=== PATIENT | male | born 1970 | race American Indian/Alaskan Native ===

== ENCOUNTER 2016-06-20 19:12 | Emergency (ER) | payer SELFPAY ==
[2016-06-20] MEDS ORDERED: CATAPRES ONE (19:29)
[2016-06-20] MEDS ORDERED: CATAPRES PO ONE (19:37)
[2016-06-20 20:20] LABS: Basophils % (Auto) 1.3 % (0.0-1.8); Hematocrit 42.1 % (35.5-45.6); Hemoglobin 13.5 gm/dl (11.8-15.2); Mean Corpuscular HGB Conc 32 % (32-34); Mean Corpuscular Hemoglobin 29 pg (28-32); Mean Corpuscular Volume 89 fl (84-94); Platelet Count 281 K/mm3 (140-440); Red Blood Count 4.72 M/mm3 (3.65-5.03); Red Cell Distribution Width 13.2 % (13.2-15.2); White Blood Count 9.4 K/mm3 (4.5-11.0)
[2016-06-20 20:38] LABS: Anion Gap 16 mmol/L; Blood Urea Nitrogen 13 mg/dL (9-20); Calcium 8.5 mg/dL (8.4-10.2); Carbon Dioxide 25 mmol/L (22-30); Chloride 98.7 mmol/L (98-107); Glucose 92 mg/dL (75-100); Sodium 136 mmol/L (137-145)
--- NOTE | 2016-06-20 22:38 | Emergency Department Report ---
HPI - General Chief Complaint: Dyspnea/Respdistress Time Seen by Provider: 06/20/16 22:07 - [facility] HPI: Room 10 The patient is a 45-year-old male presenting with a chief complaint of chest pain. The patient states that 10 days he's had intermittent substernal chest pain that comes on with exertion. The patient admits to shortness of breath, nausea/vomiting and diaphoresis associated with this chest pain. Patient states she has had a slight cough is occasionally productive of yellow sputum. Patient denies any history of fever. Patient states he's never had a stress test or cardiac catheterization. The patient states she has been off his blood pressure medication for quite some time. Patient states he does not remember the name of the medication he was taking but the small pills too strong. Patient was asked if his is taking clonidine and he states he cannot remember Location: Chest Duration: 10 days Quality: Pain Severity: 09/02 Modifying factors: Exertion causes pain Context: [see above] Mode of transportation: Unknown ED Past Medical Hx - Past Medical History Previous Medical History?: Yes Hx Hypertension: Yes - Surgical History Past Surgical History?: No - Family History Family history: no significant - Social History Smoking Status: Former Smoker (none 6 years) Substance Use Type: Alcohol (occasional) - Medications Home Medications: Home Medications Medication Instructions Recorded Confirmed Last Taken Type HYDROcodone/APAP 5-325 [[place] 1 each PO Q6HR PRN #20 tablet 01/20/13 Unknown Rx 5/325 mg] cloNIDine [Catapres] 0.1 mg PO BID #90 tablet 05/22/15 Unknown Rx ED Review of Systems ROS: Stated complaint: GENNY Other details as noted in HPI Comment: All other systems reviewed and negative Constitutional: diaphoresis. denies: fever Eyes: denies: eye pain, eye discharge, vision change ENT: denies: ear pain, throat pain Respiratory: shortness of breath Cardiovascular: chest pain Endocrine: no symptoms reported Gastrointestinal: nausea, vomiting Genitourinary: denies: urgency, dysuria Skin: denies: rash, lesions Neurological: denies: headache, weakness, paresthesias Psychiatric: denies: anxiety, depression Hematological/Lymphatic: denies: easy bleeding, easy bruising Physical Exam - Physical Exam Vital Signs: Vital Signs 06/20/16 06/20/16 19:20 20:00 Temperature 98.1 F Pulse Rate 103 H 103 H Respiratory 20 Rate Blood Pressure 197/147 Blood Pressure 196/147 [Right] O2 Sat by Pulse 99 Oximetry Physical Exam: GENERAL: The patient is well-developed well-nourished male sitting in room not appearing to be in acute distress. [] HEENT: Normocephalic. Atraumatic. Extraocular motions are intact. Patient has moist mucous membranes. NECK: Supple. No meningitic signs are noted. There is no adenopathy noted. CHEST/LUNGS: Clear to auscultation. There is no respiratory distress noted. HEART/CARDIOVASCULAR: Regular. There is no tachycardia. There is no gallop rub or murmur. ABDOMEN: Abdomen is soft, nontender. Patient has normal bowel sounds. There is no abdominal distention. SKIN: There is no rash. There is no edema. There is no diaphoresis. NEURO: The patient is awake, alert, and oriented. The patient is cooperative. The patient has normal speech MUSCULOSKELETAL: There is no evidence of acute injury. ED Course Vital Signs 06/20/16 06/20/16 19:20 20:00 Temperature 98.1 F Pulse Rate 103 H 103 H Respiratory 20 Rate Blood Pressure 197/147 Blood Pressure 196/147 [Right] O2 Sat by Pulse 99 Oximetry ED Medical Decision Making - Lab Data Result diagrams: 06/20/16 20:02 06/20/16 20:02 Laboratory Tests 06/20/16 06/20/16 20:02 20:02 WBC 9.4 RBC 4.72 Hgb 13.5 Hct 42.1 MCV 89 MCH 29 MCHC 32 RDW 13.2 Plt Count 281 Lymph % (Auto) 29.7 [place] % (Auto) 5.1 Eos % (Auto) 3.0 Baso % (Auto) 1.3 Lymph # 2.8 [place] # 0.5 Eos # 0.3 Baso # 0.1 Seg Neutrophils % 60.9 Seg Neutrophils # 5.8 Sodium 136 L Potassium 4.0 Chloride 98.7 Carbon Dioxide 25 Anion Gap 16 BUN 13 Creatinine 1.3 Estimated GFR > 60 BUN/Creatinine Ratio 10.00 Glucose 92 Calcium 8.5 Troponin T 0.015 - EKG Data -: EKG Interpreted by Wi EKG shows normal: sinus rhythm Rate: normal - EKG Data When compared to previous EKG there are: no significant change Interpretation: unchanged when compared t (01/20/2013), nonspecific ST-T wave stacy - Radiology Data Radiology results: image reviewed (chest x-ray) interpreted by me: Chest x-ray-no focal infiltrates, no pneumothorax. Mild vascular congestion. cardiomegaly - Differential Diagnosis ACS, pneumonia, GERD, pericarditis, hypertensive Critical care attestation.: If time is entered above; I have spent that time in minutes in the direct care of this critically ill patient, excluding procedure time. ED Disposition Clinical Impression: Chest pain, Uncontrolled hypertension Disposition: LEFT AGAINST MEDICAL ADVICE Is pt being admited?: No Does the pt Need Aspirin: Yes Condition: Undetermined Instructions: Chest Pain (ED), Hypertension (ED) Referrals: PRIMARY CARE, [Primary Care Provider] - 3-5 Days Forms: AMA Form Time of Disposition: 23:14 (patient leaving AMA)
[2016-06-20] MEDS ORDERED: ASPIRIN ONE (23:05)
[2016-06-20] MEDS ORDERED: ASPIRIN PO ONE (23:15)
[2016-06-20 23:43] VITALS: BP 162/103
--- NOTE | 2016-06-21 10:17 | XRay Report ---
ROUTINE CHEST, TWO VIEWS: HISTORY: Shortness of breath. The trachea, heart, mediastinal contour, lung montano and bony thorax are unremarkable. IMPRESSION: Unremarkable chest x-ray.
== END 2016-06-20 23:41 | disposition left against medical advice (07) ==
LOC: ED 19:12
DX: R07.2 Precordial pain (principal); I10 Essential (primary) hypertension; Z87.891 Personal history of nicotine dependence
CPT/HCPCS: 36415; 71020; 80048; 84484; 85025; 93005; 93010; 99284

== ENCOUNTER 2017-04-10 15:38 | Inpatient (IN) | payer OTHER ==
[2017-04-10 16:10] LABS: Basophils % (Auto) 1.2 % (0.0-1.8); Eosinophils % (Auto) 3.3 % (0.0-4.3); Hematocrit 36.9 % (35.5-45.6); Hemoglobin 12.2 gm/dl (11.8-15.2); Mean Corpuscular HGB Conc 33 % (32-34); Mean Corpuscular Hemoglobin 30 pg (28-32); Mean Corpuscular Volume 90 fl (84-94); Platelet Count 183 K/mm3 (140-440); Red Cell Distribution Width 13.5 % (13.2-15.2); White Blood Count 8.8 K/mm3 (4.5-11.0)
[2017-04-10 16:29] LABS: Anion Gap 18 mmol/L; BUN/Creatinine Ratio 11; Blood Urea Nitrogen 14 mg/dL (9-20); Calcium 8.5 mg/dL (8.4-10.2); Carbon Dioxide 25 mmol/L (22-30); Chloride 102.2 mmol/L (98-107); Glucose 141 mg/dL (75-100); Potassium 4.3 mmol/L (3.6-5.0); Sodium 141 mmol/L (137-145)
[2017-04-10 16:45] LABS: Cholesterol 149 mg/dL (50-199); HDL Cholesterol 21 mg/dL (40-59); LDL Cholesterol,Direct 74 mg/dL (50-130); Triglycerides 270 mg/dL (2-149)
--- NOTE | 2017-04-10 17:55 | XRay Report ---
FINAL REPORT PROCEDURE: Chest. TECHNIQUE: Frontal and lateral views. HISTORY: Chest pain. COMPARISON: No prior studies are available for comparison. FINDINGS: The heart size is enlarged. There is mild tortuosity of the thoracic aorta. The lungs are clear and well expanded. There are no pleural effusions. The soft tissues and regional skeleton are unremarkable. IMPRESSION: Cardiomegaly.
--- NOTE | 2017-04-10 18:38 | Emergency Department Report ---
ED Chest Pain HPI - General Chief Complaint: Chest Pain Stated Complaint: DIFFICULTY BREATHING Time Seen by Provider: 04/10/17 18:35 Source: patient Mode of arrival: Ambulatory Limitations: No Limitations - History of Present Illness Initial Comments: Patient with history of hypertension and has been having chest pain off and on all week states is tight across his chest he is here with persistent chest pain denied tobacco MD Complaint: chest pain -: days(s) Onset: during rest, during exertion Pain Location: substernal Pain Radiation: none Severity: moderate Quality: tightness, aching Improves With: nitroglycerin Worsens With: other (patient not sure) - Related Data Previous Rx's Medication Instructions Recorded Last Taken Type HYDROcodone/APAP 5-325 [[place] 1 each PO Q6HR PRN #20 tablet 01/20/13 Unknown Rx 5/325 mg] cloNIDine [Catapres] 0.1 mg PO BID #90 tablet 05/22/15 Unknown Rx amLODIPine [Norvasc] 5 mg PO DAILY #90 tab 06/20/16 Unknown Rx Allergies Allergy/AdvReac Type Severity Reaction Status Date / Time No Known Allergies Allergy Verified 04/10/17 15:41 Heart Score - HEART Score History: Moderately suspicious EKG: Non-specific Age: 45-65 Risk factors: 1-2 risk factors Troponin: 1-3x normal limit HEART Score: 5 ED Review of Systems ROS: Stated complaint: DIFFICULTY BREATHING Other details as noted in HPI Comment: All other systems reviewed and negative Constitutional: denies: diaphoresis, fever, malaise, weakness Respiratory: shortness of breath. denies: wheezing Cardiovascular: as per HPI, chest pain. denies: syncope Gastrointestinal: denies: abdominal pain, vomiting, diarrhea Neurological: denies: numbness, paresthesias, vertigo ED Past Medical Hx - Past Medical History Hx Hypertension: Yes Hx Asthma: Yes - Social History Smoking Status: Never Smoker Substance Use Type: None - Medications Home Medications: Home Medications Medication Instructions Recorded Confirmed Last Taken Type HYDROcodone/APAP 5-325 [[place] 1 each PO Q6HR PRN #20 tablet 01/20/13 Unknown Rx 5/325 mg] cloNIDine [Catapres] 0.1 mg PO BID #90 tablet 05/22/15 Unknown Rx amLODIPine [Norvasc] 5 mg PO DAILY #90 tab 06/20/16 Unknown Rx ED Physical Exam - General Limitations: No Limitations General appearance: alert, in no apparent distress - Eye Eye exam: Present: normal appearance, PERRL, EOMI - Neck Neck exam: Present: normal inspection. Absent: meningismus - Respiratory Respiratory exam: Present: rhonchi. Absent: respiratory distress, stridor - Cardiovascular Cardiovascular Exam: Present: regular rate, normal rhythm, normal heart sounds - GI/Abdominal GI/Abdominal exam: Present: soft. Absent: distended, tenderness, guarding, rebound, pulsatile mass - Extremities Exam Extremities exam: Absent: joint swelling, calf tenderness - Back Exam Back exam: Present: normal inspection - Neurological Exam Neurological exam: Present: alert, altered, oriented X3, CN II-XII intact. Absent: motor sensory deficit - Psychiatric Psychiatric exam: Present: normal affect ED Course Vital Signs 04/10/17 04/10/17 04/10/17 15:41 18:31 18:45 Temperature 97.5 F L Pulse Rate 107 H 99 H Respiratory 18 19 Rate Blood Pressure 185/121 180/112 O2 Sat by Pulse 98 98 99 Oximetry 04/10/17 04/10/17 04/10/17 18:58 19:01 19:05 Temperature Pulse Rate 99 H 100 H 98 H Respiratory 25 H Rate Blood Pressure 180/112 180/112 184/112 O2 Sat by Pulse 97 Oximetry 04/10/17 04/10/17 19:10 19:15 Temperature Pulse Rate 99 H 101 H Respiratory 20 Rate Blood Pressure 174/112 174/112 O2 Sat by Pulse 99 Oximetry - Reevaluation(s) Reevaluation #1: 04/10/17 19:50 pt pain free, given nitroglycerin, repeat blood pressure is improving, he was also given an aspirin he was also given some morphine and Zofran and a glycerin paste he is awaiting further evaluation by Dr. Leon ED Medical Decision Making - Lab Data Result diagrams: 04/10/17 15:56 04/10/17 15:56 - EKG Data -: EKG Interpreted by Pa EKG shows normal: sinus rhythm - EKG Data Interpretation: nonspecific ST-T wave stacy, LVH (EKG [address] change normal sinus rhythm rate of 99), other - Radiology Data Radiology results: report reviewed - Medical Decision Making Case discussed with Dr. Taco LEON for evaluation and admission for further evaluation of chest pain patient is chest pain-free at this time. He will need admission for further evaluation of ACS given the elevated troponin. Critical care attestation.: If time is entered above; I have spent that time in minutes in the direct care of this critically ill patient, excluding procedure time. ED Disposition Clinical Impression: Chest pain Disposition: OP ADMIT IP TO THIS HOSP Is pt being admited?: Yes Condition: Stable Instructions: Chest Pain (ED) Referrals: PRIMARY CARE, [Primary Care Provider] - 3-5 Days Time of Disposition: 19:53
[2017-04-10] MEDS ORDERED: ASPIRIN PO ONE (18:39)
[2017-04-10] MEDS: NITROSTAT SL PRN ×3 (18:58→19:10)
[2017-04-10] MEDS ORDERED: MORPHINE IV ONE (19:33)
[2017-04-10] MEDS ORDERED: ZOFRAN IV ONE (19:33)
[2017-04-10] MEDS ORDERED: NITRO-BID 2% TP ONE (19:40)
--- NOTE | 2017-04-10 20:18 | History and Physical Report ---
History of Present Illness Date of examination: 04/10/17 Date of admission: 04/10/17 Chief complaint: Cc L chest pain 1 week History of present illness: [place] [place] [employer]: 46 y/o Male comes in for L sided Chest pain since one week.Intermittent in nature.Dull in character.Non radiating.No palpitations or diaphoresis. No SOB.No syncope.No dizziness. No recent travel No exacerbating or relieving factors - Past Medical History Hx Hypertension: Yes Hx Asthma: Yes - Social History Smoking Status: Never Smoker Substance Use Type: None - Medications Home Medications: Home Medications Medication Instructions Recorded Confirmed Last Taken Type HYDROcodone/APAP 5-325 [[place] 1 each PO Q6HR PRN #20 tablet 01/20/13 Unknown Rx 5/325 mg] cloNIDine [Catapres] 0.1 mg PO BID #90 tablet 05/22/15 Unknown Rx amLODIPine [Norvasc] 5 mg PO DAILY #90 tab 06/20/16 Unknown Rx Review of Systems ROS: Stated complaint: DIFFICULTY BREATHING Other details as noted in HPI Comment: All other systems reviewed and negative Constitutional: denies: diaphoresis, fever, malaise, weakness Respiratory: shortness of breath. denies: wheezing Cardiovascular: as per HPI, chest pain. denies: syncope Gastrointestinal: denies: abdominal pain, vomiting, diarrhea Neurological: denies: numbness, paresthesias, vertigo Medications and Allergies Allergies Allergy/AdvReac Type Severity Reaction Status Date / Time No Known Allergies Allergy Verified 04/10/17 15:41 Home Medications Medication Instructions Recorded Confirmed Last Taken Type HYDROcodone/APAP 5-325 [[place] 1 each PO Q6HR PRN #20 tablet 01/20/13 Unknown Rx 5/325 mg] cloNIDine [Catapres] 0.1 mg PO BID #90 tablet 05/22/15 Unknown Rx amLODIPine [Norvasc] 5 mg PO DAILY #90 tab 06/20/16 Unknown Rx Active Meds: Active Medications Nitroglycerin (Nitrostat) 0.4 mg SL .Q5MIN PRN PRN Reason: Chest Pain Last Admin: 04/10/17 19:10 Dose: 0.4 mg Review of Systems All systems: negative Exam - Constitutional Vitals: Temp Pulse Resp BP Pulse Ox 97.5 F L 101 H 20 174/112 99 04/10/17 15:41 04/10/17 19:15 12/16/17 19:15 04/10/17 19:15 04/10/17 19:15 General appearance: Present: no acute distress, well-nourished - EENT Eyes: Present: PERRL ENT: hearing intact, clear oral mucosa - Neck Neck: Present: supple, normal ROM - Respiratory Respiratory effort: normal Respiratory: bilateral: CTA - Cardiovascular Heart Sounds: Present: S1 & S2. Absent: rub, click - Extremities Extremities: pulses symmetrical, No edema Peripheral Pulses: within normal limits - Abdominal General gastrointestinal: Present: soft, non-tender, non-distended, normal bowel sounds Male genitourinary: Present: normal - Integumentary Integumentary: Present: clear, warm, dry - Musculoskeletal Musculoskeletal: gait normal, strength equal bilaterally - Psychiatric Psychiatric: appropriate mood/affect, intact judgment & insight - Neurologic Neurologic: CNII-XII intact, moves all extremities Results - Labs CBC & Chem 7: 04/10/17 15:56 04/10/17 15:56 Labs: Laboratory Last Values WBC 8.8 K/mm3 (4.5-11.0) 04/10/17 15:56 RBC 4.10 M/mm3 (3.65-5.03) 04/10/17 15:56 Hgb 12.2 gm/dl (11.8-15.2) 04/10/17 15:56 Hct 36.9 % (35.5-45.6) 04/10/17 15:56 MCV 90 fl (84-94) 04/10/17 15:56 MCH 30 pg (28-32) 04/10/17 15:56 MCHC 33 % (32-34) 04/10/17 15:56 RDW 13.5 % (13.2-15.2) 04/10/17 15:56 Plt Count 183 K/mm3 (140-440) 04/10/17 15:56 Lymph % (Auto) 15.9 % (13.4-35.0) 04/10/17 15:56 [place] % (Auto) 6.8 % (0.0-7.3) 04/10/17 15:56 Eos % (Auto) 3.3 % (0.0-4.3) 04/10/17 15:56 Baso % (Auto) 1.2 % (0.0-1.8) 04/10/17 15:56 Lymph # 1.4 K/mm3 (1.2-5.4) 04/10/17 15:56 [place] # 0.6 K/mm3 (0.0-0.8) 04/10/17 15:56 Eos # 0.3 K/mm3 (0.0-0.4) 04/10/17 15:56 Baso # 0.1 K/mm3 (0.0-0.1) 04/10/17 15:56 Seg Neutrophils % 72.8 % (40.0-70.0) H 04/10/17 15:56 Seg Neutrophils # 6.4 K/mm3 (1.8-7.7) 04/10/17 15:56 Sodium 141 mmol/L (137-145) 04/10/17 15:56 Potassium 4.3 mmol/L (3.6-5.0) 04/10/17 15:56 Chloride 102.2 mmol/L (98-107) 04/10/17 15:56 Carbon Dioxide 25 mmol/L (22-30) 04/10/17 15:56 Anion Gap 18 mmol/L 04/10/17 15:56 BUN 14 mg/dL (9-20) 04/10/17 15:56 Creatinine 1.3 mg/dL (0.8-1.5) 04/10/17 15:56 Estimated GFR > 60 ml/min 04/10/17 15:56 BUN/Creatinine Ratio 11 % 04/10/17 15:56 Glucose 141 mg/dL (75-100) H 04/10/17 15:56 Calcium 8.5 mg/dL (8.4-10.2) 04/10/17 15:56 Troponin T 0.027 ng/mL (0.00-0.029) 04/10/17 18:58 NT-Pro-B Natriuret Pep 3055 pg/mL (0-450) H 04/10/17 15:56 Triglycerides 270 mg/dL (2-149) H 04/10/17 15:56 Cholesterol 149 mg/dL (50-199) 04/10/17 15:56 LDL Cholesterol Direct 74 mg/dL (50-130) 04/10/17 15:56 HDL Cholesterol 21 mg/dL (40-59) L 04/10/17 15:56 Cholesterol/HDL Ratio 7.09 % 04/10/17 15:56 Short CBC 04/10/17 Range/Units 15:56 WBC 8.8 (4.5-11.0) K/mm3 Hgb 12.2 (11.8-15.2) gm/dl Hct 36.9 (35.5-45.6) % Plt Count 183 (140-440) K/mm3 BMP 04/10/17 15:56 Sodium 141 Potassium 4.3 Chloride 102.2 Carbon Dioxide 25 BUN 14 Creatinine 1.3 Glucose 141 H Calcium 8.5 Cardiac Enzymes 04/10/17 04/10/17 04/10/17 Range/Units 15:56 18:58 21:08 Total Creatine Kinase 658 H (55-170) units/L CK-MB (CK-2) 7.3 H (0.0-4.0) ng/mL Troponin T 0.032 H 0.027 0.024 (0.00-0.029) ng/mL 04/11/17 Range/Units 05:03 Total Creatine Kinase 542 H (55-170) units/L CK-MB (CK-2) 6.0 H (0.0-4.0) ng/mL Troponin T 0.039 H D (0.00-0.029) ng/mL - Imaging and Cardiology EKG: report reviewed (NSR) Assessment and Plan Advance Directives: Yes (FC) VTE prophylaxis?: Chemical Plan of care discussed with patient/family: Yes - Patient Problems (1) Chest pain Current Visit: Yes Status: Acute Qualifiers: Chest pain type: unspecified Qualified Code(s): R07.9 - Chest pain, unspecified Plan to address problem: Chest pain w/u (2) Hypertension Current Visit: No Status: Chronic Qualifiers: Hypertension type: essential hypertension Qualified Code(s): I10 - Essential (primary) hypertension Plan to address problem: Cont clonidine (3) GERD (gastroesophageal reflux disease) Current Visit: Yes Status: Chronic Qualifiers: Esophagitis presence: with esophagitis Qualified Code(s): K21.0 - Gastro- esophageal reflux disease with esophagitis Plan to address problem: Initiated on Protonix (4) DVT prophylaxis Current Visit: Yes Status: Acute Plan to address problem: On Lovenox
[2017-04-10] MEDS ORDERED: NORCO 5/325 PO PRN (20:51)
[2017-04-10] MEDS ORDERED: NORVASC PO SCH (21:00)
[2017-04-10] MEDS ORDERED: NORVASC ONE (21:14)
[2017-04-10 21:42] LABS: Creatine Kinase MB 7.3 ng/mL (0.0-4.0)
[2017-04-11] MEDS: CATAPRES PO SCH ×3 (00:01→22:55)
[2017-04-11] MEDS: MUCINEX ER PO SCH ×3 (00:24→22:55)
[2017-04-11] MEDS: COLACE PO SCH ×3 (00:25→22:55)
[2017-04-11] MEDS ORDERED: LEXISCAN IV ONE ×2 (08:16→09:29)
[2017-04-11] MEDS ORDERED: LOVENOX SUB-Q SCH ×3 (10:00→22:00)
--- NOTE | 2017-04-11 10:40 | Consultation ---
History of Present Illness Consult date: 04/11/17 Consult reason: chest pain History of present illness: 46 year old male presenting with a 5 day history of chest pain and shortness of breath. He has not been able to sleep for the last 5 nights because of the shortness of breath. He is known hypertensive, poorly controlled secondary to non-compliance with meds. Labs are pertinent for elevated BNP, non-specific troponin, ECG is showing lateral T wave inversions. CXR pertinent for cardiomegaly. MPI revealing a non-ischemic cardiomyopathy with a LVEF 33% Past History Past Medical History: hypertension, other (asthma) Past Surgical History: No surgical history Social history: no significant social history Family history: hypertension Medications and Allergies Allergies Allergy/AdvReac Type Severity Reaction Status Date / Time No Known Allergies Allergy Verified 04/10/17 15:41 Home Medications Medication Instructions Recorded Confirmed Last Taken Type HYDROcodone/APAP 5-325 [[place] 1 each PO Q6HR PRN #20 tablet 01/20/13 Unknown Rx 5/325 mg] cloNIDine [Catapres] 0.1 mg PO BID #90 tablet 05/22/15 Unknown Rx amLODIPine [Norvasc] 5 mg PO DAILY #90 tab 06/20/16 Unknown Rx Active Meds: Active Medications Acetaminophen/Hydrocodone Bitart ([place] 5/325) 1 each PO Q6HR PRN PRN Reason: Pain Amlodipine Besylate (Norvasc) 5 mg PO DAILY [facility] Last Admin: 04/10/17 21:20 Dose: 5 mg Atorvastatin Calcium (Lipitor) 40 mg PO QHS [facility] Carvedilol (Coreg) 3.125 mg PO BID [facility] Clonidine HCl (Catapres) 0.1 mg PO BID [facility] Last Admin: 04/11/17 00:01 Dose: 0.1 mg Docusate Sodium (Colace) 100 mg PO BID [facility] Last Admin: 04/11/17 00:25 Dose: 100 mg Enoxaparin Sodium (Lovenox) 110 mg SUB-Q Q12HR [facility] Guaifenesin (Mucinex Er) 600 mg PO BID [facility] Last Admin: 04/11/17 00:24 Dose: 600 mg Influenza Virus Vaccine Quadrival (Fluarix Quad [id number](36 Mos+) 0.5 ml IM .ONCE ONE Stop: 04/12/17 12:01 Nitroglycerin (Nitrostat) 0.4 mg SL .Q5MIN PRN PRN Reason: Chest Pain Last Admin: 04/10/17 19:10 Dose: 0.4 mg Review of Systems All systems: negative Physical Examination Vital Signs Temp Pulse Resp BP Pulse Ox 97.5 F L 107 H 18 185/121 98 04/10/17 15:41 04/10/17 15:41 04/10/17 15:41 04/10/17 15:41 04/10/17 15:41 General appearance: no acute distress HEENT: Positive: PERRL Neck: Positive: JVD/HJR Cardiac: Positive: Reg Rate and Rhythm Lungs: Positive: Decreased Breath Sounds Abdomen: Positive: Soft Extremities: Present: normal Results 04/10/17 15:56 04/10/17 15:56 Cardiac Enzymes 04/10/17 04/11/17 Range/Units 21:08 05:03 CK-MB (CK-2) 7.3 H 6.0 H (0.0-4.0) ng/mL Lipids 04/10/17 Range/Units 15:56 Triglycerides 270 H (2-149) mg/dL Cholesterol 149 (50-199) mg/dL HDL Cholesterol 21 L (40-59) mg/dL Cholesterol/HDL Ratio 7.09 % CBC 04/10/17 Range/Units 15:56 WBC 8.8 (4.5-11.0) K/mm3 RBC 4.10 (3.65-5.03) M/mm3 Hgb 12.2 (11.8-15.2) gm/dl Hct 36.9 (35.5-45.6) % Plt Count 183 (140-440) K/mm3 Lymph # 1.4 (1.2-5.4) K/mm3 [place] # 0.6 (0.0-0.8) K/mm3 Eos # 0.3 (0.0-0.4) K/mm3 Baso # 0.1 (0.0-0.1) K/mm3 Comprehensive Metabolic Panel 04/10/17 Range/Units 15:56 Sodium 141 (137-145) mmol/L Potassium 4.3 (3.6-5.0) mmol/L Chloride 102.2 (98-107) mmol/L Carbon Dioxide 25 (22-30) mmol/L BUN 14 (9-20) mg/dL Creatinine 1.3 (0.8-1.5) mg/dL Glucose 141 H (75-100) mg/dL Calcium 8.5 (8.4-10.2) mg/dL - EKG Interpretation EKG: sinus rhythm EKG interpretations - Telemetry EKG Rhythm: Sinus Rhythm Assessment and Plan Chest pain and shortness of breath Acute systolic heart failure Non-ischemic cardiomyopathy, likely hypertensive in origin LVEF 33% by MPI No ischemia on MPI Systemic Hypertension - poorly controlled Non-compliance Recommendations: Heart failure therapy with BB, ACEi and diuretics Advised compliance with meds and sleep study as outpatient
[2017-04-11] MEDS: COREG PO SCH ×2 (10:58→22:55)
--- NOTE | 2017-04-11 15:26 | Progress Note ---
Assessment and Plan /Chest pain likely from new onset acute CHF LVEF 33% by MPI No ischemia on MPI /shortness of breath likely from acute onset of CHF started on lasix CXR cardiomegaly /Acute systolic heart failure with Non-ischemic cardiomyopathy, likely hypertensive in origin, LVEF 33% by MPI started on BB, ACEi and diuretics ordered 2d echo /Systemic Hypertension - poorly controlled adjust med as needed (now on BB, ACEi, clonidine and diuretics) /Non-compliance discussed about medication compliance /GERD (gastroesophageal reflux disease) Initiated on Protonix / DVT prophylaxis On Lovenox Brief History: 46 y/o Male comes in for L sided Chest pain and SOB since one week. Physical exam: General appearance: Present: no acute distress, well-nourished - EENT Eyes: Present: PERRL ENT: hearing intact, clear oral mucosa - Neck Neck: Present: supple, normal ROM - Respiratory Respiratory effort: normal Respiratory: bilateral: Crackles - Cardiovascular Heart Sounds: Present: S1 & S2. Absent: rub, click - Extremities Extremities: pulses symmetrical, No edema Peripheral Pulses: within normal limits - Abdominal General gastrointestinal: Present: soft, non-tender, non-distended, normal bowel sounds Male genitourinary: Present: normal - Integumentary Integumentary: Present: clear, warm, dry - Musculoskeletal Musculoskeletal: gait normal, strength equal bilaterally - Psychiatric Psychiatric: appropriate mood/affect, intact judgment & insight - Neurologic Neurologic: CNII-XII intact, moves all extremities Subjective Date of service: 04/11/17 Interval history: pt seen and examined denies any chest pain now Bp elevated to 164/112 Objective - Constitutional Vitals: Vital Signs - 12hr 04/11/17 04/11/17 04/11/17 05:35 06:51 07:55 Temperature 98.0 F 97.6 F Pulse Rate 91 H 90 94 H Respiratory 20 20 Rate Blood Pressure 131/92 155/113 O2 Sat by Pulse 93 94 Oximetry 04/11/17 04/11/17 04/11/17 08:02 09:02 09:11 Temperature Pulse Rate 92 H 97 H Respiratory Rate Blood Pressure 149/110 164/112 161/115 O2 Sat by Pulse Oximetry 04/11/17 04/11/17 04/11/17 09:12 09:13 09:14 Temperature Pulse Rate 100 H 98 H 99 H Respiratory Rate Blood Pressure 152/93 161/111 167/114 O2 Sat by Pulse Oximetry 04/11/17 09:15 Temperature Pulse Rate 101 H Respiratory Rate Blood Pressure 165/113 O2 Sat by Pulse Oximetry - Labs CBC & Chem 7: 04/10/17 15:56 04/10/17 15:56 Labs: Abnormal lab results 04/10/17 04/10/17 04/10/17 Range/Units 15:56 15:56 21:08 Seg Neutrophils % 72.8 H (40.0-70.0) % Glucose 141 H (75-100) mg/dL Total Creatine Kinase 658 H (55-170) units/L CK-MB (CK-2) 7.3 H (0.0-4.0) ng/mL Troponin T 0.032 H (0.00-0.029) ng/mL NT-Pro-B Natriuret Pep 3055 H (0-450) pg/mL Triglycerides 270 H (2-149) mg/dL HDL Cholesterol 21 L (40-59) mg/dL 04/11/17 Range/Units 05:03 Seg Neutrophils % (40.0-70.0) % Glucose (75-100) mg/dL Total Creatine Kinase 542 H (55-170) units/L CK-MB (CK-2) 6.0 H (0.0-4.0) ng/mL Troponin T 0.039 H D (0.00-0.029) ng/mL NT-Pro-B Natriuret Pep (0-450) pg/mL Triglycerides (2-149) mg/dL HDL Cholesterol (40-59) mg/dL
[2017-04-11] MEDS: LASIX IV SCH (17:02)
[2017-04-11] MEDS: ALDACTONE PO SCH (17:02)
[2017-04-11] MEDS: ZESTRIL PO SCH (17:03)
--- NOTE | 2017-04-11 22:42 | Treadmill Report ---
INDICATION: Shortness of breath. FINDINGS: There is no scintigraphic evidence of myocardial ischemia. The left ventricular cavity is dilated. There is evidence of global left ventricular hypokinesis. The left ventricular ejection fraction is measured at 33%. There is also evidence of increased right ventricular uptake suggesting right ventricular pressure or volume overload. IMPRESSION: 1. No scintigraphic evidence of myocardial ischemia. 2. Dilated and hypokinetic left ventricle with an ejection fraction estimated at 33%. 3. Findings consistent with nonischemic cardiomyopathy. 4. Also, evidence of right ventricular pressure overload. JOB# [id number] TAISHA/CHEYANNE
[2017-04-12 06:08] LABS: Anion Gap 15 mmol/L; BUN/Creatinine Ratio 14; Blood Urea Nitrogen 18 mg/dL (9-20); Calcium 8.8 mg/dL (8.4-10.2); Carbon Dioxide 28 mmol/L (22-30); Chloride 100.7 mmol/L (98-107); Glucose 107 mg/dL (75-100); Potassium 4.1 mmol/L (3.6-5.0); Sodium 140 mmol/L (137-145)
[2017-04-12] MEDS: LASIX IV SCH (06:11)
--- NOTE | 2017-04-12 08:34 | Discharge Summary ---
Providers - Providers Date of Admission: 04/10/17 20:18 Date of discharge: 04/12/17 Attending physician: MAGI COOK 04/11/17 08:13 Consult to Physician [CONS] Routine Consulting Provider: PRIYA NAIDU Reason For Exam: chest pain elevated troponin Place consult to:: Dr. Arlin Naidu Notified:: Eileen RN Phone number called:: Was contact made?: Yes If yes, spoke with:: Heather-answering service Time called:: 10:48 Primary care physician: OUTER DIAMETER TECHNICIAN Hospitalization Reason for admission: Chest pain Condition: Stable Pertinent studies: CXR, Strerss thallium robert showed none ichemic cardiomypathy with EF 33% Procedures: none Hospital course: 46 y/o Male comes in on 04/10/17 for L sided Chest pain since one week. Intermittent in nature. Dull in character.Non radiating.No palpitations or diaphoresis. No SOB. No syncope. No dizziness. No recent travel. No exacerbating or relieving factors. Had stress thallium that showed EF of 33% with systolic dysfunction. Had elevated blood sugar fr whic A1c was ordered. result was 5.2%. 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 Disposition: DC-01 TO HOME OR SELFCARE Core Measure Documentation - Palliative Care Palliative Care/ Comfort Measures: Not Applicable - Core Measures Any of the following diagnoses?: heart failure - Heart Failure Discharge Requirements SHANDA/ARB for LVSD if EF <40%: Yes Beta rainer at discharge: Yes Exam - Constitutional Vitals: Temp Pulse Resp BP Pulse Ox 98.4 F 83 22 119/77 97 04/12/17 04:48 04/12/17 06:00 04/12/17 04:48 04/12/17 04:48 04/12/17 04:48 General appearance: Present: no acute distress, well-nourished - EENT Eyes: Present: PERRL ENT: hearing intact, clear oral mucosa - Neck Neck: Present: supple, normal ROM - Respiratory Respiratory effort: normal - Cardiovascular Heart Sounds: Present: S1 & S2. Absent: rub, click - Extremities Extremities: pulses symmetrical, No edema Peripheral Pulses: within normal limits - Abdominal General gastrointestinal: Present: soft, non-tender, non-distended, normal bowel sounds Male genitourinary: Present: normal - Integumentary Integumentary: Present: clear, warm, dry - Musculoskeletal Musculoskeletal: gait normal, strength equal bilaterally - Psychiatric Psychiatric: appropriate mood/affect, intact judgment & insight - Neurologic Neurologic: CNII-XII intact, moves all extremities Plan Activity: advance as tolerated Diet: low fat, low cholesterol Special Instructions: restrict fluid intake to (1.5L/Days) Follow up with: PRIMARY CAREMD [Primary Care Provider] - 3-5 Days ESTELA KITCHEN MD [Staff Physician] - 7 Days Prescriptions: amLODIPine [Norvasc] 5 mg PO DAILY #90 tab AtorvaSTATin [Lipitor] 40 mg PO QHS #30 tablet Carvedilol [Coreg] 3.125 mg PO BID #60 tablet Furosemide [Furosemide ORAL LIQ] 40 mg PO QDAY #30 ml guaiFENesin ER [Mucinex ER] 600 mg PO BID #30 tablet Lisinopril [Zestril TAB] 20 mg PO QDAY #30 tablet Potassium Chloride 20 meq PO QDAY #30 packet Spironolactone [Aldactone] 25 mg PO QDAY #30 tablet
[2017-04-12] MEDS: MUCINEX ER PO SCH (09:29)
[2017-04-12] MEDS: COLACE PO SCH (09:29)
[2017-04-12] MEDS: ZESTRIL PO SCH (09:30)
[2017-04-12] MEDS: CATAPRES PO SCH (09:31)
[2017-04-12] MEDS: COREG PO SCH (09:31)
[2017-04-12 09:32] VITALS: BP 116/61
[2017-04-12] MEDS: ALDACTONE PO SCH (09:32)
--- NOTE | 2017-04-12 10:41 | Progress Note ---
Assessment and Plan Chest pain, atypical No ischemia on MPI this admission Acute systolic heart failure Non-ischemic cardiomyopathy, likely hypertensive in origin LVEF 33% by MPI Systemic Hypertension Non-compliance Recommendations: Heart failure therapy with BB, ACEi and diuretics Advised compliance with meds. Fluid and dietary restrictions. Outpatient sleep study. Stable cardiac louie. Subjective Date of service: 04/12/17 Interval history: Patient reports he is feeling better. Short burst of NSVT on telemetry monitoring this morning. Patient remained asymptomatic. Objective Vital Signs Temp Pulse Pulse Resp BP Pulse Ox 04/12/17 09:32 73 116/61 04/12/17 09:31 73 116/61 04/12/17 09:30 73 116/61 04/12/17 06:00 83 04/12/17 04:48 98.4 F 88 22 119/77 97 04/11/17 23:59 97.5 F L 89 18 134/94 96 04/11/17 22:55 88 142/95 04/11/17 22:00 86 88 18 96 04/11/17 19:27 89 04/11/17 19:24 97.6 F 88 20 142/95 96 04/11/17 14:00 92 H 04/11/17 13:42 97.9 F 86 18 119/79 97 - Physical Examination General: No Apparent Distress HEENT: Positive: PERRL Cardiac: Positive: Reg Rate and Rhythm Lungs: Positive: Decreased Breath Sounds Neuro: Positive: Grossly Intact Extremities: Absent: edema - Labs and Meds Comprehensive Metabolic Panel 04/12/17 Range/Units 04:54 Sodium 140 (137-145) mmol/L Potassium 4.1 (3.6-5.0) mmol/L Chloride 100.7 (98-107) mmol/L Carbon Dioxide 28 (22-30) mmol/L BUN 18 (9-20) mg/dL Creatinine 1.3 (0.8-1.5) mg/dL Glucose 107 H (75-100) mg/dL Calcium 8.8 (8.4-10.2) mg/dL - Imaging and Cardiology EKG: report reviewed (NSR)
[2017-04-12] MEDS ORDERED: Fluarix Quad 2017-2018(36 MOS+ IM ONE (12:00)
== END 2017-04-12 16:20 | disposition home or self-care (01) | DRG 293 ==
LOC: ED 15:38 → 4A 20:18
PROVIDERS: ADMIT Internal Medicine; ATTEND Family Medicine
PROC: 3E0234Z Introduction of Serum, Toxoid and Vaccine into Muscle, Percutaneous Approach (ICD-10-PCS; principal; 2017-04-12)
DX: I11.0 Hypertensive heart disease with heart failure (principal); I50.21 Acute systolic (congestive) heart failure; I42.9 Cardiomyopathy, unspecified; J45.909 Unspecified asthma, uncomplicated; K21.9 Gastro-esophageal reflux disease without esophagitis; Z79.899 Other long term (current) drug therapy; Z23 Encounter for immunization; Z91.14 Patient's other noncompliance with medication regimen
CPT/HCPCS: 36415; 71020; 78452; 80048; 80061; 82550; 82553; 83036; 83880; 84484; 85025; 90686; 93005; 93010; 93017; 93306; A9270-GY; A9502; J1650; J1940; J2270; J2405; J2785

== ENCOUNTER 2017-07-15 19:29 | Emergency (ER) | payer SELFPAY ==
[2017-07-15] MEDS ORDERED: XOPENEX IH ONE ×2 (19:54→21:06)
[2017-07-15 21:31] LABS: Basophils # (Auto) 0.1 K/mm3 (0.0-0.1); Basophils % (Auto) 1.1 % (0.0-1.8); Eosinophils # (Auto) 0.7 K/mm3 (0.0-0.4); Hematocrit 38.8 % (35.5-45.6); Hemoglobin 12.7 gm/dl (11.8-15.2); Lymphocytes % (Auto) 20.4 % (13.4-35.0); Mean Corpuscular HGB Conc 33 % (32-34); Mean Corpuscular Hemoglobin 29 pg (28-32); Mean Corpuscular Volume 90 fl (84-94); Monocytes # (Auto) 0.6 K/mm3 (0.0-0.8); Monocytes % (Auto) 6.3 % (0.0-7.3); Platelet Count 226 K/mm3 (140-440); Red Blood Count 4.34 M/mm3 (3.65-5.03); Red Cell Distribution Width 13.5 % (13.2-15.2)
[2017-07-15 21:42] LABS: BUN/Creatinine Ratio 8; Blood Urea Nitrogen 9 mg/dL (9-20); Hemolysis Index 9
--- NOTE | 2017-07-15 22:50 | XRay Report ---
FINAL REPORT EXAM: XR CHEST ROUTINE 2V HISTORY: Shortness of breath TECHNIQUE: 2 views of the chest. PRIORS: 04/10/2017 FINDINGS: The cardiac silhouette is moderately enlarged without change. The pulmonary vascularity appears normal. The lungs are clear. The bones and soft tissues are unremarkable. IMPRESSION: Stable cardiomegaly
[2017-07-16] MEDS ORDERED: NITROSTAT SL PRN (01:37)
--- NOTE | 2017-07-16 01:48 | Emergency Department Report ---
ED Shortness of Breath HPI - General Chief Complaint: Dyspnea/Respdistress Stated Complaint: SOB Time Seen by Provider: 07/16/17 00:22 Source: patient Mode of arrival: Ambulatory Limitations: No Limitations - History of Present Illness Initial Comments: Progressive onset shortness of breath and left-sided chest pain for the past week. He ran out of his home medication 2 weeks ago. During the past week, he started having nonradiating left-sided chest pain. It is associated with heaviness and shortness of breath. The symptoms are exertional, positional, but nonpleuritic. Patient has been told that he has had a weak heart. Does endorse increased leg swelling. Nonsmoker. No family history of ACS. Associated Symptoms: cough Treatments Prior to Arrival: none - Related Data Home Oxygen Therapy: No Previous Rx's Medication Instructions Recorded Last Taken Type amLODIPine [Norvasc] 5 mg PO DAILY #90 tab 04/12/17 Unknown Rx guaiFENesin ER [Mucinex ER] 600 mg PO BID #30 tablet 04/12/17 Unknown Rx AtorvaSTATin [Lipitor] 40 mg PO QHS #30 tablet 07/16/17 Unknown Rx Carvedilol [Coreg] 3.125 mg PO BID #60 tablet 07/16/17 Unknown Rx Furosemide [Furosemide ORAL LIQ] 40 mg PO QDAY #30 ml 07/16/17 Unknown Rx Lisinopril [Zestril TAB] 20 mg PO QDAY #30 tablet 07/16/17 Unknown Rx Potassium Chloride 20 meq PO QDAY #30 packet 07/16/17 Unknown Rx Spironolactone [Aldactone] 25 mg PO QDAY #30 tablet 07/16/17 Unknown Rx Allergies Allergy/AdvReac Type Severity Reaction Status Date / Time No Known Allergies Allergy Verified 04/10/17 15:41 ED Review of Systems ROS: Stated complaint: SOB Other details as noted in HPI Comment: All other systems reviewed and negative ED Past Medical Hx - Past Medical History Previous Medical History?: Yes Hx Hypertension: Yes Hx Asthma: Yes - Surgical History Past Surgical History?: No - Social History Smoking Status: Former Smoker Substance Use Type: Alcohol - Medications Home Medications: Home Medications Medication Instructions Recorded Confirmed Last Taken Type amLODIPine [Norvasc] 5 mg PO DAILY #90 tab 04/12/17 Unknown Rx guaiFENesin ER [Mucinex ER] 600 mg PO BID #30 tablet 04/12/17 Unknown Rx AtorvaSTATin [Lipitor] 40 mg PO QHS #30 tablet 07/16/17 Unknown Rx Carvedilol [Coreg] 3.125 mg PO BID #60 tablet 07/16/17 Unknown Rx Furosemide [Furosemide ORAL LIQ] 40 mg PO QDAY #30 ml 07/16/17 Unknown Rx Lisinopril [Zestril TAB] 20 mg PO QDAY #30 tablet 07/16/17 Unknown Rx Potassium Chloride 20 meq PO QDAY #30 packet 07/16/17 Unknown Rx Spironolactone [Aldactone] 25 mg PO QDAY #30 tablet 07/16/17 Unknown Rx ED Physical Exam - General Limitations: No Limitations General appearance: alert, in no apparent distress - Head Head exam: Present: atraumatic, normocephalic - Eye Eye exam: Present: normal appearance - ENT ENT exam: Present: mucous membranes moist - Neck Neck exam: Present: normal inspection - Respiratory Respiratory exam: Present: wheezes. Absent: respiratory distress - Cardiovascular Cardiovascular Exam: Present: regular rate, normal rhythm. Absent: systolic murmur, diastolic murmur, rubs, gallop - GI/Abdominal GI/Abdominal exam: Present: soft, normal bowel sounds - Rectal Rectal exam: Present: deferred - Extremities Exam Extremities exam: Present: pedal edema (2+) - Back Exam Back exam: Present: normal inspection - Neurological Exam Neurological exam: Present: alert, oriented X3 - Psychiatric Psychiatric exam: Present: normal affect, normal mood - Skin Skin exam: Present: warm, dry, intact, normal color. Absent: rash ED Course Vital Signs 07/15/17 07/15/17 07/15/17 19:36 20:59 21:10 Temperature 99.7 F H Pulse Rate 109 H 107 H Pulse Rate [ 110 H Anterior Bilateral Throughout] Respiratory 20 Rate Respiratory 18 Rate [Anterior Bilateral Throughout] Blood Pressure 172/104 172/104 Blood Pressure [Left] O2 Sat by Pulse 95 95 Oximetry 07/15/17 07/16/17 07/16/17 21:20 00:15 00:30 Temperature 97.7 F Pulse Rate 97 H 96 H Pulse Rate [ 111 H Anterior Bilateral Throughout] Respiratory 25 H 21 Rate Respiratory 18 Rate [Anterior Bilateral Throughout] Blood Pressure 168/110 166/112 Blood Pressure 168/110 [Left] O2 Sat by Pulse 98 98 Oximetry 07/16/17 07/16/17 07/16/17 00:45 01:00 01:15 Temperature Pulse Rate 100 H 99 H 99 H Pulse Rate [ Anterior Bilateral Throughout] Respiratory 24 23 25 H Rate Respiratory Rate [Anterior Bilateral Throughout] Blood Pressure 166/112 167/107 167/107 Blood Pressure [Left] O2 Sat by Pulse 98 97 98 Oximetry 07/16/17 07/16/17 07/16/17 01:30 02:00 02:12 Temperature Pulse Rate 98 H 97 H 106 H Pulse Rate [ Anterior Bilateral Throughout] Respiratory 25 H 27 H Rate Respiratory Rate [Anterior Bilateral Throughout] Blood Pressure 159/106 159/111 159/111 Blood Pressure [Left] O2 Sat by Pulse 97 97 Oximetry 07/16/17 07/16/17 07/16/17 02:30 03:00 03:30 Temperature Pulse Rate 99 H 95 H 102 H Pulse Rate [ Anterior Bilateral Throughout] Respiratory 29 H 25 H 15 Rate Respiratory Rate [Anterior Bilateral Throughout] Blood Pressure 155/103 153/103 153/103 Blood Pressure [Left] O2 Sat by Pulse 91 93 93 Oximetry 07/16/17 07/16/17 07/16/17 04:00 04:30 05:00 Temperature Pulse Rate 95 H 100 H Pulse Rate [ Anterior Bilateral Throughout] Respiratory 29 H 12 11 L Rate Respiratory Rate [Anterior Bilateral Throughout] Blood Pressure 152/100 160/104 149/108 Blood Pressure [Left] O2 Sat by Pulse 96 93 96 Oximetry ED Medical Decision Making - Lab Data Result diagrams: 07/15/17 21:15 07/15/17 21:15 - EKG Data -: EKG Interpreted by Ms EKG shows normal: sinus rhythm, axis, intervals, QRS complexes Rate: tachycardia - EKG Data TWI in leads V5-6 07/16/17 01:47 - Radiology Data Radiology results: report reviewed, image reviewed - Medical Decision Making 46-year-old male with past medical history of hypertension, CHF, hyperlipidemia that presents with progressive onset shortness of breath. Patient has been noncompliant with his home medications for the past 2 weeks. On presentation, patient with bilateral wheezing and 2+ bilateral pedal edema. He appears to be clinically fluid overloaded. He is oxygen saturation is 95% on room air and with exertion. Lab work shows mild cardiac stress. Initial troponin was elevated at 0.045. Repeat doses troponin is down trending at 0.041. EKG is nonischemic. Low suspicion for ACS. We've the patient to be having a mild CHF exacerbation. I have given him refills of his home medications for the next month. I told the patient to follow-up with his family doctor for further refills at that time. Return because haven't discussed. I offered the patient observation in the hospital, but he felt comfortable going home. Cleared for discharge. Critical care attestation.: If time is entered above; I have spent that time in minutes in the direct care of this critically ill patient, excluding procedure time. ED Disposition Clinical Impression: CHF exacerbation Disposition: DC- TO HOME OR SELFCARE Is pt being admited?: No Condition: Stable Additional Instructions: Please take 80 mg lasix for 2 days and then resume your normal amount of 40 mg daily. If your breathing worsens, please return to the ER immediately for re- evalaution. Please have your potassium level re-checked in 5 days at your family doctor or at the ER. Prescriptions: AtorvaSTATin [Lipitor] 40 mg PO QHS #30 tablet Carvedilol [Coreg] 3.125 mg PO BID #60 tablet Furosemide [Furosemide ORAL LIQ] 40 mg PO QDAY #30 ml Lisinopril [Zestril TAB] 20 mg PO QDAY #30 tablet Potassium Chloride 20 meq PO QDAY #30 packet Spironolactone [Aldactone] 25 mg PO QDAY #30 tablet Referrals: ALONZO GAMEZ MD [Primary Care Provider] - 3-5 Days [facility] [Outside] - 3-5 Days
[2017-07-16 02:42] LABS: Chol/HDL Ratio 6.94 %
[2017-07-16 05:34] VITALS: BP 149/108
== END 2017-07-16 06:11 | disposition home or self-care (01) ==
LOC: ED 19:29
DX: I11.0 Hypertensive heart disease with heart failure (principal); I50.9 Heart failure, unspecified; E78.5 Hyperlipidemia, unspecified; J45.909 Unspecified asthma, uncomplicated; Z87.891 Personal history of nicotine dependence
CPT/HCPCS: 36415; 71046; 80048; 80061; 83880; 84484; 85025; 93005; 93010; 94640

== ENCOUNTER 2018-12-11 20:38 | Emergency (ER) | payer SELFPAY ==
[2018-12-11 21:12] VITALS: BP 179/110
[2018-12-11] MEDS ORDERED: ASPIRIN PO ONE (21:12)
[2018-12-11 21:40] LABS: Basophils # (Auto) 0.1 K/mm3 (0.0-0.1); Basophils % (Auto) 0.8 % (0.0-1.8); Eosinophils # (Auto) 0.4 K/mm3 (0.0-0.4); Eosinophils % (Auto) 5.9 % (0.0-4.3); Hematocrit 36.9 % (35.5-45.6); Hemoglobin 12.5 gm/dl (11.8-15.2); Lymphocytes # (Auto) 1.8 K/mm3 (1.2-5.4); Lymphocytes % (Auto) 24.4 % (13.4-35.0); Mean Corpuscular HGB Conc 34 % (32-34); Mean Corpuscular Volume 90 fl (84-94); Monocytes # (Auto) 0.4 K/mm3 (0.0-0.8); Monocytes % (Auto) 6.1 % (0.0-7.3); Platelet Count 206 K/mm3 (140-440); Red Blood Count 4.12 M/mm3 (3.65-5.03); Red Cell Distribution Width 13.3 % (13.2-15.2)
--- NOTE | 2018-12-11 21:53 | XRay Report ---
CHEST 1 VIEW INDICATION: Chest Pain COMPARISON: 07/15/2017 FINDINGS: Support devices: None Heart: Stable. Lungs/Pleura: No acute pulmonary or pleural findings. IMPRESSION: 1. No significant change. Signer Name: Justen Rivera MD Signed: 12/11/2018 9:49 PM Workstation Name: [id number]
[2018-12-11 22:00] LABS: BUN/Creatinine Ratio 13; Blood Urea Nitrogen 15 mg/dL (9-20); Calcium 9.1 mg/dL (8.4-10.2); Hemolysis Index 6
== END 2018-12-12 00:15 | disposition left against medical advice (07) ==
LOC: ED 20:38
DX: R07.89 Other chest pain (principal); Z53.21 Procedure and treatment not carried out due to patient leaving prior to being seen by health care provider
CPT/HCPCS: 36415; 71045; 80048; 84484; 85025; 93005; 93010

== ENCOUNTER 2018-12-28 08:06 | Emergency (ER) | payer OTHER ==
[2018-12-28] MEDS ORDERED: ASPIRIN PO ONE (08:14)
[2018-12-28 08:40] LABS: Basophils # (Auto) 0.1 K/mm3 (0.0-0.1); Basophils % (Auto) 1.4 % (0.0-1.8); Eosinophils # (Auto) 0.5 K/mm3 (0.0-0.4); Eosinophils % (Auto) 7.1 % (0.0-4.3); Hemoglobin 12.9 gm/dl (11.8-15.2); Lymphocytes % (Auto) 26.7 % (13.4-35.0); Mean Corpuscular HGB Conc 33 % (32-34); Mean Corpuscular Volume 90 fl (84-94); Monocytes # (Auto) 0.5 K/mm3 (0.0-0.8); Monocytes % (Auto) 6.7 % (0.0-7.3); Platelet Count 245 K/mm3 (140-440); Red Blood Count 4.33 M/mm3 (3.65-5.03); Red Cell Distribution Width 13.5 % (13.2-15.2)
--- NOTE | 2018-12-28 08:48 | XRay Report ---
CHEST 1 VIEW INDICATION: Chest Pain. COMPARISON: 12/11/2018 FINDINGS: Support devices: None. Heart: Within normal limits. Lungs/Pleura: No acute air space or interstitial disease. Additional findings: None. IMPRESSION: No acute findings. Signer Name: Rey Knight Jr, MD Signed: 12/28/2018 8:44 AM Workstation Name: [id number]
[2018-12-28 08:53] LABS: BUN/Creatinine Ratio 8; Blood Urea Nitrogen 10 mg/dL (9-20); Calcium 9.2 mg/dL (8.4-10.2); Hemolysis Index 12
[2018-12-28] MEDS ORDERED: SOLU-Medrol IV ONE (09:30)
[2018-12-28] MEDS ORDERED: CATAPRES PO ONE (09:30)
[2018-12-28] MEDS ORDERED: ATROVENT IH ONE (09:30)
[2018-12-28] MEDS ORDERED: PROVENTIL IH ONE (09:30)
[2018-12-28] MEDS ORDERED: NORCO 5/325 PO ONE (09:30)
--- NOTE | 2018-12-28 11:35 | Emergency Department Report ---
ED Chest Pain HPI - General Chief Complaint: Chest Pain Stated Complaint: GENNY Time Seen by Provider: 12/28/18 08:30 Source: patient, old records reviewed Mode of arrival: Ambulatory Limitations: No Limitations - History of Present Illness Initial Comments: 48 year old male with a past medical history of obesity, asthma (as a child), CHF, and hypertension presents complaining of chest pain and shortness of breath. Chest pain started last night and worse this morning. Pain is in the middle of the chest, sharp, intermittent, worse with palpation, movement, and deep inspiration. Patient has had worsening shortness of breath this morning. He denies cough, calf tenderness, leg edema, history of PE/DVT, or recent travel. Patient has been noncompliant with all of his medications for 3 weeks. He does not smoke cigarettes or take aspirin daily. His sister of an PA at age 60. Patient presented to the ER December 12 but left prior to the evaluation. As per medical record review patient was admitted here 2016. Negative MPI stress test. EF of 33% on stress test with suspected nonischemic cardiomyopathy. Echocardiogram revealed an EF of 10-15%. Severity scale (0 -10): 9 - Related Data Previous Rx's Medication Instructions Recorded Last Taken Type ALBUTEROL Inhaler (OR & NICU) 2 puff IH QID PRN #1 inhalation 12/28/18 Unknown Rx [Proair] AtorvaSTATin [Lipitor] 40 mg PO QHS #30 tablet 12/28/18 Unknown Rx Carvedilol [Coreg] 6.25 mg PO BID #60 tablet 12/28/18 Unknown Rx Furosemide [Lasix TAB] 40 mg PO QDAY #30 tablet 12/28/18 Unknown Rx Prednisone [predniSONE 10 mg 10 mg PO .TAPER #1 tab.ds.pk 12/28/18 Unknown Rx (6-Day Pack, 21 Tabs)] Spironolactone [Aldactone] 25 mg PO QDAY #30 tablet 12/28/18 Unknown Rx traMADol [Ultram 50 MG tab] 50 mg PO Q6HR PRN #20 tablet 12/28/18 Unknown Rx Allergies Allergy/AdvReac Type Severity Reaction Status Date / Time No Known Allergies Allergy Verified 04/10/17 15:41 Heart Score - HEART Score History: Slightly suspicious EKG: Non-specific (but unchanged from previous) Age: 45-65 Risk factors: > 3 risk factors or hx of atherosclerotic disease Troponin: < normal limit HEART Score: 4 ED Review of Systems ROS: Stated complaint: GENNY Other details as noted in HPI Comment: All other systems reviewed and negative ED Past Medical Hx - Past Medical History Previous Medical History?: Yes Hx Hypertension: Yes Hx Congestive Heart Failure: Yes Hx Kidney Stones: Yes (decreased kidney function) Hx Asthma: Yes - Surgical History Past Surgical History?: No - Social History Smoking Status: Never Smoker Substance Use Type: None - Medications Home Medications: Home Medications Medication Instructions Recorded Confirmed Last Taken Type ALBUTEROL Inhaler (OR & NICU) 2 puff IH QID PRN #1 inhalation 12/28/18 Unknown Rx [Proair] AtorvaSTATin [Lipitor] 40 mg PO QHS #30 tablet 12/28/18 Unknown Rx Carvedilol [Coreg] 6.25 mg PO BID #60 tablet 12/28/18 Unknown Rx Furosemide [Lasix TAB] 40 mg PO QDAY #30 tablet 12/28/18 Unknown Rx Prednisone [predniSONE 10 mg 10 mg PO .TAPER #1 tab.ds.pk 12/28/18 Unknown Rx (6-Day Pack, 21 Tabs)] Spironolactone [Aldactone] 25 mg PO QDAY #30 tablet 12/28/18 Unknown Rx traMADol [Ultram 50 MG tab] 50 mg PO Q6HR PRN #20 tablet 12/28/18 Unknown Rx ED Physical Exam - General Limitations: No Limitations - Other Other exam information: Normal: No acute distress Head: Atraumatic Eyes: Normal appearance, pupils equally reactive to light, extraocular movements intact ENT: Moist mucous membranes Neck: Normal appearance, no midline cervical tenderness, no meningismus Chest: Bilateral expiratory wheezing, no crackles or rales Cardiovascular: Regular rate and rhythm, reproducible anterior sternal chest wall tenderness Abdomen: Soft, nontender, nondistended, no rebound or guarding, normal bowel sounds Back: Normal inspection Extremity: Normal appearance, full range of motion, no calf tenderness or leg ed gabe Neuro: Alert and oriented 3, speech normal, no gross motor sensory deficit Psych: Appropriate Skin: No rash ED Course Vital Signs 12/28/18 12/28/18 12/28/18 08:11 08:42 09:46 Temperature 98.3 F 98.2 F Pulse Rate 98 H 95 H Pulse Rate [ 93 H Anterior Bilateral Throughout] Respiratory 20 20 Rate Respiratory 20 Rate [Anterior Bilateral Throughout] Blood Pressure 190/127 Blood Pressure 160/104 [Right] O2 Sat by Pulse 97 95 Oximetry 12/28/18 12/28/18 12/28/18 09:52 10:01 11:18 Temperature Pulse Rate 95 H 95 H 88 Pulse Rate [ Anterior Bilateral Throughout] Respiratory 17 20 Rate Respiratory Rate [Anterior Bilateral Throughout] Blood Pressure 148/113 Blood Pressure 148/113 144/80 [Right] O2 Sat by Pulse 97 100 Oximetry 12/28/18 13:28 Temperature 97.7 F Pulse Rate 95 H Pulse Rate [ Anterior Bilateral Throughout] Respiratory 20 Rate Respiratory Rate [Anterior Bilateral Throughout] Blood Pressure Blood Pressure 161/101 [Right] O2 Sat by Pulse 95 Oximetry FRAN score - Fran Score Age > 65: (0) No Aspirin use within the Past 7 Days: (0) No 3 or more CAD Risk Factors: (1) Yes 2 or more Angina events in past 24 hrs: (0) No Known CAD with more than 50% Stenosis: (0) No Elevated Cardiac Markers: (0) No ST Deviation Greater than 0.5mm: (0) No FRAN Score: 1 ED Medical Decision Making - Lab Data Result diagrams: 12/28/18 08:27 12/28/18 08:27 Lab Results 12/28/18 12/28/18 12/28/18 Range/Units 08:27 08:27 08:27 WBC 7.4 (4.5-11.0) K/mm3 RBC 4.33 (3.65-5.03) M/mm3 Hgb 12.9 (11.8-15.2) gm/dl Hct 39.0 (35.5-45.6) % MCV 90 (84-94) fl MCH 30 (28-32) pg MCHC 33 (32-34) % RDW 13.5 (13.2-15.2) % Plt Count 245 (140-440) K/mm3 Lymph % (Auto) 26.7 (13.4-35.0) % Ida % (Auto) 6.7 (0.0-7.3) % Eos % (Auto) 7.1 H (0.0-4.3) % Baso % (Auto) 1.4 (0.0-1.8) % Lymph # 2.0 (1.2-5.4) K/mm3 Ida # 0.5 (0.0-0.8) K/mm3 Eos # 0.5 H (0.0-0.4) K/mm3 Baso # 0.1 (0.0-0.1) K/mm3 Seg Neutrophils % 58.1 (40.0-70.0) % Seg Neutrophils # 4.3 (1.8-7.7) K/mm3 Sodium 139 (137-145) mmol/L Potassium 4.6 (3.6-5.0) mmol/L Chloride 102.3 (98-107) mmol/L Carbon Dioxide 27 (22-30) mmol/L Anion Gap 14 mmol/L BUN 10 (9-20) mg/dL Creatinine 1.2 (0.8-1.5) mg/dL Estimated GFR > 60 ml/min BUN/Creatinine Ratio 8 % Glucose 121 H (75-100) mg/dL Calcium 9.2 (8.4-10.2) mg/dL Troponin T 0.015 (0.00-0.029) ng/mL NT-Pro-B Natriuret Pep 860.6 H (0-450) pg/mL 12/28/18 Range/Units 12:17 WBC (4.5-11.0) K/mm3 RBC (3.65-5.03) M/mm3 Hgb (11.8-15.2) gm/dl Hct (35.5-45.6) % MCV (84-94) fl MCH (28-32) pg MCHC (32-34) % RDW (13.2-15.2) % Plt Count (140-440) K/mm3 Lymph % (Auto) (13.4-35.0) % Ida % (Auto) (0.0-7.3) % Eos % (Auto) (0.0-4.3) % Baso % (Auto) (0.0-1.8) % Lymph # (1.2-5.4) K/mm3 Ida # (0.0-0.8) K/mm3 Eos # (0.0-0.4) K/mm3 Baso # (0.0-0.1) K/mm3 Seg Neutrophils % (40.0-70.0) % Seg Neutrophils # (1.8-7.7) K/mm3 Sodium (137-145) mmol/L Potassium (3.6-5.0) mmol/L Chloride (98-107) mmol/L Carbon Dioxide (22-30) mmol/L Anion Gap mmol/L BUN (9-20) mg/dL Creatinine (0.8-1.5) mg/dL Estimated GFR ml/min BUN/Creatinine Ratio % Glucose (75-100) mg/dL Calcium (8.4-10.2) mg/dL Troponin T < 0.010 (0.00-0.029) ng/mL NT-Pro-B Natriuret Pep (0-450) pg/mL - EKG Data -: EKG Interpreted by Nh EKG shows normal: sinus rhythm, axis (qrs 54), QRS complexes (qrsd 77), ST-T waves (no stemi) Rate: normal (94) - EKG Data When compared to previous EKG there are: no significant change 12/28/18 13:58 Repeat EKG without acute changes - Radiology Data Radiology results: report reviewed CHEST 1 VIEW INDICATION: Chest Pain. COMPARISON: 12/11/2018 FINDINGS: Support devices: None. Heart: Within normal limits. Lungs/Pleura: No acute air space or interstitial disease. Additional findings: None. IMPRESSION: No acute findings. - Medical Decision Making Patient has reproducible anterior chest wall tenderness on palpation with wheezing. This improved with nebs, pain medication, and blood pressure medication. Patient did give a dose of IV Lasix. No signs of ST elevation PA and STEMI. Troponin negative 2. They should be discharged home with meds for wheezing and refill in his medication. - Differential Diagnosis asthma, COPD, bronchitis, hypertensive emergency, CHF Critical Care Time: No Critical care attestation.: If time is entered above; I have spent that time in minutes in the direct care of this critically ill patient, excluding procedure time. ED Disposition Clinical Impression: Hypertension, Chest wall tenderness, Noncompliance with medication regimen, Asthma exacerbation, Medication refill Disposition: - TO HOME OR SELFCARE Is pt being admited?: No Does the pt Need Aspirin: No Condition: Stable Instructions: Asthma (ED), Costochondritis (ED), Hypertension (ED) Additional Instructions: Take your medications as prescribed. Follow-up with your doctor or the clinic/doctor provided. Return if symptoms worsen. Prescriptions: Spironolactone [Aldactone] 25 mg PO QDAY #30 tablet Carvedilol [Coreg] 6.25 mg PO BID #60 tablet Furosemide [Lasix TAB] 40 mg PO QDAY #30 tablet AtorvaSTATin [Lipitor] 40 mg PO QHS #30 tablet Prednisone [predniSONE 10 mg (6-Day Pack, 21 Tabs)] 10 mg PO .TAPER #1 tab.ds.pk ALBUTEROL Inhaler (OR & NICU) [Proair] 2 puff IH QID PRN #1 inhalation PRN Reason: Shortness Of Breath traMADol [Ultram 50 MG tab] 50 mg PO Q6HR PRN #20 tablet PRN Reason: Pain Referrals: [facility] [Provider Group] - 3-5 Days PRIMARY CARE, [Primary Care Provider] - 3-5 Days ESTHER CURRAN MD [Staff Physician] - 3-5 Days Time of Disposition: 14:01
[2018-12-28] MEDS ORDERED: LASIX IV ONE (11:36)
[2018-12-28 13:29] VITALS: BP 161/101
== END 2018-12-28 14:35 | disposition home or self-care (01) ==
LOC: ED 08:06
DX: J45.901 Unspecified asthma with (acute) exacerbation (principal); I11.0 Hypertensive heart disease with heart failure; I50.9 Heart failure, unspecified; Z76.0 Encounter for issue of repeat prescription; Z91.14 Patient's other noncompliance with medication regimen; Z79.899 Other long term (current) drug therapy
CPT/HCPCS: 36415; 71045; 80048; 83880; 84484; 85025; 93005; 93010; 94640; 96374; 96375; 99284; J1940; J2930; 94644

== ENCOUNTER 2019-02-01 20:18 | Inpatient (IN) | payer OTHER ==
--- NOTE | 2019-02-01 21:28 | Event Note ---
ED Screening Note Date of service: 02/01/19 Time: 21:05 ED Screening Note: 48 y/o male c/o chest pain reports that he has CHF. This initial assessment/diagnostic orders/clinical plan/treatment(s) is/are subject to change based on patients health status, clinical progression and re-assessment by fellow clinical providers in the ED. Further treatment and workup at subsequent clinical providers discretion. Patient/guardian urged not to elope from the ED as their condition may be serious if not clinically assessed and managed. Initial orders include:
[2019-02-01 21:56] LABS: Mean Corpuscular HGB Conc 37 % (32-34); Mean Corpuscular Volume 87 fl (84-94); Platelet Count 241 K/mm3 (140-440); Red Blood Count 4.51 M/mm3 (3.65-5.03); Red Cell Distribution Width 12.9 % (13.2-15.2)
--- NOTE | 2019-02-01 21:56 | XRay Report ---
CHEST 2 VIEWS INDICATION / CLINICAL INFORMATION: sob chest pain. COMPARISON: 12/28/2018 FINDINGS: SUPPORT DEVICES: None. HEART / MEDIASTINUM: No significant abnormality. LUNGS / PLEURA: No significant pulmonary or pleural abnormality. No pneumothorax. ADDITIONAL FINDINGS: No significant additional findings. IMPRESSION: 1. No acute findings. Signer Name: Umm Rodriguez MD Signed: 02/01/2019 9:52 PM Workstation Name: [id number]
[2019-02-01 22:09] LABS: Hemoglobin 14.4 gm/dl (11.8-15.2)
[2019-02-01 22:18] LABS: BUN/Creatinine Ratio TNR; Blood Urea Nitrogen TNR mg/dL (9-20)
[2019-02-01 22:19] LABS: Calcium TNR mg/dL (8.4-10.2); Hemolysis Index TNR
[2019-02-01] MEDS ORDERED: NACL 0.9% 1000 ML 2,000 ML ONE (22:53)
[2019-02-01 23:00] LABS: Basophils % (Manual) 0 % (0.0-1.8); Platelet Estimate Consistent w Auto; Stomatocytes Few; Total Cells Counted 100
--- NOTE | 2019-02-02 00:22 | Emergency Department Report ---
ED Chest Pain HPI - General Chief Complaint: Chest Pain Stated Complaint: CHEST PAIN Time Seen by Provider: 02/01/19 21:04 Source: patient Mode of arrival: Ambulatory Limitations: No Limitations - History of Present Illness Initial Comments: 48-year-old male with history of hypertension, asthma, CHF with EF of 10-15%, presents to ED with chest pain 4 days. Patient reports pain is intermittent, radiates to the back. Denies any aggravating or alleviating factors. Associated shortness of breath. Denies any lower leg pain or swelling. Patient denies tobacco and drug use. MD Complaint: chest pain -: days(s) (4) Onset: during exertion Pain Location: substernal Pain Radiation: back Severity: moderate Quality: aching Consistency: intermittent Improves With: nothing Worsens With: exertion re: dyspnea. denies: nausea, vomting, diaphoresis Other Symptoms: denies: cough, leg swelling - Related Data Previous Rx's Medication Instructions Recorded Last Taken Type ALBUTEROL Inhaler (OR & NICU) 2 puff IH QID PRN #1 inhalation 12/28/18 Unknown Rx [Proair] AtorvaSTATin [Lipitor] 40 mg PO QHS #30 tablet 12/28/18 Unknown Rx Carvedilol [Coreg] 6.25 mg PO BID #60 tablet 12/28/18 Unknown Rx Furosemide [Lasix TAB] 40 mg PO QDAY #30 tablet 12/28/18 Unknown Rx Spironolactone [Aldactone] 25 mg PO QDAY #30 tablet 12/28/18 Unknown Rx Allergies Allergy/AdvReac Type Severity Reaction Status Date / Time No Known Allergies Allergy Verified 04/10/17 15:41 Heart Score - HEART Score History: Moderately suspicious EKG: Non-specific Age: 45-65 Risk factors: > 3 risk factors or hx of atherosclerotic disease Troponin: < normal limit HEART Score: 5 ED Review of Systems ROS: Stated complaint: CHEST PAIN Other details as noted in HPI Comment: All other systems reviewed and negative Constitutional: denies: chills, fever Respiratory: shortness of breath Cardiovascular: chest pain Gastrointestinal: denies: nausea, vomiting Musculoskeletal: other (denies leg pain or swelling) ED Past Medical Hx - Past Medical History Previous Medical History?: Yes Hx Hypertension: Yes Hx CVA: No Hx Heart Attack/AMI: No Hx Congestive Heart Failure: Yes Hx Diabetes: No Hx Deep Vein Thrombosis: No Hx Pulmonary Embolism: No Hx GERD: No Hx Liver Disease: No Hx Renal Disease: No Hx of Cancer: No Hx Sickle Cell Disease: No Hx Arthritis: No Hx Headaches / Migraines: No Hx Seizures: No Hx Kidney Stones: Yes (decreased kidney function) Hx Psychiatric Treatment: No Hx Asthma: Yes Hx COPD: No Hx Tuberculosis: No Hx Dementia: No Hx HIV: No - Surgical History Past Surgical History?: No Hx Coronary Stent: No Hx Open Heart Surgery: No Hx Pacemaker: No Hx Internal Defibrillator: No Hx Cholecystectomy: No Hx Appendectomy: No Hx Breast Surgery: No - Social History Smoking Status: Unknown if ever smoked Substance Use Type: None - Medications Home Medications: Home Medications Medication Instructions Recorded Confirmed Last Taken Type ALBUTEROL Inhaler (OR & NICU) 2 puff IH QID PRN #1 inhalation 12/28/18 02/02/19 Unknown Rx [Proair] AtorvaSTATin [Lipitor] 40 mg PO QHS #30 tablet 12/28/18 02/02/19 Unknown Rx Carvedilol [Coreg] 6.25 mg PO BID #60 tablet 12/28/18 02/02/19 Unknown Rx Furosemide [Lasix TAB] 40 mg PO QDAY #30 tablet 12/28/18 02/02/19 Unknown Rx Spironolactone [Aldactone] 25 mg PO QDAY #30 tablet 12/28/18 02/02/19 Unknown Rx ED Physical Exam - General Limitations: No Limitations General appearance: alert, in no apparent distress - Head Head exam: Present: atraumatic, normocephalic - Eye Eye exam: Present: normal appearance, PERRL, EOMI - ENT ENT exam: Present: mucous membranes moist - Neck Neck exam: Present: normal inspection - Respiratory Respiratory exam: Present: normal lung sounds bilaterally. Absent: respiratory distress - Cardiovascular Cardiovascular Exam: Present: normal rhythm, tachycardia - GI/Abdominal GI/Abdominal exam: Present: soft. Absent: distended, tenderness - Extremities Exam Extremities exam: Present: normal inspection. Absent: pedal edema, calf tenderness - Neurological Exam Neurological exam: Present: alert, oriented X3 - Psychiatric Psychiatric exam: Present: normal affect, normal mood - Skin Skin exam: Present: warm, dry, intact, normal color ED Course Vital Signs 02/01/19 02/01/19 02/01/19 20:02 20:23 23:12 Temperature 98.3 F Pulse Rate 93 H 108 H Respiratory 35 H 12 22 Rate Blood Pressure 149/94 156/91 Blood Pressure [Right] O2 Sat by Pulse 99 93 Oximetry 02/02/19 02/02/19 02/02/19 00:00 01:00 03:56 Temperature 98.5 F Pulse Rate 96 H 99 H 91 H Respiratory 24 24 24 Rate Blood Pressure 152/99 171/119 Blood Pressure 170/110 [Right] O2 Sat by Pulse 95 94 94 Oximetry 02/02/19 04:40 Temperature Pulse Rate 90 Respiratory 22 Rate Blood Pressure Blood Pressure 151/85 [Right] O2 Sat by Pulse 94 Oximetry NAHEED score - Naheed Score Age > 65: (0) No Aspirin use within the Past 7 Days: (0) No 3 or more CAD Risk Factors: (1) Yes 2 or more Angina events in past 24 hrs: (0) No Known CAD with more than 50% Stenosis: (0) No Elevated Cardiac Markers: (0) No ST Deviation Greater than 0.5mm: (0) No NAHEED Score: 1 ED Medical Decision Making - Lab Data Result diagrams: 02/01/19 21:08 02/02/19 01:20 - EKG Data -: EKG Interpreted by Ct EKG shows normal: sinus rhythm, axis, intervals, QRS complexes Rate: normal - EKG Data When compared to previous EKG there are: no significant change (compared to 12/2018) Interpretation: other (inferolateral T wave inversions ) - Radiology Data Radiology results: report reviewed, image reviewed - Medical Decision Making 48-year-old male with history of CHF (EF of 10-15%), hypertension, presents to ED with acute chest pain. EKG shows anterolateral T-wave inversions, unchanged from previous EKG. Troponin is normal. Patient also reported some shortness of breath. No evidence of pitting edema in the lower extremities. Chest x-ray negative for pulmonary edema. D-dimer elevated so CTA was obtained. No evidence of PE present on CAT scan. Patient found to have glucose of 600. This is new onset diabetes, no history of diabetes in the past. Patient does not appear to be in DKA. Patient only given 500 mL of normal saline due to his ejection fraction. He was given a total of 17 units of insulin. Current glucose is 364. Patient given Tylenol hydralazine for blood pressure management as well. Admit to hospitalist for further evaluation. Critical Care Time: Yes Critical care time in (mins) excluding proc time.: 35 Critical care attestation.: If time is entered above; I have spent that time in minutes in the direct care of this critically ill patient, excluding procedure time. Critical Care Time: 35 minutes ED Disposition Clinical Impression: Acute chest pain, Diabetes mellitus, new onset, Hyperglycemia, Hypertensive emergency Disposition: DC-01 TO HOME OR SELFCARE Is pt being admited?: Yes Condition: Stable Time of Disposition: 03:43
[2019-02-02 00:33] LABS: BUN/Creatinine Ratio 22; Blood Urea Nitrogen 26 mg/dL (9-20); Calcium 8.4 mg/dL (8.4-10.2); Hemolysis Index 807
[2019-02-02 00:57] LABS: INR 0.98 (0.87-1.13)
[2019-02-02 00:58] LABS: Partial Thromboplastin Time 31.1 Sec. (24.2-36.6)
[2019-02-02] MEDS ORDERED: HumuLIN R IV ONE ×2 (01:13→02:26)
[2019-02-02] MEDS ORDERED: NACL 0.9% 500 ML 500 ML IV ONE (01:20)
[2019-02-02 01:23] LABS: Bacteria,Urine 1+ /HPF (Negative); Bilirubin,Urine NEG (Negative); Blood,Urine NEG (Negative); Color,Urine Straw (Yellow); Protein,Urine <15 mg/dL mg/dL (Negative); Urobilinogen,Urine < 2.0 mg/dL (<2.0); WBC,Urine < 1.0 /HPF (0.0-6.0)
[2019-02-02 01:26] LABS: RBC,Urine < 1.0 /HPF (0.0-6.0)
--- NOTE | 2019-02-02 03:36 | Cat Scan Report ---
CTA CHEST WITH IV CONTRAST INDICATION / CLINICAL INFORMATION: chest pain. TECHNIQUE: Axial CT images were obtained through the chest after injection of 100 mL Omnipaque 350 IV contrast. 3 plane MIP and/or 3D reconstructions were produced. All CT scans at this location are performed usin g CT dose reduction for ALARA by means of automated exposure control. COMPARISON: None available. FINDINGS: PULMONARY ARTERIES: There is motion degradation/suboptimal opacification of several of the subsegment al pulmonary arteries. No large central or segmental pulmonary embolus identified. The main pulmonary artery is nondilated. THORACIC AORTA: No significant abnormality. HEART: No significant abnormality. CORONARY ARTERIES: No significant calcification. PLEURA: No pleural effusion. No pneumothorax. LYMPH NODES: No significant adenopathy. LUNGS: No acute air space or interstitial disease. ADDITIONAL FINDINGS: None. UPPER ABDOMEN: Hepatic steatosis. SKELETAL STRUCTURES: No significant osseous abnormality. IMPRESSION: 1. Subsegmental pulmonary arteries are degraded by motion. No large central or segmental pulmonary em bolus identified. 2. Hepatic steatosis. Signer Name: Ginger Montiel MD Signed: 02/02/2019 3:32 AM Workstation Name: [id number]
[2019-02-02] MEDS ORDERED: APRESOLINE IV ONE (03:55)
--- NOTE | 2019-02-02 06:28 | History and Physical Report ---
History of Present Illness Date of admission: 02/02/19 04:47 Chief complaint: chest pain History of present illness: 48-year-old man with history of hypertension, asthma, CHF EF of 10% who presents to the hospital complaining of chest pain x4 days. Pain is substernal, intermittent dull in nature radiates to the back. Denies any aggravating or alleviating factors, chest pains associated with shortness of breath. Denies palpitations. Denies lower extremity edema. Complaining of 4 pillow orthopnea, dyspnea on exertion. Has not had a stress test in over 2 years. 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 He has been put on diuretics, beta-rainer and other medications by [facility] physicians multiple times from being in the hospital here. He feels like he is gaining water weight all over, his abdomen has become bigger and he believes it also water. Past medical history ; hypertension, systolic heart failure EF 10%, kidney stones, asthma, nonadherence to medications Past surgical history; denies major surgeries Social history; former smoker has not had a cigarette in over 8 years, denies alcohol or illicit drug abuse Family history; denies family history of premature coronary artery disease Medications and Allergies Allergies Allergy/AdvReac Type Severity Reaction Status Date / Time No Known Allergies Allergy Verified 04/10/17 15:41 Home Medications Medication Instructions Recorded Confirmed Last Taken Type ALBUTEROL Inhaler (OR & NICU) 2 puff IH QID PRN #1 inhalation 12/28/18 02/02/19 Unknown Rx [Proair] AtorvaSTATin [Lipitor] 40 mg PO QHS #30 tablet 12/28/18 02/02/19 Unknown Rx Carvedilol [Coreg] 6.25 mg PO BID #60 tablet 12/28/18 02/02/19 Unknown Rx Furosemide [Lasix TAB] 40 mg PO QDAY #30 tablet 12/28/18 02/02/19 Unknown Rx Spironolactone [Aldactone] 25 mg PO QDAY #30 tablet 12/28/18 02/02/19 Unknown Rx Active Meds: Active Medications Pneumococcal Polyvalent Vaccine (Pneumovax 23) 0.5 ml IM .ONCE ONE Stop: 02/02/19 12:01 Review of Systems All systems: negative Constitutional: no anorexia Ears, nose, mouth and throat: no deferred Cardiovascular: chest pain, no orthopnea, no edema, no syncope Respiratory: no cough Gastrointestinal: no abdominal pain Genitourinary Male: no dysuria Rectal: no pain Musculoskeletal: no neck stiffness Integumentary: no rash Neurological: no head injury Psychiatric: no anxiety Endocrine: no cold intolerance Hematologic/Lymphatic: no easy bruising Allergic/Immunologic: no urticaria Exam - Constitutional Vitals: Temp Pulse Resp BP Pulse Ox 98.6 F 91 H 20 181/96 95 02/02/19 05:50 02/02/19 05:46 02/02/19 05:46 02/02/19 05:46 02/02/19 05:46 General appearance: Present: no acute distress, well-nourished - EENT Eyes: Present: PERRL ENT: hearing intact, clear oral mucosa - Neck Neck: Present: supple, normal ROM - Respiratory Respiratory effort: normal Respiratory: bilateral: CTA - Cardiovascular Heart Sounds: Present: S1 & S2. Absent: rub, click - Extremities Extremities: pulses symmetrical, No edema Peripheral Pulses: within normal limits - Abdominal General gastrointestinal: Present: soft, non-tender, non-distended, normal bowel sounds Male genitourinary: Present: normal - Integumentary Integumentary: Present: clear, warm, dry - Musculoskeletal Musculoskeletal: gait normal, strength equal bilaterally - Psychiatric Psychiatric: appropriate mood/affect, intact judgment & insight - Neurologic Neurologic: CNII-XII intact, moves all extremities Results - Labs CBC & Chem 7: 02/01/19 21:08 02/02/19 01:20 Labs: Laboratory Last Values WBC 9.9 K/mm3 (4.5-11.0) 02/01/19 21:08 RBC 4.51 M/mm3 (3.65-5.03) 02/01/19 21:08 Hgb 14.4 gm/dl (11.8-15.2) 02/01/19 21:08 Hct 39.0 % (35.5-45.6) 02/01/19 21:08 MCV 87 fl (84-94) 02/01/19 21:08 MCH 32 pg (28-32) 02/01/19 21:08 MCHC 37 % (32-34) H 02/01/19 21:08 RDW 12.9 % (13.2-15.2) L 02/01/19 21:08 Plt Count 241 K/mm3 (140-440) 02/01/19 21:08 Add Manual Diff Complete 02/01/19 21:08 Total Counted 100 02/01/19 21:08 Seg Neuts % (Manual) 66.0 % (40.0-70.0) 02/01/19 21:08 Band Neutrophils % 0 % 02/01/19 21:08 Lymphocytes % (Manual) 21.0 % (13.4-35.0) 02/01/19 21:08 Reactive Lymphs % (Man) 0 % 02/01/19 21:08 Monocytes % (Manual) 6.0 % (0.0-7.3) 02/01/19 21:08 Eosinophils % (Manual) 7.0 % (0.0-4.3) H 02/01/19 21:08 Basophils % (Manual) 0 % (0.0-1.8) 02/01/19 21:08 Metamyelocytes % 0 % 02/01/19 21:08 Myelocytes % 0 % 02/01/19 21:08 Promyelocytes % 0 % 02/01/19 21:08 Blast Cells % 0 % 02/01/19 21:08 Nucleated RBC % Not Reportable 02/01/19 21:08 Seg Neutrophils # Man 6.5 K/mm3 (1.8-7.7) 02/01/19 21:08 Band Neutrophils # 0.0 K/mm3 02/01/19 21:08 Lymphocytes # (Manual) 2.1 K/mm3 (1.2-5.4) 02/01/19 21:08 Abs React Lymphs (Man) 0.0 K/mm3 02/01/19 21:08 Monocytes # (Manual) 0.6 K/mm3 (0.0-0.8) 02/01/19 21:08 Eosinophils # (Manual) 0.7 K/mm3 (0.0-0.4) H 02/01/19 21:08 Basophils # (Manual) 0.0 K/mm3 (0.0-0.1) 02/01/19 21:08 Metamyelocytes # 0.0 K/mm3 02/01/19 21:08 Myelocytes # 0.0 K/mm3 02/01/19 21:08 Promyelocytes # 0.0 K/mm3 02/01/19 21:08 Blast Cells # 0.0 K/mm3 02/01/19 21:08 WBC Morphology Not Reportable 02/01/19 21:08 Hypersegmented Neuts Not Reportable 02/01/19 21:08 Hyposegmented Neuts Not Reportable 02/01/19 21:08 Hypogranular Neuts Not Reportable 02/01/19 21:08 Smudge Cells Not Reportable 02/01/19 21:08 Toxic Granulation Not Reportable 02/01/19 21:08 Toxic Vacuolation Not Reportable 02/01/19 21:08 Dohle Bodies Not Reportable 02/01/19 21:08 Pelger-Huet Anomaly Not Reportable 02/01/19 21:08 Lisette Rods Not Reportable 02/01/19 21:08 Platelet Estimate Consistent w auto 02/01/19 21:08 Clumped Platelets Not Reportable 02/01/19 21:08 Plt Clumps, EDTA Not Reportable 02/01/19 21:08 Large Platelets Not Reportable 02/01/19 21:08 Giant Platelets Not Reportable 02/01/19 21:08 Platelet Satelliting Not Reportable 02/01/19 21:08 Plt Morphology Comment Not Reportable 02/01/19 21:08 RBC Morphology Not Reportable 02/01/19 21:08 Dimorphic RBCs Not Reportable 02/01/19 21:08 Polychromasia Not Reportable 02/01/19 21:08 Hypochromasia Not Reportable 02/01/19 21:08 Poikilocytosis Not Reportable 02/01/19 21:08 Anisocytosis Not Reportable 02/01/19 21:08 Microcytosis Not Reportable 02/01/19 21:08 Macrocytosis Not Reportable 02/01/19 21:08 Spherocytes Not Reportable 02/01/19 21:08 Pappenheimer Bodies Not Reportable 02/01/19 21:08 Sickle Cells Not Reportable 02/01/19 21:08 Target Cells Not Reportable 02/01/19 21:08 Tear Drop Cells Not Reportable 02/01/19 21:08 Ovalocytes Not Reportable 02/01/19 21:08 Stomatocytes Few 02/01/19 21:08 Helmet Cells Not Reportable 02/01/19 21:08 [place] Bodies Not Reportable 02/01/19 21:08 [place] Rings Not Reportable 02/01/19 21:08 [place] Cells Not Reportable 02/01/19 21:08 Bite Cells Not Reportable 02/01/19 21:08 Crenated Cell Not Reportable 02/01/19 21:08 Elliptocytes Not Reportable 02/01/19 21:08 Acanthocytes (Spur) Not Reportable 02/01/19 21:08 Rouleaux Not Reportable 02/01/19 21:08 Hemoglobin C Crystals Not Reportable 02/01/19 21:08 Schistocytes Not Reportable 02/01/19 21:08 Malaria parasites Not Reportable 02/01/19 21:08 Gareth Bodies Not Reportable 02/01/19 21:08 Hem Pathologist Commnt No 02/01/19 21:08 PT 12.7 Sec. (12.2-14.9) 02/02/19 00:27 INR 0.98 (0.87-1.13) 02/02/19 00:27 APTT 31.1 Sec. (24.2-36.6) 02/02/19 00:27 D-Dimer 290.69 ng/mlDDU (0-234) H 02/02/19 00:27 VBG pH 7.345 (7.320-7.420) 02/02/19 01:10 Sodium 118 mmol/L (137-145) L* 02/01/19 23:34 Potassium 5.7 mmol/L (3.6-5.0) H 02/02/19 01:20 Chloride 82.3 mmol/L (98-107) L 02/01/19 23:34 Carbon Dioxide 25 mmol/L (22-30) 02/01/19 23:34 Anion Gap 17 mmol/L 02/01/19 23:34 BUN 26 mg/dL (9-20) H 02/01/19 23:34 Creatinine 1.2 mg/dL (0.8-1.5) 02/01/19 23:34 Estimated GFR > 60 ml/min 02/01/19 23:34 BUN/Creatinine Ratio 22 % 02/01/19 23:34 Glucose 601 mg/dL (75-100) H* 02/01/19 23:34 POC Glucose 364 (70-105) H 02/02/19 03:48 Calcium 8.4 mg/dL (8.4-10.2) 02/01/19 23:34 Troponin T < 0.010 ng/mL (0.00-0.029) 02/01/19 23:48 NT-Pro-B Natriuret Pep 123.3 pg/mL (0-450) 02/01/19 23:34 Urine Color Straw (Yellow) 02/02/19 Unknown Urine Turbidity Clear (Clear) 02/02/19 Unknown Urine pH 6.0 (5.0-7.0) 02/02/19 Unknown Ur Specific [place] 1.021 (1.003-1.030) 02/02/19 Unknown Urine Protein <15 mg/dl mg/dL (Negative) 02/02/19 Unknown Urine Glucose (UA) >=500 mg/dL (Negative) 02/02/19 Unknown Urine Ketones Neg mg/dL (Negative) 02/02/19 Unknown Urine Blood Neg (Negative) 02/02/19 Unknown Urine Nitrite Neg (Negative) 02/02/19 Unknown Urine Bilirubin Neg (Negative) 02/02/19 Unknown Urine Urobilinogen < 2.0 mg/dL (<2.0) 02/02/19 Unknown Ur Leukocyte Esterase Neg (Negative) 02/02/19 Unknown Urine WBC (Auto) < 1.0 /HPF (0.0-6.0) 02/02/19 Unknown Urine RBC (Auto) < 1.0 /HPF (0.0-6.0) 02/02/19 Unknown Urine Bacteria (Auto) 1+ /HPF (Negative) 02/02/19 Unknown Assessment and Plan Assessment and plan: 48-year-old man with history of hypertension asthma systolic CHF EF of 10% who presents to the hospital with chest pain x4 days. Initial labs showed a sodium of 118, potassium was 6.6, repeat 5.7 after receiving 17 units of insulin, chloride 82, BUN 26, glucose 601 which improved to 364 after receiving 70 units of insulin, UA negative CTA chest; subsegmental pulmonary arteries are degraded by motion, no large central or segmental pulmonary embolus identified. Hepatic steatosis. Chest x-ray; no acute findings Chest pain aspirin, EKG no acute findings, chest x-ray neg, troponins negative so far, serial CE, keep NPO for now cardiology consult to determine modality for coronary risk stratification New onset type 2 diabetes with persistent hyperglycemia Consistent carbohydrate diet, sliding scale insulin along with basal insulin, check A1c Severe hyponatremia Likely due to severe hyperglycemia and CHF. Likely partially pseudohyponatremia. Should improve with insulins Hyperkalemia Improving with insulins, we will not restart Aldactone at this time Acute on chronic systolic CHF, EF 10% Patient has not been compliant with medications of follow-up, IV diuretics, beta rianer and SHANDA -I Cardiology consult, optimize cardiac meds, obtain echo Hypertensive urgency Optimize BP meds Nonadherence to medications/treatments/diet Counseled on improved adherence Preventative health counseling performed for 17 minutes DVT prophylaxis with Lovenox VTE prophylaxis?: Chemical Plan of care discussed with patient/family: Yes
[2019-02-02] MEDS ORDERED: MORPHINE IV PRN (06:29)
[2019-02-02] MEDS ORDERED: ZOFRAN IV PRN (06:29)
[2019-02-02] MEDS ORDERED: D50W (25GM) Syringe IV PRN (06:29)
[2019-02-02] MEDS ORDERED: APRESOLINE IV PRN (06:29)
[2019-02-02] MEDS ORDERED: SODIUM CHLORIDE FLUSH SYRINGE 10 ML IV PRN (06:29)
[2019-02-02] MEDS ORDERED: PROVENTIL IH PRN (06:29)
[2019-02-02 08:30] LABS: BUN/Creatinine Ratio 23; Blood Urea Nitrogen 23 mg/dL (9-20); Calcium 8.9 mg/dL (8.4-10.2); Hemolysis Index 177
[2019-02-02 08:50] LABS: Chol/HDL Ratio 104.33 %; HDL Cholesterol 6 mg/dL (40-59); LDL Cholesterol,Direct TNR mg/dL (50-130)
[2019-02-02] MEDS: ZESTRIL PO SCH (09:00)
[2019-02-02] MEDS: COREG PO SCH ×2 (09:00→22:22)
[2019-02-02] MEDS: SODIUM CHLORIDE FLUSH SYRINGE 10 ML IV SCH ×2 (09:00→22:29)
[2019-02-02] MEDS: HumaLOG SUB-Q SCH ×6 (09:03→23:47)
[2019-02-02] MEDS ORDERED: LASIX PO SCH (10:00)
--- NOTE | 2019-02-02 10:12 | Consultation ---
History of Present Illness - Reason for Consult Consult date: 02/02/19 hyponatremia Requesting physician: LORENZO XIAO - History of Present Illness 48-year-old male with history of hypertension, congestive heart failure ejection fraction 10-50% presents with chest pain of 4 days' duration. Pain is substernal radiating to the back intermittent with no known aggravating or relieving factors. It is associated with nonproductive cough. He also complains of shortness of breath and 4 pillow orthopnea. He admits to weight gain and abdominal distention. He denies any lower extremity pain or swelling. Patient denies any urinary symptoms. Blood sugar on presentation was 601 and sodium was low at 118 and potassium high at 6.6 mmol per liter. I'm consulted to assist with managing electrolyte abnormalities. Patient had a CT scan of the chest PE protocol which showed no pulmonary embolism. Interestingly there was also no pulmonary edema. Past History Past Medical History: heart failure, hypertension, hyperlipidemia, other (asthma) Past Surgical History: No surgical history Social history: lives with family (son), smoking (Quit in 2012). denies: alcohol abuse, prescription drug abuse, IV drug use Family history: CAD (mother of pulmonary embolism post-up, one sister of acute myocardial infarction), diabetes (sister had diabetes mellitus), stroke (father of ruptured cerebral aneurysm.) Medications and Allergies Allergies Allergy/AdvReac Type Severity Reaction Status Date / Time No Known Allergies Allergy Verified 04/10/17 15:41 Home Medications Medication Instructions Recorded Confirmed Last Taken Type ALBUTEROL Inhaler (OR & NICU) 2 puff IH QID PRN #1 inhalation 12/28/18 02/02/19 Unknown Rx [Proair] AtorvaSTATin [Lipitor] 40 mg PO QHS #30 tablet 12/28/18 02/02/19 Unknown Rx Carvedilol [Coreg] 6.25 mg PO BID #60 tablet 12/28/18 02/02/19 Unknown Rx Furosemide [Lasix TAB] 40 mg PO QDAY #30 tablet 12/28/18 02/02/19 Unknown Rx Spironolactone [Aldactone] 25 mg PO QDAY #30 tablet 12/28/18 02/02/19 Unknown Rx Active Meds: Active Medications Acetaminophen (Tylenol) 650 mg PO Q4H PRN PRN Reason: Pain MILD(1-3)/Fever >100.5/SANTOS Albuterol (Proventil) 2.5 mg IH Q4HRT PRN PRN Reason: Shortness Of Breath Atorvastatin Calcium (Lipitor) 40 mg PO QHS [facility] Carvedilol (Coreg) 6.25 mg PO BID [facility] Last Admin: 02/02/19 09:00 Dose: 6.25 mg Documented by: Dextrose (D50w (25gm) Syringe) 50 ml IV PRN PRN PRN Reason: Hypoglycemia Furosemide (Lasix) 40 mg PO QDAY [facility] Last Admin: 02/02/19 09:00 Dose: 40 mg Documented by: Hydralazine HCl (Apresoline) 10 mg IV Q4H PRN PRN Reason: BP >160/100 Last Admin: 02/02/19 08:56 Dose: 10 mg Documented by: Insulin Human Isoph/Insulin Regular (Humulin 70/30) 20 unit SUB-Q BIDDIAB [facility] Insulin Human Lispro (Humalog) 0 unit SUB-Q Q6HR [facility]; Protocol Last Admin: 02/02/19 09:03 Dose: Not Given Documented by: Insulin Human Lispro (Humalog) 10 unit SUB-Q AC [facility]; Protocol Lisinopril (Zestril) 20 mg PO QDAY [facility] Last Admin: 02/02/19 09:00 Dose: 20 mg Documented by: Morphine Sulfate (Morphine) 2 mg IV Q4H PRN PRN Reason: Pain, Moderate (4-6) Ondansetron HCl (Zofran) 4 mg IV Q8H PRN PRN Reason: Nausea And Vomiting Pneumococcal Polyvalent Vaccine (Pneumovax 23) 0.5 ml IM .ONCE ONE Stop: 02/02/19 12:01 Sodium Chloride (Sodium Chloride Flush Syringe 10 Ml) 10 ml IV BID [facility] Last Admin: 02/02/19 09:00 Dose: 10 ml Documented by: Sodium Chloride (Sodium Chloride Flush Syringe 10 Ml) 10 ml IV PRN PRN PRN Reason: LINE FLUSH Review of Systems All systems: negative (Constitutional: no fever or chills. No anorexia or weight loss. HEENT: No sore throat which been dry, or sinus drainage no hearing or vision impairment . Cardiovascular: See history of present illness Respiratory: Admits to nonproductive cough and, shortness of breath, no hemoptysis or wheezing. Gastrointestinal: No nausea, vomiting, admits to diarrhea and had blood in stools a month ago, no abdominal pain, hematemesis or melena. Genitourinary: No frequency urgency dysuria or hematuria. hematologic: No abnormal bleeding or bruising. Integumentary: Admits to itching on his back. No rash. Neurological: Admits to headache last week, dizziness, no focal weakness or numbness, no syncope or seizures. Musculoskeletal: Admits to joint pains and stiffness. Psychiatry: no anxiety or depression) Exam - Vital Signs Vital signs: Vital Signs Pulse Resp Pulse Ox 93 H 35 H 99 02/01/19 20:02 02/01/19 20:02 02/01/19 20:02 - Physical Exam Narrative exam: Middle-aged -[place] male lying in bed in no acute distress HEENT: NCAT, pink oral mucous membrane Neck: Supple, no venous distention CVS: S1S2 RRR with no murmur, rub or gallop Chest: Breath sounds diminished in the lower zones Abdomen: Distended, soft, nontender, no organomegaly, bowel sounds are present Extremities: Mild edema Genitourinary deferred Neuro: Awake, alert no focal deficits Results - Lab Results 02/01/19 21:08 02/02/19 07:01 Most recent lab results Calcium 8.9 mg/dL (8.4-10.2) 02/02/19 07:01 Phosphorus 2.70 mg/dL (2.5-4.5) 02/02/19 07:01 Magnesium 2.30 mg/dL (1.7-2.3) 02/02/19 07:01 Assessment and Plan - Patient Problems (1) Hyponatremia Current Visit: Yes Status: Acute Plan to address problem: Factitious secondary to hyperglycemia combined true hyponatremia secondary to volume overload. Get urine studies. Blood sugar control and Gentle diuresis and follow-up sodium. (2) Hyperkalemia Current Visit: Yes Status: Acute Plan to address problem: Potassium is improved back to normal. Continue to monitor (3) Systolic heart failure, chronic Current Visit: Yes Status: Acute Plan to address problem: Continue diuretics (4) Hyperlipidemia Current Visit: Yes Status: Acute Plan to address problem: Follow-up lipid profile. Hyperlipidemic medication giving patient's risk factors (5) Diabetes mellitus, new onset Current Visit: Yes Status: Acute Plan to address problem: Newly diagnosed. Needs diabetic teaching. Regimen by primary attending (6) Hypertensive urgency Current Visit: Yes Status: Acute Plan to address problem: Blood pressure elevated on presentation is improving. Follow blood pressure on current medications
[2019-02-02] MEDS ORDERED: LASIX IV SCH ×2 (10:13→10:25)
--- NOTE | 2019-02-02 10:41 | Consultation ---
History of Present Illness Consult date: 02/02/19 Consult reason: chest pain, congestive heart failure History of present illness: This is a 48-year old male with a history of nonischemic cardiomyopathy by stress thallium test that showed no ischemia but a severely decreased left ventricular systolic function, ejection fraction 10-15% by echocardiogram late 2016. Patient has been noncompliant with medications and outpatient follow ups due to lack of insurance. Patient presented with complaints of chest pain, admitted for further evaluation. Patient reports chest pain is worse with position changes and when arms are raised. Chest x-ray reports no acute findings and a chest CTA is negat robert for pulmonary embolus. Initial labs revealed multiple metabolic abnormalities including severe hyponatremia, sodium at 118, hyperkalemia and a potassium of 6.6. There was also a glucose of 601. Patient denies a history of diabetes. Troponin are normal. An ECG is sinus rhythm with nonspecific T-wave abnormalities. Cardiology consultation has been requested. Past History Past Medical History: heart failure, hypertension, hyperlipidemia, other (asthma) Social history: lives with family (son), smoking (Quit in 2012). denies: alc ohol abuse, prescription drug abuse, IV drug use Family history: CAD (mother of pulmonary embolism post-up, one sister of acute myocardial infarction), diabetes (sister had diabetes mellitus), stroke (father of ruptured cerebral aneurysm.) Medications and Allergies Allergies Allergy/AdvReac Type Severity Reaction Status Date / Time No Known Allergies Allergy Verified 04/10/17 15:41 Home Medications Medication Instructions Recorded Confirmed Last Taken Type ALBUTEROL Inhaler (OR & NICU) 2 puff IH QID PRN #1 inhalation 12/28/18 02/02/19 Unknown Rx [Proair] AtorvaSTATin [Lipitor] 40 mg PO QHS #30 tablet 12/28/18 02/02/19 Unknown Rx Carvedilol [Coreg] 6.25 mg PO BID #60 tablet 12/28/18 02/02/19 Unknown Rx Furosemide [Lasix TAB] 40 mg PO QDAY #30 tablet 12/28/18 02/02/19 Unknown Rx Spironolactone [Aldactone] 25 mg PO QDAY #30 tablet 12/28/18 02/02/19 Unknown Rx Active Meds: Active Medications Acetaminophen (Tylenol) 650 mg PO Q4H PRN PRN Reason: Pain MILD(1-3)/Fever >100.5/SANTOS Albuterol (Proventil) 2.5 mg IH Q4HRT PRN PRN Reason: Shortness Of Breath Atorvastatin Calcium (Lipitor) 40 mg PO QHS [facility] Carvedilol (Coreg) 6.25 mg PO BID [facility] Last Admin: 02/02/19 09:00 Dose: 6.25 mg Documented by: Dextrose (D50w (25gm) Syringe) 50 ml IV PRN PRN PRN Reason: Hypoglycemia Furosemide (Lasix) 40 mg IV DAILY [facility] Hydralazine HCl (Apresoline) 10 mg IV Q4H PRN PRN Reason: BP >160/100 Last Admin: 02/02/19 08:56 Dose: 10 mg Documented by: Insulin Human Isoph/Insulin Regular (Humulin 70/30) 20 unit SUB-Q BIDDIAB [facility] Insulin Human Lispro (Humalog) 0 unit SUB-Q Q6HR [facility]; Protocol Last Admin: 02/02/19 09:03 Dose: Not Given Documented by: Insulin Human Lispro (Humalog) 10 unit SUB-Q AC [facility]; Protocol Lisinopril (Zestril) 20 mg PO QDAY [facility] Last Admin: 02/02/19 09:00 Dose: 20 mg Documented by: Morphine Sulfate (Morphine) 2 mg IV Q4H PRN PRN Reason: Pain, Moderate (4-6) Ondansetron HCl (Zofran) 4 mg IV Q8H PRN PRN Reason: Nausea And Vomiting Pneumococcal Polyvalent Vaccine (Pneumovax 23) 0.5 ml IM .ONCE ONE Stop: 02/02/19 12:01 Sodium Chloride (Sodium Chloride Flush Syringe 10 Ml) 10 ml IV BID [facility] Last Admin: 02/02/19 09:00 Dose: 10 ml Documented by: Sodium Chloride (Sodium Chloride Flush Syringe 10 Ml) 10 ml IV PRN PRN PRN Reason: LINE FLUSH Physical Examination Vital Signs Pulse Resp Pulse Ox 93 H 35 H 99 02/01/19 20:02 02/01/19 20:02 02/01/19 20:02 General appearance: no acute distress HEENT: Positive: PERRL Neck: Positive: trachea midline Cardiac: Positive: Reg Rate and Rhythm Lungs: Positive: Normal Breath Sounds Neuro: Positive: Grossly Intact Extremities: Absent: edema Results 02/01/19 21:08 02/02/19 07:01 Coagulation 02/02/19 Range/Units 00:27 PT 12.7 (12.2-14.9) Sec. INR 0.98 (0.87-1.13) APTT 31.1 (24.2-36.6) Sec. Lipids 02/02/19 Range/Units 07:01 Triglycerides 459 H (2-149) mg/dL Cholesterol 626 H (50-199) mg/dL HDL Cholesterol 6 L (40-59) mg/dL Cholesterol/HDL Ratio 104.33 % CBC 02/01/19 Range/Units 21:08 WBC 9.9 (4.5-11.0) K/mm3 RBC 4.51 (3.65-5.03) M/mm3 Hgb 14.4 (11.8-15.2) gm/dl Hct 39.0 (35.5-45.6) % Plt Count 241 (140-440) K/mm3 Comprehensive Metabolic Panel 02/01/19 02/01/19 02/02/19 Range/Units 21:08 23:34 01:20 Sodium TNR 118 L* Potassium TNR 6.6 H* 5.7 H Chloride TNR 82.3 L Carbon Dioxide TNR 25 BUN TNR 26 H Creatinine TNR 1.2 Glucose TNR 601 H* Calcium TNR 8.4 02/02/19 Range/Units 07:01 Sodium 125 L D Potassium 4.7 Chloride 87.6 L Carbon Dioxide 23 BUN 23 H Creatinine 1.0 Glucose 427 H Calcium 8.9 Assessment and Plan Chest pain, atypical Hyponatemia Hyperkalemia Hypertension Diabetes Nonischemic CMP EF 10-15% by echo 03/2017 no ischemia by MPI 03/2017 Recommendations: Sodium/fluid restriction. Repeat echocardiogram for LVEF reassessment. Medical therapy for nonischemic cardiomyopathy.
[2019-02-02] MEDS: TYLENOL PO PRN (11:13)
[2019-02-02] MEDS ORDERED: PNEUMOVAX 23 IM ONE (12:00)
--- NOTE | 2019-02-02 13:44 | Event Note ---
Date: 02/02/19 Patient was seen and evaluated this morning, labs imaging were reviewed. Discussed with the consultants about the management plan. Continue management as outlined in H&P and consultants recommendations. Patient was admitted earlier this morning and refer to the H&P for details.
[2019-02-02 19:33] LABS: Creatinine,Urine 45.9 mg/dL (0.1-20.0)
[2019-02-03 04:34] LABS: BUN/Creatinine Ratio 73; Blood Urea Nitrogen 22 mg/dL (9-20); Hemolysis Index 367
[2019-02-03] MEDS: HumaLOG SUB-Q SCH ×6 (06:34→17:13)
[2019-02-03] MEDS ORDERED: KIONEX PO ONE (09:00)
[2019-02-03] MEDS: ZESTRIL PO SCH (09:05)
[2019-02-03] MEDS: LASIX IV SCH (09:06)
[2019-02-03] MEDS: COREG PO SCH ×2 (09:06→22:09)
[2019-02-03] MEDS: SODIUM CHLORIDE FLUSH SYRINGE 10 ML IV SCH ×2 (09:06→22:16)
--- NOTE | 2019-02-03 09:50 | Progress Note ---
Assessment and Plan Chest pain, atypical Hyponatemia Hyperkalemia Hypertension Diabetes Nonischemic CMP EF 10-15% by echo 03/2017 no ischemia by MPI 03/2017 Non-compliance Recommendations: Sodium/fluid restriction. Medical therapy for nonischemic cardiomyopathy. No new cardiac recommendations Outpatient cardiac follow-up will be scheduled prior to discharge Subjective Date of service: 02/03/19 Principal diagnosis: Hyperglycemia Interval history: Patient denies chest pain or shortness of breath this morning No events recorded on tele Objective Vital Signs Temp Pulse Pulse Pulse Resp BP Pulse Ox 02/03/19 09:06 100 H 157/98 02/03/19 09:05 98 H 157/98 02/03/19 08:16 98.9 F 99 H 18 157/94 95 02/03/19 04:08 97.0 F L 96 H 18 146/87 94 02/03/19 00:16 97.8 F 95 H 18 147/68 93 02/02/19 22:22 99 H 154/93 02/02/19 19:51 98 H 02/02/19 16:11 98.7 F 102 H 18 138/87 98 02/02/19 15:45 97 H 02/02/19 15:40 100 H 100 H 18 02/02/19 11:39 97.9 F 89 18 158/82 97 - Physical Examination HEENT: Positive: PERRL Neck: Positive: trachea midline Cardiac: Positive: Reg Rate and Rhythm Lungs: Positive: Normal Exam Neuro: Positive: Grossly Intact Extremities: Absent: edema - Labs and Meds Comprehensive Metabolic Panel 02/02/19 02/03/19 Range/Units 15:12 03:41 Sodium 125 L 127 L (137-145) mmol/L Potassium 5.4 H (3.6-5.0) mmol/L Chloride 92.4 L (98-107) mmol/L Carbon Dioxide 22 (22-30) mmol/L BUN 22 H (9-20) mg/dL Creatinine 0.3 L D (0.8-1.5) mg/dL Glucose 412 H (75-100) mg/dL Calcium 9.0 (8.4-10.2) mg/dL
--- NOTE | 2019-02-03 11:09 | Progress Note ---
Assessment and Plan Assessment and plan: 48-year-old man with history of hypertension asthma systolic CHF EF of 10-15% in 2017 who presents to the hospital with chest pain x4 days. Admission labs showed a sodium of 118, potassium was 6.6, repeat 5.7 after receiving 17 units of insulin, chloride 82, BUN 26, glucose 601 which improved to 364 after receiving 70 units of insulin, UA negative CTA chest; subsegmental pulmonary arteries are degraded by motion, no large central or segmental pulmonary embolus identified. Hepatic steatosis. Chest x-ray; no acute findings Chest pain aspirin, EKG no acute findings, chest x-ray neg, troponins negative cardiology saw the patient and recommended no stress test needed Resolved New onset type 2 diabetes with persistent hyperglycemia - I increase Insulin 70/30 t0 25 units twice a day, Humalog 15 AC, continue sliding scale - Hemoglobin A1c 10.2, Accu-Chek and adjust insulin as needed - Blood glucose is still high, diabetic education Severe hyponatremia - Pseudohyponatremia, improving - Nephrology consult appreciated Hyperkalemia - Resolved, had Aldactone History of systolic CHF, EF 10-15% Resolved Patient has not been compliant with medications of follow-up, IV diuretics, beta rainer and SHANDA -I Cardiology consult appreciated Echo showed EF 55-60% Hypertensive urgency Optimize BP meds, will add procardia Nonadherence to medications/treatments/diet Counseled on improved adherence Preventative health counseling performed for 17 minutes DVT prophylaxis with Lovenox Plan of care discussed with patient Disposition; will be discharged once his blood sugar is controlled. History Interval history: Patient was seen and evaluated this morning, patient didn't have any chest pain or shortness of breath. Hospitalist Physical - Physical exam Narrative exam: Not in cardiopulmonary distress. The patient is obese. Vital signs as documented. Head exam is unremarkable. No scleral icterus . Neck is without jugular venous distension, thyromegaly, or carotid bruits. Lungs are clear to auscultation. Cardiac exam reveals regular rate and Rhythm. Abdominal exam reveals normal bowel sounds. Extremities are nonedematous and both femoral and pedal pulses are normal. SERVICE OFFICER: Alert and oriented 3. No focal weakness. - Constitutional Vitals: Temp Pulse Resp BP Pulse Ox 98.9 F 100 H 18 157/98 96 02/03/19 08:16 02/03/19 10:00 02/03/19 10:00 02/03/19 09:06 02/03/19 10:00 General appearance: Present: no acute distress Results - Labs CBC & Chem 7: 02/01/19 21:08 02/03/19 03:41 Labs: Laboratory Last Values WBC 9.9 K/mm3 (4.5-11.0) 02/01/19 21:08 RBC 4.51 M/mm3 (3.65-5.03) 02/01/19 21:08 Hgb 14.4 gm/dl (11.8-15.2) 02/01/19 21:08 Hct 39.0 % (35.5-45.6) 02/01/19 21:08 MCV 87 fl (84-94) 02/01/19 21:08 MCH 32 pg (28-32) 02/01/19 21:08 MCHC 37 % (32-34) H 02/01/19 21:08 RDW 12.9 % (13.2-15.2) L 02/01/19 21:08 Plt Count 241 K/mm3 (140-440) 02/01/19 21:08 Add Manual Diff Complete 02/01/19 21:08 Total Counted 100 02/01/19 21:08 Seg Neuts % (Manual) 66.0 % (40.0-70.0) 02/01/19 21:08 Band Neutrophils % 0 % 02/01/19 21:08 Lymphocytes % (Manual) 21.0 % (13.4-35.0) 02/01/19 21:08 Reactive Lymphs % (Man) 0 % 02/01/19 21:08 Monocytes % (Manual) 6.0 % (0.0-7.3) 02/01/19 21:08 Eosinophils % (Manual) 7.0 % (0.0-4.3) H 02/01/19 21:08 Basophils % (Manual) 0 % (0.0-1.8) 02/01/19 21:08 Metamyelocytes % 0 % 02/01/19 21:08 Myelocytes % 0 % 02/01/19 21:08 Promyelocytes % 0 % 02/01/19 21:08 Blast Cells % 0 % 02/01/19 21:08 Nucleated RBC % Not Reportable 02/01/19 21:08 Seg Neutrophils # Man 6.5 K/mm3 (1.8-7.7) 02/01/19 21:08 Band Neutrophils # 0.0 K/mm3 02/01/19 21:08 Lymphocytes # (Manual) 2.1 K/mm3 (1.2-5.4) 02/01/19 21:08 Abs React Lymphs (Man) 0.0 K/mm3 02/01/19 21:08 Monocytes # (Manual) 0.6 K/mm3 (0.0-0.8) 02/01/19 21:08 Eosinophils # (Manual) 0.7 K/mm3 (0.0-0.4) H 02/01/19 21:08 Basophils # (Manual) 0.0 K/mm3 (0.0-0.1) 02/01/19 21:08 Metamyelocytes # 0.0 K/mm3 02/01/19 21:08 Myelocytes # 0.0 K/mm3 02/01/19 21:08 Promyelocytes # 0.0 K/mm3 02/01/19 21:08 Blast Cells # 0.0 K/mm3 02/01/19 21:08 WBC Morphology Not Reportable 02/01/19 21:08 Hypersegmented Neuts Not Reportable 02/01/19 21:08 Hyposegmented Neuts Not Reportable 02/01/19 21:08 Hypogranular Neuts Not Reportable 02/01/19 21:08 Smudge Cells Not Reportable 02/01/19 21:08 Toxic Granulation Not Reportable 02/01/19 21:08 Toxic Vacuolation Not Reportable 02/01/19 21:08 Dohle Bodies Not Reportable 02/01/19 21:08 Pelger-Huet Anomaly Not Reportable 02/01/19 21:08 Lisette Rods Not Reportable 02/01/19 21:08 Platelet Estimate Consistent w auto 02/01/19 21:08 Clumped Platelets Not Reportable 02/01/19 21:08 Plt Clumps, EDTA Not Reportable 02/01/19 21:08 Large Platelets Not Reportable 02/01/19 21:08 Giant Platelets Not Reportable 02/01/19 21:08 Platelet Satelliting Not Reportable 02/01/19 21:08 Plt Morphology Comment Not Reportable 02/01/19 21:08 RBC Morphology Not Reportable 02/01/19 21:08 Dimorphic RBCs Not Reportable 02/01/19 21:08 Polychromasia Not Reportable 02/01/19 21:08 Hypochromasia Not Reportable 02/01/19 21:08 Poikilocytosis Not Reportable 02/01/19 21:08 Anisocytosis Not Reportable 02/01/19 21:08 Microcytosis Not Reportable 02/01/19 21:08 Macrocytosis Not Reportable 02/01/19 21:08 Spherocytes Not Reportable 02/01/19 21:08 Pappenheimer Bodies Not Reportable 02/01/19 21:08 Sickle Cells Not Reportable 02/01/19 21:08 Target Cells Not Reportable 02/01/19 21:08 Tear Drop Cells Not Reportable 02/01/19 21:08 Ovalocytes Not Reportable 02/01/19 21:08 Stomatocytes Few 02/01/19 21:08 Helmet Cells Not Reportable 02/01/19 21:08 [place] Bodies Not Reportable 02/01/19 21:08 [place] Rings Not Reportable 02/01/19 21:08 Big [place] Cells Not Reportable 02/01/19 21:08 Bite Cells Not Reportable 02/01/19 21:08 Crenated Cell Not Reportable 02/01/19 21:08 Elliptocytes Not Reportable 02/01/19 21:08 Acanthocytes (Spur) Not Reportable 02/01/19 21:08 Rouleaux Not Reportable 02/01/19 21:08 Hemoglobin C Crystals Not Reportable 02/01/19 21:08 Schistocytes Not Reportable 02/01/19 21:08 Malaria parasites Not Reportable 02/01/19 21:08 Gareth Bodies Not Reportable 02/01/19 21:08 Hem Pathologist Commnt No 02/01/19 21:08 PT 12.7 Sec. (12.2-14.9) 02/02/19 00:27 INR 0.98 (0.87-1.13) 02/02/19 00:27 APTT 31.1 Sec. (24.2-36.6) 02/02/19 00:27 D-Dimer 290.69 ng/mlDDU (0-234) H 02/02/19 00:27 VBG pH 7.345 (7.320-7.420) 02/02/19 01:10 Sodium 127 mmol/L (137-145) L 02/03/19 03:41 Potassium 5.4 mmol/L (3.6-5.0) H 02/03/19 03:41 Chloride 92.4 mmol/L (98-107) L 02/03/19 03:41 Carbon Dioxide 22 mmol/L (22-30) 02/03/19 03:41 Anion Gap 18 mmol/L 02/03/19 03:41 BUN 22 mg/dL (9-20) H 02/03/19 03:41 Creatinine 0.3 mg/dL (0.8-1.5) L D 02/03/19 03:41 Estimated GFR > 60 ml/min 02/03/19 03:41 BUN/Creatinine Ratio 73 % 02/03/19 03:41 Glucose 412 mg/dL (75-100) H 02/03/19 03:41 POC Glucose 345 (70-105) H 02/03/19 08:27 Hemoglobin A1c 10.1 % (4-6) H 02/02/19 07:01 Osmolality 320 Mosm/kg 02/02/19 07:01 Calcium 9.0 mg/dL (8.4-10.2) 02/03/19 03:41 Phosphorus 2.70 mg/dL (2.5-4.5) 02/02/19 07:01 Magnesium 2.30 mg/dL (1.7-2.3) 02/02/19 07:01 Troponin T < 0.010 ng/mL (0.00-0.029) 02/02/19 07:01 NT-Pro-B Natriuret Pep 123.3 pg/mL (0-450) 02/01/19 23:34 Triglycerides 459 mg/dL (2-149) H 02/02/19 07:01 Cholesterol 626 mg/dL (50-199) H 02/02/19 07:01 LDL Cholesterol Direct TNR 02/02/19 07:01 HDL Cholesterol 6 mg/dL (40-59) L 02/02/19 07:01 Cholesterol/HDL Ratio 104.33 % 02/02/19 07:01 Urine Color Straw (Yellow) 02/02/19 Unknown Urine Turbidity Clear (Clear) 02/02/19 Unknown Urine pH 6.0 (5.0-7.0) 02/02/19 Unknown Ur Specific [place] 1.021 (1.003-1.030) 02/02/19 Unknown Urine Protein <15 mg/dl mg/dL (Negative) 02/02/19 Unknown Urine Glucose (UA) >=500 mg/dL (Negative) 02/02/19 Unknown Urine Ketones Neg mg/dL (Negative) 02/02/19 Unknown Urine Blood Neg (Negative) 02/02/19 Unknown Urine Nitrite Neg (Negative) 02/02/19 Unknown Urine Bilirubin Neg (Negative) 02/02/19 Unknown Urine Urobilinogen < 2.0 mg/dL (<2.0) 02/02/19 Unknown Ur Leukocyte Esterase Neg (Negative) 02/02/19 Unknown Urine WBC (Auto) < 1.0 /HPF (0.0-6.0) 02/02/19 Unknown Urine RBC (Auto) < 1.0 /HPF (0.0-6.0) 02/02/19 Unknown Urine Bacteria (Auto) 1+ /HPF (Negative) 02/02/19 Unknown Urine Osmolality 457 Mosm/kg 02/02/19 Unknown Urine Creatinine 45.9 mg/dL (0.1-20.0) H 02/02/19 Unknown Urine Sodium 11 mmol/L 02/02/19 Unknown Urine Total Protein 14 mg/dL (5-11.8) H 02/02/19 Unknown Active Medications - Current Medications Current Medications: Generic Name Dose Route Start Last Admin Trade Name Freq PRN Reason Stop Dose Admin Acetaminophen 650 mg 02/02/19 06:29 02/02/19 11:13 Tylenol PO 650 mg Q4H PRN Administration Pain MILD(1-3)/Fever >100.5/SANTOS Albuterol 2.5 mg 02/02/19 06:29 Proventil IH Q4HRT PRN Shortness Of Breath Atorvastatin Calcium 40 mg 02/02/19 22:00 02/02/19 22:22 Lipitor PO 40 mg QHS ADAMS Administration Carvedilol 6.25 mg 02/02/19 10:00 02/03/19 09:06 Coreg PO 6.25 mg BID ADAMS Administration Dextrose 50 ml 02/02/19 06:29 D50w (25gm) Syringe IV PRN PRN Hypoglycemia Furosemide 40 mg 02/03/19 10:00 02/03/19 09:06 Lasix IV 40 mg DAILY ADAMS Administration Hydralazine HCl 10 mg 02/02/19 06:29 02/02/19 08:56 Apresoline IV 10 mg Q4H PRN Administration BP >160/100 Insulin Human Isoph/Insulin Regular 25 unit 02/03/19 09:00 02/03/19 09:01 Humulin 70/30 SUB-Q 25 unit BIDDIAB ADAMS Administration Insulin Human Lispro 0 unit 02/02/19 06:00 02/03/19 06:34 Humalog SUB-Q 4 unit Q6HR ADAMS Administration Protocol Insulin Human Lispro 15 unit 02/03/19 08:30 02/03/19 09:00 Humalog SUB-Q 15 unit AC ADAMS Administration Protocol Lisinopril 20 mg 02/02/19 10:00 02/03/19 09:05 Zestril PO 20 mg QDAY ADAMS Administration Morphine Sulfate 2 mg 02/02/19 06:29 Morphine IV Q4H PRN Pain, Moderate (4-6) Ondansetron HCl 4 mg 02/02/19 06:29 Zofran IV Q8H PRN Nausea And Vomiting Sodium Chloride 10 ml 02/02/19 10:00 02/03/19 09:06 Sodium Chloride Flush Syringe 10 Ml IV 10 ml BID ADAMS Administration Sodium Chloride 10 ml 02/02/19 06:29 Sodium Chloride Flush Syringe 10 Ml IV PRN PRN LINE FLUSH Nutrition/Malnutrition Assess - Dietary Evaluation Nutrition/Malnutrition Findings: Nutrition Notes Start: 02/02/19 13:15 Freq: Status: Active Protocol: Document 02/02/19 13:16 PS (Rec: 02/02/19 13:33 PS [id number]) Co-Sign 02/02/19 13:16 LM Nutrition Notes Need for Assessment generated from: MD Order,Education Initial or Follow up Assessment Current Diagnosis Diabetes,Hypertension,Heart Failure Current Diet NPO Labs/Tests 02/02 POC Glu 364 A1C 10.1% Pertinent Medications Lasix Height 5 ft 9 in Weight 102.058 kg Dorena Body Weight (kg) 72.72 BMI 33.2 Intake Prior to Admission Good Weight Status Obese Subjective/Other Information Consult for education. Pt. stated he was eating 75-100% of his normal diet CLERICAL OFFICE. Pt. stated he was trying to lose wt by diet and exercise for management of CHF. Pt. was open to education and Carbohydrate Counting with Diabetes handout. Burn Absent Trauma Absent Minimum of two criteria No #1 Nutrition Diagnosis Food and nutrition-related knowledge deficit Etiology no prior education on diabetes /carbohydrate counting As Evidenced by Signs and Symptoms pt. A1C at 10.1% and unaware of carbohydrate counting with diabetes. Nutrition Intervention Teaching Recipient Patient Learning Readiness Good Teaching Methods Discussion,Handout Response to Teaching Verbalize understanding Education Handouts Provided Carbohydrate Counting with Diabetes Barriers to Learning No Barriers RD phone number provided Yes Patient aware of follow up options Yes Anticipated Discharge Needs: Cardiac Consistent Carbohydrate Diet Revisit per MD consult or patient Sign Off request:
[2019-02-03] MEDS: PROCARDIA XL PO SCH (13:06)
--- NOTE | 2019-02-03 17:16 | Progress Note ---
Assessment and Plan - Patient Problems (1) Hyponatremia Current Visit: Yes Status: Acute Plan to address problem: Factitious secondary to hyperglycemia combined true hyponatremia secondary to volume overload. Follow-up urine studies. Blood sugar control and Gentle diuresis and follow-up sodium. (2) Hyperkalemia Current Visit: Yes Status: Acute Plan to address problem: Potassium has improved but still normal. Repeat potassium now and then follow up in the morning (3) Systolic heart failure, chronic Current Visit: Yes Status: Acute Plan to address problem: Continue diuretics (4) Hyperlipidemia Current Visit: Yes Status: Acute Plan to address problem: Follow-up lipid profile. Hyperlipidemic medication giving patient's risk factors (5) Diabetes mellitus, new onset Current Visit: Yes Status: Acute Plan to address problem: Newly diagnosed. Needs diabetic teaching. Regimen by primary attending (6) Hypertensive urgency Current Visit: Yes Status: Acute Plan to address problem: Blood pressure elevated on presentation is improving. Follow blood pressure on current medications Subjective Date of service: 02/03/19 Principal diagnosis: Hyperglycemia Interval history: Patient seen lying in bed. There is no new complaints. Shortness of breath improving. No nausea or vomiting. No dizziness Objective - Exam Narrative Exam: Middle-aged -[place] male lying in bed in no acute distress HEENT: NCAT, pink oral mucous membrane Neck: Supple, no venous distention CVS: S1S2 RRR with no murmur, rub or gallop Chest: Breath sounds diminished in the lower zones Abdomen: Distended, soft, nontender, no organomegaly, bowel sounds are present Extremities: Mild edema Genitourinary deferred Neuro: Awake, alert no focal deficits - Vital Signs Vital signs: Vital Signs - 12hr 02/03/19 02/03/19 02/03/19 08:00 08:16 09:05 Temperature 98.9 F Pulse Rate 95 H 99 H 98 H Pulse Rate [ Left Radial] Pulse Rate [ Right Radial] Respiratory 18 Rate Blood Pressure 157/94 157/98 O2 Sat by Pulse 95 Oximetry 02/03/19 02/03/19 02/03/19 09:06 10:00 16:00 Temperature Pulse Rate 100 H 98 H Pulse Rate [ 100 H Left Radial] Pulse Rate [ 100 H Right Radial] Respiratory 18 Rate Blood Pressure 157/98 O2 Sat by Pulse 96 Oximetry - Lab 02/01/19 21:08 02/03/19 03:41 Most recent lab results Calcium 9.0 mg/dL (8.4-10.2) 02/03/19 03:41 Phosphorus 2.70 mg/dL (2.5-4.5) 02/02/19 07:01 Magnesium 2.30 mg/dL (1.7-2.3) 02/02/19 07:01 Urine Creatinine 45.9 mg/dL (0.1-20.0) H 02/02/19 Unknown Urine Sodium 11 mmol/L 02/02/19 Unknown Urine Total Protein 14 mg/dL (5-11.8) H 02/02/19 Unknown Medications & Allergies - Medications Allergies/Adverse Reactions: Allergies No Known Allergies Allergy (Verified 04/10/17 15:41) Home Medications: Home Medications Medication Instructions Recorded Confirmed Last Taken Type ALBUTEROL Inhaler (OR & NICU) 2 puff IH QID PRN #1 inhalation 12/28/18 02/02/19 Unknown Rx [Proair] AtorvaSTATin [Lipitor] 40 mg PO QHS #30 tablet 12/28/18 02/02/19 Unknown Rx Carvedilol [Coreg] 6.25 mg PO BID #60 tablet 12/28/18 02/02/19 Unknown Rx Furosemide [Lasix TAB] 40 mg PO QDAY #30 tablet 12/28/18 02/02/19 Unknown Rx Spironolactone [Aldactone] 25 mg PO QDAY #30 tablet 12/28/18 02/02/19 Unknown Rx Active Medications: Generic Name Dose Route Start Last Admin Trade Name Freq PRN Reason Stop Dose Admin Acetaminophen 650 mg 02/02/19 06:29 02/02/19 11:13 Tylenol PO 650 mg Q4H PRN Administration Pain MILD(1-3)/Fever >100.5/SANTOS Albuterol 2.5 mg 02/02/19 06:29 Proventil IH Q4HRT PRN Shortness Of Breath Atorvastatin Calcium 40 mg 02/02/19 22:00 02/02/19 22:22 Lipitor PO 40 mg QHS ADAMS Administration Carvedilol 6.25 mg 02/02/19 10:00 02/03/19 09:06 Coreg PO 6.25 mg BID ADAMS Administration Dextrose 50 ml 02/02/19 06:29 D50w (25gm) Syringe IV PRN PRN Hypoglycemia Furosemide 40 mg 02/03/19 10:00 02/03/19 09:06 Lasix IV 40 mg DAILY ADAMS Administration Hydralazine HCl 10 mg 02/02/19 06:29 02/02/19 08:56 Apresoline IV 10 mg Q4H PRN Administration BP >160/100 Insulin Human Isoph/Insulin Regular 25 unit 02/03/19 09:00 02/03/19 09:01 Humulin 70/30 SUB-Q 25 unit BIDDIAB ADAMS Administration Insulin Human Lispro 0 unit 02/02/19 06:00 02/03/19 12:30 Humalog SUB-Q 5 unit Q6HR ADAMS Administration Protocol Insulin Human Lispro 15 unit 02/03/19 08:30 02/03/19 12:30 Humalog SUB-Q 15 unit AC ADAMS Administration Protocol Lisinopril 20 mg 02/02/19 10:00 02/03/19 09:05 Zestril PO 20 mg QDAY ADAMS Administration Morphine Sulfate 2 mg 02/02/19 06:29 Morphine IV Q4H PRN Pain, Moderate (4-6) Nifedipine 60 mg 02/03/19 12:00 02/03/19 13:06 Procardia Xl PO 60 mg QDAY ADAMS Administration Ondansetron HCl 4 mg 02/02/19 06:29 Zofran IV Q8H PRN Nausea And Vomiting Sodium Chloride 10 ml 02/02/19 10:00 02/03/19 09:06 Sodium Chloride Flush Syringe 10 Ml IV 10 ml BID ADAMS Administration Sodium Chloride 10 ml 02/02/19 06:29 Sodium Chloride Flush Syringe 10 Ml IV PRN PRN LINE FLUSH
[2019-02-03 18:34] LABS: BUN/Creatinine Ratio 22; Blood Urea Nitrogen 22 mg/dL (9-20); Calcium 8.7 mg/dL (8.4-10.2); Hemolysis Index 102
[2019-02-03] MEDS: TYLENOL PO PRN (22:13)
[2019-02-04] MEDS: HumaLOG SUB-Q SCH ×9 (00:35→23:38)
[2019-02-04 07:27] LABS: BUN/Creatinine Ratio 22; Blood Urea Nitrogen 29 mg/dL (9-20); Hemolysis Index 18
[2019-02-04] MEDS: PROCARDIA XL PO SCH (09:30)
[2019-02-04] MEDS: ZESTRIL PO SCH (09:30)
[2019-02-04] MEDS: COREG PO SCH ×2 (09:30→21:30)
[2019-02-04] MEDS: LASIX IV SCH (09:31)
[2019-02-04] MEDS: SODIUM CHLORIDE FLUSH SYRINGE 10 ML IV SCH ×2 (09:31→21:34)
[2019-02-04] MEDS ORDERED: K-DUR PO NR (09:56)
[2019-02-04] MEDS ORDERED: MIRALAX 3350 PO PRN (10:00)
[2019-02-04] MEDS ORDERED: DULCOLAX PO PRN (10:00)
--- NOTE | 2019-02-04 10:00 | Progress Note ---
Assessment and Plan Assessment and plan: 48-year-old man with history of hypertension asthma systolic CHF EF of 10-15% in 2017 who presents to the hospital with chest pain x4 days. Admission labs showed a sodium of 118, potassium was 6.6, repeat 5.7 after receiving 17 units of insulin, chloride 82, BUN 26, glucose 601 which improved to 364 after receiving 70 units of insulin, UA negative CTA chest; subsegmental pulmonary arteries are degraded by motion, no large central or segmental pulmonary embolus identified. Hepatic steatosis. Chest x-ray; no acute findings Chest pain aspirin, EKG no acute findings, chest x-ray neg, troponins negative cardiology saw the patient and recommended no stress test needed Resolved New onset type 2 diabetes with persistent hyperglycemia - Uncontrolled still in the 300's - I increase Insulin 70/30 t0 35 units twice a day, Humalog 15 AC, continue s liding scale - Hemoglobin A1c 10.2, Accu-Chek and adjust insulin as needed - Blood glucose is still high, diabetic education Severe hyponatremia - Pseudohyponatremia, improving - Nephrology consult appreciated Hypokalemia - repleted History of systolic CHF, EF 10-15% Resolved Patient has not been compliant with medications of follow-up, IV diuretics, beta rainer and SHANDA -I Cardiology consult appreciated Echo showed EF 55-60% Hypertensive urgency - controlled Nonadherence to medications/treatments/diet Counseled on improved adherence Preventative health counseling performed for 17 minutes DVT prophylaxis with Lovenox Plan of care discussed with patient Disposition; will be discharged once his blood sugar is controlled. History Interval history: Patient was seen and evaluated this morning, patient didn't have any chest pain or shortness of breath. patient is complaining abdominal pain and constipation. Hospitalist Physical - Physical exam Narrative exam: Not in cardiopulmonary distress. The patient is obese. Vital signs as documented. Head exam is unremarkable. No scleral icterus . Neck is without jugular venous distension, thyromegaly, or carotid bruits. Lungs are clear to auscultation. Cardiac exam reveals regular rate and Rhythm. Abdominal exam reveals normal bowel sounds. Extremities are nonedematous and both femoral and pedal pulses are normal. 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 No focal weakness. - Constitutional Vitals: Temp Pulse Resp BP Pulse Ox 98.4 F 92 H 16 117/76 95 02/04/19 08:06 02/04/19 09:30 02/04/19 08:06 02/04/19 09:30 02/04/19 08:06 General appearance: Present: no acute distress Results - Labs CBC & Chem 7: 02/01/19 21:08 02/04/19 06:28 Labs: Laboratory Last Values WBC 9.9 K/mm3 (4.5-11.0) 02/01/19 21:08 RBC 4.51 M/mm3 (3.65-5.03) 02/01/19 21:08 Hgb 14.4 gm/dl (11.8-15.2) 02/01/19 21:08 Hct 39.0 % (35.5-45.6) 02/01/19 21:08 MCV 87 fl (84-94) 02/01/19 21:08 MCH 32 pg (28-32) 02/01/19 21:08 MCHC 37 % (32-34) H 02/01/19 21:08 RDW 12.9 % (13.2-15.2) L 02/01/19 21:08 Plt Count 241 K/mm3 (140-440) 02/01/19 21:08 Add Manual Diff Complete 02/01/19 21:08 Total Counted 100 02/01/19 21:08 Seg Neuts % (Manual) 66.0 % (40.0-70.0) 02/01/19 21:08 Band Neutrophils % 0 % 02/01/19 21:08 Lymphocytes % (Manual) 21.0 % (13.4-35.0) 02/01/19 21:08 Reactive Lymphs % (Man) 0 % 02/01/19 21:08 Monocytes % (Manual) 6.0 % (0.0-7.3) 02/01/19 21:08 Eosinophils % (Manual) 7.0 % (0.0-4.3) H 02/01/19 21:08 Basophils % (Manual) 0 % (0.0-1.8) 02/01/19 21:08 Metamyelocytes % 0 % 02/01/19 21:08 Myelocytes % 0 % 02/01/19 21:08 Promyelocytes % 0 % 02/01/19 21:08 Blast Cells % 0 % 02/01/19 21:08 Nucleated RBC % Not Reportable 02/01/19 21:08 Seg Neutrophils # Man 6.5 K/mm3 (1.8-7.7) 02/01/19 21:08 Band Neutrophils # 0.0 K/mm3 02/01/19 21:08 Lymphocytes # (Manual) 2.1 K/mm3 (1.2-5.4) 02/01/19 21:08 Abs React Lymphs (Man) 0.0 K/mm3 02/01/19 21:08 Monocytes # (Manual) 0.6 K/mm3 (0.0-0.8) 02/01/19 21:08 Eosinophils # (Manual) 0.7 K/mm3 (0.0-0.4) H 02/01/19 21:08 Basophils # (Manual) 0.0 K/mm3 (0.0-0.1) 02/01/19 21:08 Metamyelocytes # 0.0 K/mm3 02/01/19 21:08 Myelocytes # 0.0 K/mm3 02/01/19 21:08 Promyelocytes # 0.0 K/mm3 02/01/19 21:08 Blast Cells # 0.0 K/mm3 02/01/19 21:08 WBC Morphology Not Reportable 02/01/19 21:08 Hypersegmented Neuts Not Reportable 02/01/19 21:08 Hyposegmented Neuts Not Reportable 02/01/19 21:08 Hypogranular Neuts Not Reportable 02/01/19 21:08 Smudge Cells Not Reportable 02/01/19 21:08 Toxic Granulation Not Reportable 02/01/19 21:08 Toxic Vacuolation Not Reportable 02/01/19 21:08 Dohle Bodies Not Reportable 02/01/19 21:08 Pelger-Huet Anomaly Not Reportable 02/01/19 21:08 Lisette Rods Not Reportable 02/01/19 21:08 Platelet Estimate Consistent w auto 02/01/19 21:08 Clumped Platelets Not Reportable 02/01/19 21:08 Plt Clumps, EDTA Not Reportable 02/01/19 21:08 Large Platelets Not Reportable 02/01/19 21:08 Giant Platelets Not Reportable 02/01/19 21:08 Platelet Satelliting Not Reportable 02/01/19 21:08 Plt Morphology Comment Not Reportable 02/01/19 21:08 RBC Morphology Not Reportable 02/01/19 21:08 Dimorphic RBCs Not Reportable 02/01/19 21:08 Polychromasia Not Reportable 02/01/19 21:08 Hypochromasia Not Reportable 02/01/19 21:08 Poikilocytosis Not Reportable 02/01/19 21:08 Anisocytosis Not Reportable 02/01/19 21:08 Microcytosis Not Reportable 02/01/19 21:08 Macrocytosis Not Reportable 02/01/19 21:08 Spherocytes Not Reportable 02/01/19 21:08 Pappenheimer Bodies Not Reportable 02/01/19 21:08 Sickle Cells Not Reportable 02/01/19 21:08 Target Cells Not Reportable 02/01/19 21:08 Tear Drop Cells Not Reportable 02/01/19 21:08 Ovalocytes Not Reportable 02/01/19 21:08 Stomatocytes Few 02/01/19 21:08 Helmet Cells Not Reportable 02/01/19 21:08 [place] Bodies Not Reportable 02/01/19 21:08 [place]illiard Rings Not Reportable 02/01/19 21:08 [place] Cells Not Reportable 02/01/19 21:08 Bite Cells Not Reportable 02/01/19 21:08 Crenated Cell Not Reportable 02/01/19 21:08 Elliptocytes Not Reportable 02/01/19 21:08 Acanthocytes (Spur) Not Reportable 02/01/19 21:08 Rouleaux Not Reportable 02/01/19 21:08 Hemoglobin C Crystals Not Reportable 02/01/19 21:08 Schistocytes Not Reportable 02/01/19 21:08 Malaria parasites Not Reportable 02/01/19 21:08 Gareth Bodies Not Reportable 02/01/19 21:08 Hem Pathologist Commnt No 02/01/19 21:08 PT 12.7 Sec. (12.2-14.9) 02/02/19 00:27 INR 0.98 (0.87-1.13) 02/02/19 00:27 APTT 31.1 Sec. (24.2-36.6) 02/02/19 00:27 D-Dimer 290.69 ng/mlDDU (0-234) H 02/02/19 00:27 VBG pH 7.345 (7.320-7.420) 02/02/19 01:10 Sodium 132 mmol/L (137-145) L 02/04/19 06:28 Potassium 3.4 mmol/L (3.6-5.0) L 02/04/19 06:28 Chloride 90.8 mmol/L (98-107) L 02/04/19 06:28 Carbon Dioxide 23 mmol/L (22-30) 02/04/19 06:28 Anion Gap 22 mmol/L 02/04/19 06:28 BUN 29 mg/dL (9-20) H 02/04/19 06:28 Creatinine 1.3 mg/dL (0.8-1.5) 02/04/19 06:28 Estimated GFR > 60 ml/min 02/04/19 06:28 BUN/Creatinine Ratio 22 % 02/04/19 06:28 Glucose 383 mg/dL (75-100) H 02/04/19 06:28 POC Glucose 335 (70-105) H 02/04/19 05:51 Hemoglobin A1c 10.1 % (4-6) H 02/02/19 07:01 Osmolality 320 Mosm/kg 02/02/19 07:01 Calcium 9.0 mg/dL (8.4-10.2) 02/04/19 06:28 Phosphorus 2.70 mg/dL (2.5-4.5) 02/02/19 07:01 Magnesium 2.30 mg/dL (1.7-2.3) 02/02/19 07:01 Troponin T < 0.010 ng/mL (0.00-0.029) 02/02/19 07:01 NT-Pro-B Natriuret Pep 123.3 pg/mL (0-450) 02/01/19 23:34 Triglycerides 459 mg/dL (2-149) H 02/02/19 07:01 Cholesterol 626 mg/dL (50-199) H 02/02/19 07:01 LDL Cholesterol Direct TNR 02/02/19 07:01 HDL Cholesterol 6 mg/dL (40-59) L 02/02/19 07:01 Cholesterol/HDL Ratio 104.33 % 02/02/19 07:01 Urine Color Straw (Yellow) 02/02/19 Unknown Urine Turbidity Clear (Clear) 02/02/19 Unknown Urine pH 6.0 (5.0-7.0) 02/02/19 Unknown Ur Specific [place] 1.021 (1.003-1.030) 02/02/19 Unknown Urine Protein <15 mg/dl mg/dL (Negative) 02/02/19 Unknown Urine Glucose (UA) >=500 mg/dL (Negative) 02/02/19 Unknown Urine Ketones Neg mg/dL (Negative) 02/02/19 Unknown Urine Blood Neg (Negative) 02/02/19 Unknown Urine Nitrite Neg (Negative) 02/02/19 Unknown Urine Bilirubin Neg (Negative) 02/02/19 Unknown Urine Urobilinogen < 2.0 mg/dL (<2.0) 02/02/19 Unknown Ur Leukocyte Esterase Neg (Negative) 02/02/19 Unknown Urine WBC (Auto) < 1.0 /HPF (0.0-6.0) 02/02/19 Unknown Urine RBC (Auto) < 1.0 /HPF (0.0-6.0) 02/02/19 Unknown Urine Bacteria (Auto) 1+ /HPF (Negative) 02/02/19 Unknown Urine Osmolality 457 Mosm/kg 02/02/19 Unknown Urine Creatinine 45.9 mg/dL (0.1-20.0) H 02/02/19 Unknown Urine Sodium 11 mmol/L 02/02/19 Unknown Urine Total Protein 14 mg/dL (5-11.8) H 02/02/19 Unknown Active Medications - Current Medications Current Medications: Generic Name Dose Route Start Last Admin Trade Name Freq PRN Reason Stop Dose Admin Acetaminophen 650 mg 02/02/19 06:29 02/03/19 22:13 Tylenol PO 650 mg Q4H PRN Administration Pain MILD(1-3)/Fever >100.5/SANTOS Albuterol 2.5 mg 02/02/19 06:29 Proventil IH Q4HRT PRN Shortness Of Breath Atorvastatin Calcium 40 mg 02/02/19 22:00 02/03/19 22:09 Lipitor PO 40 mg QHS ADAMS Administration Bisacodyl 10 mg 02/04/19 10:00 Dulcolax PO QDAY PRN Constipation Carvedilol 6.25 mg 02/02/19 10:00 02/04/19 09:30 Coreg PO 6.25 mg BID ADAMS Administration Dextrose 50 ml 02/02/19 06:29 D50w (25gm) Syringe IV PRN PRN Hypoglycemia Furosemide 40 mg 02/03/19 10:00 02/04/19 09:31 Lasix IV 40 mg DAILY ADAMS Administration Hydralazine HCl 10 mg 02/02/19 06:29 02/02/19 08:56 Apresoline IV 10 mg Q4H PRN Administration BP >160/100 Insulin Human Isoph/Insulin Regular 35 unit 02/04/19 09:00 Humulin 70/30 SUB-Q BIDDIAB ADAMS Insulin Human Lispro 0 unit 02/02/19 06:00 02/04/19 05:47 Humalog SUB-Q 4 unit Q6HR ADAMS Administration Protocol Insulin Human Lispro 15 unit 02/03/19 08:30 02/04/19 09:29 Humalog SUB-Q 15 unit AC ADAMS Administration Protocol Lisinopril 20 mg 02/02/19 10:00 02/04/19 09:30 Zestril PO 20 mg QDAY ADAMS Administration Morphine Sulfate 2 mg 02/02/19 06:29 Morphine IV Q4H PRN Pain, Moderate (4-6) Nifedipine 60 mg 02/03/19 12:00 02/04/19 09:30 Procardia Xl PO 60 mg QDAY ADAMS Administration Ondansetron HCl 4 mg 02/02/19 06:29 Zofran IV Q8H PRN Nausea And Vomiting Polyethylene Glycol 17 gm 02/04/19 10:00 Miralax 3350 PO BID PRN Constipation Potassium Chloride 40 meq 02/04/19 09:56 K-Dur PO 02/04/19 09:57 ONCE ONE Sodium Chloride 10 ml 02/02/19 10:00 02/04/19 09:31 Sodium Chloride Flush Syringe 10 Ml IV 10 ml BID ADAMS Administration Sodium Chloride 10 ml 02/02/19 06:29 Sodium Chloride Flush Syringe 10 Ml IV PRN PRN LINE FLUSH Nutrition/Malnutrition Assess - Dietary Evaluation Nutrition/Malnutrition Findings: Nutrition Notes Start: 02/02/19 13:15 Freq: Status: Active Protocol: Document 02/02/19 13:16 PS (Rec: 02/02/19 13:33 PS [id number]) Co-Sign 02/02/19 13:16 LM Nutrition Notes Need for Assessment generated from: MD Order,Education Initial or Follow up Assessment Current Diagnosis Diabetes,Hypertension,Heart Failure Current Diet NPO Labs/Tests 02/02 POC Glu 364 A1C 10.1% Pertinent Medications Lasix Height 5 ft 9 in Weight 102.058 kg [place] Body Weight (kg) 72.72 BMI 33.2 Intake Prior to Admission Good Weight Status Obese Subjective/Other Information Consult for education. Pt. 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 Pt. stated he was trying to lose wt by diet and exercise for management of CHF. Pt. was open to education and Carbohydrate Counting with Diabetes handout. Burn Absent Trauma Absent Minimum of two criteria No #1 Nutrition Diagnosis Food and nutrition-related knowledge deficit Etiology no prior education on diabetes /carbohydrate counting As Evidenced by Signs and Symptoms pt. A1C at 10.1% and unaware of carbohydrate counting with diabetes. Nutrition Intervention Teaching Recipient Patient Learning Readiness Good Teaching Methods Discussion,Handout Response to Teaching Verbalize understanding Education Handouts Provided Carbohydrate Counting with Diabetes Barriers to Learning No Barriers RD phone number provided Yes Patient aware of follow up options Yes Anticipated Discharge Needs: Cardiac Consistent Carbohydrate Diet Revisit per MD consult or patient Sign Off request:
--- NOTE | 2019-02-04 10:40 | Progress Note ---
Assessment and Plan Chest pain, atypical Hyponatemia Hyperkalemia Hypertension Diabetes Nonischemic CMP EF 10-15% by echo 03/2017 no ischemia by MPI 03/2017 Non-compliance Recommendations: Sodium/fluid restriction. Medical therapy for nonischemic cardiomyopathy. No new cardiac recommendations Outpatient cardiac follow-up will be scheduled prior to discharge Subjective Date of service: 02/04/19 Principal diagnosis: Hyperglycemia Interval history: No events overnight Objective Vital Signs Temp Pulse Resp BP Pulse Ox 02/04/19 09:30 92 H 117/76 02/04/19 08:06 98.4 F 92 H 16 117/76 95 02/04/19 04:14 98.1 F 93 H 18 128/77 95 02/03/19 23:51 98.3 F 91 H 18 113/70 97 02/03/19 22:09 110 H 120/70 02/03/19 19:46 105 H 02/03/19 19:36 98.1 F 110 H 18 120/70 96 02/03/19 16:22 103 H 129/87 96 02/03/19 16:00 98 H 02/03/19 13:06 102 H 145/105 96 - Physical Examination Narrative exam: General appearance: no acute distress HEENT: Normocephalic Neck: Carotids 2+ Cardiac: S1 and S2 heard no murmur noted Lungs: normal breath sounds Abd: soft Neuro: Grossly Intact Extremities: No edema noted HEENT: Positive: PERRL Neck: Positive: trachea midline Neuro: Positive: Grossly Intact Extremities: Absent: edema - Labs and Meds Comprehensive Metabolic Panel 02/03/19 02/04/19 Range/Units 17:56 06:28 Sodium 127 L 132 L (137-145) mmol/L Potassium 3.9 D 3.4 L (3.6-5.0) mmol/L Chloride 87.5 L 90.8 L (98-107) mmol/L Carbon Dioxide 22 23 (22-30) mmol/L BUN 22 H 29 H (9-20) mg/dL Creatinine 1.0 D 1.3 (0.8-1.5) mg/dL Glucose 442 H 383 H (75-100) mg/dL Calcium 8.7 9.0 (8.4-10.2) mg/dL
--- NOTE | 2019-02-04 12:44 | Progress Note ---
Assessment and Plan - Patient Problems (1) Hyponatremia Current Visit: Yes Status: Acute Plan to address problem: Factitious secondary to hyperglycemia combined true hyponatremia secondary to volume overload. Na improving with Blood sugar control and Gentle diuresis and follow-up sodium. (2) Hyperkalemia Current Visit: Yes Status: Acute Plan to address problem: Potassium has improved (3) Hypertension Current Visit: No Status: Chronic Qualifiers: Plan to address problem: Blood pressure elevated on presentation is improving. Follow blood pressure on current medications (4) Systolic heart failure, chronic Current Visit: Yes Status: Acute Plan to address problem: Continue diuretics (5) Diabetes mellitus, new onset Current Visit: Yes Status: Acute Plan to address problem: Newly diagnosed. Needs diabetic teaching. Regimen by primary attending Subjective Date of service: 02/04/19 Principal diagnosis: Hyperglycemia Interval history: pt awake, alert, in NAD Objective - Vital Signs Vital signs: Vital Signs - 12hr 02/04/19 02/04/19 02/04/19 04:14 08:06 09:30 Temperature 98.1 F 98.4 F Pulse Rate 93 H 92 H 92 H Respiratory 18 16 Rate Blood Pressure 128/77 117/76 117/76 O2 Sat by Pulse 95 95 Oximetry 02/04/19 02/04/19 10:00 11:31 Temperature 97.8 F Pulse Rate 68 94 H Respiratory 18 16 Rate Blood Pressure 94/56 O2 Sat by Pulse 95 Oximetry - General Appearance General appearance: well-developed, well-nourished, appears stated age, obese EENT: ATNC, PERRL, mucous membranes moist Neck: no JVD Respiratory: Present: Clear to Ascultation Cardiology: regular, S1S2 Gastrointestinal: normoactive bowel sounds Integumentary: no rash, other (no edema ) Neurologic: no focal deficit, alert and oriented x3, strength 5/5, CN 3-12 intact Psychiatric: mood/affect appropriate, cooperative - Lab 02/01/19 21:08 02/04/19 06:28 Most recent lab results Calcium 9.0 mg/dL (8.4-10.2) 02/04/19 06:28 Phosphorus 2.70 mg/dL (2.5-4.5) 02/02/19 07:01 Magnesium 2.30 mg/dL (1.7-2.3) 02/02/19 07:01 Urine Creatinine 45.9 mg/dL (0.1-20.0) H 02/02/19 Unknown Urine Sodium 11 mmol/L 02/02/19 Unknown Urine Total Protein 14 mg/dL (5-11.8) H 02/02/19 Unknown Medications & Allergies - Medications Allergies/Adverse Reactions: Allergies No Known Allergies Allergy (Verified 04/10/17 15:41) Home Medications: Home Medications Medication Instructions Recorded Confirmed Last Taken Type ALBUTEROL Inhaler (OR & NICU) 2 puff IH QID PRN #1 inhalation 12/28/18 02/02/19 Unknown Rx [Proair] AtorvaSTATin [Lipitor] 40 mg PO QHS #30 tablet 12/28/18 02/02/19 Unknown Rx Carvedilol [Coreg] 6.25 mg PO BID #60 tablet 12/28/18 02/02/19 Unknown Rx Furosemide [Lasix TAB] 40 mg PO QDAY #30 tablet 12/28/18 02/02/19 Unknown Rx Spironolactone [Aldactone] 25 mg PO QDAY #30 tablet 12/28/18 02/02/19 Unknown Rx Active Medications: Generic Name Dose Route Start Last Admin Trade Name Freq PRN Reason Stop Dose Admin Acetaminophen 650 mg 02/02/19 06:29 02/03/19 22:13 Tylenol PO 650 mg Q4H PRN Administration Pain MILD(1-3)/Fever >100.5/SANTOS Albuterol 2.5 mg 02/02/19 06:29 Proventil IH Q4HRT PRN Shortness Of Breath Atorvastatin Calcium 40 mg 02/02/19 22:00 02/03/19 22:09 Lipitor PO 40 mg QHS ADAMS Administration Bisacodyl 10 mg 02/04/19 10:00 Dulcolax PO QDAY PRN Constipation Carvedilol 6.25 mg 02/02/19 10:00 02/04/19 09:30 Coreg PO 6.25 mg BID ADAMS Administration Dextrose 50 ml 02/02/19 06:29 D50w (25gm) Syringe IV PRN PRN Hypoglycemia Furosemide 40 mg 02/03/19 10:00 02/04/19 09:31 Lasix IV 40 mg DAILY ADAMS Administration Hydralazine HCl 10 mg 02/02/19 06:29 02/02/19 08:56 Apresoline IV 10 mg Q4H PRN Administration BP >160/100 Insulin Human Isoph/Insulin Regular 35 unit 02/04/19 09:00 Humulin 70/30 SUB-Q BIDDIAB ADAMS Insulin Human Lispro 0 unit 02/02/19 06:00 02/04/19 05:47 Humalog SUB-Q 4 unit Q6HR ADAMS Administration Protocol Insulin Human Lispro 15 unit 02/03/19 08:30 02/04/19 09:29 Humalog SUB-Q 15 unit AC ADAMS Administration Protocol Lisinopril 20 mg 02/02/19 10:00 02/04/19 09:30 Zestril PO 20 mg QDAY ADAMS Administration Morphine Sulfate 2 mg 02/02/19 06:29 Morphine IV Q4H PRN Pain, Moderate (4-6) Nifedipine 60 mg 02/03/19 12:00 02/04/19 09:30 Procardia Xl PO 60 mg QDAY ADAMS Administration Ondansetron HCl 4 mg 02/02/19 06:29 Zofran IV Q8H PRN Nausea And Vomiting Polyethylene Glycol 17 gm 02/04/19 10:00 Miralax 3350 PO BID PRN Constipation Sodium Chloride 10 ml 02/02/19 10:00 02/04/19 09:31 Sodium Chloride Flush Syringe 10 Ml IV 10 ml BID ADAMS Administration Sodium Chloride 10 ml 02/02/19 06:29 Sodium Chloride Flush Syringe 10 Ml IV PRN PRN LINE FLUSH
[2019-02-04] MEDS ORDERED: LANTUS SUB-Q ONE (19:00)
[2019-02-05] MEDS: HumaLOG SUB-Q SCH ×6 (05:38→18:26)
[2019-02-05 05:44] LABS: Calcium 8.9 mg/dL (8.4-10.2)
--- NOTE | 2019-02-05 09:10 | Progress Note ---
Assessment and Plan - Patient Problems (1) Hyponatremia Current Visit: Yes Status: Acute Plan to address problem: Factitious secondary to hyperglycemia combined true hyponatremia secondary to volume overload. Na improving with Blood sugar control and Gentle diuresis and follow-up sodium. Lasix switched to po due to declining eGFR (2) Hyperkalemia Current Visit: Yes Status: Acute Plan to address problem: now hypokalemic, supplement with KDur (3) Hypertension Current Visit: No Status: Chronic Qualifiers: Plan to address problem: Blood pressure elevated on presentation is improving. Follow blood pressure on current medications (4) Systolic heart failure, chronic Current Visit: Yes Status: Acute Plan to address problem: Continue lasix, switched to 40mg po qd (5) Diabetes mellitus, new onset Current Visit: Yes Status: Acute Plan to address problem: Newly diagnosed. Needs diabetic teaching. Regimen by primary attending Subjective Date of service: 02/05/19 Principal diagnosis: Hyperglycemia Interval history: pt awake, alert, in NAD Objective - Vital Signs Vital signs: Vital Signs - 12hr 02/04/19 02/04/19 02/05/19 22:00 23:32 04:09 Temperature 98.4 F 98.3 F Pulse Rate 86 87 86 Respiratory 18 18 18 Rate Blood Pressure 112/62 108/70 O2 Sat by Pulse 94 94 Oximetry 02/05/19 07:57 Temperature 98.2 F Pulse Rate 84 Respiratory 16 Rate Blood Pressure 118/73 O2 Sat by Pulse 94 Oximetry - General Appearance General appearance: well-developed, well-nourished, appears stated age EENT: ATNC, PERRL, mucous membranes moist Neck: no JVD Respiratory: Present: Clear to Ascultation Cardiology: regular, S1S2 Gastrointestinal: normoactive bowel sounds Integumentary: no rash Neurologic: no focal deficit, alert and oriented x3, strength 5/5, CN 3-12 intact Psychiatric: mood/affect appropriate, cooperative - Lab 02/01/19 21:08 02/05/19 03:56 Most recent lab results Calcium 8.9 mg/dL (8.4-10.2) 02/05/19 03:56 Phosphorus 2.70 mg/dL (2.5-4.5) 02/02/19 07:01 Magnesium 2.30 mg/dL (1.7-2.3) 02/02/19 07:01 Urine Creatinine 45.9 mg/dL (0.1-20.0) H 02/02/19 Unknown Urine Sodium 11 mmol/L 02/02/19 Unknown Urine Total Protein 14 mg/dL (5-11.8) H 02/02/19 Unknown Medications & Allergies - Medications Allergies/Adverse Reactions: Allergies No Known Allergies Allergy (Verified 04/10/17 15:41) Home Medications: Home Medications Medication Instructions Recorded Confirmed Last Taken Type ALBUTEROL Inhaler (OR & NICU) 2 puff IH QID PRN #1 inhalation 12/28/18 02/02/19 Unknown Rx [Proair] AtorvaSTATin [Lipitor] 40 mg PO QHS #30 tablet 12/28/18 02/02/19 Unknown Rx Carvedilol [Coreg] 6.25 mg PO BID #60 tablet 12/28/18 02/02/19 Unknown Rx Furosemide [Lasix TAB] 40 mg PO QDAY #30 tablet 12/28/18 02/02/19 Unknown Rx Spironolactone [Aldactone] 25 mg PO QDAY #30 tablet 12/28/18 02/02/19 Unknown Rx Active Medications: Generic Name Dose Route Start Last Admin Trade Name Freq PRN Reason Stop Dose Admin Acetaminophen 650 mg 02/02/19 06:29 02/03/19 22:13 Tylenol PO 650 mg Q4H PRN Administration Pain MILD(1-3)/Fever >100.5/SANTOS Albuterol 2.5 mg 02/02/19 06:29 Proventil IH Q4HRT PRN Shortness Of Breath Atorvastatin Calcium 40 mg 02/02/19 22:00 02/04/19 21:30 Lipitor PO 40 mg QHS ADAMS Administration Bisacodyl 10 mg 02/04/19 10:00 Dulcolax PO QDAY PRN Constipation Carvedilol 6.25 mg 02/02/19 10:00 02/04/19 21:30 Coreg PO 6.25 mg BID ADAMS Administration Dextrose 50 ml 02/02/19 06:29 D50w (25gm) Syringe IV PRN PRN Hypoglycemia Hydralazine HCl 10 mg 02/02/19 06:29 02/02/19 08:56 Apresoline IV 10 mg Q4H PRN Administration BP >160/100 Insulin Human Isoph/Insulin Regular 35 unit 02/04/19 09:00 02/05/19 07:42 Humulin 70/30 SUB-Q 35 unit BIDDIAB ADAMS Administration Insulin Human Lispro 0 unit 02/02/19 06:00 02/05/19 05:38 Humalog SUB-Q 3 unit Q6HR ADAMS Administration Protocol Insulin Human Lispro 15 unit 02/03/19 08:30 02/05/19 07:41 Humalog SUB-Q 15 unit AC ADAMS Administration Protocol Lisinopril 20 mg 02/02/19 10:00 02/04/19 09:30 Zestril PO 20 mg QDAY ADAMS Administration Morphine Sulfate 2 mg 02/02/19 06:29 Morphine IV Q4H PRN Pain, Moderate (4-6) Nifedipine 60 mg 02/03/19 12:00 02/04/19 09:30 Procardia Xl PO 60 mg QDAY ADAMS Administration Ondansetron HCl 4 mg 02/02/19 06:29 Zofran IV Q8H PRN Nausea And Vomiting Polyethylene Glycol 17 gm 02/04/19 10:00 Miralax 3350 PO BID PRN Constipation Sodium Chloride 10 ml 02/02/19 10:00 02/04/19 21:34 Sodium Chloride Flush Syringe 10 Ml IV 10 ml BID ADAMS Administration Sodium Chloride 10 ml 02/02/19 06:29 Sodium Chloride Flush Syringe 10 Ml IV PRN PRN LINE FLUSH
[2019-02-05] MEDS: PROCARDIA XL PO SCH (09:36)
[2019-02-05] MEDS: ZESTRIL PO SCH (09:36)
[2019-02-05] MEDS: SODIUM CHLORIDE FLUSH SYRINGE 10 ML IV SCH ×2 (09:36→22:15)
[2019-02-05] MEDS: LASIX PO SCH (09:37)
[2019-02-05] MEDS: COREG PO SCH ×2 (09:37→22:13)
--- NOTE | 2019-02-05 11:02 | Progress Note ---
Assessment and Plan Chest pain, atypical Hyponatemia Hyperkalemia Hypertension Diabetes Nonischemic CMP EF 10-15% by echo 03/2017 no ischemia by MPI 03/2017 Non-compliance Recommendations: Sodium/fluid restriction. Medical therapy for nonischemic cardiomyopathy. No new cardiac recommendations Outpatient cardiac follow-up will be scheduled prior to discharge Subjective Date of service: 02/05/19 Principal diagnosis: Hyperglycemia Interval history: No events overnight Objective Vital Signs Temp Pulse Resp BP Pulse Ox 02/05/19 09:37 84 118/73 02/05/19 09:36 84 118/73 02/05/19 07:57 98.2 F 84 16 118/73 94 02/05/19 04:09 98.3 F 86 18 108/70 94 02/04/19 23:32 98.4 F 87 18 112/62 94 02/04/19 22:00 86 18 02/04/19 19:48 98.8 F 101 H 18 107/65 94 02/04/19 17:34 98.2 F 93 H 16 108/64 94 02/04/19 11:31 97.8 F 94 H 16 94/56 95 - Physical Examination Narrative exam: General appearance: no acute distress, moderately obese HEENT: Normocephalic Neck: Carotids 2+ Cardiac: S1 and S2 heard no murmur noted Lungs: normal breath sounds Abd: soft, distended BS ehard Neuro: Grossly Intact Extremities: 1 + edema noted HEENT: Positive: PERRL Neck: Positive: trachea midline Neuro: Positive: Grossly Intact Extremities: Absent: edema - Labs and Meds Comprehensive Metabolic Panel 02/05/19 Range/Units 03:56 Sodium 129 L (137-145) mmol/L Potassium 3.2 L (3.6-5.0) mmol/L Chloride 87.4 L (98-107) mmol/L Carbon Dioxide 23 (22-30) mmol/L BUN 42 H (9-20) mg/dL Creatinine 1.6 H (0.8-1.5) mg/dL Glucose 292 H (75-100) mg/dL Calcium 8.9 (8.4-10.2) mg/dL
[2019-02-05] MEDS: K-DUR PO SCH (11:48)
--- NOTE | 2019-02-05 14:50 | Progress Note ---
Assessment and Plan /Chest pain, likely from GERD cont aspirin, EKG no acute findings, chest x-ray neg, troponins negative cardiology saw the patient and recommended no stress test needed /New onset type 2 diabetes with persistent hyperglycemia - Uncontrolled still in the 300's - Increase Insulin 70/30 t0 45 units twice a day, Humalog 15 AC, continue sli ding scale - Hemoglobin A1c 10.2, Accu-Chek and adjust insulin as needed - Blood glucose is still high, diabetic education /Severe hyponatremia - Pseudohyponatremia, improving - Nephrology consult appreciated - diuretics also contributing, will give gentle hydration /Hypokalemia - cont to replete /History of systolic CHF, EF 10-15%, Resolved Patient has not been compliant with medications and outpt follow-up, s/p IV diuretics, cont beta rainer, hold SHANDA -I for declining renal function Cardiology consult appreciated, Echo showed EF 55-60% /Hypertensive urgency - controlled /Nonadherence to medications/treatments/diet Counseled on improved adherence Preventative health counseling performed for 17 minutes /DANILO on CKD, likely from diuresis and hyperglycemia, will give gentle hydration, stio lasix DVT prophylaxis with Lovenox Plan of care discussed with patient Disposition; will be discharged once his blood sugar is controlled and renal function stabilizes. Brief History 48-year-old man with history of hypertension asthma systolic CHF EF of 10-15% in 2017 who presents to the hospital with chest pain x4 days. Admission labs showed a sodium of 118, potassium was 6.6, repeat 5.7 after receiving 17 units of insulin, chloride 82, BUN 26, glucose 601 which improved to 364 after receiving 70 units of insulin, UA negative. Patient was admitted for chest pain, hyponatremia and hyperglycemia from new onset DM. CTA chest; subsegmental pulmonary arteries are degraded by motion, no large central or segmental pulmonary embolus identified. Hepatic steatosis. Chest x-ray; no acute findings Hospitalist Physical GENERAL: well-developed obese -[place] male lying on bed appeared to be in no discomfort. HEENT: Normocephalic. Atraumatic. No conjunctival congestion or icterus. Patient has moist mucous membranes. NECK: Supple. Trachea midline. CHEST/LUNGS: Clear to auscultated bilaterally, breathing nonlabored. No wheezes crackles or rhonchi. HEART/CARDIOVASCULAR: Regular in rate and rhythm. S1 and S2 positive. ABDOMEN: Abdomen is soft, nontender. Patient has normal bowel sounds. SKIN: There is no rash. Warm and dry. NEURO: No focal motor deficit. Follows command. MUSCULOSKELETAL: No joint effusion or tenderness. EXTRIMITY: No edema, no cyanosis or clubbing. PSYCH: Cooperative. Subjective Date of service: 02/05/19 Principal diagnosis: Hyperglycemia Interval history: Patient seen and examined. Medical records and medication list reviewed. No acute event overnight noted by the RN. Patient denies any chest pain or difficulty breathing. Patient is tolerating diet. Discussed plan of care at bedside with patient. Objective - Constitutional Vitals: Vital Signs - 12hr 02/05/19 02/05/19 02/05/19 04:09 07:57 09:36 Temperature 98.3 F 98.2 F Pulse Rate 86 84 84 Respiratory 18 16 Rate Blood Pressure 108/70 118/73 118/73 O2 Sat by Pulse 94 94 Oximetry 02/05/19 02/05/19 02/05/19 09:37 10:00 13:43 Temperature 98.4 F Pulse Rate 84 68 94 H Respiratory 18 16 Rate Blood Pressure 118/73 116/76 O2 Sat by Pulse 96 Oximetry - Labs CBC & Chem 7: 02/01/19 21:08 02/06/19 04:47 Labs: Abnormal lab results 02/04/19 02/04/19 02/05/19 Range/Units 17:44 23:40 03:56 Sodium 129 L (137-145) mmol/L Potassium 3.2 L (3.6-5.0) mmol/L Chloride 87.4 L (98-107) mmol/L BUN 42 H (9-20) mg/dL Creatinine 1.6 H (0.8-1.5) mg/dL Glucose 292 H (75-100) mg/dL POC Glucose 423 H 350 H (70-105) 02/05/19 02/05/19 Range/Units 05:43 11:38 Sodium (137-145) mmol/L Potassium (3.6-5.0) mmol/L Chloride (98-107) mmol/L BUN (9-20) mg/dL Creatinine (0.8-1.5) mg/dL Glucose (75-100) mg/dL POC Glucose 276 H 334 H (70-105)
[2019-02-05] MEDS ORDERED: NACL 0.9% 1000 ML 1,000 ML IV SCH (15:00)
[2019-02-06] MEDS: HumaLOG SUB-Q SCH ×5 (00:45→12:38)
[2019-02-06 06:10] LABS: BUN/Creatinine Ratio 27; Blood Urea Nitrogen 38 mg/dL (9-20); Calcium 8.9 mg/dL (8.4-10.2); Hemolysis Index 10
[2019-02-06] MEDS: PROCARDIA XL PO SCH (09:41)
[2019-02-06] MEDS: K-DUR PO SCH (09:41)
[2019-02-06] MEDS: LASIX PO SCH (09:41)
[2019-02-06] MEDS: COREG PO SCH (09:41)
[2019-02-06] MEDS: SODIUM CHLORIDE FLUSH SYRINGE 10 ML IV SCH (09:43)
--- NOTE | 2019-02-06 11:13 | Progress Note ---
Assessment and Plan Chest pain, atypical Hypokalemia Hypertension Diabetes, uncontrolled Nonischemic CMP, resolving EF now 55-60% by echo this admission. EF 10-15% by echo 03/2017 no ischemia by MPI 03/2017 Conservative cardiac management. Subjective Date of service: 02/06/19 Principal diagnosis: Hyperglycemia Interval history: Patient has no cardiac complaints. Objective Vital Signs Temp Pulse Resp BP BP Pulse Ox 02/06/19 10:00 93 H 16 02/06/19 09:41 93 H 117/78 02/06/19 07:58 98.0 F 86 18 117/78 98 02/06/19 07:48 85 117/78 95 02/06/19 04:07 98.0 F 84 18 132/78 99 02/05/19 23:27 98.7 F 86 20 114/77 94 02/05/19 22:13 90 122/70 02/05/19 22:00 84 18 02/05/19 19:19 97.4 F L 65 18 110/75 91 02/05/19 16:38 97.9 F 85 16 115/73 96 02/05/19 13:43 98.4 F 94 H 16 116/76 96 - Physical Examination General: No Apparent Distress HEENT: Positive: PERRL Neck: Positive: trachea midline Cardiac: Positive: Reg Rate and Rhythm Lungs: Positive: Normal Breath Sounds Neuro: Positive: Grossly Intact Extremities: Absent: edema - Labs and Meds Comprehensive Metabolic Panel 02/06/19 Range/Units 04:47 Sodium 134 L (137-145) mmol/L Potassium 3.3 L (3.6-5.0) mmol/L Chloride 92.9 L (98-107) mmol/L Carbon Dioxide 23 (22-30) mmol/L BUN 38 H (9-20) mg/dL Creatinine 1.4 (0.8-1.5) mg/dL Glucose 258 H (75-100) mg/dL Calcium 8.9 (8.4-10.2) mg/dL
--- NOTE | 2019-02-06 12:34 | Discharge Summary ---
Providers - Providers Date of Admission: 02/03/19 10:59 Date of discharge: 02/06/19 Attending physician: IGNACIA MAE 02/02/19 Consult to Cardiac Rehabilitation [CONS] Routine Reason For Exam: Phase I 02/02/19 06:28 Consult to Physician [CONS] Routine Comment: Consulting Provider: CLYDE JOHNSON Physician Instructions: Reason For Exam: chest pain, chf 02/02/19 06:35 Consult to Dietitian/Nutrition [CONS] Routine Physician Instructions: Reason For Exam: Reason for Consult: Diet education 02/02/19 08:04 Consult to Physician [CONS] Routine Comment: Consulting Provider: OSMIN CHAMORRO Physician Instructions: Reason For Exam: hyponatremia Primary care physician: [employer] Hospitalization Condition: Fair Pertinent studies: CXR CTA chest 2d echo Hospital course: 48-year-old man with history of hypertension asthma systolic CHF EF of 10-15% in 2017 who presents to the hospital with chest pain x4 days. Admission labs showed a sodium of 118, potassium was 6.6, repeat 5.7 after receiving 17 units of insulin, chloride 82, BUN 26, glucose 601 which improved to 364 after receiving 70 units of insulin, UA negative. Patient was admitted for chest pain, hyponatremia and hyperglycemia from new onset DM. CTA chest; subsegmental pulmonary arteries are degraded by motion, no large central or segmental pulmonary embolus identified. Hepatic steatosis. Chest x-ray; no acute findings 2d echo - preserved EF Discharge diagnosis and Mx. /Chest pain, likely from GERD cont aspirin, EKG no acute findings, chest x-ray neg, troponins negative cardiology saw the patient and recommended no stress test needed /New onset type 2 diabetes with persistent hyperglycemia - adjusted Insulin 70/30 t0 45 units twice a day, Humalog 15 AC, - Hemoglobin A1c 10.2, monitored with Accu-Chek and adjusted insulin as needed with sliding scale - provided diabetic education and recommended compliance /Severe hyponatremia - Pseudohyponatremia from hyperglycemia, improved - Nephrology consult appreciated - diuretics also contributed, s/p give gentle hydration /Hypokalemia - repleted /Hyperkalemia, resolved /History of systolic CHF, EF 10-15%, Resolved Patient has not been compliant with medications and outpt follow-up, s/p IV diuretics, cont beta rainer, held SHANDA -I for declining renal function Cardiology consult appreciated, Echo showed EF 55-60% /Hypertensive urgency - controlled on current medications /Hyperlipidemia, cont statin /Nonadherence to medications/treatments/diet Counseled on improved adherence Preventative health counseling performed for 17 minutes /DANILO on CKD, likely from diuresis and hyperglycemia, improved with gentle hydration, stopped lasix and lisinopril DVT prophylaxis with Lovenox Plan of care discussed with patient Disposition; Home with and outpt f/u Hospitalist Physical GENERAL: well-developed obese -[place] male lying on bed appeared to be in no discomfort. HEENT: Normocephalic. Atraumatic. No conjunctival congestion or icterus. Patient has moist mucous membranes. NECK: Supple. Trachea midline. CHEST/LUNGS: Clear to auscultated bilaterally, breathing nonlabored. No wheezes crackles or rhonchi. HEART/CARDIOVASCULAR: Regular in rate and rhythm. S1 and S2 positive. ABDOMEN: Abdomen is soft, nontender. Patient has normal bowel sounds. SKIN: There is no rash. Warm and dry. NEURO: No focal motor deficit. Follows command. MUSCULOSKELETAL: No joint effusion or tenderness. EXTRIMITY: No edema, no cyanosis or clubbing. PSYCH: Cooperative. Disposition: [id number]/[place]-06 HOME UNDER HOME [facility] Time spent for discharge: 34 minutes Core Measure Documentation - Palliative Care Palliative Care/ Comfort Measures: Not Applicable - Core Measures Any of the following diagnoses?: history only Exam - Constitutional Vitals: Temp Pulse Resp BP Pulse Ox 97.8 F 86 18 137/86 94 02/06/19 11:42 02/06/19 11:42 02/06/19 11:42 02/06/19 11:42 02/06/19 11:42 Plan Activity: advance as tolerated Weight Bearing Status: Weight Bear as Tolerated Diet: low fat, diabetic Special Instructions: record daily BP diary, record blood sugar diary Follow up with: PRIMARY MD TRICIA [Primary Care Provider] - 3-5 Days JORGE ALBERTO FLORES MD [Staff Physician] - 7 Days MACARIO HEATH MD [Staff Physician] - 7 Days Prescriptions: Lispro Insulin [HumaLOG] 15 unit SUB-Q AC #10 ml Potassium Chloride [K-Dur] 20 meq PO QDAY #3 tablet Insulin NPH/Regular [NovoLIN 70/30] 50 unit SUB-Q BIDDIAB #10 ml NIFEdipine XL [Procardia Xl] 60 mg PO QDAY #30 tablet
--- NOTE | 2019-02-06 14:36 | Ultrasound Report ---
ULTRASOUND RENAL INDICATION / CLINICAL INFORMATION: Chronic kidney disease. COMPARISON: None available. FINDINGS: RIGHT KIDNEY: Length = 11.3 cm. [normal > 9 cm] - Parenchymal Thickness = 1.7 cm. [normal > 1.5 cm] - Echogenicity: Normal. - Hydronephrosis: None. - Cyst or mass: No significant abnormality. - Stones: None seen. LEFT KIDNEY: Length = 11.8 cm. [normal > 9 cm] - Parenchymal Thickness = 1.6 cm. [normal > 1.5 cm] - Echogenicity: Normal. - Hydronephrosis: None. - Cyst or mass: No significant abnormality. - Stones: None seen. URINARY BLADDER: No significant abnormality. FREE FLUID: None. ADDITIONAL FINDINGS: None. IMPRESSION: No significant abnormality. Signer Name: Rey Knight Jr, MD Signed: 02/06/2019 2:31 PM Workstation Name: [id number]
--- NOTE | 2019-02-06 15:28 | Progress Note ---
Assessment and Plan - Patient Problems (1) Hyperkalemia Current Visit: Yes Status: Acute Plan to address problem: Improved, now with hypokalemia. Replete per protocol. (2) Hyponatremia Current Visit: Yes Status: Acute Plan to address problem: Improving with control of his hyperglycemia/DM. (3) Systolic heart failure, chronic Current Visit: Yes Status: Chronic Plan to address problem: Overall volume status remains stable. Now on oral lasix therapy. Will continue to monitor. (4) Hypertension Current Visit: No Status: Chronic Qualifiers: Plan to address problem: Continue to monitor on current regimen. (5) Diabetes mellitus, new onset Current Visit: Yes Status: Acute Plan to address problem: Management per primary attending. Subjective Date of service: 02/06/19 Principal diagnosis: Hyperglycemia Interval history: No acute complaints. Renal function noted and overall stable. Serum sodium levels showing improvement with treatment of hyperglycemia/ uncontrolled DM. Objective - Vital Signs Vital signs: Vital Signs - 12hr 02/06/19 02/06/19 02/06/19 04:07 07:48 07:58 Temperature 98.0 F 98.0 F Pulse Rate 84 85 86 Respiratory 18 18 Rate Blood Pressure 132/78 117/78 Blood Pressure 117/78 [Right] O2 Sat by Pulse 99 95 98 Oximetry 02/06/19 02/06/19 02/06/19 09:41 10:00 11:42 Temperature 97.8 F Pulse Rate 93 H 93 H 86 Respiratory 16 18 Rate Blood Pressure 117/78 137/86 Blood Pressure [Right] O2 Sat by Pulse 94 Oximetry - General Appearance General appearance: well-developed, well-nourished, appears stated age, obese EENT: ATNC, PERRL Neck: no JVD, no thyromegaly Respiratory: Present: Clear to Ascultation, Normal Exam Cardiology: regular, normal heart rate, S1S2 Gastrointestinal: normal, normoactive bowel sounds Integumentary: no rash, warm and dry Neurologic: no focal deficit, alert and oriented x3 Psychiatric: mood/affect appropriate, cooperative - Lab 02/01/19 21:08 02/06/19 04:47 Most recent lab results Calcium 8.9 mg/dL (8.4-10.2) 02/06/19 04:47 Phosphorus 2.70 mg/dL (2.5-4.5) 02/02/19 07:01 Magnesium 2.30 mg/dL (1.7-2.3) 02/02/19 07:01 Urine Creatinine 45.9 mg/dL (0.1-20.0) H 02/02/19 Unknown Urine Sodium 11 mmol/L 02/02/19 Unknown Urine Total Protein 14 mg/dL (5-11.8) H 02/02/19 Unknown - Allied health notes Allied health notes reviewed: nursing Medications & Allergies - Medications Allergies/Adverse Reactions: Allergies No Known Allergies Allergy (Verified 04/10/17 15:41) Home Medications: Home Medications Medication Instructions Recorded Confirmed Last Taken Type ALBUTEROL Inhaler (OR & NICU) 2 puff IH QID PRN #1 inhalation 12/28/18 02/02/19 Unknown Rx [ProAir HFA Inhaler] AtorvaSTATin [Lipitor] 40 mg PO QHS #30 tablet 12/28/18 02/02/19 Unknown Rx Carvedilol [Coreg] 6.25 mg PO BID #60 tablet 12/28/18 02/02/19 Unknown Rx Insulin NPH/Regular [NovoLIN 70/30] 50 unit SUB-Q BIDDIAB #10 ml 02/06/19 Unknown Rx Lispro Insulin [HumaLOG] 15 unit SUB-Q AC #10 ml 02/06/19 Unknown Rx NIFEdipine XL [Procardia Xl] 60 mg PO QDAY #30 tablet 02/06/19 Unknown Rx Potassium Chloride [K-Dur] 20 meq PO QDAY #3 tablet 02/06/19 Unknown Rx Active Medications: Generic Name Dose Route Start Last Admin Trade Name Freq PRN Reason Stop Dose Admin Acetaminophen 650 mg 02/02/19 06:29 02/03/19 22:13 Tylenol PO 650 mg Q4H PRN Administration Pain MILD(1-3)/Fever >100.5/SANTOS Albuterol 2.5 mg 02/02/19 06:29 Proventil IH Q4HRT PRN Shortness Of Breath Atorvastatin Calcium 40 mg 02/02/19 22:00 02/05/19 22:14 Lipitor PO 40 mg QHS ADAMS Administration Bisacodyl 10 mg 02/04/19 10:00 Dulcolax PO QDAY PRN Constipation Carvedilol 6.25 mg 02/02/19 10:00 02/06/19 09:41 Coreg PO 6.25 mg BID ADAMS Administration Dextrose 50 ml 02/02/19 06:29 D50w (25gm) Syringe IV PRN PRN Hypoglycemia Hydralazine HCl 10 mg 02/02/19 06:29 02/02/19 08:56 Apresoline IV 10 mg Q4H PRN Administration BP >160/100 Sodium Chloride 1,000 mls @ 100 mls/hr 02/05/19 15:00 02/05/19 22:17 Nacl 0.9% 1000 Ml IV 100 mls/hr DIRECT ADAMS Administration Insulin Human Isoph/Insulin Regular 45 unit 02/05/19 14:49 02/06/19 07:49 Humulin 70/30 SUB-Q 45 unit BIDDIAB ADAMS Administration Insulin Human Lispro 0 unit 02/02/19 06:00 02/06/19 12:38 Humalog SUB-Q 3 unit Q6HR ADAMS Administration Protocol Insulin Human Lispro 15 unit 02/03/19 08:30 02/06/19 12:37 Humalog SUB-Q 15 unit AC ADAMS Administration Protocol Morphine Sulfate 2 mg 02/02/19 06:29 Morphine IV Q4H PRN Pain, Moderate (4-6) Nifedipine 60 mg 02/03/19 12:00 02/06/19 09:41 Procardia Xl PO 60 mg QDAY ADAMS Administration Ondansetron HCl 4 mg 02/02/19 06:29 Zofran IV Q8H PRN Nausea And Vomiting Polyethylene Glycol 17 gm 02/04/19 10:00 Miralax 3350 PO BID PRN Constipation Potassium Chloride 20 meq 02/05/19 10:00 02/06/19 09:41 K-Dur PO 20 meq QDAY ADAMS Administration Sodium Chloride 10 ml 02/02/19 10:00 02/06/19 09:43 Sodium Chloride Flush Syringe 10 Ml IV 10 ml BID ADAMS Administration Sodium Chloride 10 ml 02/02/19 06:29 Sodium Chloride Flush Syringe 10 Ml IV PRN PRN LINE FLUSH
[2019-02-06 16:15] VITALS: BP 147/85
== END 2019-02-06 17:35 | disposition home health service (06) | DRG 637 ==
LOC: ED 20:18 → 4A 02-02 04:47 → OBSVTOIN 02-03 10:59
PROVIDERS: ADMIT Internal Medicine; ATTEND Internal Medicine
PROC: 3E0234Z Introduction of Serum, Toxoid and Vaccine into Muscle, Percutaneous Approach (ICD-10-PCS; principal; 2019-02-02)
DX: E11.65 Type 2 diabetes mellitus with hyperglycemia (principal); I50.23 Acute on chronic systolic (congestive) heart failure; E87.1 Hypo-osmolality and hyponatremia; N17.9 Acute kidney failure, unspecified; I13.0 Hypertensive heart and chronic kidney disease with heart failure and stage 1 through stage 4 chronic kidney disease, or unspecified chronic kidney disease; I42.0 Dilated cardiomyopathy; I16.1 Hypertensive emergency; K21.9 Gastro-esophageal reflux disease without esophagitis; E87.5 Hyperkalemia; J45.909 Unspecified asthma, uncomplicated; E78.5 Hyperlipidemia, unspecified; E11.22 Type 2 diabetes mellitus with diabetic chronic kidney disease; E87.70 Fluid overload, unspecified; N18.9 Chronic kidney disease, unspecified; Z91.14 Patient's other noncompliance with medication regimen; Z87.891 Personal history of nicotine dependence; Z82.49 Family history of ischemic heart disease and other diseases of the circulatory system; Z83.3 Family history of diabetes mellitus; Z82.3 Family history of stroke; Z79.899 Other long term (current) drug therapy; Z87.442 Personal history of urinary calculi; Z23 Encounter for immunization
CPT/HCPCS: 36415; 71046; 71275; 76770; 80048; 80061; 81001; 82570; 82805; 82962; 83036; 83735; 83880; 83930; 83935; 84100; 84132; 84156; 84295; 84300; 84484; 85007; 85025; 85379; 85610; 85730; 90732; 93005; 93010; 93306; 96374; 96375; G0378; A9270-GY; J0360; J1815; J1940; J2270; J7030; Q9967

== ENCOUNTER 2019-04-23 03:35 | Emergency (ER) | payer SELFPAY ==
[2019-04-23 06:08] LABS: Hematocrit 40.5 % (35.5-45.6); Hemoglobin 13.6 gm/dl (11.8-15.2); Mean Corpuscular HGB Conc 34 % (32-34); Mean Corpuscular Volume 87 fl (84-94); Platelet Count 245 K/mm3 (140-440); Red Blood Count 4.66 M/mm3 (3.65-5.03); Red Cell Distribution Width 14.1 % (13.2-15.2)
[2019-04-23 06:30] LABS: BUN/Creatinine Ratio 12; Blood Urea Nitrogen 13 mg/dL (9-20); Calcium 8.9 mg/dL (8.4-10.2); Hemolysis Index 177
[2019-04-23 08:06] LABS: Basophils % (Auto) 0.7 % (0.0-1.8); Eosinophils # (Auto) 0.6 K/mm3 (0.0-0.4); Eosinophils % (Auto) 9.5 % (0.0-4.3); Lymphocytes # (Auto) 2.2 K/mm3 (1.2-5.4); Lymphocytes % (Auto) 34.5 % (13.4-35.0); Monocytes # (Auto) 0.4 K/mm3 (0.0-0.8); Monocytes % (Auto) 6.5 % (0.0-7.3)
[2019-04-23 08:52] LABS: Basophils % (Manual) 0 % (0.0-1.8); Platelet Estimate Consistent w Auto; Tear Drop Cells Few; Total Cells Counted 100
--- NOTE | 2019-04-23 11:47 | Event Note ---
ED Screening Note Date of service: 04/23/19 Time: 11:45 ED Screening Note: Pt complains of bilateral lower leg swelling and pain x 4 days denies SOB, CP, recent long travel, weight gain, or swelling/fullness in abdomen hx of CHF-states on lasix denies hx of DVT This initial assessment/diagnostic orders/clinical plan/treatment(s) is/are subject to change based on patients health status, clinical progression and re- assessment by fellow clinical providers in the ED. Further treatment and workup at subsequent clinical providers discretion. Patient/guardian urged not to elope from the ED as their condition may be serious if not clinically assessed and managed. Initial orders include: US doppler labs
--- NOTE | 2019-04-23 13:17 | Vascular Lab Report ---
DUPLEX DOPPLER LOWER EXTREMITY VEINS, BILATERAL INDICATION: swelling and pain. TECHNIQUE: Duplex doppler imaging was performed through the veins of both lower extremities using venous gloria carmela and other maneuvers. COMPARISON: None available. FINDINGS: Right Common Femoral vein: Negative. Right Superficial Femoral vein: Negative. Right Popliteal vein: Negative. Right Calf veins: Negative. Left Common Femoral vein: Negative. Left Superficial Femoral vein: Negative. Left Popliteal vein: Negative. Left Calf veins: Negative. Additional findings: None. IMPRESSION: 1. The exam is somewhat limited due to patient body habitus. Accounting for this, no sonographic evid ence for DVT in either lower extremity. Signer Name: Nick Roberts MD Signed: 04/23/2019 1:12 PM Workstation Name: [id number]
[2019-04-23] MEDS ORDERED: hydrALAZINE 25 MG TAB PO ONE (15:36)
[2019-04-23 16:06] LABS: Alanine Aminotransferase 33 units/L (7-56); Albumin 4.1 g/dL (3.9-5)
[2019-04-23 16:07] LABS: Bilirubin,Direct < 0.2 mg/dL (0-0.2)
[2019-04-23 18:03] VITALS: BP 191/106
== END 2019-04-23 12:00 | disposition left against medical advice (07) ==
LOC: ED 03:35
DX: R53.1 Weakness (principal); Z53.21 Procedure and treatment not carried out due to patient leaving prior to being seen by health care provider
CPT/HCPCS: 36415; 80048; 80076; 82962; 83880; 85007; 85025; 93970

== ENCOUNTER 2019-05-14 03:12 | Emergency (ER) | payer SELFPAY ==
--- NOTE | 2019-05-14 09:04 | XRay Report ---
CHEST 2 VIEWS INDICATION / CLINICAL INFORMATION: sob, edema. COMPARISON: 02/01/2019 FINDINGS: SUPPORT DEVICES: None. HEART / MEDIASTINUM: No significant abnormality. LUNGS / PLEURA: No significant pulmonary or pleural abnormality. No pneumothorax. ADDITIONAL FINDINGS: No significant additional findings. IMPRESSION: 1. No acute findings. Signer Name: Thomas Holland MD Signed: 05/14/2019 9:00 AM Workstation Name: [id number]
[2019-05-14 09:46] LABS: Basophils % (Auto) 0.3 % (0.0-1.8); Eosinophils # (Auto) 0.6 K/mm3 (0.0-0.4); Eosinophils % (Auto) 6.9 % (0.0-4.3); Hematocrit 41.1 % (35.5-45.6); Hemoglobin 13.9 gm/dl (11.8-15.2); Lymphocytes # (Auto) 1.9 K/mm3 (1.2-5.4); Lymphocytes % (Auto) 21.4 % (13.4-35.0); Mean Corpuscular HGB Conc 34 % (32-34); Mean Corpuscular Volume 86 fl (84-94); Monocytes # (Auto) 0.4 K/mm3 (0.0-0.8); Monocytes % (Auto) 4.9 % (0.0-7.3); Platelet Count 313 K/mm3 (140-440); Red Blood Count 4.76 M/mm3 (3.65-5.03)
[2019-05-14 10:04] LABS: Alanine Aminotransferase 39 units/L (7-56); Albumin 4.2 g/dL (3.9-5); BUN/Creatinine Ratio 13; Blood Urea Nitrogen 16 mg/dL (9-20); Calcium 9.6 mg/dL (8.4-10.2); Hemolysis Index 82
[2019-05-14] MEDS ORDERED: KETOROLAC 30 MG/1 ML INJ IV ONE (11:16)
[2019-05-14] MEDS ORDERED: FUROSEMIDE 40 MG/4 ML INJ IV ONE (11:16)
--- NOTE | 2019-05-14 11:51 | XRay Report ---
Left foot, 3 views INDICATION: Left first MTP joint pain FINDINGS: There is no fracture or dislocation. The first MTP joint is unremarkable. There is no evide nce of degenerative change or gout. The remaining toes and foot are intact as well. No abnormality se en. Signer Name: Thomas Holland MD Signed: 05/14/2019 11:47 AM Workstation Name: [id number]
[2019-05-14] MEDS ORDERED: cloNIDine 0.1 MG TAB PO ONE (12:25)
--- NOTE | 2019-05-14 13:15 | Emergency Department Report ---
ED Extremity Problem HPI - General Chief complaint: Extremity Problem,Nontraumatic Stated complaint: CAN'T WALK/DIABETES Time Seen by Provider: 05/14/19 10:52 Source: patient Mode of arrival: Ambulatory Limitations: No Limitations - History of Present Illness Initial comments: 48 year old male with a past medical history of hypertension, diabetes, CHF, asthma presents to have relating a progressively worsening lower extremity edema 5 days and left foot pain since last night. Patient has chronic bilateral burning and tingling pain to his feet since diagnosed with diabetes several months ago. Patient denies a diagnosis of neuropathy. He has known CHF and has been compliant with his Lasix 40 mg daily. He complains of chronic shortness of breath that is unchanged and denies chest pain, or calf tenderness. Patient is unsure if he injured his toe accidentally but he can't recall a specific injury. He has aching pain and tightness at his left right toe/foot area rated 5/10 in intensity and worse with movement, palpitation, and ambulation. Patient attempted to be seen here last month similar complaints but left prior to evaluation due to the wait. Patient does not have a primary care doctor due to lack of insurance. Severity scale (0 -10): 9 - Related Data Previous Rx's Medication Instructions Recorded Last Taken Type Albuterol INH(or & Nicu Only) 2 puff IH QID PRN #1 inhalation 12/28/18 Unknown Rx [ProAir HFA Inhaler] AtorvaSTATin [Lipitor] 40 mg PO QHS #30 tablet 12/28/18 Unknown Rx carvediloL [Coreg] 6.25 mg PO BID #60 tablet 12/28/18 Unknown Rx Insulin NPH/Regular [NovoLIN 70/30] 50 unit SUB-Q BIDDIAB #10 ml 02/06/19 Unknown Rx Lispro Insulin [HumaLOG] 15 unit SUB-Q AC #10 ml 02/06/19 Unknown Rx NIFEdipine XL [Procardia Xl] 60 mg PO QDAY #30 tablet 02/06/19 Unknown Rx Potassium Chloride [K-Dur] 20 meq PO QDAY #3 tablet 02/06/19 Unknown Rx Gabapentin 300 mg PO Q8HR #90 capsule 05/14/19 Unknown Rx traMADoL [Ultram 50 MG tab] 50 mg PO Q6HR PRN #14 tablet 05/14/19 Unknown Rx Allergies Allergy/AdvReac Type Severity Reaction Status Date / Time No Known Allergies Allergy Verified 04/10/17 15:41 ED Review of Systems ROS: Stated complaint: CAN'T WALK/DIABETES Other details as noted in HPI Comment: All other systems reviewed and negative ED Past Medical Hx - Past Medical History Hx Hypertension: Yes Hx CVA: No Hx Heart Attack/AMI: No Hx Congestive Heart Failure: Yes Hx Diabetes: Yes Hx Deep Vein Thrombosis: No Hx Pulmonary Embolism: No Hx GERD: No Hx Liver Disease: No Hx Renal Disease: No Hx Sickle Cell Disease: No Hx Arthritis: No Hx Headaches / Migraines: No Hx Seizures: No Hx Kidney Stones: (decreased kidney function) Hx Psychiatric Treatment: No Hx Asthma: Yes Hx COPD: No Hx Tuberculosis: No Hx Dementia: No Hx HIV: No - Surgical History Past Surgical History?: No Hx Coronary Stent: No Hx Open Heart Surgery: No Hx Pacemaker: No Hx Internal Defibrillator: No Hx Cholecystectomy: No Hx Appendectomy: No Hx Breast Surgery: No - Social History Smoking Status: Never Smoker - Medications Home Medications: Home Medications Medication Instructions Recorded Confirmed Last Taken Type Albuterol INH(or & Nicu Only) 2 puff IH QID PRN #1 inhalation 12/28/18 02/02/19 Unknown Rx [ProAir HFA Inhaler] AtorvaSTATin [Lipitor] 40 mg PO QHS #30 tablet 12/28/18 02/02/19 Unknown Rx carvediloL [Coreg] 6.25 mg PO BID #60 tablet 12/28/18 02/02/19 Unknown Rx Insulin NPH/Regular [NovoLIN 70/30] 50 unit SUB-Q BIDDIAB #10 ml 02/06/19 Unknown Rx Lispro Insulin [HumaLOG] 15 unit SUB-Q AC #10 ml 02/06/19 Unknown Rx NIFEdipine XL [Procardia Xl] 60 mg PO QDAY #30 tablet 02/06/19 Unknown Rx Potassium Chloride [K-Dur] 20 meq PO QDAY #3 tablet 02/06/19 Unknown Rx Gabapentin 300 mg PO Q8HR #90 capsule 05/14/19 Unknown Rx traMADoL [Ultram 50 MG tab] 50 mg PO Q6HR PRN #14 tablet 05/14/19 Unknown Rx ED Physical Exam - General Limitations: No Limitations - Other Other exam information: General: No limitations, patient is alert in no acute distress Head exam: Atraumatic, normocephalic Eyes exam: Normal appearance ENT: Moist mucous membrane Neck exam: Normal inspection, full range of motion, no meningismus nontender Respiratory exam: Clear to auscultation bilateral, no wheezes, rales, crackles, no tachypnea or respiratory distress Cardiovascular: Normal rate and rhythm, normal heart sounds Abdomen: Soft, nondistended, and nontender, with normal bowel sounds, no rebound, or guarding Extremity: mild pitting bilateral tubal edema, 2+ DP pulse bilaterally. Tenderness to left first MTP joint area with full range of motion and no deformity. Back: Normal Inspection, full range of motion, no tenderness Neurologic: Alert, oriented x3, cranial nerves intact, no motor or sensory deficit Psychiatric: normal affect, normal mood Skin: Warm, dry, intact ED Course Vital Signs 05/14/19 05/14/19 05/14/19 03:16 03:25 08:10 Temperature 97.7 F 97.7 F Pulse Rate 93 H 92 H 93 H Respiratory 18 18 Rate Blood Pressure 179/113 179/113 191/119 Blood Pressure [Left] O2 Sat by Pulse 94 96 100 Oximetry 05/14/19 05/14/19 05/14/19 08:11 11:41 11:45 Temperature 97.9 F Pulse Rate 86 Respiratory 20 18 18 Rate Blood Pressure Blood Pressure 170/112 [Left] O2 Sat by Pulse 93 98 Oximetry 05/14/19 05/14/19 05/14/19 12:00 12:11 12:31 Temperature Pulse Rate 82 98 H Respiratory 27 H 16 21 Rate Blood Pressure 165/111 184/129 Blood Pressure [Left] O2 Sat by Pulse 97 94 Oximetry 05/14/19 05/14/19 05/14/19 12:57 13:00 13:31 Temperature Pulse Rate 87 84 84 Respiratory 23 23 Rate Blood Pressure 184/126 179/120 143/90 Blood Pressure [Left] O2 Sat by Pulse 98 97 Oximetry 05/14/19 14:00 Temperature Pulse Rate 83 Respiratory 25 H Rate Blood Pressure 138/91 Blood Pressure [Left] O2 Sat by Pulse 99 Oximetry ED Medical Decision Making - Lab Data Result diagrams: 05/14/19 08:52 05/14/19 08:52 Lab Results 05/14/19 05/14/19 05/14/19 Range/Units 03:41 08:52 08:52 WBC 8.9 (4.5-11.0) K/mm3 RBC 4.76 (3.65-5.03) M/mm3 Hgb 13.9 (11.8-15.2) gm/dl Hct 41.1 (35.5-45.6) % MCV 86 (84-94) fl MCH 29 (28-32) pg MCHC 34 (32-34) % RDW 14.0 (13.2-15.2) % Plt Count 313 (140-440) K/mm3 Lymph % (Auto) 21.4 (13.4-35.0) % [place] % (Auto) 4.9 (0.0-7.3) % Eos % (Auto) 6.9 H (0.0-4.3) % Baso % (Auto) 0.3 (0.0-1.8) % Lymph # 1.9 (1.2-5.4) K/mm3 [place] # 0.4 (0.0-0.8) K/mm3 Eos # 0.6 H (0.0-0.4) K/mm3 Baso # 0.0 (0.0-0.1) K/mm3 Seg Neutrophils % 66.5 (40.0-70.0) % Seg Neutrophils # 5.9 (1.8-7.7) K/mm3 Sodium 140 (137-145) mmol/L Potassium 4.5 (3.6-5.0) mmol/L Chloride 103.0 (98-107) mmol/L Carbon Dioxide 23 (22-30) mmol/L Anion Gap 19 mmol/L BUN 16 (9-20) mg/dL Creatinine 1.2 (0.8-1.5) mg/dL Estimated GFR > 60 ml/min BUN/Creatinine Ratio 13 % Glucose 98 (75-100) mg/dL POC Glucose 114 H (70-105) Calcium 9.6 (8.4-10.2) mg/dL Total Bilirubin 0.40 (0.1-1.2) mg/dL AST 40 (5-40) units/L ALT 39 (7-56) units/L Alkaline Phosphatase 72 (35-129) units/L NT-Pro-B Natriuret Pep 1553 H (0-450) pg/mL Total Protein 8.3 H (6.3-8.2) g/dL Albumin 4.2 (3.9-5) g/dL Albumin/Globulin Ratio 1.0 % 05/14/19 Range/Units 11:58 WBC (4.5-11.0) K/mm3 RBC (3.65-5.03) M/mm3 Hgb (11.8-15.2) gm/dl Hct (35.5-45.6) % MCV (84-94) fl MCH (28-32) pg MCHC (32-34) % RDW (13.2-15.2) % Plt Count (140-440) K/mm3 Lymph % (Auto) (13.4-35.0) % [place] % (Auto) (0.0-7.3) % Eos % (Auto) (0.0-4.3) % Baso % (Auto) (0.0-1.8) % Lymph # (1.2-5.4) K/mm3 [place] # (0.0-0.8) K/mm3 Eos # (0.0-0.4) K/mm3 Baso # (0.0-0.1) K/mm3 Seg Neutrophils % (40.0-70.0) % Seg Neutrophils # (1.8-7.7) K/mm3 Sodium (137-145) mmol/L Potassium (3.6-5.0) mmol/L Chloride (98-107) mmol/L Carbon Dioxide (22-30) mmol/L Anion Gap mmol/L BUN (9-20) mg/dL Creatinine (0.8-1.5) mg/dL Estimated GFR ml/min BUN/Creatinine Ratio % Glucose (75-100) mg/dL POC Glucose 87 (70-105) Calcium (8.4-10.2) mg/dL Total Bilirubin (0.1-1.2) mg/dL AST (5-40) units/L ALT (7-56) units/L Alkaline Phosphatase (35-129) units/L NT-Pro-B Natriuret Pep (0-450) pg/mL Total Protein (6.3-8.2) g/dL Albumin (3.9-5) g/dL Albumin/Globulin Ratio % - Radiology Data Radiology results: report reviewed CHEST 2 VIEWS INDICATION / CLINICAL INFORMATION: sob, edema. COMPARISON: 02/01/2019 FINDINGS: SUPPORT DEVICES: None. HEART / MEDIASTINUM: No significant abnormality. LUNGS / PLEURA: No significant pulmonary or pleural abnormality. No pneumothorax. ADDITIONAL FINDINGS: No significant additional findings. IMPRESSION: 1. No acute findings. Left foot, 3 views INDICATION: Left first MTP joint pain FINDINGS: There is no fracture or dislocation. The first MTP joint is unremarkable. There is no evidence of degenerative change or gout. The remaining toes and foot are intact as well. No abnormality seen. - Medical Decision Making Patient treated with IV Lasix 40 mg 1 with 1 L of urine output after Lasix. Patient received 1 dose of IV Toradol for pain and clonidine for blood pressure. Patient presents with elevated pressure states he did take his medications today as prescribed. Chest x-ray negative for pulmonary edema. BNP has trended upward compared to previous value in March. Patient will be discharged home with recommended PMD and cardiology follow-up for further management. bp improved at d/c pt is not tachypneic - Differential Diagnosis chf, gout, neuropathy, renal failure, kidney failure Critical Care Time: No Critical care attestation.: If time is entered above; I have spent that time in minutes in the direct care of this critically ill patient, excluding procedure time. ED Disposition Clinical Impression: Edema of both feet, CHF exacerbation, Diabetic neuropathy, Left foot pain Disposition: TO HOME OR SELFCARE Is pt being admited?: No Does the pt Need Aspirin: No Condition: Stable Instructions: Diabetic Neuropathy (ED), Leg Edema (ED), Arthralgia (ED) Additional Instructions: Take the medication as prescribed. Follow-up with your doctor or with the doctor provided. Return is symptoms worsen as indicated by your discharge instructions. Prescriptions: Gabapentin 300 mg PO Q8HR #90 capsule traMADoL [Ultram 50 MG tab] 50 mg PO Q6HR PRN #14 tablet PRN Reason: Pain Referrals: JARROD COOK MD [Staff Physician] - 2-3 Days [facility] [Provider Group] - 3-5 Days Time of Disposition: 14:21
[2019-05-14 14:21] VITALS: BP 138/91
== END 2019-05-14 14:46 | disposition home or self-care (01) ==
LOC: ED 03:12
DX: I11.0 Hypertensive heart disease with heart failure (principal); I50.9 Heart failure, unspecified; G62.9 Polyneuropathy, unspecified; E11.40 Type 2 diabetes mellitus with diabetic neuropathy, unspecified; R60.0 Localized edema; J45.909 Unspecified asthma, uncomplicated; Z79.899 Other long term (current) drug therapy
CPT/HCPCS: 36415; 71046; 73630; 80053; 82962; 83880; 85025; 96374; 96375; 99284; J1885; J1940

== ENCOUNTER 2019-09-11 21:22 | Observation (INO) | payer MEDICAID ==
[2019-09-11] MEDS ORDERED: ASPIRIN 325 MG TAB PO ONE (21:32)
--- NOTE | 2019-09-11 22:22 | XRay Report ---
CHEST 2 VIEWS INDICATION: MAIN: Chest Pain; Left sharp to pounding chest pain for several days. GENNY. Denies cough. GENNY increase s with excertion. Swelling to feet and legs. Nonlabored. MAEW. Generalized weakness. Denies N&V. Mid back pain. . COMPARISON: 07/12/2019 FINDINGS: Support devices: None. Heart: Within normal limits. Lungs/pleura: Mild bilateral central peribronchial thickening could be seen with tracheobronchitis or very mild edema. No consolidation or effusion. No pneumothorax. Additional findings: None. IMPRESSION: 1. Pulmonary findings as above. Signer Name: Cristopher Jacobson MD Signed: 09/11/2019 10:18 PM Workstation Name: [id number]
[2019-09-11 22:51] LABS: Basophils % (Auto) 0.3 % (0.0-1.8); Eosinophils # (Auto) 0.4 K/mm3 (0.0-0.4); Lymphocytes % (Auto) 21.3 % (13.4-35.0); Mean Corpuscular HGB Conc 33 % (32-34); Mean Corpuscular Volume 89 fl (84-94); Monocytes # (Auto) 0.6 K/mm3 (0.0-0.8); Monocytes % (Auto) 6.9 % (0.0-7.3); Platelet Count 248 K/mm3 (140-440); Red Blood Count 4.86 M/mm3 (3.65-5.03); Red Cell Distribution Width 15.4 % (13.2-15.2)
[2019-09-11 22:57] LABS: BUN/Creatinine Ratio 11; Blood Urea Nitrogen 16 mg/dL (9-20); Calcium 9.1 mg/dL (8.4-10.2); Hemolysis Index 11
[2019-09-11] MEDS ORDERED: FUROSEMIDE 40 MG/4 ML INJ IV ONE (23:20)
[2019-09-11] MEDS ORDERED: NITROGLYCERIN 2% OINT 1 GM TP ONE (23:21)
[2019-09-11] MEDS ORDERED: ASPIRIN 325 MG TAB ONE (23:38)
[2019-09-12 00:31] LABS: INR 1.17 (0.87-1.13)
[2019-09-12 00:32] LABS: Partial Thromboplastin Time 31.5 Sec. (24.2-36.6)
[2019-09-12] MEDS ORDERED: MORPHINE 2 MG/1 ML INJ IV ONE (01:02)
--- NOTE | 2019-09-12 01:10 | Emergency Department Report ---
ED Chest Pain HPI - General Chief Complaint: Chest Pain Stated Complaint: CHEST PAIN, DIFFICULTY IN BREATHING Time Seen by Provider: 09/11/19 23:14 Source: patient Mode of arrival: Ambulatory Limitations: Physical Limitation - History of Present Illness Initial Comments: Patient is a 48-year-old F [place] male with a past medical history of hypertension and congestive heart failure with a EF of 25% who is presenting with chest pain. Patient states has had chest pressure for approximately 1 week which began off and on initially but is now constant for the last several days. He states is a pressure-like sensation. He is having difficulty sleeping because he has orthopnea and PND. Patient states he is shortness of breath with exertion. He denies cough fevers chills nausea vomiting or diarrhea at this time. Patient states he is compliant with his medications. Severity scale (0 -10): 6 - Related Data Home Medications Medication Instructions Recorded Confirmed Last Taken Aspirin [Adult Aspirin] 81 mg PO DAILY 07/13/19 07/13/19 Unknown Previous Rx's Medication Instructions Recorded Last Taken Type Insulin NPH/Regular [NovoLIN 70/30] 50 unit SUB-Q BIDDIAB #10 ml 02/06/19 Unknown Rx Lispro Insulin [HumaLOG] 15 unit SUB-Q AC #10 ml 02/06/19 Unknown Rx NIFEdipine XL [Procardia Xl] 60 mg PO QDAY #30 tablet 02/06/19 Unknown Rx Gabapentin 300 mg PO Q8HR #90 capsule 05/14/19 Unknown Rx Furosemide [Lasix TAB] 40 mg PO QDAY #30 tablet 07/14/19 Unknown Rx Valsartan [Diovan] 160 mg PO BID #60 tablet 07/14/19 Unknown Rx carvediloL [Coreg] 6.25 mg PO BID #60 tablet 07/14/19 Unknown Rx Allergies Allergy/AdvReac Type Severity Reaction Status Date / Time No Known Allergies Allergy Verified 04/10/17 15:41 Heart Score - HEART Score History: Moderately suspicious EKG: Non-specific Age: 45-65 Risk factors: 1-2 risk factors Troponin: < normal limit HEART Score: 4 ED Review of Systems ROS: Stated complaint: CHEST PAIN, DIFFICULTY IN BREATHING Other details as noted in HPI Comment: All other systems reviewed and negative ED Past Medical Hx - Past Medical History Hx Hypertension: Yes Hx CVA: No Hx Heart Attack/AMI: No Hx Congestive Heart Failure: Yes Hx Diabetes: Yes Hx Deep Vein Thrombosis: No Hx Pulmonary Embolism: No Hx GERD: No Hx Liver Disease: No Hx Renal Disease: No Hx Sickle Cell Disease: No Hx Arthritis: No Hx Headaches / Migraines: No Hx Seizures: No Hx Kidney Stones: (decreased kidney function) Hx Psychiatric Treatment: No Hx Asthma: Yes Hx COPD: No Hx Tuberculosis: No Hx Dementia: No Hx HIV: No - Surgical History Hx Coronary Stent: No Hx Open Heart Surgery: No Hx Pacemaker: No Hx Internal Defibrillator: No Hx Cholecystectomy: No Hx Appendectomy: No Hx Breast Surgery: No - Social History Smoking Status: Unknown if ever smoked Substance Use Type: None - Medications Home Medications: Home Medications Medication Instructions Recorded Confirmed Last Taken Type Insulin NPH/Regular [NovoLIN 70/30] 50 unit SUB-Q BIDDIAB #10 ml 02/06/19 07/13/19 Unknown Rx Lispro Insulin [HumaLOG] 15 unit SUB-Q AC #10 ml 02/06/19 07/13/19 Unknown Rx NIFEdipine XL [Procardia Xl] 60 mg PO QDAY #30 tablet 02/06/19 07/13/19 Unknown Rx Gabapentin 300 mg PO Q8HR #90 capsule 05/14/19 07/13/19 Unknown Rx Aspirin [Adult Aspirin] 81 mg PO DAILY 07/13/19 07/13/19 Unknown History Furosemide [Lasix TAB] 40 mg PO QDAY #30 tablet 07/14/19 Unknown Rx Valsartan [Diovan] 160 mg PO BID #60 tablet 07/14/19 Unknown Rx carvediloL [Coreg] 6.25 mg PO BID #60 tablet 07/14/19 Unknown Rx ED Physical Exam - General Limitations: Physical Limitation General appearance: alert, in no apparent distress - Head Head exam: Present: atraumatic, normocephalic - Eye Eye exam: Present: normal appearance, PERRL, EOMI - ENT ENT exam: Present: mucous membranes moist - Neck Neck exam: Present: normal inspection - Respiratory Respiratory exam: Present: normal lung sounds bilaterally. Absent: respiratory distress, wheezes, rales, rhonchi - Cardiovascular Cardiovascular Exam: Present: regular rate, normal rhythm, normal heart sounds. Absent: systolic murmur, diastolic murmur, rubs, gallop - GI/Abdominal GI/Abdominal exam: Present: soft, normal bowel sounds. Absent: distended, tenderness, guarding, rebound - Rectal Rectal exam: Present: deferred - Extremities Exam Extremities exam: Present: normal inspection - Back Exam Back exam: Present: normal inspection - Neurological Exam Neurological exam: Present: alert, oriented X3 - Psychiatric Psychiatric exam: Present: normal affect, normal mood - Skin Skin exam: Present: warm, dry, intact, normal color. Absent: rash ED Course Vital Signs 09/11/19 09/11/19 09/11/19 21:26 21:39 23:11 Temperature 97.8 F 97.8 F 98.1 F Pulse Rate 98 H 97 H 95 H Respiratory 18 20 19 Rate Blood Pressure 208/150 217/138 Blood Pressure 194/130 [Left] O2 Sat by Pulse 99 99 96 Oximetry 09/11/19 09/11/19 23:44 23:47 Temperature Pulse Rate 95 H 93 H Respiratory Rate Blood Pressure 194/130 184/126 Blood Pressure [Left] O2 Sat by Pulse Oximetry FRAN score - Fran Score Age > 65: (0) No Aspirin use within the Past 7 Days: (0) No 3 or more CAD Risk Factors: (1) Yes 2 or more Angina events in past 24 hrs: (0) No Known CAD with more than 50% Stenosis: (0) No Elevated Cardiac Markers: (0) No ST Deviation Greater than 0.5mm: (0) No FRAN Score: 1 ED Medical Decision Making - Lab Data Result diagrams: 09/11/19 22:23 09/11/19 22:23 Lab Results 09/11/19 09/11/19 09/11/19 Range/Units 22:23 22:23 22:23 WBC 9.2 (4.5-11.0) K/mm3 RBC 4.86 (3.65-5.03) M/mm3 Hgb 14.0 (11.8-15.2) gm/dl Hct 43.0 (35.5-45.6) % MCV 89 (84-94) fl MCH 29 (28-32) pg MCHC 33 (32-34) % RDW 15.4 H (13.2-15.2) % Plt Count 248 (140-440) K/mm3 Lymph % (Auto) 21.3 (13.4-35.0) % [place] % (Auto) 6.9 (0.0-7.3) % Eos % (Auto) 4.0 (0.0-4.3) % Baso % (Auto) 0.3 (0.0-1.8) % Lymph # 2.0 (1.2-5.4) K/mm3 [place] # 0.6 (0.0-0.8) K/mm3 Eos # 0.4 (0.0-0.4) K/mm3 Baso # 0.0 (0.0-0.1) K/mm3 Seg Neutrophils % 67.5 (40.0-70.0) % Seg Neutrophils # 6.2 (1.8-7.7) K/mm3 Sodium 143 (137-145) mmol/L Potassium 3.8 (3.6-5.0) mmol/L Chloride 103.3 (98-107) mmol/L Carbon Dioxide 25 (22-30) mmol/L Anion Gap 19 mmol/L BUN 16 (9-20) mg/dL Creatinine 1.5 (0.8-1.5) mg/dL Estimated GFR > 60 ml/min BUN/Creatinine Ratio 11 % Glucose 117 H (75-100) mg/dL Calcium 9.1 (8.4-10.2) mg/dL Troponin T 0.029 (0.00-0.029) ng/mL NT-Pro-B Natriuret Pep 4816 H (0-450) pg/mL 09/11/19 09/12/19 Range/Units 23:57 00:12 WBC (4.5-11.0) K/mm3 RBC (3.65-5.03) M/mm3 Hgb (11.8-15.2) gm/dl Hct (35.5-45.6) % MCV (84-94) fl MCH (28-32) pg MCHC (32-34) % RDW (13.2-15.2) % Plt Count (140-440) K/mm3 Lymph % (Auto) (13.4-35.0) % [place] % (Auto) (0.0-7.3) % Eos % (Auto) (0.0-4.3) % Baso % (Auto) (0.0-1.8) % Lymph # (1.2-5.4) K/mm3 [place] # (0.0-0.8) K/mm3 Eos # (0.0-0.4) K/mm3 Baso # (0.0-0.1) K/mm3 Seg Neutrophils % (40.0-70.0) % Seg Neutrophils # (1.8-7.7) K/mm3 Sodium (137-145) mmol/L Potassium (3.6-5.0) mmol/L Chloride (98-107) mmol/L Carbon Dioxide (22-30) mmol/L Anion Gap mmol/L BUN (9-20) mg/dL Creatinine (0.8-1.5) mg/dL Estimated GFR ml/min BUN/Creatinine Ratio % Glucose (75-100) mg/dL Calcium (8.4-10.2) mg/dL Troponin T 0.031 H (0.00-0.029) ng/mL NT-Pro-B Natriuret Pep 4620 H (0-450) pg/mL - EKG Data -: EKG Interpreted by In - EKG Data 09/12/19 01:10 EKG shows sinus rhythm rate of 94. Crook is normal intervals are normal. Her lateral T wave inversions. No ST segment elevations or depressions. Time of interpretation 2148. No significant change from his EKG 2 months ago. - Radiology Data [facility] [address] [place] [address] XRay Report Signed Patient: HERNÁN RECINOS MR#: [id number] : 1970 Acct:[id number] Age/Sex: 48 / M ADM Date: 09/11/19 Loc: ED Attending Dr: Ordering Physician: ED MD SHAZIA Date of Service: 09/11/19 Procedure(s): XR chest routine 2V Accession Number(s): [id number] cc: ED MD SHAZIA Fluoro Time In Minutes: CHEST 2 VIEWS INDICATION: MAIN: Chest Pain; Left sharp to pounding chest pain for several days. GENNY. Denies cough. GENNY increases with excertion. Swelling to feet and legs. Nonlabored. MAEW. Generalized weakness. Denies N V. Mid back pain. . COMPARISON: 07/12/2019 FINDINGS: Support devices: None. Heart: Within normal limits. Lungs/pleura: Mild bilateral central peribronchial thickening could be seen with tracheobronchitis or very mild edema. No consolidation or effusion. No pneumothorax. Additional findings: None. IMPRESSION: 1. Pulmonary findings as above. Signer Name: Cristopher Jacobson MD Signed: 09/11/2019 10:18 PM Workstation Name: [id number] - Medical Decision Making Patient is a 48-year-old F [place] male past medical history of hypertension congestive heart failure who is presenting with shortness of breath and chest pain. Patient's blood pressure was significantly elevated on arrival. He was given 20 mg of labetalol and at the time of admission the patient's blood pressure had decreased to 180 systolic. Patient continued to have chest discomfort despite aspirin and Nitropaste. Patient was given small dose of morphine for pain. Patient given 40 mg of Lasix and he is beginning to diurese. Patient will be admitted for observation to the hospitalist service for Critical Care Time: Yes (30) Critical care attestation.: If time is entered above; I have spent that time in minutes in the direct care of this critically ill patient, excluding procedure time. ED Disposition Clinical Impression: Hypertensive urgency, malignant Chest pain Qualifiers: Chest pain type: unspecified Qualified Code(s): R07.9 - Chest pain, unspecified CHF exacerbation Qualifiers: Heart failure type: systolic Qualified Code(s): I50.23 - Acute on chronic systolic (congestive) heart failure Disposition: OP ADMIT IP TO THIS HOSP Is pt being admited?: Yes Does the pt Need Aspirin: No Condition: Stable Time of Disposition: 01:15
[2019-09-12] MEDS ORDERED: KETOROLAC 30 MG/1 ML INJ IV ONE (01:31)
[2019-09-12] MEDS ORDERED: KETOROLAC 30 MG/1 ML INJ ONE (01:33)
[2019-09-12] MEDS ORDERED: ONDANSETRON 4 MG/2 ML INJ IV PRN (01:46)
[2019-09-12] MEDS ORDERED: ACETAMINOPHEN 325 MG TAB PO PRN (01:46)
[2019-09-12] MEDS ORDERED: MORPHINE 2 MG/1 ML INJ IV PRN (01:46)
[2019-09-12] MEDS ORDERED: DEXTROSE 50% IN WATER (25GM) 50 ML SYRINGE IV PRN (01:46)
[2019-09-12 01:59] LABS: Chol/HDL Ratio 6.9 %
--- NOTE | 2019-09-12 02:08 | History and Physical Report ---
History of Present Illness History of present illness: 48-year-old man with a history of hypertension, diabetes, CHF, asthma comes emergency room for evaluation. Patient stated that he has been having chest pain over the last 5 days in the epigastric area which he described as a hard pain, constant, intensity 5/10, no radiation, cannot identify exacerbating factors, better with pain medication. Admits to shortness of breath, nausea, no diaphoresis or palpitation. States he is compliant with his medication. The patient had a stress test in June, results were reviewed. Patient will be admitted for chest pain evaluation Review Of Systems: Constitutional: no weight loss, fever, chills Ears, eyes, nose, mouth and throat: no nasal congestion, no nasal discharge, no sinus pressure, blurry vision, diplopia Neck: No neck pain or rigidity. Cardiovascular: No palpitations Respiratory: Nocough Gastrointestinal: No hematochezia Genitourinary : no dysuria, frequency Musculoskeletal: no muscle ache , joint pain Integumentary: no rash, no pruritis Neurological: no parathesias, focal weakness Endocrine: no cold or heat intolerance, no polyuria or polydipsia Hematologic/Lymphatic: no easy bruising, no easy bleeding, no gland swelling Allergic/Immunologic: no urticaria, no angioedema. PAST MEDICAL HISTORY: hypertension, diabetes, CHF, asthma PAST SURGICAL HISTORY: None SOCIAL HISTORY: Social alcohol, denies tobacco, drugs FAMILY HISTORY: Hypertension Medications and Allergies Allergies Allergy/AdvReac Type Severity Reaction Status Date / Time No Known Allergies Allergy Verified 04/10/17 15:41 Home Medications Medication Instructions Recorded Confirmed Last Taken Type Insulin NPH/Regular [NovoLIN 70/30] 50 unit SUB-Q BIDDIAB #10 ml 02/06/19 09/12/19 Unknown Rx Gabapentin 300 mg PO Q8HR #90 capsule 05/14/19 09/12/19 Unknown Rx Aspirin [Adult Aspirin] 81 mg PO DAILY 07/13/19 09/12/19 Unknown History carvediloL [Coreg] 6.25 mg PO BID #60 tablet 07/14/19 09/12/19 Unknown Rx Furosemide [Lasix TAB] 40 mg PO QDAY 09/12/19 09/12/19 Unknown History NIFEdipine [Nifedipine ER] 60 mg PO DAILY 09/12/19 09/12/19 Unknown History lisinopriL [Zestril TAB] 10 mg PO QDAY 09/12/19 09/12/19 Unknown History Active Meds: Active Medications Acetaminophen (Tylenol) 650 mg PO Q4H PRN PRN Reason: Pain MILD(1-3)/Fever >100.5/SANTOS Dextrose (D50w (25gm) Syringe) 0 ml IV Q30MIN PRN; Protocol PRN Reason: Hypoglycemia Enoxaparin Sodium (Enoxaparin) 40 mg SUB-Q QAM [facility] Insulin Human Lispro (Humalog) 0 unit SUB-Q ACHS [facility]; Protocol Morphine Sulfate (Morphine) 2 mg IV Q4H PRN PRN Reason: Pain, Moderate (4-6) Ondansetron HCl (Zofran) 4 mg IV Q8H PRN PRN Reason: Nausea And Vomiting Sodium Chloride (Sodium Chloride Flush Syringe 10 Ml) 10 ml IV BID [facility] Sodium Chloride (Sodium Chloride Flush Syringe 10 Ml) 10 ml IV PRN PRN PRN Reason: LINE FLUSH Exam - Physical Exam Narrative exam: Gen. appearance: Patient lying in bed, no apparent distress HEENT: Normocephalic, atraumatic, pupils equally round and reactive to light, extraocular movement intact, and no sclericterus,. No JVD or thyromegaly or nodule,neck supple, no carotid bruit ,mucous membranes moist, no exudate or erythema Heart: S1, S2, regular rate and rhythm Lungs: Clear bilaterally, breathing comfortable Abdomen: Positive bowel sounds, nontender, nondistended, no organomegaly Extremity: no edema, cyanosis, clubbing Skin: No rash, nodules, warm, dry Neuro: Cranial nerves II to XII intact, speech is fluent, moves extremities, sensory intact - Constitutional Vitals: Temp Pulse Resp BP Pulse Ox 98.1 F 80 16 171/126 94 09/11/19 23:11 09/12/19 01:00 09/12/19 01:33 09/12/19 01:00 09/12/19 01:00 HEART Score - HEART Score EKG: Non-specific Age: 45-65 Risk factors: 1-2 risk factors Troponin: Troponin T 0.031 ng/mL (0.00-0.029) H 09/12/19 00:12 Troponin: < normal limit Results - Labs CBC & Chem 7: 09/11/19 22:23 09/11/19 22:23 Labs: Abnormal lab results 09/11/19 09/11/19 09/11/19 Range/Units 22:23 22:23 22:23 RDW 15.4 H (13.2-15.2) % PT (12.2-14.9) Sec. INR (0.87-1.13) Glucose 117 H (75-100) mg/dL Troponin T (0.00-0.029) ng/mL NT-Pro-B Natriuret Pep 4816 H (0-450) pg/mL Triglycerides (2-149) mg/dL HDL Cholesterol (40-59) mg/dL 09/11/19 09/11/19 09/12/19 Range/Units 23:57 23:57 00:12 RDW (13.2-15.2) % PT 15.0 H (12.2-14.9) Sec. INR 1.17 H (0.87-1.13) Glucose (75-100) mg/dL Troponin T 0.031 H (0.00-0.029) ng/mL NT-Pro-B Natriuret Pep 4620 H (0-450) pg/mL Triglycerides 250 H (2-149) mg/dL HDL Cholesterol 21 L (40-59) mg/dL - Imaging and Cardiology EKG: image reviewed Chest x-ray: report reviewed Assessment and Plan Assessment Chest pain Check cardiac enzymes, consult cardiology IV morphine, restart cardiac medications Chronic CHF, diastolic, stable Restart outpatient medications Hypertension Add IV hydralazine as needed for blood pressure control Diabetes Check fingersticks, start sliding scale DVT prophylaxis
[2019-09-12 03:47] LABS: Basophils # (Auto) 0.1 K/mm3 (0.0-0.1); Basophils % (Auto) 1.2 % (0.0-1.8); Eosinophils # (Auto) 0.4 K/mm3 (0.0-0.4); Eosinophils % (Auto) 4.3 % (0.0-4.3); Hematocrit 40.5 % (35.5-45.6); Hemoglobin 13.2 gm/dl (11.8-15.2); Lymphocytes # (Auto) 2.2 K/mm3 (1.2-5.4); Lymphocytes % (Auto) 24.6 % (13.4-35.0); Mean Corpuscular HGB Conc 33 % (32-34); Mean Corpuscular Volume 88 fl (84-94); Monocytes # (Auto) 0.7 K/mm3 (0.0-0.8); Monocytes % (Auto) 7.9 % (0.0-7.3); Platelet Count 250 K/mm3 (140-440); Red Blood Count 4.63 M/mm3 (3.65-5.03); Red Cell Distribution Width 15.3 % (13.2-15.2)
[2019-09-12 04:04] LABS: Calcium 8.9 mg/dL (8.4-10.2); Creatine Kinase MB 4.4 ng/mL (0.0-4.0)
[2019-09-12] MEDS: GABAPENTIN 300 MG CAP PO SCH ×3 (06:13→22:50)
[2019-09-12] MEDS ORDERED: INSULIN NPH/REGULAR 70/30 INJ SUB-Q SCH (08:00)
[2019-09-12] MEDS: INSULIN LISPRO 100 UNIT/ML SUB-Q SCH ×4 (08:09→22:52)
[2019-09-12 08:20] LABS: Creatine Kinase MB 3.8 ng/mL (0.0-4.0)
[2019-09-12] MEDS: carvediloL 6.25 MG TAB PO SCH ×2 (08:30→18:35)
[2019-09-12] MEDS: INSULIN NPH/REGULAR 70/30 INJ SUB-Q SCH (09:43)
[2019-09-12] MEDS ORDERED: FUROSEMIDE 40 MG TAB PO SCH (10:00)
[2019-09-12] MEDS ORDERED: ENOXAPARIN 40 MG/0.4 ML INJ SUB-Q ONE (10:26)
[2019-09-12] MEDS ORDERED: ASPIRIN 81 MG TAB CHEW ONE (10:26)
[2019-09-12] MEDS ORDERED: FUROSEMIDE 20 MG TAB ONE (10:27)
[2019-09-12] MEDS: ASPIRIN EC 81 MG TAB PO SCH (10:31)
[2019-09-12] MEDS: ENOXAPARIN 40 MG/0.4 ML INJ SUB-Q SCH (10:32)
[2019-09-12] MEDS ORDERED: LISINOPRIL 10 MG TAB ONE (10:35)
[2019-09-12] MEDS: LISINOPRIL 10 MG TAB PO SCH (10:35)
[2019-09-12] MEDS: NIFEdipine XL 60 MG TAB PO SCH (11:01)
--- NOTE | 2019-09-12 11:05 | Consultation ---
History of Present Illness Consult date: 09/12/19 Consult reason: chest pain History of present illness: This is a 48-year old male with a history of nonischemic cardiomyopathy by serial stress thallium tests. An echocardiogram in June showed severely decreased left ventricular systolic function, ejection fraction 25-30%. Patient presents to the emergency department with chest pain, shortness of breath and uncontrolled hypertension. Chest x-ray reports mild interstitial edema. Laboratory studies shows an elevated BNP. His presenting ECG is sinus rhythm with nonspecific Twave abnormalities. No significant change from prior. A cardiac consultation has been requested for further evaluation. Medications and Allergies Allergies Allergy/AdvReac Type Severity Reaction Status Date / Time No Known Allergies Allergy Verified 04/10/17 15:41 Home Medications Medication Instructions Recorded Confirmed Last Taken Type Gabapentin 300 mg PO Q8HR #90 capsule 05/14/19 09/12/19 Unknown Rx Aspirin [Adult Aspirin] 81 mg PO DAILY 07/13/19 09/12/19 Unknown History carvediloL [Coreg] 6.25 mg PO BID #60 tablet 07/14/19 09/12/19 Unknown Rx Furosemide [Lasix TAB] 40 mg PO QDAY 09/12/19 09/12/19 Unknown History Insulin NPH Hum/Reg Insulin Hm 15 unit SQ DAILY 09/12/19 09/12/19 Unknown History [Novolin 70-30 100 Unit/ml Vial] NIFEdipine [Nifedipine ER] 60 mg PO DAILY 09/12/19 09/12/19 Unknown History lisinopriL [Zestril TAB] 10 mg PO QDAY 09/12/19 09/12/19 09/11/19 History Active Meds: Active Medications Acetaminophen (Tylenol) 650 mg PO Q4H PRN PRN Reason: Pain MILD(1-3)/Fever >100.5/SANTOS Aspirin (Halfprin Ec) 81 mg PO DAILY [facility] Last Admin: 09/12/19 10:31 Dose: 81 mg Documented by: Carvedilol (Coreg) 6.25 mg PO BID@0800,1700 [facility] Last Admin: 09/12/19 08:30 Dose: 6.25 mg Documented by: Dextrose (D50w (25gm) Syringe) 0 ml IV Q30MIN PRN; Protocol PRN Reason: Hypoglycemia Enoxaparin Sodium (Enoxaparin) 40 mg SUB-Q QAM [facility] Last Admin: 09/12/19 10:32 Dose: 40 mg Documented by: Furosemide (Lasix) 40 mg PO QDAY [facility] Last Admin: 09/12/19 10:31 Dose: 40 mg Documented by: Gabapentin (Gabapentin) 300 mg PO Q8HR [facility] Last Admin: 09/12/19 06:13 Dose: 300 mg Documented by: Insulin Human Isoph/Insulin Regular (Humulin 70/30) 15 unit SUB-Q QDDIAB [facility] Last Admin: 09/12/19 09:43 Dose: 15 unit Documented by: Insulin Human Lispro (Humalog) 0 unit SUB-Q ACHS [facility]; Protocol Last Admin: 09/12/19 08:09 Dose: Not Given Documented by: Lisinopril (Zestril) 10 mg PO QDAY [facility] Last Admin: 09/12/19 10:35 Dose: 10 mg Documented by: Morphine Sulfate (Morphine) 2 mg IV Q4H PRN PRN Reason: Pain, Moderate (4-6) Nifedipine (Procardia Xl) 60 mg PO DAILY [facility] Last Admin: 09/12/19 11:01 Dose: 60 mg Documented by: Ondansetron HCl (Zofran) 4 mg IV Q8H PRN PRN Reason: Nausea And Vomiting Sodium Chloride (Sodium Chloride Flush Syringe 10 Ml) 10 ml IV BID [facility] Last Admin: 09/12/19 10:35 Dose: 10 ml Documented by: Sodium Chloride (Sodium Chloride Flush Syringe 10 Ml) 10 ml IV PRN PRN PRN Reason: LINE FLUSH Physical Examination Vital Signs Temp Pulse Resp BP Pulse Ox 97.8 F 98 H 18 208/150 99 09/11/19 21:26 09/11/19 21:26 09/11/19 21:26 09/11/19 21:26 09/11/19 21:26 General appearance: no acute distress HEENT: Positive: PERRL Neck: Positive: trachea midline Cardiac: Positive: Reg Rate and Rhythm Extremities: Present: +1 Edema Results 09/12/19 03:25 09/12/19 03:25 Cardiac Enzymes 09/12/19 09/12/19 Range/Units 03:25 07:32 CK-MB (CK-2) 4.4 H 3.8 (0.0-4.0) ng/mL Coagulation 09/11/19 Range/Units 23:57 PT 15.0 H (12.2-14.9) Sec. INR 1.17 H (0.87-1.13) APTT 31.5 (24.2-36.6) Sec. Lipids 09/12/19 Range/Units 00:12 Triglycerides 250 H (2-149) mg/dL Cholesterol 145 (50-199) mg/dL HDL Cholesterol 21 L (40-59) mg/dL Cholesterol/HDL Ratio 6.90 % CBC 09/11/19 09/12/19 Range/Units 22:23 03:25 WBC 9.2 9.0 (4.5-11.0) K/mm3 RBC 4.86 4.63 (3.65-5.03) M/mm3 Hgb 14.0 13.2 (11.8-15.2) gm/dl Hct 43.0 40.5 (35.5-45.6) % Plt Count 248 250 (140-440) K/mm3 Lymph # 2.0 2.2 (1.2-5.4) K/mm3 [place] # 0.6 0.7 (0.0-0.8) K/mm3 Eos # 0.4 0.4 (0.0-0.4) K/mm3 Baso # 0.0 0.1 (0.0-0.1) K/mm3 Comprehensive Metabolic Panel 09/11/19 09/12/19 Range/Units 22:23 03:25 Sodium 143 141 (137-145) mmol/L Potassium 3.8 3.7 (3.6-5.0) mmol/L Chloride 103.3 103.4 (98-107) mmol/L Carbon Dioxide 25 24 (22-30) mmol/L BUN 16 17 (9-20) mg/dL Creatinine 1.5 1.7 H (0.8-1.5) mg/dL Glucose 117 H 110 H (75-100) mg/dL Calcium 9.1 8.9 (8.4-10.2) mg/dL Assessment and Plan Chest pain, atypical Acute on chronic systolic heart failure Nonischemic CMP EF 25-30% by echo 06/2019. no ischemia by MPI 06/2019. EF 55-60% by echo 01/2019. EF 10-15% by echo 03/2017. no ischemia by MPI 03/2017. Hypertension Diabetes Recommendations: Sodium and fluid restrictions. Optimal BP management. Continue medical therapy for systolic heart failure to include beta blockers, afterload therapy and aspirin. Invasive ischemic workup with a [facility] will be planned for Wednesday. We will stop diuretics due to acute renal failure and initiate intravenous fluid for hydration.
[2019-09-12] MEDS ORDERED: SODIUM CHLORIDE 0.9% 1000 ML 1,000 ML IV SCH (11:30)
[2019-09-12] MEDS ORDERED: GABAPENTIN 300 MG CAP ONE (15:07)
[2019-09-12] MEDS ORDERED: carvediloL 6.25 MG TAB ONE (18:35)
--- NOTE | 2019-09-13 00:43 | Event Note ---
Date: 09/12/19 Patient seen and evaluatd CHF exacerbation Chest pain Cardiology consult appreciated
[2019-09-13 04:53] LABS: Basophils # (Auto) 0.1 K/mm3 (0.0-0.1); Basophils % (Auto) 1.4 % (0.0-1.8); Eosinophils # (Auto) 0.7 K/mm3 (0.0-0.4); Eosinophils % (Auto) 7.8 % (0.0-4.3); Hematocrit 41.8 % (35.5-45.6); Hemoglobin 13.5 gm/dl (11.8-15.2); Mean Corpuscular HGB Conc 32 % (32-34); Mean Corpuscular Volume 89 fl (84-94); Monocytes # (Auto) 0.6 K/mm3 (0.0-0.8); Monocytes % (Auto) 6.3 % (0.0-7.3); Platelet Count 242 K/mm3 (140-440); Red Blood Count 4.68 M/mm3 (3.65-5.03)
[2019-09-13 05:03] LABS: INR 1.12 (0.87-1.13)
[2019-09-13 05:08] LABS: BUN/Creatinine Ratio 15; Blood Urea Nitrogen 18 mg/dL (9-20); Calcium 8.9 mg/dL (8.4-10.2); Hemolysis Index 24
[2019-09-13] MEDS: GABAPENTIN 300 MG CAP PO SCH ×2 (06:04→13:14)
[2019-09-13] MEDS: INSULIN LISPRO 100 UNIT/ML SUB-Q SCH ×3 (08:41→18:18)
[2019-09-13] MEDS: carvediloL 6.25 MG TAB PO SCH ×2 (08:42→16:28)
[2019-09-13] MEDS: INSULIN NPH/REGULAR 70/30 INJ SUB-Q SCH (08:42)
[2019-09-13] MEDS: NIFEdipine XL 60 MG TAB PO SCH (09:08)
[2019-09-13] MEDS: ENOXAPARIN 40 MG/0.4 ML INJ SUB-Q SCH (09:10)
[2019-09-13] MEDS: LISINOPRIL 10 MG TAB PO SCH (09:12)
[2019-09-13] MEDS: ASPIRIN EC 81 MG TAB PO SCH (10:11)
[2019-09-13] MEDS ORDERED: LIDOCAINE (2%) 20 MG/1 ML VIAL 20 ML MDV INFILTRATI ONE (10:42)
[2019-09-13] MEDS ORDERED: VERAPAMIL 5 MG/2 ML INJ ONE (10:42)
[2019-09-13] MEDS ORDERED: HEPARIN 10,000 UNITS/10 ML VIAL ONE (10:42)
[2019-09-13] MEDS ORDERED: NITROGLYCERIN SYRINGE 3 ML ONE (10:42)
[2019-09-13] MEDS ORDERED: HEPARIN/NS 5000 UNIT/500ML 1,000 ML IR ONE (10:42)
[2019-09-13] MEDS ORDERED: MIDAZOLAM 2 MG/2 ML INJ ONE (10:43)
[2019-09-13] MEDS ORDERED: fentaNYL 100 MCG/2 ML INJ ONE (10:45)
[2019-09-13] MEDS ORDERED: FUROSEMIDE 40 MG/4 ML INJ ONE (12:30)
--- NOTE | 2019-09-13 12:53 | Event Note ---
Date: 09/13/19 Cardiac catheterization completed via the right radial approach. No complications. We found essentially angiographically normal coronary arteries, and a dilated nonischemic cardiomyopathy with left ventricular ejection fraction 25 to 30%. Patient is stable for cardiac discharge today. Continue guideline directed medical therapy for chronic systolic left ventricular failure. 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
--- NOTE | 2019-09-13 12:55 | Cardiac Catherization Report ---
CARDIAC CATHETERIZATION REPORT REASON FOR PROCEDURE: The patient is a 48-year-old man with a history of a dilated cardiomyopathy, presents with recurrent chest pain. A cardiac catheterization was recommended for coronary artery disease and chest pain assessment. PROCEDURES: 1. Left heart catheterization. 2. Selective left and right coronary angiography. 3. Left ventricular angiography. 4. Sedation time, start 1218 hours and end 1230 hours. DESCRIPTION OF PROCEDURE: The patient was prepped and draped in a sterile fashion after informed consent. The right radial cath site was prepped and draped after a negative Chris's test. Right radial artery was entered using Seldinger technique followed by placement of a 6-Lao hydrophilic sheath. Routine radial cocktail was administered via the sheath. Selective left and right coronary angiography was performed using a #3.5 left Ceci, and a #4 right Ceci. The pigtail catheter was used for left ventricular angiography. The catheters were removed, sheath removed, and hemostasis achieved using a TR band. The patient was returned to the postprocedure unit in stable condition. There were no complications. FINDINGS: HEMODYNAMICS: Left ventricular end-diastolic pressure was 43, following coronary angiography. Ascending aortic pressure was 142/96. There was no significant pressure gradient on pullback across the aortic valve. CORONARY ANGIOGRAPHY: The left main coronary artery was angiographically normal. The left anterior descending artery and diagonal branches were free of significant disease. The circumflex artery and its obtuse marginal branches were free of significant disease. The right coronary artery was dominant and similarly angiographically normal. Left ventricle was moderate to severely dilated. There was severe left ventricular systolic dysfunction with diffuse hypokinesis. Left ventricular systolic ejection fraction estimated at 25-30%. CONCLUSIONS: 1. Angiographically normal coronary arteries. 2. Dilated nonischemic cardiomyopathy, severe left ventricular systolic dysfunction, ejection fraction 25-30%. RECOMMENDATION: Medical therapy for nonischemic cardiomyopathy. JOB# [id number] CA/NTS
[2019-09-13 19:18] VITALS: BP 125/85
--- NOTE | 2019-09-13 20:10 | Discharge Summary ---
Providers - Providers Date of Admission: 09/12/19 01:27 Date of discharge: 09/13/19 Attending physician: JORGE ALBERTO FLORES 09/12/19 01:46 Consult to Physician [CONS] Routine Comment: Consulting Provider: ESTELA KITCHEN Physician Instructions: Reason For Exam: cp 09/13/19 12:53 Consult to Cardiac Rehabilitation [CONS] Routine Reason For Exam: Cardiac Rehab Evaluation Primary care physician: MEDIA EXECUTIVE Hospitalization Condition: Stable Procedures: Cardiac catheterization completed via the right radial approach. No complications. We found essentially angiographically normal coronary arteries, and a dilated nonischemic cardiomyopathy with left ventricular ejection fraction 25 to 30%. Patient is stable for discharge today. Continue guideline directed medical therapy for chronic systolic left ventricular failure. 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 Hospital course: 48-year-old man with a history of hypertension, diabetes, CHF, asthma comes emergency room for evaluation. Patient stated that he has been having chest pain over the last 5 days in the epigastric area which he described as a hard pain, constant, intensity 5/10, no radiation, cannot identify exacerbating factors, better with pain medication. Admits to shortness of breath, nausea, no diaphoresis or palpitation. States he is compliant with his medication. The patient had a stress test in June, results were reviewed. Patient will be admitted for chest pain evaluation Serial troponins negative Cardiac cath-normal coronary arteries but reduced ejection fraction of about 25% consistent with nonischemic cardiomyopathy Discharge diagnosis #1 atypical chest pain Possible GERD versus costochondritis #2 hypertension Continue antihypertensives #3 insulin-dependent diabetes mellitus Continue home insulin and coverage #4 CHF/cardiomyopathy Continue Lasix and potassium 40 mg and 20 mg respectively #5 peripheral neuropathy Continue gabapentin Follow-up with cardiology Dr. Glass as outpatient Disposition: DC- TO HOME OR SELFCARE Core Measure Documentation - Palliative Care Palliative Care/ Comfort Measures: Not Applicable - Core Measures Any of the following diagnoses?: none Exam - Constitutional Vitals: Temp Pulse Resp BP Pulse Ox 97.9 F 79 18 125/85 95 09/13/19 19:16 09/13/19 19:16 09/13/19 19:16 09/13/19 19:16 09/13/19 19:16 General appearance: Present: no acute distress, well-nourished - EENT Eyes: Present: PERRL ENT: hearing intact, clear oral mucosa - Neck Neck: Present: supple, normal ROM - Respiratory Respiratory effort: normal Respiratory: bilateral: CTA - Cardiovascular Heart rate: 78 Rhythm: regular Heart Sounds: Present: S1 & S2. Absent: rub, click - Extremities Extremities: pulses symmetrical, No edema Peripheral Pulses: within normal limits - Abdominal General gastrointestinal: Present: soft, non-tender, non-distended, normal bowel sounds Male genitourinary: Present: normal - Integumentary Integumentary: Present: clear, warm, dry - Musculoskeletal Musculoskeletal: gait normal, strength equal bilaterally - Psychiatric Psychiatric: appropriate mood/affect, intact judgment & insight - Neurologic Neurologic: CNII-XII intact, moves all extremities Plan Activity: no restrictions Diet: low fat, low cholesterol, low salt, diabetic Follow up with: PRIMARY CAREMD [Primary Care Provider] - 7 Days CLYDE GLASS MD [Staff Physician] - 7 Days
== END 2019-09-13 21:20 | disposition home or self-care (01) ==
LOC: ED 21:22 → 4A 09-12 01:27
PROVIDERS: ADMIT Internal Medicine; ATTEND Internal Medicine
DX: R07.89 Other chest pain (principal); I11.0 Hypertensive heart disease with heart failure; I50.43 Acute on chronic combined systolic (congestive) and diastolic (congestive) heart failure; E11.42 Type 2 diabetes mellitus with diabetic polyneuropathy; J45.909 Unspecified asthma, uncomplicated; I42.9 Cardiomyopathy, unspecified; I16.0 Hypertensive urgency; Z79.4 Long term (current) use of insulin; Z79.82 Long term (current) use of aspirin; Z79.899 Other long term (current) drug therapy
CPT/HCPCS: 36415; 71046; 80048; 80061; 82550; 82553; 82962; 83880; 84484; 85025; 85610; 85730; 87641; 93005; 93458; 96372; 96374; 96375; 99291; C1894; G0378; J1644; J1650; J1885; J1940; J2250; J3010; J7030; J1815; Q9967

== ENCOUNTER 2019-11-28 11:03 | Emergency (ER) | payer MEDICAID ==
--- NOTE | 2019-11-28 11:15 | Event Note ---
ED Screening Note ED Screening Note: several day hx cp co difficulty w vision l eye no trauma no focal def no facial weakness no pronator drift ambulatory no problem w word finding bp elevated This initial assessment/diagnostic orders/clinical plan/treatment(s) is/are subject to change based on patients health status, clinical progression and re- assessment by fellow clinical providers in the ED. Further treatment and workup at subsequent clinical providers discretion. Patient/guardian urged not to elope from the ED as their condition may be serious if not clinically assessed and managed. Initial orders include: main for work up- RN aware pt needs bed now
[2019-11-28 11:17] VITALS: BP 166/100
--- NOTE | 2019-11-28 12:12 | Cat Scan Report ---
CT head/brain wo con INDICATION / CLINICAL INFORMATION: 49 years Male; Stroke symptoms. TECHNIQUE: Routine CT head without contrast. All CT scans at this location are performed using CT dos e reduction for ALARA by means of automated exposure control. Motion artifact COMPARISON: None. FINDINGS: BRAIN / INTRACRANIAL CONTENTS: No acute hemorrhage, mass effect, midline shift, hydrocephalus, or acu te, large territorial infarct. No chronic infarct or atrophy appreciated. No significant white matter abnormality. CRANIOCERVICAL JUNCTION: No significant abnormality. ORBITS: No significant abnormality of visualized orbits. SINUSES / MASTOIDS: No significant abnormality in the visualized paranasal sinuses or mastoid air zen ls. ADDITIONAL FINDINGS: None. IMPRESSION: 1. No focal mass, hemorrhage, hydrocephalus, or acute, large territorial infarct. Signer Name: Ramón Negrete MD, III Signed: 11/28/2019 12:07 PM Workstation Name: [id number]
[2019-11-28 12:58] LABS: Basophils # (Auto) 0.1 K/mm3 (0.0-0.1); Basophils % (Auto) 1.4 % (0.0-1.8); Eosinophils # (Auto) 0.4 K/mm3 (0.0-0.4); Eosinophils % (Auto) 6.5 % (0.0-4.3); Hematocrit 39.3 % (35.5-45.6); Lymphocytes # (Auto) 1.2 K/mm3 (1.2-5.4); Lymphocytes % (Auto) 18.5 % (13.4-35.0); Mean Corpuscular HGB Conc 33 % (32-34); Mean Corpuscular Volume 90 fl (84-94); Monocytes # (Auto) 0.4 K/mm3 (0.0-0.8); Monocytes % (Auto) 6.6 % (0.0-7.3); Platelet Count 204 K/mm3 (140-440); Red Blood Count 4.35 M/mm3 (3.65-5.03); Red Cell Distribution Width 14.8 % (13.2-15.2)
--- NOTE | 2019-11-28 13:03 | Emergency Department Report ---
ED Neuro Deficit HPI - General Chief Complaint: Neuro Symptoms/Deficit Stated Complaint: CP/ Time Seen by Provider: 11/28/19 11:12 Source: patient Mode of arrival: Ambulatory Limitations: No Limitations - History of Present Illness Initial Comments: Mr. Mancia is a 49 yo male with hx of IDDM, CHF, HTN, GERD, who presents with chest pain for several days. He also awakened with blurry vision in the left eye. He also had transient numbness in left arm and left leg. According ot EMR, LHC performed 09/13/2019 normal coronary arteries, nonischemic cardiomyopathy severe left ventricular systolic dysfunction EF 25 to 30% -: Gradual, hour(s) (Awakened this morning with left eye blurry vision), days(s) (Pleuritic chest pain) History of same: No Place: home Severity: mild Improves With: none Worsens With: none Context: gradual onset - Related Data Home Medications: Previous Rx's Medication Instructions Recorded Last Taken Type Furosemide [Lasix TAB] 40 mg PO QDAY #30 09/12/10/26/19 Rx Aspirin EC [Halfprin EC] 81 mg PO QDAY #90 tablet 10/29/19 Unknown Rx Gabapentin 300 mg PO Q8HR #90 capsule 10/29/19 Unknown Rx Insulin NPH/Regular [NovoLIN 70/30] 15 unit SUB-Q BIDDIAB #1 10/29/19 Unknown Rx Lispro Insulin [HumaLOG] 8 unit SUB-Q AC #1 vial 10/29/19 Unknown Rx NIFEdipine XL [Procardia Xl] 60 mg PO DAILY #30 tablet 10/29/19 Unknown Rx Potassium Chloride [K-Dur] 20 meq PO QDAY 30 Days #30 tablet 10/29/19 Unknown Rx Spironolactone [Aldactone] 25 mg PO QDAY #30 tablet 10/29/19 Unknown Rx carvediloL [Coreg] 6.25 mg PO BID@0800,1700 #60 tablet 10/29/19 Unknown Rx lisinopriL [Zestril TAB] 10 mg PO QDAY #90 tablet 10/29/19 Unknown Rx oxyCODONE /ACETAMINOPHEN [Percocet 1 tab PO Q6H PRN #14 tablet 10/29/19 Unknown Rx 5/325 mg] Allergies/Adverse Reactions: Allergies Allergy/AdvReac Type Severity Reaction Status Date / Time No Known Allergies Allergy Verified 11/28/19 11:13 ED Review of Systems ROS: Stated complaint: CP/ Other details as noted in HPI Comment: All other systems reviewed and negative Constitutional: denies: fever, malaise Respiratory: denies: cough Cardiovascular: denies: chest pain Gastrointestinal: denies: abdominal pain, nausea, vomiting Skin: denies: rash Neurological: denies: headache ED Past Medical Hx - Past Medical History Previous Medical History?: Yes Hx Hypertension: Yes Hx CVA: No Hx Heart Attack/AMI: No Hx Congestive Heart Failure: Yes Hx Diabetes: Yes (diagnose in Mar) Hx Deep Vein Thrombosis: No Hx Pulmonary Embolism: No Hx GERD: No Hx Liver Disease: No Hx Renal Disease: No Hx Sickle Cell Disease: No Hx Arthritis: No Hx Headaches / Migraines: No Hx Seizures: No Hx Kidney Stones: (decreased kidney function) Hx Psychiatric Treatment: No Hx Asthma: Yes Hx COPD: No Hx Tuberculosis: No Hx Dementia: No Hx HIV: No - Surgical History Hx Coronary Stent: No Hx Open Heart Surgery: No Hx Pacemaker: No Hx Internal Defibrillator: No Hx Cholecystectomy: No Hx Appendectomy: No Hx Breast Surgery: No - Social History Smoking Status: Former Smoker - Medications Home Medications: Home Medications Medication Instructions Recorded Confirmed Last Taken Type Furosemide [Lasix TAB] 40 mg PO QDAY #30 09/13/19 10/26/19 10/26/19 Rx Aspirin EC [Halfprin EC] 81 mg PO QDAY #90 tablet 10/29/19 Unknown Rx Gabapentin 300 mg PO Q8HR #90 capsule 10/29/19 Unknown Rx Insulin NPH/Regular [NovoLIN 70/30] 15 unit SUB-Q BIDDIAB #1 10/29/19 Unknown Rx Lispro Insulin [HumaLOG] 8 unit SUB-Q AC #1 vial 10/29/19 Unknown Rx NIFEdipine XL [Procardia Xl] 60 mg PO DAILY #30 tablet 10/29/19 Unknown Rx Potassium Chloride [K-Dur] 20 meq PO QDAY 30 Days #30 tablet 10/29/19 Unknown Rx Spironolactone [Aldactone] 25 mg PO QDAY #30 tablet 10/29/19 Unknown Rx carvediloL [Coreg] 6.25 mg PO BID@0800,1700 #60 tablet 10/29/19 Unknown Rx lisinopriL [Zestril TAB] 10 mg PO QDAY #90 tablet 10/29/19 Unknown Rx oxyCODONE /ACETAMINOPHEN [Percocet 1 tab PO Q6H PRN #14 tablet 10/29/19 Unknown Rx 5/325 mg] ED Neuro Physical Exam - General Limitations: No Limitations General appearance: alert, in no apparent distress, other (Patient laying back, resting with his eyes closed hands behind his head) Suspected Stroke: No - Head Head exam: Present: atraumatic, normocephalic - Eye Eye exam: Present: normal appearance - Expanded Eye Exam Expanded Eyelids: Normal Inspection: Left Pupils: Regular, Round: Left Sclera/Conjunctival: Normal Inspection: Left Anterior chamber: Normal Inspection: Left Posterior chamber: Normal Inspection: Left - ENT ENT exam: Present: mucous membranes moist - Neck Neck exam: Present: normal inspection, full ROM - Respiratory Respiratory exam: Present: normal lung sounds bilaterally. Absent: respiratory distress, wheezes, rales, rhonchi - Cardiovascular Cardiovascular Exam: Present: regular rate, normal rhythm. Absent: systolic murmur, diastolic murmur, rubs, gallop - GI/Abdominal GI/Abdominal exam: Present: soft, normal bowel sounds. Absent: distended, tenderness, guarding, rebound - Rectal Rectal exam: Present: deferred - Extremities Exam Extremities exam: Present: normal inspection - Back Exam Back exam: Present: normal inspection - Neurological Exam Neurological exam: Present: alert, oriented X3 - NIHSS Assessment Interval: Baseline 1a. Level of Consciousness: alert/keenly responsive 1b. LOC Questions: answers both correctly 1c. LOC Commands: performs tasks correctly 2. Best Gaze: normal 3. Visual: no visual loss 4. Facial Palsy: normal symmetrical movement 5b. Motor Arm Right: no drift 5a. Motor Arm Left: no drift 6a. Motor Leg Left: no drift 6b. Motor Leg Right: no drift 7. Limb Ataxia: absent 8. Sensory: normal 9. Best Language: no aphasia 10. Dysarthria: normal 11. Extinction/Inattention: no abnormality Total Score: 0 Stroke Severity: No Stroke Symptoms - Psychiatric Psychiatric exam: Present: normal affect, normal mood - Skin Skin exam: Present: warm, dry, intact, normal color. Absent: rash ED Course Vital Signs 11/28/19 11:16 Temperature 98.4 F Pulse Rate 90 Respiratory 18 Rate Blood Pressure 166/100 [Right] O2 Sat by Pulse 96 Oximetry - Lab Data Result diagrams: 11/28/19 12:20 Lab Results 11/28/19 11/28/19 11/28/19 Range/Units 11:25 12:20 12:20 WBC 6.7 (4.5-11.0) K/mm3 RBC 4.35 (3.65-5.03) M/mm3 Hgb 13.0 (11.8-15.2) gm/dl Hct 39.3 (35.5-45.6) % MCV 90 (84-94) fl MCH 30 (28-32) pg MCHC 33 (32-34) % RDW 14.8 (13.2-15.2) % Plt Count 204 (140-440) K/mm3 Lymph % (Auto) 18.5 (13.4-35.0) % [place] % (Auto) 6.6 (0.0-7.3) % Eos % (Auto) 6.5 H (0.0-4.3) % Baso % (Auto) 1.4 (0.0-1.8) % Lymph # 1.2 (1.2-5.4) K/mm3 [place] # 0.4 (0.0-0.8) K/mm3 Eos # 0.4 (0.0-0.4) K/mm3 Baso # 0.1 (0.0-0.1) K/mm3 Seg Neutrophils % 67.0 (40.0-70.0) % Seg Neutrophils # 4.5 (1.8-7.7) K/mm3 PT 14.2 (12.2-14.9) Sec. INR 1.09 (0.87-1.13) APTT 27.7 (24.2-36.6) Sec. Thrombin Time 13.8 L (15.1-19.6) Sec. POC Glucose 126 H (70-105) Total Creatine Kinase (55-170) units/L CK-MB (CK-2) (0.0-4.0) ng/mL CK-MB (CK-2) Rel Index (0-4) Troponin T (0.00-0.029) ng/mL 11/28/19 Range/Units 12:20 WBC (4.5-11.0) K/mm3 RBC (3.65-5.03) M/mm3 Hgb (11.8-15.2) gm/dl Hct (35.5-45.6) % MCV (84-94) fl MCH (28-32) pg MCHC (32-34) % RDW (13.2-15.2) % Plt Count (140-440) K/mm3 Lymph % (Auto) (13.4-35.0) % [place] % (Auto) (0.0-7.3) % Eos % (Auto) (0.0-4.3) % Baso % (Auto) (0.0-1.8) % Lymph # (1.2-5.4) K/mm3 [place] # (0.0-0.8) K/mm3 Eos # (0.0-0.4) K/mm3 Baso # (0.0-0.1) K/mm3 Seg Neutrophils % (40.0-70.0) % Seg Neutrophils # (1.8-7.7) K/mm3 PT (12.2-14.9) Sec. INR (0.87-1.13) APTT (24.2-36.6) Sec. Thrombin Time (15.1-19.6) Sec. POC Glucose (70-105) Total Creatine Kinase 261 H (55-170) units/L CK-MB (CK-2) 4.1 H (0.0-4.0) ng/mL CK-MB (CK-2) Rel Index 1.5 (0-4) Troponin T < 0.010 (0.00-0.029) ng/mL - Radiology Data Radiology results: report reviewed CT head: No chronic infarct or atrophy. No acute large territorial infarct. No focal mass hemorrhage hydrocephalus. - Medical Decision Making 1. Chest pain: Patient states he has mild chest burning intermittently not associated with exertion or certain activity. I suspect GERD. 2 months ago at this facility, Mr. Mancia underwent left heart cardiac catheterization revealed normal coronary anatomy 2. Left eye blurry vision without pain or trauma. I suspect diabetic retinopathy. On funduscopy exam no evidence of retinal or vitreous hemorrhage. I do not suspect that this is related to CVA, retinal artery occlusion, acute angle glaucoma which would require emergent intervention. I referred patient to cdc associate. 3. Transient left arm left leg numbness which lasted several seconds. It appeared that patient had hyperesthesia. He had the sensation of tingling. I do not suspect acute ischemic insult to the brain such as TIA. Patient appears well. Critical care attestation.: If time is entered above; I have spent that time in minutes in the direct care of this critically ill patient, excluding procedure time. ED Disposition Clinical Impression: Visual disturbance of one eye, Diabetic retinopathy, Atypical chest pain, GERD (gastroesophageal reflux disease) Disposition: DC- TO HOME OR SELFCARE Is pt being admited?: No Does the pt Need Aspirin: No Condition: Stable Instructions: Chest Pain (ED), Diabetic Retinopathy (ED) Referrals: DAKOTA DC MD [Staff Physician] - 3-5 Days RADHA CONNOR MD [Staff Physician] - 3-5 Days YRN KENYON MD [Staff Physician] - 3-5 Days
[2019-11-28 13:28] LABS: Partial Thromboplastin Time 27.7 Sec. (24.2-36.6); Thrombin Time 13.8 Sec. (15.1-19.6)
[2019-11-28 13:32] LABS: INR 1.09 (0.87-1.13)
[2019-11-28 13:45] LABS: Creatine Kinase MB 4.1 ng/mL (0.0-4.0)
== END 2019-11-28 14:39 | disposition home or self-care (01) ==
LOC: ED 11:03
DX: E11.40 Type 2 diabetes mellitus with diabetic neuropathy, unspecified (principal); H53.8 Other visual disturbances; K21.9 Gastro-esophageal reflux disease without esophagitis; I10 Essential (primary) hypertension; J45.909 Unspecified asthma, uncomplicated; Z79.4 Long term (current) use of insulin; Z79.82 Long term (current) use of aspirin; Z79.899 Other long term (current) drug therapy
CPT/HCPCS: 36415; 70450; 82550; 82553; 82962; 84484; 85025; 85610; 85670; 85730

== ENCOUNTER 2019-12-28 09:32 | Outpatient (CLI) | payer MEDICAID, OTHER ==
--- NOTE | 2019-12-28 12:28 | XRay Report ---
RIGHT KNEE 2 VIEWS INDICATION / CLINICAL INFORMATION: RIGHT KNEE PAIN COMPARISON: None available. FINDINGS: BONES / JOINT(S): No acute fracture or subluxation. No significant arthritis. SOFT TISSUES: No significant abnormality. ADDITIONAL FINDINGS: None. Signer Name: Chay Singh MD Signed: 12/28/2019 12:24 PM Workstation Name: [id number]
--- NOTE | 2019-12-28 12:33 | XRay Report ---
RIGHT HIP 2 VIEWS INDICATION / CLINICAL INFORMATION: RIGHT HIP PAIN COMPARISON: None available. FINDINGS: BONES / JOINT(S): No acute fracture or subluxation. No significant arthritis. SOFT TISSUES: No significant abnormality. ADDITIONAL FINDINGS: None. Signer Name: Chay Singh MD Signed: 12/28/2019 12:29 PM Workstation Name: [id number]
== END 2019-12-28 09:33 | disposition home or self-care (01) ==
LOC: XRAY 09:32
PROVIDERS: ATTEND Internal Medicine
DX: M25.551 Pain in right hip (principal); M25.561 Pain in right knee; E11.9 Type 2 diabetes mellitus without complications; I50.9 Heart failure, unspecified

== ENCOUNTER 2020-02-20 09:50 | Inpatient (IN) | payer MEDICAID ==
[2020-02-20] MEDS ORDERED: ACETAMINOPHEN 325 MG TAB ONE (15:15)
[2020-02-20] MEDS ORDERED: ASPIRIN 325 MG TAB ONE (16:14)
[2020-02-20] MEDS ORDERED: FUROSEMIDE 40 MG/4 ML INJ ONE (20:01)
[2020-02-20] MEDS ORDERED: ONDANSETRON 4 MG/2 ML INJ IV PRN (21:01)
[2020-02-20] MEDS ORDERED: ACETAMINOPHEN 325 MG TAB PO PRN (21:01)
[2020-02-20] MEDS ORDERED: oxyCODONE /ACETAMINOPHEN 5-325MG TAB PO PRN (21:03)
--- NOTE | 2020-02-20 21:05 | History and Physical Report ---
History of Present Illness Chief complaint: I cannot breathe History of present illness: 49 YO Male with HTN, DM, Systolic CHF(EF 25%), obesity hypoventilation syndrome presents to ED for evaluation. Patient states that he has experienced shortness of breath over the past 1 week with progressively worsening symptoms over the same timeframe. Patient acknowledges orthopnea, paroxysmal nocturnal dyspnea, noncompliance with low-sodium diet. Patient also acknowledges 15 pound weight gain over the past 2 weeks. Patient also acknowledges chest discomfort. Patient transported to [facility] via private vehicle for further care and evaluation. Patient seen and evaluated in the emergency department. Lab and imaging studies reviewed. Patient underwent chest x-ray which showed bilateral pulmonary congestion as well as lab findings consistent with CHF decompensation. Patient also found to have a pulse oximetry 88% with exertion which is consistent with acute hypoxemic respiratory failure. Patient admitted to telemetry and initiated on CHF protocol. Patient denies fever, chills, chest pain, palpitations, productive cough, skin rash, recent ill contacts, prolonged travel, prolonged immobility, unilateral leg swelling, calf pain, known exposure to COVID-19. All medication listed at time of admission has been reconciled. Prior admission on 07/13/2019 reviewed. Past History Past Medical History: diabetes, heart failure Past Surgical History: No surgical history, Other (Reviewed) Social history: single. denies: smoking, alcohol abuse, prescription drug abuse Family history: diabetes, hypertension Medications and Allergies Allergies Allergy/AdvReac Type Severity Reaction Status Date / Time No Known Allergies Allergy Verified 11/28/19 11:13 Home Medications Medication Instructions Recorded Confirmed Last Taken Type Furosemide [Lasix TAB] 40 mg PO QDAY #30 09/13/19 10/26/19 10/26/19 Rx Aspirin EC [Halfprin EC] 81 mg PO QDAY #90 tablet 10/29/19 Unknown Rx Gabapentin 300 mg PO Q8HR #90 capsule 10/29/19 Unknown Rx Insulin NPH/Regular [NovoLIN 70/30] 15 unit SUB-Q BIDDIAB #1 10/29/19 Unknown Rx Lispro Insulin [HumaLOG] 8 unit SUB-Q AC #1 vial 10/29/19 Unknown Rx NIFEdipine XL [Procardia Xl] 60 mg PO DAILY #30 tablet 10/29/19 Unknown Rx Potassium Chloride [K-Dur] 20 meq PO QDAY 30 Days #30 tablet 10/29/19 Unknown Rx Spironolactone [Aldactone] 25 mg PO QDAY #30 tablet 10/29/19 Unknown Rx carvediloL [Coreg] 6.25 mg PO BID@0800,1700 #60 tablet 10/29/19 Unknown Rx lisinopriL [Zestril TAB] 10 mg PO QDAY #90 tablet 10/29/19 Unknown Rx oxyCODONE /ACETAMINOPHEN [Percocet 1 tab PO Q6H PRN #14 tablet 10/29/19 Unknown Rx 5/325 mg] Active Meds: Active Medications Acetaminophen (Tylenol) 650 mg PO Q4H PRN PRN Reason: Pain MILD(1-3)/Fever >100.5/SANTOS Furosemide (Lasix) 40 mg IV BID@0600,1800 AD[facility] Ondansetron HCl (Zofran) 4 mg IV Q8H PRN PRN Reason: Nausea And Vomiting Sodium Chloride (Sodium Chloride Flush Syringe 10 Ml) 10 ml IV BID ADAMS Sodium Chloride (Sodium Chloride Flush Syringe 10 Ml) 10 ml IV PRN PRN PRN Reason: LINE FLUSH Review of Systems Constitutional: weight gain, no weight loss, no fever, no chills, no sweats Ears, nose, mouth and throat: no ear pain, no ear discharge, no tinnitis, no decreased hearing, no nose pain, no nasal congestion Cardiovascular: orthopnea, shortness of breath, dyspnea on exertion, paroxysmal nocturnal dyspnea, leg edema, decreased exercise tolerance, no chest pain Respiratory: no cough, no excessive sputum, no hemoptysis Gastrointestinal: no abdominal pain, no nausea, no vomiting, no diarrhea, no constipation Genitourinary Male: no hematuria, no flank pain, no discharge, no urinary frequency, no urinary hesitancy Rectal: no pain, no incontinence, no bleeding Musculoskeletal: no neck stiffness, no neck pain, no shooting arm pain, no arm numbness/tingling, no low back pain Integumentary: no rash, no pruritis, no redness, no sores, no wounds Neurological: no head injury, no transient paralysis, no parathesias, no numbness, no tingling Psychiatric: no anxiety, no memory loss, no sleep disturbances, no insomnia Endocrine: no cold intolerance, no polyphagia, no excessive thirst Hematologic/Lymphatic: no easy bruising, no easy bleeding Allergic/Immunologic: no urticaria, no allergic rhinitis Exam - Constitutional General appearance: Present: mild distress - EENT Eyes: Present: PERRL ENT: hearing intact, clear oral mucosa - Neck Neck: Present: supple, masses or JVD - Respiratory Respiratory: bilateral: diminished - Cardiovascular Heart Sounds: Present: S1 & S2. Absent: rub, click - Extremities Extremities: no ischemia Extremity abnormal: edema Peripheral Pulses: within normal limits - Abdominal General gastrointestinal: Present: soft, non-tender, non-distended, normal bowel sounds Male genitourinary: Present: normal - Integumentary Integumentary: Present: clear, dry - Musculoskeletal Musculoskeletal: strength equal bilaterally - Psychiatric Psychiatric: appropriate mood/affect, cooperative - Neurologic Neurologic: CNII-XII intact Assessment and Plan - Patient Problems (1) Acute on chronic systolic heart failure Current Visit: No Status: Acute Plan to address problem: Strict I's/O, monitor urine output every shift, daily weight, diuresis with Lasix, echocardiogram reviewed, afterload reduction, cardiology team consulted in ED, (2) Acute respiratory failure Current Visit: Yes Status: Acute Qualifiers: Respiratory failure complication: hypoxia Qualified Code(s): J96.01 - Acute respiratory failure with hypoxia Plan to address problem: Supplemental oxygen, pulse oximetry, nebulizer therapy, treat CHF, chest x-ray. (3) Diabetes mellitus Current Visit: Yes Status: Acute Plan to address problem: Consistent carbohydrate diet, Accu-Chek, insulin protocol. (4) Obesity hypoventilation syndrome Current Visit: Yes Status: Acute Plan to address problem: Supplemental oxygen, pulse oximetry, nebulizer therapy, increase physical activity at discharge, outpatient pulmonary follow-up for sleep study. (5) GERD (gastroesophageal reflux disease) Current Visit: No Status: Chronic Qualifiers: Esophagitis presence: without esophagitis Qualified Code(s): K21.9 - Gastro-esophageal reflux disease without esophagitis Plan to address problem: PPI therapy, supportive care. (6) Hypertension Current Visit: No Status: Chronic Qualifiers: Hypertension type: essential hypertension Qualified Code(s): I10 - Essential (primary) hypertension Plan to address problem: Monitor blood pressure every shift, continue medical management. (7) DVT prophylaxis Current Visit: Yes Status: Acute Plan to address problem: SCD to bilateral lower extremities while in bed, patient is ambulatory.
[2020-02-20] MEDS: GABAPENTIN 300 MG CAP PO SCH (23:55)
[2020-02-21] MEDS: FUROSEMIDE 40 MG/4 ML INJ IV SCH ×2 (05:59→17:36)
[2020-02-21] MEDS: GABAPENTIN 300 MG CAP PO SCH ×3 (05:59→21:53)
[2020-02-21 06:05] LABS: Calcium 8.9 mg/dL (8.4-10.2)
[2020-02-21] MEDS ORDERED: LISPRO INSULIN SUB-Q SCH (07:30)
[2020-02-21] MEDS ORDERED: POTASSIUM CHLORIDE ER 20 MEQ TAB PO SCH (10:00)
[2020-02-21] MEDS: carvediloL 6.25 MG TAB PO SCH ×2 (10:21→17:36)
[2020-02-21] MEDS: LISINOPRIL 10 MG TAB PO SCH (10:21)
[2020-02-21] MEDS: INSULIN NPH/REGULAR 70/30 INJ SUB-Q SCH ×2 (10:21→17:36)
[2020-02-21] MEDS: SPIRONOLACTONE 25 MG TAB PO SCH (10:21)
[2020-02-21] MEDS: NIFEdipine XL 60 MG TAB PO SCH (10:22)
[2020-02-21] MEDS: INSULIN LISPRO 100 UNIT/ML VIAL 3 mL SUB-Q SCH ×3 (10:22→17:39)
[2020-02-21] MEDS: ASPIRIN EC 81 MG TAB PO SCH (10:22)
--- NOTE | 2020-02-21 10:35 | Progress Note ---
Assessment and Plan Assessment and plan: -- Acute on chronic systolic heart failure[EF; 25 to 30%] Current Visit: No Status: Acute Plan to address problem: Continue antifailure medication Input output monitoring Low-sodium diet, fluid restriction Cardiology consult -- Acute respiratory failure Current Visit: Yes Status: Acute Plan to address problem: Secondary to CHF exacerbation, Oxygen titrate O2 sats more than 90% -- Diabetes mellitus Current Visit: Yes Status: Acute Plan to address problem: Consistent carbohydrate diet, Accu-Chek, insulin protocol. --Obesity hypoventilation syndrome Current Visit: Yes Status: Acute Plan to address problem: Supplemental oxygen, pulse oximetry, nebulizer therapy, increase physical activity at discharge, outpatient pulmonary follow-up for sleep study. --GERD (gastroesophageal reflux disease) Current Visit: No Status: Chronic Plan to address problem: PPI therapy, supportive care. -- Hypertension Current Visit: No Status: Chronic Plan to address problem: Monitor blood pressure every shift, continue medical management. --DVT prophylaxis Current Visit: Yes Status: Acute Plan to address problem: SCD to bilateral lower extremities while in bed, patient is ambulatory. Closely monitor the patient and adjust management as needed Plan of care reviewed with the patient and his nurse Follow cardiology evaluation and recommendations History Interval history: I have seen and examined the patient at the bedside this morning Patient's chart and medications reviewed Patient complains of mild shortness of breath And intermittent chest discomfort Vital signs reviewed Hospitalist Physical - Constitutional Vitals: Temp Pulse Resp BP Pulse Ox 97.4 F L 72 18 161/113 98 02/21/20 08:14 02/21/20 08:14 02/21/20 08:14 02/21/20 08:14 02/21/20 09:35 General appearance: Present: mild distress, well-nourished, obese (Morbidly obese) - EENT Eyes: Present: PERRL, EOM intact - Neck Neck: Present: supple, normal ROM - Respiratory Respiratory effort: normal Respiratory: bilateral: diminished, rales, negative: rhonchi, wheezing - Cardiovascular Rhythm: regular Heart Sounds: Present: S1 & S2 - Extremities Extremities: no ischemia Extremity abnormal: edema - Abdominal General gastrointestinal: soft, non-tender, non-distended, normal bowel sounds - Integumentary Integumentary: Present: clear, warm - Psychiatric Psychiatric: appropriate mood/affect, cooperative - Neurologic Neurologic: CNII-XII intact, moves all extremities Results - Labs CBC & Chem 7: 02/21/20 05:10 Labs: Laboratory Last Values Sodium 143 mmol/L (137-145) 02/21/20 05:10 Potassium 3.8 mmol/L (3.6-5.0) 02/21/20 05:10 Chloride 103.0 mmol/L (98-107) 02/21/20 05:10 Carbon Dioxide 32 mmol/L (22-30) H 02/21/20 05:10 Anion Gap 12 mmol/L 02/21/20 05:10 BUN 20 mg/dL (9-20) 02/21/20 05:10 Creatinine 1.5 mg/dL (0.8-1.3) H 02/21/20 05:10 Estimated GFR 60 ml/min 02/21/20 05:10 BUN/Creatinine Ratio 13 % 02/21/20 05:10 Glucose 112 mg/dL (75-100) H 02/21/20 05:10 POC Glucose 102 mg/dL (70-105) 02/21/20 08:28 Calcium 8.9 mg/dL (8.4-10.2) 02/21/20 05:10 Browning/IV: Voiding Method Urinal IV Catheter Type [Right INT / Saline Lock Forearm] Active Medications - Current Medications Current Medications: Generic Name Dose Route Start Last Admin Trade Name Freq PRN Reason Stop Dose Admin Acetaminophen 650 mg 02/20/20 21:01 Tylenol PO Q4H PRN Pain MILD(1-3)/Fever >100.5/SANTOS Aspirin 81 mg 02/21/20 10:00 02/21/20 10:22 Halfprin Ec PO 81 mg QDAY ADAMS Administration Carvedilol 6.25 mg 02/21/20 08:00 02/21/20 10:21 Coreg PO 6.25 mg BID@0800,1700 ADAMS Administration Furosemide 40 mg 02/21/20 06:00 02/21/20 05:59 Lasix IV 40 mg BID@0600,1800 ADAMS Administration Gabapentin 300 mg 02/20/20 22:00 02/21/20 05:59 Gabapentin PO 300 mg Q8HR ADAMS Administration Insulin Human Isoph/Insulin Regular 15 unit 02/21/20 08:00 02/21/20 10:21 Humulin 70/30 SUB-Q 15 unit BIDDIAB ADAMS Administration Insulin Human Lispro 8 unit 02/21/20 07:30 02/21/20 10:22 Humalog SUB-Q 8 unit AC ADAMS Administration Lisinopril 10 mg 02/21/20 10:00 02/21/20 10:21 Zestril PO 10 mg QDAY ADAMS Administration Nifedipine 60 mg 02/21/20 10:00 02/21/20 10:22 Procardia Xl PO 60 mg DAILY ADAMS Administration Ondansetron HCl 4 mg 02/20/20 21:01 Zofran IV Q8H PRN Nausea And Vomiting Oxycodone/Acetaminophen 1 tab 02/20/20 21:03 02/20/20 23:55 Percocet 5/325 PO 1 tab Q6H PRN Administration Pain, Moderate (4-6) Potassium Chloride 20 meq 02/21/20 10:00 02/21/20 10:22 K-Dur PO 20 meq QDAY ADAMS Administration Sodium Chloride 10 ml 02/20/20 22:00 02/21/20 10:23 Sodium Chloride Flush Syringe 10 Ml IV 10 ml BID ADAMS Administration Sodium Chloride 10 ml 02/20/20 21:01 Sodium Chloride Flush Syringe 10 Ml IV PRN PRN LINE FLUSH Spironolactone 25 mg 02/21/20 10:00 02/21/20 10:21 Aldactone PO 25 mg QDAY ADAMS Administration
--- NOTE | 2020-02-21 11:05 | Consultation ---
History of Present Illness Consult date: 02/21/20 Consult reason: congestive heart failure History of present illness: This is a 49 year old M with a history of dilated nonischemic cardiomyopathy dating back to 2016. In August, a cardiac catheterization at this hospital demonstrated angiographically normal coronary arteries with ejection fraction 25 to 30%. In addition, he has chronic hypertension and diabetes. Patient presents to this hospital and admitted with shortness of breath, acute h ypoxic respiratory failure with a reported oxygen saturation at 88%. Chest x-ray shows cardiomegaly with mild interstitial edema. ECG is sinus rhythm, LVH with repolarization. The EKG is unchanged from his previous. A cardiology consultation has been requested for CHF management. Past History Past Medical History: diabetes, heart failure, hypertension Social history: single. denies: smoking, alcohol abuse, prescription drug abuse Family history: diabetes, hypertension Medications and Allergies Allergies Allergy/AdvReac Type Severity Reaction Status Date / Time No Known Allergies Allergy Verified 11/28/19 11:13 Home Medications Medication Instructions Recorded Confirmed Last Taken Type Furosemide [Lasix TAB] 40 mg PO QDAY #30 09/13/19 02/20/20 02/19/20 Rx Aspirin EC [Halfprin EC] 81 mg PO QDAY #90 tablet 10/29/19 02/20/20 02/20/20 Rx Gabapentin 300 mg PO Q8HR #90 capsule 10/29/19 02/20/20 Unknown Rx Insulin NPH/Regular [NovoLIN 70/30] 15 unit SUB-Q BIDDIAB #1 10/29/19 02/20/20 02/19/20 Rx Lispro Insulin [HumaLOG] 8 unit SUB-Q AC #1 vial 10/29/19 02/20/20 02/19/20 Rx NIFEdipine XL [Procardia Xl] 60 mg PO DAILY #30 tablet 10/29/19 02/20/20 02/20/20 Rx Potassium Chloride [K-Dur] 20 meq PO QDAY 30 Days #30 tablet 10/29/19 02/20/20 02/19/20 Rx Spironolactone [Aldactone] 25 mg PO QDAY #30 tablet 10/29/19 02/20/20 02/19/20 Rx carvediloL [Coreg] 6.25 mg PO BID@0800,1700 #60 tablet 10/29/19 02/20/20 02/20/20 Rx lisinopriL [Zestril TAB] 10 mg PO QDAY #90 tablet 10/29/19 02/20/20 02/20/20 Rx oxyCODONE /ACETAMINOPHEN [Percocet 1 tab PO Q6H PRN #14 tablet 10/29/19 02/20/20 Unknown Rx 5/325 mg] Active Meds: Active Medications Acetaminophen (Tylenol) 650 mg PO Q4H PRN PRN Reason: Pain MILD(1-3)/Fever >100.5/SANTOS Aspirin (Halfprin Ec) 81 mg PO QDAY [facility] Last Admin: 02/21/20 10:22 Dose: 81 mg Documented by: Carvedilol (Coreg) 6.25 mg PO BID@0800,1700 [facility] Last Admin: 02/21/20 10:21 Dose: 6.25 mg Documented by: Furosemide (Lasix) 40 mg IV BID@0600,1800 [facility] Last Admin: 02/21/20 05:59 Dose: 40 mg Documented by: Gabapentin (Gabapentin) 300 mg PO Q8HR [facility] Last Admin: 02/21/20 05:59 Dose: 300 mg Documented by: Insulin Human Isoph/Insulin Regular (Humulin 70/30) 15 unit SUB-Q BIDDIAB [facility] Last Admin: 02/21/20 10:21 Dose: 15 unit Documented by: Insulin Human Lispro (Humalog) 8 unit SUB-Q AC [facility] Last Admin: 02/21/20 10:22 Dose: 8 unit Documented by: Lisinopril (Zestril) 10 mg PO QDAY [facility] Last Admin: 02/21/20 10:21 Dose: 10 mg Documented by: Nifedipine (Procardia Xl) 60 mg PO DAILY [facility] Last Admin: 02/21/20 10:22 Dose: 60 mg Documented by: Ondansetron HCl (Zofran) 4 mg IV Q8H PRN PRN Reason: Nausea And Vomiting Oxycodone/Acetaminophen (Percocet 5/325) 1 tab PO Q6H PRN PRN Reason: Pain, Moderate (4-6) Last Admin: 02/20/20 23:55 Dose: 1 tab Documented by: Potassium Chloride (K-Dur) 20 meq PO QDAY [facility] Last Admin: 02/21/20 10:22 Dose: 20 meq Documented by: Sodium Chloride (Sodium Chloride Flush Syringe 10 Ml) 10 ml IV BID [facility] Last Admin: 02/21/20 10:23 Dose: 10 ml Documented by: Sodium Chloride (Sodium Chloride Flush Syringe 10 Ml) 10 ml IV PRN PRN PRN Reason: LINE FLUSH Spironolactone (Aldactone) 25 mg PO QDAY [facility] Last Admin: 02/21/20 10:21 Dose: 25 mg Documented by: Physical Examination Vital Signs Temp Pulse Resp BP Pulse Ox 98.1 F 76 17 160/105 97 02/20/20 21:38 02/20/20 21:38 02/20/20 21:38 02/20/20 21:38 02/20/20 21:38 General appearance: no acute distress HEENT: Positive: PERRL Cardiac: Positive: Reg Rate and Rhythm Results 02/21/20 05:10 Comprehensive Metabolic Panel 02/21/20 Range/Units 05:10 Sodium 143 (137-145) mmol/L Potassium 3.8 (3.6-5.0) mmol/L Chloride 103.0 (98-107) mmol/L Carbon Dioxide 32 H (22-30) mmol/L BUN 20 (9-20) mg/dL Creatinine 1.5 H (0.8-1.3) mg/dL Glucose 112 H (75-100) mg/dL Calcium 8.9 (8.4-10.2) mg/dL Assessment and Plan Acute on chronic systolic heart failure Acute hypoxic respiratory failure Longstanding history of Nonischemic CMP 08/2019: [facility] - angiographically normal coronary arteries with ejection fraction 25 to 30%. EF 25-30% by echo 06/2019. Hypertension Diabetes Recommendations: Sodium and fluid restrictions. Optimal BP management. Medical therapy for acute on chronic systolic heart failure. As an outpatient, will recommend EP consultation for ICD evaluation.
[2020-02-21] MEDS ORDERED: FLU VACC QUAD 2020-2021 (6 months +)/PF 60 0.5 ML SYRINGE IM ONE (12:00)
[2020-02-22] MEDS: GABAPENTIN 300 MG CAP PO SCH ×2 (06:06→14:17)
[2020-02-22] MEDS: FUROSEMIDE 40 MG/4 ML INJ IV SCH (06:06)
[2020-02-22] MEDS: INSULIN LISPRO 100 UNIT/ML VIAL 3 mL SUB-Q SCH ×2 (08:18→14:18)
[2020-02-22] MEDS: INSULIN NPH/REGULAR 70/30 INJ SUB-Q SCH (08:19)
--- NOTE | 2020-02-22 09:19 | Progress Note ---
Assessment and Plan Acute on chronic systolic heart failure Acute hypoxic respiratory failure Longstanding history of Nonischemic CMP 08/2019: [facility] - angiographically normal coronary arteries with ejection fraction 25 to 30%. EF 25-30% by echo 06/2019. Hypertension Diabetes Recommendations: Instructed of sodium and fluid restrictions. Continue medical therapy for chronic systolic heart failure. Stable cardiac louie. As outpatient, we will recommend that the patient undergo evaluation with his primary balance engineer for primary prevention ICD implantation. Subjective Date of service: 02/22/20 Interval history: Patient is resting in bed comfortably. Reports he is feeling better. Objective Vital Signs Temp Pulse Pulse Pulse Resp BP Pulse Ox 02/22/20 07:55 97.6 F 74 18 153/94 91 02/22/20 04:29 98.1 F 71 16 126/90 92 02/21/20 23:30 98.1 F 73 20 135/88 94 02/21/20 23:00 73 02/21/20 20:44 74 74 18 96 02/21/20 19:44 97.4 F L 74 24 136/87 96 02/21/20 15:40 98.3 F 70 18 162/109 96 02/21/20 12:24 98.0 F 69 18 153/112 95 02/21/20 11:00 77 02/21/20 09:35 98 - Physical Examination General: No Apparent Distress HEENT: Positive: PERRL Neck: Positive: trachea midline Cardiac: Positive: Reg Rate and Rhythm Lungs: Positive: Decreased Breath Sounds Neuro: Positive: Grossly Intact Extremities: Absent: edema
--- NOTE | 2020-02-22 09:54 | XRay Report ---
CHEST 2 VIEWS INDICATION / CLINICAL INFORMATION: CHEST PAIN.. COMPARISON: 10/26/2019 FINDINGS: SUPPORT DEVICES: None. HEART / MEDIASTINUM: There is mild cardiomegaly. LUNGS / PLEURA: There is mild pulmonary vascular congestion without focal consolidation. No pneumotho rax. ADDITIONAL FINDINGS: No significant additional findings. IMPRESSION: 1. Findings likely reflecting mild CHF with mild cardiomegaly and pulmonary vascular congestion. Signer Name: Ariel Pope MD Signed: 02/20/2020 12:16 PM Workstation Name: [id number]
[2020-02-22] MEDS: carvediloL 6.25 MG TAB PO SCH (10:04)
[2020-02-22] MEDS: LISINOPRIL 10 MG TAB PO SCH (10:05)
[2020-02-22] MEDS: ASPIRIN EC 81 MG TAB PO SCH (10:05)
[2020-02-22] MEDS: SPIRONOLACTONE 25 MG TAB PO SCH (10:05)
[2020-02-22] MEDS: NIFEdipine XL 60 MG TAB PO SCH (10:05)
--- NOTE | 2020-02-22 15:29 | Progress Note ---
Assessment and Plan Assessment and plan: -- Acute on chronic systolic heart failure[EF; 25 to 30%] Current Visit: No Status: Acute Plan to address problem: Continue antifailure medication Input output monitoring Low-sodium diet, fluid restriction Cardiology consult -- Acute respiratory failure Current Visit: Yes Status: Acute Plan to address problem: Secondary to CHF exacerbation, Oxygen titrate O2 sats more than 90% -- Diabetes mellitus Current Visit: Yes Status: Acute Plan to address problem: Consistent carbohydrate diet, Accu-Chek, insulin protocol. --Obesity hypoventilation syndrome Current Visit: Yes Status: Acute Plan to address problem: Supplemental oxygen, pulse oximetry, nebulizer therapy, increase physical activity at discharge, outpatient pulmonary follow-up for sleep study. --GERD (gastroesophageal reflux disease) Current Visit: No Status: Chronic Plan to address problem: PPI therapy, supportive care. -- Hypertension Current Visit: No Status: Chronic Plan to address problem: Monitor blood pressure every shift, continue medical management. --DVT prophylaxis Current Visit: Yes Status: Acute Plan to address problem: SCD to bilateral lower extremities while in bed, patient is ambulatory. Closely monitor the patient and adjust management as needed Plan of care reviewed with the patient and his nurse Follow cardiology evaluation and recommendations History Interval history: I have seen and examined the patient at the bedside today Patient's chart and medications reviewed Patient is admitted with worsening shortness of breath Mild improvement. Denies chest pain Vital signs reviewed Hospitalist Physical - Constitutional Vitals: Temp Pulse Resp BP Pulse Ox 98.6 F 85 18 149/90 91 02/22/20 12:03 02/22/20 13:00 02/22/20 12:03 02/22/20 12:03 02/22/20 12:03 General appearance: Present: mild distress, well-nourished, obese (Morbidly obese) - EENT Eyes: Present: PERRL, EOM intact - Neck Neck: Present: supple, normal ROM - Respiratory Respiratory effort: normal Respiratory: bilateral: diminished, rales, negative: rhonchi, wheezing - Cardiovascular Rhythm: regular Heart Sounds: Present: S1 & S2 - Extremities Extremities: no ischemia, No edema - Abdominal General gastrointestinal: soft, non-tender, non-distended, normal bowel sounds - Integumentary Integumentary: Present: clear, warm - Psychiatric Psychiatric: appropriate mood/affect, cooperative - Neurologic Neurologic: moves all extremities Results - Labs CBC & Chem 7: 02/21/20 05:10 Labs: Laboratory Last Values Sodium 143 mmol/L (137-145) 02/21/20 05:10 Potassium 3.8 mmol/L (3.6-5.0) 02/21/20 05:10 Chloride 103.0 mmol/L (98-107) 02/21/20 05:10 Carbon Dioxide 32 mmol/L (22-30) H 02/21/20 05:10 Anion Gap 12 mmol/L 02/21/20 05:10 BUN 20 mg/dL (9-20) 02/21/20 05:10 Creatinine 1.5 mg/dL (0.8-1.3) H 02/21/20 05:10 Estimated GFR 60 ml/min 02/21/20 05:10 BUN/Creatinine Ratio 13 % 02/21/20 05:10 Glucose 112 mg/dL (75-100) H 02/21/20 05:10 POC Glucose 77 mg/dL (70-105) 02/22/20 12:17 Calcium 8.9 mg/dL (8.4-10.2) 02/21/20 05:10 Browning/IV: Voiding Method Toilet IV Catheter Type [Right INT / Saline Lock Forearm] Active Medications - Current Medications Current Medications: Generic Name Dose Route Start Last Admin Trade Name Freq PRN Reason Stop Dose Admin Acetaminophen 650 mg 02/20/20 21:01 Tylenol PO Q4H PRN Pain MILD(1-3)/Fever >100.5/SANTOS Aspirin 81 mg 02/21/20 10:00 02/22/20 10:05 Halfprin Ec PO 81 mg QDAY [facility] Administration Carvedilol 6.25 mg 02/21/20 08:00 02/22/20 10:04 Coreg PO 6.25 mg BID@0800,1700 [facility] Administration Furosemide 40 mg 02/21/20 06:00 02/22/20 06:06 Lasix IV 40 mg BID@0600,1800 [facility] Administration Gabapentin 300 mg 02/20/20 22:00 02/22/20 14:17 Gabapentin PO 300 mg Q8HR [facility] Administration Insulin Human Isoph/Insulin Regular 15 unit 02/21/20 08:00 02/22/20 08:19 Humulin 70/30 SUB-Q Not Given BIDDIAB [facility] Insulin Human Lispro 8 unit 02/21/20 07:30 02/22/20 14:18 Humalog SUB-Q Not Given AC [facility] Lisinopril 10 mg 02/21/20 10:00 02/22/20 10:05 Zestril PO 10 mg QDAY [facility] Administration Nifedipine 60 mg 02/21/20 10:00 02/22/20 10:05 Procardia Xl PO 60 mg DAILY [facility] Administration Ondansetron HCl 4 mg 02/20/20 21:01 Zofran IV Q8H PRN Nausea And Vomiting Oxycodone/Acetaminophen 1 tab 02/20/20 21:03 02/20/20 23:55 Percocet 5/325 PO 1 tab Q6H PRN Administration Pain, Moderate (4-6) Sodium Chloride 10 ml 02/20/20 22:00 02/22/20 10:05 Sodium Chloride Flush Syringe 10 Ml IV 10 ml BID [facility] Administration Sodium Chloride 10 ml 02/20/20 21:01 Sodium Chloride Flush Syringe 10 Ml IV PRN PRN LINE FLUSH Spironolactone 25 mg 02/21/20 10:00 02/22/20 10:05 Aldactone PO 25 mg QDAY [facility] Administration
--- NOTE | 2020-02-22 15:36 | Discharge Summary ---
Providers - Providers Date of Admission: 02/20/20 21:01 Date of discharge: 02/22/20 Attending physician: PABLO FERGUSON 02/20/20 21:17 Consult to Physician [CONS] Routine Comment: Consulting Provider: CLYDE JOHNSON Physician Instructions: Reason For Exam: chf Primary care physician: [employer] Hospitalization Reason for admission: Worsening shortness of breath/acute exacerbation of chronic systolic CHF Condition: Stable Pertinent studies: Chest x-ray Hospital course: 49 YO Male patient with HTN, DM, Systolic CHF(EF 25%), morbid obesity was admitted to the emergency room with worsening shortness of breath and acute on chronic systolic congestive heart failure and breath over the past 1 week. Patient has orthopnea and paroxysmal nocturnal dyspnea as well as significantly reduced effort tolerance. Patient is noncompliant with medications Admitted started on antifailure medication, oxygen and supportive care, evaluated by cardiology, medications were optimized. Patient was strongly counseled the importance of adhering to the treatment plan as well as follow-up visit, verbalized understanding. Cardiology recommended evaluation for ICD placement as outpatient advised the patient to follow-up with his private sales associate upon discharge. Today patient is comfortable no new complaints vital signs stable Physical examination prior to discharge is stable without no new findings. Discharge diagnosis; --Acute respiratory distress Secondary to acute exacerbation of chronic congestive heart failure Continue antifailure medications --Acute on chronic systolic congestive heart failure EF 25 to 30% Continue antifailure medications, advised to comply with treatment --Type 2 diabetes mellitus; moderate control, Accu-Chek sliding scale coverage ADA diet and insulin as needed --Morbid obesity; BMI 40.1, patient needs weight reduction --Possible obstructive sleep apnea/obesity hypoventilation syndrome Patient needs to follow-up with pulmonary, for sleep study CPAP/BiPAP at night and during day as needed --GERD; Protonix, avoid NSAID medications --Peripheral neuropathy; continue gabapentin --Hypertension; continue current antihypertensives Patient is hemodynamically and clinically stable at discharge Cleared by cardiology for DC and follow-up with his private sales associate per schedule Disposition: DC TO HOME OR SELFCARE Time spent for discharge: 33 min Core Measure Documentation - Palliative Care Palliative Care/ Comfort Measures: Not Applicable - Core Measures Any of the following diagnoses?: heart failure - Heart Failure Discharge Requirements SHANDA/ARB for LVSD if EF <40%: Yes Beta rainer at discharge: Yes Exam - Constitutional Vitals: Temp Pulse Resp BP Pulse Ox 98.6 F 85 18 149/90 91 02/22/20 12:03 02/22/20 13:00 02/22/20 12:03 02/22/20 12:03 02/22/20 12:03 General appearance: Present: no acute distress, well-nourished - EENT Eyes: Present: PERRL, EOM intact - Neck Neck: Present: supple, normal ROM - Respiratory Respiratory effort: normal Respiratory: bilateral: diminished, negative: rales, rhonchi, wheezing - Cardiovascular Rhythm: regular Heart Sounds: Present: S1 & S2 - Extremities Extremities: no ischemia, No edema - Abdominal General gastrointestinal: Present: soft, non-tender, non-distended, normal bowel sounds - Integumentary Integumentary: Present: clear, warm - Musculoskeletal Musculoskeletal: strength equal bilaterally, generalized weakness - Psychiatric Psychiatric: appropriate mood/affect, cooperative - Neurologic Neurologic: moves all extremities Plan Activity: advance as tolerated Diet: low salt, other (Cardiac diet) Additional Instructions: Strongly advised to comply with medications diet follow-up visits. If you have worsening symptoms contact MD or go to emergency room. Advised weight reduction when medically stable , lifestyle changes .diet modification and exercise as tolerated when medically stable. Advised to see your private sales associate in 1 week from discharge. Also to plan ICD placement options as outpatient Follow up with: PRIMARY CARE, [Primary Care Provider] - 7 Days Prescriptions: RX: Gabapentin 300 mg PO Q8HR #90 capsule
[2020-02-22 16:25] VITALS: BP 152/103
== END 2020-02-22 18:42 | disposition home or self-care (01) | DRG 291 ==
LOC: ED 09:50 → 4A 21:01
PROVIDERS: ADMIT Internal Medicine; ATTEND Internal Medicine
DX: I11.0 Hypertensive heart disease with heart failure (principal); J96.01 Acute respiratory failure with hypoxia; I50.23 Acute on chronic systolic (congestive) heart failure; E66.2 Morbid (severe) obesity with alveolar hypoventilation; I42.0 Dilated cardiomyopathy; E11.42 Type 2 diabetes mellitus with diabetic polyneuropathy; I42.8 Other cardiomyopathies; K21.9 Gastro-esophageal reflux disease without esophagitis; Z83.3 Family history of diabetes mellitus; Z82.49 Family history of ischemic heart disease and other diseases of the circulatory system; Z68.41 Body mass index [BMI] 40.0-44.9, adult
CPT/HCPCS: 36415; 71046; 80048; 82962; 87641; 90686; 93005; G0378; J1815; J1940

== ENCOUNTER 2020-08-27 19:32 | Inpatient (IN) | payer MEDICAID ==
--- NOTE | 2020-08-27 19:45 | Event Note ---
ED Screening Note Date of service: 08/27/20 Time: 19:44 ED Screening Note: Patient is a 49-year-old male with a history of CHF hypertension who presents for cough and shortness of breath x3 days with chest pain. Symptoms are exacerbated by activity. Symptoms are relieved by nothing tried. Patient rates chest pain at 3/10 at this time. There is been no fever, chills, diaphoresis, nausea or vomiting. This initial assessment/diagnostic orders/clinical plan/treatment(s) is/are subject to change based on patients health status, clinical progression and re- assessment by fellow clinical providers in the ED. Further treatment and workup at subsequent clinical providers discretion. Patient/guardian urged not to elope from the ED as their condition may be serious if not clinically assessed and managed. Initial orders include: cmp, cbc, cxr, ekg, trop
[2020-08-27 20:21] LABS: Basophils % (Auto) 0.6 % (0.0-1.8); Eosinophils # (Auto) 0.4 K/mm3 (0.0-0.4); Eosinophils % (Auto) 5.7 % (0.0-4.3); Hematocrit 45.5 % (35.5-45.6); Hemoglobin 14.6 gm/dl (11.8-15.2); Lymphocytes % (Auto) 25.4 % (13.4-35.0); Mean Corpuscular HGB Conc 32 % (32-34); Mean Corpuscular Volume 87 fl (84-94); Monocytes # (Auto) 0.6 K/mm3 (0.0-0.8); Monocytes % (Auto) 7.9 % (0.0-7.3); Platelet Count 269 K/mm3 (140-440); Red Blood Count 5.25 M/mm3 (3.65-5.03); Red Cell Distribution Width 16.9 % (13.2-15.2)
--- NOTE | 2020-08-27 20:30 | XRay Report ---
CHEST 2 VIEWS INDICATION / CLINICAL INFORMATION: chest pain. COMPARISON: 05/26/20 FINDINGS: SUPPORT DEVICES: None. HEART / MEDIASTINUM: Heart is mildly enlarged but stable. LUNGS / PLEURA: Mild interstitial edema. No acute airspace disease. No pneumothorax. ADDITIONAL FINDINGS: No significant additional findings. IMPRESSION: 1. Cardiomegaly with mild pulmonary edema. Signer Name: Shannan Schilling MD Signed: 08/27/2020 8:25 PM Workstation Name: [id number]
[2020-08-27 20:36] LABS: Alanine Aminotransferase 19 units/L (7-56); Albumin 3.7 g/dL (3.9-5); BUN/Creatinine Ratio 11; Blood Urea Nitrogen 16 mg/dL (9-20); Calcium 8.7 mg/dL (8.4-10.2); Hemolysis Index 15
[2020-08-27 22:24] LABS: LDL Cholesterol,Direct 4 mg/dL (50-130)
[2020-08-27 23:05] LABS: Chol/HDL Ratio 2.77 %; HDL Cholesterol 81 mg/dL (40-59)
[2020-08-28] MEDS ORDERED: FUROSEMIDE 40 MG/4 ML INJ IV ONE (01:52)
[2020-08-28] MEDS ORDERED: carvediloL 6.25 MG TAB PO ONE (01:52)
[2020-08-28] MEDS ORDERED: LISINOPRIL 20 MG TAB PO ONE (01:52)
--- NOTE | 2020-08-28 02:02 | Emergency Department Report ---
ED Shortness of Breath HPI - General Chief Complaint: Chest Pain Stated Complaint: CHEST PAIN/ISSUES WITH KIDNEYS Time Seen by Provider: 08/28/20 01:43 Source: patient Mode of arrival: Ambulatory Limitations: No Limitations - History of Present Illness Initial Comments: CC: "I can't breathe. I have had some chest pain. I am having kidney problems. " HPI: THis is a 49 yo male with hx of systolic heart failure EF 25-30%, HTN, GERD, DM, who presents with shortness of breath and chest pain for one week. Patient has had leg swelling shortness of breath on exertion. Also has had PND orthopnea. Patient has nondescript chest pain mild persistent. Pain is not associated with exertion. Chest pain is associated with chest wall movement palpation. Patient has been recently vaccinated for COVID-19 July 13, 2019 thallium stress treadmill exam: Evidence of dilated cardiomyopathy, severe left ventricular systolic dysfunction, perfusion study demonstrates no significant defects 09/13/2019: Left heart catheterization angiographically normal coronary arteries, dilated nonischemic cardiomyopathy with severe left ventricular systolic dysfunction ejection fraction 25 to 30% MD Complaint: shortness of breath, cough, chest pain -: Gradual, days(s) (worse over the past 3 days), week(s) (1 week) Severity: mild Pain Scale: 3 Consistency: constant Improves With: upright position Worsens With: lying flat, exertion Known History Of: congestive heart failure - Related Data Previous Rx's Medication Instructions Recorded Last Taken Type Aspirin EC [Halfprin EC] 81 mg PO QDAY #100 tablet 05/31/20 Unknown Rx AtorvaSTATin [Lipitor] 40 mg PO QHS #30 tablet 05/31/20 Unknown Rx Furosemide [Lasix TAB] 40 mg PO BID #60 05/31/20 Unknown Rx Gabapentin 300 mg PO Q8HR #90 capsule 05/31/20 Unknown Rx Insulin NPH/Regular [NovoLIN 70/30] 20 unit SUB-Q BIDDIAB #1 vial 05/31/20 08/27/20 Rx NIFEdipine XL [Procardia Xl] 60 mg PO DAILY #30 tablet 05/31/20 Unknown Rx Pantoprazole [Protonix TAB] 40 mg PO QDAC #30 tablet 05/31/20 Unknown Rx Potassium Chloride [K-Dur] 20 meq PO BID #60 tab 05/31/20 Unknown Rx Spironolactone [Aldactone] 25 mg PO QDAY 30 Days #30 tablet 05/31/20 Unknown Rx carvediloL [Coreg] 6.25 mg PO BID@0800,1700 #60 tablet 05/31/20 08/27/20 Rx lisinopriL [Zestril TAB] 10 mg PO QDAY #30 tablet 05/31/20 Unknown Rx oxyCODONE /ACETAMINOPHEN [Percocet 1 tab PO Q6H PRN tablet 05/31/20 Unknown Rx 5/325 mg] Allergies Allergy/AdvReac Type Severity Reaction Status Date / Time No Known Allergies Allergy Verified 08/28/20 01:25 ED Review of Systems ROS: Stated complaint: CHEST PAIN/ISSUES WITH KIDNEYS Other details as noted in HPI Comment: All other systems reviewed and negative Constitutional: denies: chills, fever, malaise Respiratory: cough, shortness of breath Cardiovascular: chest pain, dyspnea on exertion, orthopnea, edema, paroxysmal nocturnal dyspnea Gastrointestinal: denies: abdominal pain, nausea, vomiting ED Past Medical Hx - Past Medical History Previous Medical History?: Yes Hx Hypertension: Yes Hx CVA: No Hx Heart Attack/AMI: No Hx Congestive Heart Failure: Yes Hx Diabetes: Yes (diagnose in Mar) Hx Deep Vein Thrombosis: No Hx Pulmonary Embolism: No Hx GERD: No Hx Liver Disease: No Hx Renal Disease: Yes (CKD) Hx Sickle Cell Disease: No Hx Arthritis: No Hx Headaches / Migraines: No Hx Seizures: No Hx Kidney Stones: (decreased kidney function) Hx Psychiatric Treatment: No Hx Asthma: Yes (childhood) Hx COPD: No Hx Tuberculosis: No Hx Dementia: No Hx HIV: No - Surgical History Past Surgical History?: No Hx Coronary Stent: No Hx Open Heart Surgery: No Hx Pacemaker: No Hx Internal Defibrillator: No Hx Cholecystectomy: No Hx Appendectomy: No Hx Breast Surgery: No - Social History Smoking Status: Never Smoker Substance Use Type: None - Medications Home Medications: Home Medications Medication Instructions Recorded Confirmed Last Taken Type Aspirin EC [Halfprin EC] 81 mg PO QDAY #100 tablet 05/31/20 Unknown Rx AtorvaSTATin [Lipitor] 40 mg PO QHS #30 tablet 05/31/20 Unknown Rx Furosemide [Lasix TAB] 40 mg PO BID #60 05/31/20 Unknown Rx Gabapentin 300 mg PO Q8HR #90 capsule 05/31/20 Unknown Rx Insulin NPH/Regular [NovoLIN 70/30] 20 unit SUB-Q BIDDIAB #1 vial 05/31/20 08/28/20 08/27/20 Rx NIFEdipine XL [Procardia Xl] 60 mg PO DAILY #30 tablet 05/31/20 Unknown Rx Pantoprazole [Protonix TAB] 40 mg PO QDAC #30 tablet 05/31/20 Unknown Rx Potassium Chloride [K-Dur] 20 meq PO BID #60 tab 05/31/20 Unknown Rx Spironolactone [Aldactone] 25 mg PO QDAY 30 Days #30 tablet 05/31/20 Unknown Rx carvediloL [Coreg] 6.25 mg PO BID@0800,1700 #60 tablet 05/31/20 08/28/20 08/27/20 Rx lisinopriL [Zestril TAB] 10 mg PO QDAY #30 tablet 05/31/20 Unknown Rx oxyCODONE /ACETAMINOPHEN [Percocet 1 tab PO Q6H PRN tablet 05/31/20 Unknown Rx 5/325 mg] ED Physical Exam - General Limitations: No Limitations General appearance: alert, other (mild work of breathing, appears uncomfortable, out of breath when speaking full sentences) - Head Head exam: Present: atraumatic, normocephalic - Eye Eye exam: Present: normal appearance - ENT ENT exam: Present: mucous membranes moist - Neck Neck exam: Present: normal inspection, full ROM - Respiratory Respiratory exam: Present: rales, decreased breath sounds. Absent: wheezes, rhonchi - Cardiovascular Cardiovascular Exam: Present: normal rhythm, tachycardia, normal heart sounds. Absent: systolic murmur, diastolic murmur, rubs, gallop - GI/Abdominal GI/Abdominal exam: Present: soft, normal bowel sounds. Absent: distended, tenderness, rebound - Rectal Rectal exam: Present: deferred - Extremities Exam Extremities exam: Present: pedal edema, other (3+ pitting edema both lower extremities) - Neurological Exam Neurological exam: Present: alert, oriented X3 - Psychiatric Psychiatric exam: Present: normal affect, normal mood - Skin Skin exam: Present: warm, dry, intact, normal color. Absent: rash ED Course Vital Signs 08/27/20 08/28/20 19:37 01:18 Temperature 97.4 F L Pulse Rate 103 H 99 H Respiratory 22 17 Rate Blood Pressure 187/149 Blood Pressure 184/136 [Right] O2 Sat by Pulse 95 99 Oximetry ED Medical Decision Making - Lab Data Result diagrams: 08/27/20 19:58 08/27/20 19:58 - Radiology Data Radiology results: report reviewed Patient Name: HERNÁN MANCIA Gender: Male Date of : 1970 Referring Provider: PAU DOBBS Organization: [facility] Accession Number: [id number] Requested Date: August 27, 2020 19:42 Report Status: Final Requested Procedure: 1 Procedure Description: XR chest routine 2V Modality: XR Findings Reporting MD: Shannan Schilling Dictation Time: August 27, 2020 19:25 Operational Intelligence Officer: Not available Tabulating Supervisor Date: CHEST 2 VIEWS INDICATION / CLINICAL INFORMATION: chest pain. COMPARISON: 05/26/20 FINDINGS: SUPPORT DEVICES: None. HEART / MEDIASTINUM: Heart is mildly enlarged but stable. LUNGS / PLEURA: Mild interstitial edema. No acute airspace disease. No pneumothorax. ADDITIONAL FINDINGS: No significant additional findings. IMPRESSION: 1. Cardiomegaly with mild pulmonary edema. Signer Name: Shannan Schilling MD Signed: 08/27/2020 7:25 PM Workstation Name: [id number] - Medical Decision Making 1. CHF exacerbation: IV furosemide initiated in the ED as well as beta-rainer and ACEI. 2. Hypertensive URgency: addressed with CHF/HTN management as above 3. Persistently elevated troponin levels over several years reflective ot patients non-ischemic cardiomyopathy in the setting of CKD, downtrending values rules out acute TN 4. New elevation of bilirubin nonspecific will need outpatient evaluation. AST ALT within normal limits. admitted to hospitalist service for CHF exacerbation, pulmonary edema present on chest radiograph. Mr. Mancia is obviously uncomfortable on physical exam Critical care attestation.: If time is entered above; I have spent that time in minutes in the direct care of this critically ill patient, excluding procedure time. ED Disposition Clinical Impression: Acute systolic (congestive) heart failure, CKD (chronic kidney disease), Total bilirubin, elevated Disposition: OP ADMIT IP TO THIS HOSP Is pt being admited?: Yes Does the pt Need Aspirin: No Condition: Fair Referrals: PRIMARY CARE, [Primary Care Provider] - 3-5 Days
[2020-08-28] MEDS ORDERED: MORPHINE 4 MG/1 ML INJ IV PRN (02:30)
[2020-08-28] MEDS ORDERED: DEXTROSE 50% IN WATER (25GM) 50 ML SYRINGE IV PRN (02:30)
[2020-08-28] MEDS ORDERED: NITROGLYCERIN 0.4 MG TAB SUBL SL PRN (02:30)
[2020-08-28] MEDS ORDERED: traMADol 50 MG TAB PO PRN (02:30)
[2020-08-28] MEDS ORDERED: ONDANSETRON 4 MG/2 ML INJ IV PRN (02:30)
[2020-08-28] MEDS ORDERED: ACETAMINOPHEN 325 MG TAB PO PRN (02:30)
--- NOTE | 2020-08-28 02:56 | History and Physical Report ---
History of Present Illness Date of examination: 08/28/20 Date of admission: 08/28/20 02:07 Chief complaint: Difficulty Breathing History of present illness: 49-year-old -[place] male with known history of hypertension, diabetes mellitus, GERD, systolic heart failure with EF of 25 to 30% presenting in the emergency room today complaining of difficulty breathing and lower extremity swelling which has been ongoing for about 1 week. Patient also has been having orthopnea and paroxysmal nocturnal dyspnea. Shortness of breath is worse on exertion and improves upon resting. He denies any nausea vomiting, no abdominal pain, no diarrhea, no headache or dizziness, no hematuria or dysuria. Patient denies any sick contacts and no recent travel. Denies any contact with anyone with COVID-19. He has been recently vaccinated against COVID-19. Review of patient's record indicates: Nonischemic CMP 04/2020 LVEF 20-25% with moderateTR and moderate pulmonary hypertension, RVSP 44 mmHg 08/2019: [facility] - angiographically normal coronary arteries with ejection frac tion 25 to 30%. EF 25-30% by echo 06/2019. Further review shows that patient has not been quite compliant with outpatient cardiology follow-up and also with his diet. Upon arrival in the emergency room today blood pressure was elevated With systolic in the 190s and diastolic in the 130s. He was also found to be tachycardic with heart rate ranging in the low 100-1 30s. Work-up in the emergency room today, EKG was unremarkable. Troponin was initially elevated at 0.032 and trended down to 0.026. There is a slight elevation of creatinine to 1.5 and a total bilirubin of 2.0. Patient is being admitted for acute on chronic CHF exacerbation, hypertensive emergency and chest pain. Past History Past Medical History: diabetes, hypertension, hyperlipidemia, other (Asthma in Childhood) Past Surgical History: No surgical history Social history: no significant social history Family history: no significant family history Medications and Allergies Allergies Allergy/AdvReac Type Severity Reaction Status Date / Time No Known Allergies Allergy Verified 08/28/20 01:25 Home Medications Medication Instructions Recorded Confirmed Last Taken Type Aspirin EC [Halfprin EC] 81 mg PO QDAY #100 tablet 05/31/20 Unknown Rx AtorvaSTATin [Lipitor] 40 mg PO QHS #30 tablet 05/31/20 Unknown Rx Furosemide [Lasix TAB] 40 mg PO BID #60 05/31/20 Unknown Rx Gabapentin 300 mg PO Q8HR #90 capsule 05/31/20 Unknown Rx Insulin NPH/Regular [NovoLIN 70/30] 20 unit SUB-Q BIDDIAB #1 vial 05/31/20 08/28/20 08/27/20 Rx NIFEdipine XL [Procardia Xl] 60 mg PO DAILY #30 tablet 05/31/20 Unknown Rx Pantoprazole [Protonix TAB] 40 mg PO QDAC #30 tablet 05/31/20 Unknown Rx Potassium Chloride [K-Dur] 20 meq PO BID #60 tab 05/31/20 Unknown Rx Spironolactone [Aldactone] 25 mg PO QDAY 30 Days #30 tablet 05/31/20 Unknown Rx carvediloL [Coreg] 6.25 mg PO BID@0800,1700 #60 tablet 05/31/20 08/28/2008/14 Rx lisinopriL [Zestril TAB] 10 mg PO QDAY #30 tablet 05/31/20 Unknown Rx oxyCODONE /ACETAMINOPHEN [Percocet 1 tab PO Q6H PRN tablet 05/31/20 Unknown Rx 5/325 mg] Active Meds: Active Medications Acetaminophen (Acetaminophen 325 Mg Tab) 650 mg PO Q4H PRN PRN Reason: Pain MILD(1-3)/Fever >100.5/SANTOS Aspirin (Aspirin Ec 325 Mg Tab) 325 mg PO QDAY [facility] Dextrose (Dextrose 50% In Water (25gm) 50 Ml Syringe) 0 ml IV Q30MIN PRN; Protocol PRN Reason: Hypoglycemia Furosemide (Furosemide 40 Mg/4 Ml Inj) 40 mg IV BID@0600,1800 [facility] Heparin Sodium (Porcine) (Heparin 5,000 Unit/1 Ml Vial) 5,000 unit SUB-Q Q8HR [facility] Insulin Human Lispro (Insulin Lispro 100 Unit/Ml) 0 unit SUB-Q ACHS [facility]; Protocol Morphine Sulfate (Morphine 4 Mg/1 Ml Inj) 2 mg IV Q5MIN PRN PRN Reason: Chest Pain Nitroglycerin (Nitroglycerin 0.4 Mg Tab Subl) 0.4 mg SL Q5M PRN PRN Reason: Chest Pain Ondansetron HCl (Ondansetron 4 Mg/2 Ml Inj) 4 mg IV Q8H PRN PRN Reason: Nausea And Vomiting Sodium Chloride (Sodium Chloride 0.9% 10 Ml Flush Syringe) 10 ml IV PRN PRN PRN Reason: LINE FLUSH Sodium Chloride (Sodium Chloride 0.9% 10 Ml Flush Syringe) 10 ml IV BID [facility] Sodium Chloride (Sodium Chloride 0.9% 10 Ml Flush Syringe) 10 ml IV PRN PRN PRN Reason: LINE FLUSH Tramadol HCl (Tramadol 50 Mg Tab) 50 mg PO Q6H PRN PRN Reason: Pain, Moderate (4-6) Review of Systems Constitutional: no fever, no chills Ears, nose, mouth and throat: no nasal congestion, no sore throat Cardiovascular: chest pain, leg edema, no palpitations, no syncope Respiratory: cough, shortness of breath Gastrointestinal: no abdominal pain, no nausea, no vomiting, no diarrhea Genitourinary Male: no dysuria, no hematuria, no flank pain, no nocturia Musculoskeletal: no neck pain, no low back pain Integumentary: no rash, no pruritis Neurological: no headaches, no confusion Psychiatric: no anxiety, no depression Endocrine: no polyphagia, no polydipsia, no polyuria, no nocturia Exam - Constitutional Vitals: Temp Pulse Resp BP Pulse Ox 97.4 F L 94 H 17 194/145 99 08/27/20 19:37 08/28/20 02:06 08/28/20 01:18 08/28/20 02:06 08/28/20 01:18 General appearance: Present: mild distress, well-nourished - EENT Eyes: Present: PERRL, EOM intact. Absent: scleral icterus ENT: hearing intact, clear oral mucosa, dentition normal - Neck Neck: Present: supple, normal ROM - Respiratory Respiratory effort: normal Respiratory: bilateral: diminished - Cardiovascular Rhythm: regular Heart Sounds: Present: S1 & S2. Absent: gallop, systolic murmur, diastolic murmur, rub, click - Extremities Extremities: no ischemia, pulses intact, pulses symmetrical, normal temperature, normal color, Full ROM Extremity abnormal: edema (2+ Bilateral lower Extremity Edema.) Peripheral Pulses: within normal limits - Abdominal General gastrointestinal: Present: soft, non-tender, non-distended, normal bowel sounds. Absent: mass - Integumentary Integumentary: Present: clear, warm, dry. Absent: rash - Musculoskeletal Musculoskeletal: strength equal bilaterally - Psychiatric Psychiatric: appropriate mood/affect, intact judgment & insight, memory intact, cooperative - Neurologic Neurologic: CNII-XII intact, no focal deficits, moves all extremities HEART Score - HEART Score History: Moderately suspicious EKG: Normal Age: 45-65 Risk factors: > 3 risk factors or hx of atherosclerotic disease Troponin: Troponin T 0.026 ng/mL (0.00-0.029) 08/28/20 00:06 Troponin: < normal limit HEART Score: 4 Results - Labs CBC & Chem 7: 08/27/20 19:58 08/27/20 19:58 Labs: Abnormal lab results 08/27/20 08/27/20 Range/Units 19:58 19:58 RBC 5.25 H (3.65-5.03) M/mm3 RDW 16.9 H (13.2-15.2) % Dougherty % (Auto) 7.9 H (0.0-7.3) % Eos % (Auto) 5.7 H (0.0-4.3) % Creatinine 1.5 H (0.8-1.3) mg/dL Glucose 105 H (75-100) mg/dL Total Bilirubin 2.00 H (0.1-1.2) mg/dL Troponin T 0.032 H (0.00-0.029) ng/mL Albumin 3.7 L (3.9-5) g/dL LDL Cholesterol Direct 4 L (50-130) mg/dL HDL Cholesterol 81 H (40-59) mg/dL Assessment and Plan - Patient Problems (1) Acute on chronic systolic heart failure Current Visit: No Status: Acute Plan to address problem: Patient admitted and placed on telemetry. We will commence patient on diuretics. Will monitor inputs and outputs and also monitor daily weight. (2) Acute chest pain Current Visit: No Status: Acute Plan to address problem: Patient placed on telemetry. Will check serial cardiac enzymes. Patient will be placed on daily aspirin, sublingual nitroglycerin and IV morphine as needed for chest pain. Meanwhile we will make patient n.p.o until evaluated by cardiology for further recommendation. (3) Total bilirubin, elevated Current Visit: Yes Status: Acute Plan to address problem: Etiology unclear. Will monitor chemistry. We will place consult to gastroenterology for recommendations. (4) Hypertensive emergency Current Visit: No Status: Acute Plan to address problem: Possibly secondary to noncompliance. We will resume routine home medications and monitor vital signs closely. Patient placed on IV hydralazine as needed for optimal blood pressure control. (5) Diabetes mellitus Current Visit: No Status: Acute Plan to address problem: Will monitor Accu-Cheks closely. Patient placed on sliding scale insulin. (6) DVT prophylaxis Current Visit: No Status: Acute Plan to address problem: Patient placed on subcutaneous heparin. (7) Full code status Current Visit: No Status: Acute Plan to address problem: Patient is a full code.
[2020-08-28] MEDS ORDERED: LORazepam 2 MG/ML VIAL IV ONE (03:15)
[2020-08-28] MEDS ORDERED: hydrALAZINE 20 MG/1 ML INJ IV PRN (03:25)
[2020-08-28 03:41] LABS: Bilirubin,Urine NEG (Negative); Blood,Urine NEG (Negative); Color,Urine Yellow (Yellow); Hyaline Casts,Urine 3 /LPF; Urobilinogen,Urine < 2.0 mg/dL (<2.0); WBC,Urine < 1.0 /HPF (0.0-6.0)
[2020-08-28 05:38] LABS: Basophils # (Auto) 0.1 K/mm3 (0.0-0.1); Basophils % (Auto) 1.1 % (0.0-1.8); Eosinophils # (Auto) 0.4 K/mm3 (0.0-0.4); Eosinophils % (Auto) 5.7 % (0.0-4.3); Hematocrit 43.8 % (35.5-45.6); Lymphocytes # (Auto) 1.6 K/mm3 (1.2-5.4); Lymphocytes % (Auto) 20.1 % (13.4-35.0); Mean Corpuscular HGB Conc 32 % (32-34); Mean Corpuscular Volume 87 fl (84-94); Monocytes # (Auto) 0.6 K/mm3 (0.0-0.8); Monocytes % (Auto) 8.1 % (0.0-7.3); Platelet Count 257 K/mm3 (140-440); Red Blood Count 5.04 M/mm3 (3.65-5.03)
[2020-08-28] MEDS: HEPARIN 5,000 UNIT/1 ML VIAL SUB-Q SCH ×3 (05:49→22:47)
[2020-08-28] MEDS: FUROSEMIDE 40 MG/4 ML INJ IV SCH ×2 (05:49→17:16)
[2020-08-28 06:28] LABS: Calcium 8.6 mg/dL (8.4-10.2)
--- NOTE | 2020-08-28 08:04 | Event Note ---
Date: 08/28/20 This is the second visit after midnight Patient seen and examined 49-year-old male with a history of congestive heart failure with shortness of br eath hypertensive emergency Continue current management and plan and follow clinically Wait for cardiology evaluation and recommendation
[2020-08-28] MEDS: INSULIN LISPRO 100 UNIT/ML SUB-Q SCH ×4 (08:27→22:48)
[2020-08-28] MEDS: INSULIN NPH/REGULAR 70/30 INJ SUB-Q SCH ×2 (08:50→17:17)
[2020-08-28] MEDS: NIFEdipine XL 60 MG TAB PO SCH (08:59)
[2020-08-28] MEDS ORDERED: oxyCODONE /ACETAMINOPHEN 5-325MG TAB PO PRN (09:00)
[2020-08-28] MEDS: SPIRONOLACTONE 25 MG TAB PO SCH (09:00)
--- NOTE | 2020-08-28 10:14 | Consultation ---
History of Present Illness Consult date: 08/28/20 Consult reason: congestive heart failure History of present illness: This is a 49-year old M with dilated nonischemic cardiomyopathy, and chronic systolic heart failure. A cardiac cath done at this hospital a year ago demonstrated normal coronary arteries but decreased left ventricular ejection fraction 25%. More recently, an echocardiogram done 3 months ago showed persistent left ventricular systolic dysfunction with an ejection fraction 20- 25%. Patient has not followed with his hospital medical biller as an outpatient and admits to dietary indiscretions. Patient presents with progressive shortness of breath, lower extremity edema, admitted with exacerbation of chronic systolic heart failure. Chest x-ray reports cardiomegaly with mild interstitial edema. Patient denies fever and cough. 12-lead ECG shows an atrial tachycardia. Patient also noted hypertensive on presentation, systolic BP 187. Past History Past Medical History: diabetes, heart failure, hypertension, hyperlipidemia, other (Asthma in Childhood) Past Surgical History: No surgical history Social history: no significant social history Family history: no significant family history Medications and Allergies Allergies Allergy/AdvReac Type Severity Reaction Status Date / Time No Known Allergies Allergy Verified 08/28/20 01:25 Home Medications Medication Instructions Recorded Confirmed Last Taken Type Aspirin EC [Halfprin EC] 81 mg PO QDAY #100 tablet 05/31/20 Unknown Rx AtorvaSTATin [Lipitor] 40 mg PO QHS #30 tablet 05/31/20 Unknown Rx Furosemide [Lasix TAB] 40 mg PO BID #60 05/31/20 Unknown Rx Gabapentin 300 mg PO Q8HR #90 capsule 05/31/20 Unknown Rx Insulin NPH/Regular [NovoLIN 70/30] 20 unit SUB-Q BIDDIAB #1 vial 05/31/20 08/28/20 08/27/20 Rx NIFEdipine XL [Procardia Xl] 60 mg PO DAILY #30 tablet 05/31/20 Unknown Rx Pantoprazole [Protonix TAB] 40 mg PO QDAC #30 tablet 05/31/20 Unknown Rx Potassium Chloride [K-Dur] 20 meq PO BID #60 tab 05/31/20 Unknown Rx Spironolactone [Aldactone] 25 mg PO QDAY 30 Days #30 tablet 05/31/20 Unknown Rx carvediloL [Coreg] 6.25 mg PO BID@0800,1700 #60 tablet 05/31/20 08/28/20 08/27/20 Rx lisinopriL [Zestril TAB] 10 mg PO QDAY #30 tablet 05/31/20 Unknown Rx oxyCODONE /ACETAMINOPHEN [Percocet 1 tab PO Q6H PRN tablet 05/31/20 Unknown Rx 5/325 mg] Active Meds: Active Medications Acetaminophen (Acetaminophen 325 Mg Tab) 650 mg PO Q4H PRN PRN Reason: Pain MILD(1-3)/Fever >100.5/SANTOS Aspirin (Aspirin Ec 325 Mg Tab) 325 mg PO QDAY [facility] Atorvastatin Calcium (Atorvastatin 40 Mg Tab) 40 mg PO QHS [facility] Carvedilol (Carvedilol 6.25 Mg Tab) 6.25 mg PO BID [facility] Dextrose (Dextrose 50% In Water (25gm) 50 Ml Syringe) 0 ml IV Q30MIN PRN; Protocol PRN Reason: Hypoglycemia Furosemide (Furosemide 40 Mg/4 Ml Inj) 40 mg IV BID@0600,1800 [facility] Last Admin: 08/28/20 05:49 Dose: 40 mg Documented by: Gabapentin (Gabapentin 100 Mg Cap) 100 mg PO Q8HR [facility] Heparin Sodium (Porcine) (Heparin 5,000 Unit/1 Ml Vial) 5,000 unit SUB-Q Q8HR [facility] Last Admin: 08/28/20 05:49 Dose: 5,000 unit Documented by: Hydralazine HCl (Hydralazine 20 Mg/1 Ml Inj) 10 mg IV Q4H PRN PRN Reason: Blood Pressure Insulin Human Isoph/Insulin Regular (Insulin Nph/Regular 70/30 Inj) 20 unit SUB-Q BIDDIAB [facility] Last Admin: 08/28/20 08:50 Dose: 20 unit Documented by: Insulin Human Lispro (Insulin Lispro 100 Unit/Ml) 0 unit SUB-Q ACHS [facility]; Protocol Last Admin: 08/28/20 08:27 Dose: Not Given Documented by: Lisinopril (Lisinopril 10 Mg Tab) 10 mg PO QDAY [facility] Morphine Sulfate (Morphine 4 Mg/1 Ml Inj) 2 mg IV Q5MIN PRN PRN Reason: Chest Pain Nifedipine (Nifedipine Xl 60 Mg Tab) 60 mg PO DAILY [facility] Last Admin: 08/28/20 08:59 Dose: 60 mg Documented by: Nitroglycerin (Nitroglycerin 0.4 Mg Tab Subl) 0.4 mg SL Q5M PRN PRN Reason: Chest Pain Ondansetron HCl (Ondansetron 4 Mg/2 Ml Inj) 4 mg IV Q8H PRN PRN Reason: Nausea And Vomiting Oxycodone/Acetaminophen (Oxycodone /Acetaminophen 5-325mg Tab) 1 tab PO Q6HR PRN PRN Reason: Pain, Moderate (4-6) Pantoprazole Sodium (Pantoprazole 40 Mg Tab) 40 mg PO QDAC [facility] Sodium Chloride (Sodium Chloride 0.9% 10 Ml Flush Syringe) 10 ml IV BID [facility] Last Admin: 08/28/20 09:00 Dose: 10 ml Documented by: Sodium Chloride (Sodium Chloride 0.9% 10 Ml Flush Syringe) 10 ml IV PRN PRN PRN Reason: LINE FLUSH Spironolactone (Spironolactone 25 Mg Tab) 25 mg PO QDAY [facility] Last Admin: 08/28/20 09:00 Dose: 25 mg Documented by: Review of Systems Cardiovascular: edema, dyspnea on exertion, no chest pain, no palpitations, no syncope Physical Examination Vital Signs Temp Pulse Resp BP Pulse Ox 97.4 F L 103 H 22 187/149 95 08/27/20 19:37 08/27/20 19:37 08/27/20 19:37 08/27/20 19:37 08/27/20 19:37 General appearance: no acute distress HEENT: Positive: PERRL Neck: Positive: trachea midline Cardiac: Positive: Reg Rate and Rhythm Lungs: Positive: Decreased Breath Sounds Neuro: Positive: Grossly Intact Extremities: Present: +2 Edema Results 08/28/20 05:04 08/28/20 05:04 Cardiac Enzymes 08/27/20 Range/Units 19:58 AST 31 (5-40) units/L Lipids 08/27/20 Range/Units 19:58 Triglycerides < 9 (2-149) mg/dL Cholesterol 119 (50-199) mg/dL HDL Cholesterol 81 H (40-59) mg/dL Cholesterol/HDL Ratio 2.77 % CBC 08/27/20 08/28/20 Range/Units 19:58 05:04 WBC 7.8 7.8 (4.5-11.0) K/mm3 RBC 5.25 H 5.04 H (3.65-5.03) M/mm3 Hgb 14.6 14.0 (11.8-15.2) gm/dl Hct 45.5 43.8 (35.5-45.6) % Plt Count 269 257 (140-440) K/mm3 Lymph # (Auto) 2.0 1.6 (1.2-5.4) K/mm3 [place] # (Auto) 0.6 0.6 (0.0-0.8) K/mm3 Eos # (Auto) 0.4 0.4 (0.0-0.4) K/mm3 Baso # (Auto) 0.0 0.1 (0.0-0.1) K/mm3 Comprehensive Metabolic Panel 08/27/20 08/28/20 Range/Units 19:58 05:04 Sodium 139 144 (137-145) mmol/L Potassium 4.1 3.8 (3.6-5.0) mmol/L Chloride 102.0 105.1 (98-107) mmol/L Carbon Dioxide 26 21 L (22-30) mmol/L BUN 16 18 (9-20) mg/dL Creatinine 1.5 H 1.5 H (0.8-1.3) mg/dL Glucose 105 H 99 (75-100) mg/dL Calcium 8.7 8.6 (8.4-10.2) mg/dL AST 31 (5-40) units/L ALT 19 (7-56) units/L Alkaline Phosphatase 98 (35-129) units/L Total Protein 7.1 (6.3-8.2) g/dL Albumin 3.7 L (3.9-5) g/dL Assessment and Plan Chronic systolic heart failure Nonischemic CMP 04/2020 LVEF 20-25% with moderateTR and moderate pulmonary hypertension, RVSP 44 mmHg 08/2019: [facility] - angiographically normal coronary arteries with ejection fraction 25 to 30%. Hypertension Diabetes Noncompliant with outpatient cardiac follow up and dietary restriction Recommendations: COVID-19 serology test. Advised compliance with dietary restrictions. Daily weight and I's and O's. Guideline directed medical therapy for chronic systolic heart failure.
[2020-08-28] MEDS: GABAPENTIN 100 MG CAP PO SCH ×2 (12:59→22:47)
[2020-08-28] MEDS ORDERED: GABAPENTIN 300 MG CAP PO SCH (14:00)
[2020-08-28] MEDS: METOPROLOL TARTRATE 50 MG TAB PO SCH ×2 (14:34→22:46)
[2020-08-28] MEDS: VALSARTAN 160MG TAB PO SCH (14:34)
[2020-08-28] MEDS ORDERED: carvediloL 6.25 MG TAB PO SCH (22:00)
[2020-08-29] MEDS: GABAPENTIN 100 MG CAP PO SCH ×3 (06:25→21:16)
[2020-08-29] MEDS: METOPROLOL TARTRATE 50 MG TAB PO SCH ×3 (06:25→21:15)
[2020-08-29] MEDS: FUROSEMIDE 40 MG/4 ML INJ IV SCH ×2 (06:26→18:00)
[2020-08-29] MEDS: HEPARIN 5,000 UNIT/1 ML VIAL SUB-Q SCH ×3 (06:26→21:16)
[2020-08-29] MEDS: INSULIN NPH/REGULAR 70/30 INJ SUB-Q SCH ×2 (08:00→17:29)
[2020-08-29] MEDS: INSULIN LISPRO 100 UNIT/ML SUB-Q SCH ×4 (09:30→21:16)
[2020-08-29] MEDS ORDERED: LISINOPRIL 10 MG TAB PO SCH (10:00)
[2020-08-29] MEDS: VALSARTAN 160MG TAB PO SCH (10:12)
[2020-08-29] MEDS: ASPIRIN EC 325 MG TAB PO SCH (10:12)
[2020-08-29] MEDS: SPIRONOLACTONE 25 MG TAB PO SCH (10:12)
[2020-08-29] MEDS: NIFEdipine XL 60 MG TAB PO SCH (10:12)
[2020-08-29] MEDS: PANTOPRAZOLE 40 MG TAB PO SCH (10:13)
--- NOTE | 2020-08-29 12:53 | Progress Note ---
Assessment and Plan - Patient Problems (1) Atrial tachycardia Current Visit: Yes Status: Acute Plan to address problem: Patient is back in a stable sinus rhythm on medical therapy, continue beta- blockers. (2) Acute on chronic systolic heart failure Current Visit: No Status: Acute Plan to address problem: Patient has persistent 2+ lower extremity edema, we will add intravenous milrinone for management of systolic heart failure. Subjective Date of service: 08/29/20 Interval history: The patient is comfortable, no acute distress. He has persistent 2+ bilateral lower extremity edema, despite aggressive intravenous diuretics. On nuclear monitoring technician, he has normal sinus rhythm at 64. Objective Vital Signs Temp Pulse Pulse Resp BP Pulse Ox 08/29/20 11:33 99.0 F 71 20 140/89 97 08/29/20 10:12 72 08/29/20 07:32 97.7 F 111 H 22 123/91 96 08/29/20 06:25 70 143/92 08/29/20 04:00 73 08/29/20 03:44 97.9 F 70 20 143/92 96 08/28/20 23:15 97.6 F 78 18 140/96 97 08/28/20 22:46 77 117/84 08/28/20 22:00 77 99 08/28/20 20:00 77 08/28/20 19:25 98.5 F 74 18 117/84 99 08/28/20 17:18 69 107/69 97 08/28/20 15:59 20 97 08/28/20 14:34 79 153/99 - Physical Examination General: No Apparent Distress HEENT: Positive: PERRL Neck: Positive: trachea midline Cardiac: Positive: Reg Rate and Rhythm Lungs: Positive: Decreased Breath Sounds Neuro: Positive: Grossly Intact Abdomen: Positive: Soft Extremities: Present: +2 Edema
--- NOTE | 2020-08-29 15:09 | Progress Note ---
Assessment and Plan This is a 49-year-old male with a history of CHF presented to the hospital with worsening shortness of breath and bilateral lower extremity swelling and hypertensive urgency with blood pressure 198/136 on admission. -- Acute on chronic systolic heart failure, EF 25% Patient admitted and placed on telemetry. Continue patient on IV diuretics. Will monitor inputs and outputs and also monitor daily weight. Cardiology following -- Acute chest pain Patient placed on telemetry. Will check serial cardiac enzymes. Patient will be placed on daily aspirin, sublingual nitroglycerin and IV morphine as needed for chest pain. Follow cardiology for further recommendation. --PUI for COVID-19, continue Covid protocol, test currently pending --Acute hypoxic respiratory failure, due to CHF exacerbation Also will evaluate for possible Covid, continue IV diuresis Nebulizer breathing treatment as needed -- Total bilirubin, elevated Etiology unclear. Will monitor chemistry. We will place consult to gastroenterology for recommendations if continue to trend up. Order for hepatitis panel -- Hypertensive emergency Possibly secondary to noncompliance. resumed routine home medications and monitor vital signs closely. Patient placed on IV hydralazine as needed for optimal blood pressure control. -- Diabetes mellitus Will monitor Accu-Cheks closely. Patient placed on sliding scale insulin. -- DVT prophylaxis Patient placed on subcutaneous heparin. -- Full code status Daily clinical course; 08/29/20: Patient did not have much improvement in the last 24 hours with IV diuretics. Urine output is not optimal. Planned to start on milrinone drip by tank assembler. Covid test pending , continue Covid protocol Subjective Date of service: 08/29/20 Interval history: Patient seen and examined. Medical records and medication list reviewed. No acute event overnight noted by the RN. Patient denies any chest pain, but complains of shortness of breath on exertion. Patient is tolerating diet. Still has significant bilateral lower extremity swelling Covid test pending, O2 sat dropped to 89% on ambulation Discussed plan of care at bedside with patient. Objective - Exam Narrative Exam: Limited physical exam due to COVID-19 pandemic to minimize transmission of the disease and to preserve PPE. Vital reviewed and stable. GENERAL: well-developed morbidly obese -[place] male lying on bed appeared to be in no discomfort. HEENT: Normocephalic. Atraumatic. NECK: Supple. CHEST/LUNGS: breathing nonlabored. HEART/CARDIOVASCULAR: Heart rate stable on telemetry ABDOMEN: Visibly not distended SKIN: There is no rash NEURO: No focal motor deficit. Follows command. MUSCULOSKELETAL: No joint effusion EXTRIMITY: + LE edema with swelling, no cyanosis or clubbing. PSYCH: Cooperative. - Constitutional Vitals: Vital Signs - 12hr 08/29/20 08/29/20 08/29/20 03:44 04:00 06:25 Temperature 97.9 F Pulse Rate 70 73 70 Respiratory 20 Rate Blood Pressure 143/92 143/92 O2 Sat by Pulse 96 Oximetry 08/29/20 08/29/20 08/29/20 07:32 10:12 11:33 Temperature 97.7 F 99.0 F Pulse Rate 111 H 72 71 Respiratory 22 20 Rate Blood Pressure 123/91 140/89 O2 Sat by Pulse 96 97 Oximetry - Labs CBC & Chem 7: 08/28/20 05:04 08/28/20 05:04 Labs: Abnormal lab results 08/28/20 08/29/20 Range/Units 20:32 11:38 POC Glucose 110 H 136 H (70-105) mg/dL HEART Score - HEART Score EKG: Normal Age: 45-65 Risk factors: > 3 risk factors or hx of atherosclerotic disease Troponin: Troponin T 0.021 ng/mL (0.00-0.029) 08/28/20 14:09 Troponin: < normal limit
[2020-08-29] MEDS: MILRINONE-D5W 20 MG/100 ML 20 MG/100 ML BAG IV SCH (16:10)
--- NOTE | 2020-08-29 17:31 | Electrocardiograph Report ---
[facility] Test Date: 2020-08-27 Test Time: 19:41:33 Pat Name: HERNÁN RECINOS Department: Room: A469 1 Gender: M Bag Mender: JESSE : 1970 Requested By: PAU DOBBS Order Number: [id number] Reading MD: Maldonado Campo Measurements Intervals [place] Rate: 99 P: 31 PA: 173 QRS: 10 QRSD: 89 T: 160 QT: 381 QTc: 490 Interpretive Statements Sinus rhythm Probable left atrial enlargement Nonspecific T abnormalities, lateral leads No previous ECG available for comparison Electronically Signed On 08-29-2020 17:31:06 EDT by Maldonado Campo
--- NOTE | 2020-08-29 17:36 | Electrocardiograph Report ---
[facility] Test Date: 2020-08-28 Test Time: 02:47:38 Pat Name: HERNÁN RECINOS Department: Room: A469 1 Gender: M Cloth Finishing Range Back Tender: ISIDRO : 1970 Requested By: ASMITA REEVES Order Number: [id number] Reading MD: Maldonado Campo Measurements Intervals [place] Rate: 136 P: 53 AL: 240 QRS: 17 QRSD: 83 T: 17 QT: 362 QTc: 546 Interpretive Statements Sinus tachycardia Prolonged AL interval Prolonged QT interval Compared to ECG 08/27/2020 19:41:33 First degree AV block now present Prolonged QT interval now present Electronically Signed On 08-29-2020 17:35:32 EDT by Maldonado Campo
--- NOTE | 2020-08-29 17:43 | Electrocardiograph Report ---
[facility] Test Date: 2020-08-28 Test Time: 10:40:25 Pat Name: HERNÁN RECINOS Department: Room: A469 1 Gender: M Bottle Label Inspector: JOSE MIGUEL : 1970 Requested By: MADDIE WEBSTER Order Number: [id number] Reading MD: Maldonado Campo Measurements Intervals [place] Rate: 100 P: -8 [place]: 185 QRS: 19 QRSD: 85 T: 167 QT: 368 QTc: 475 Interpretive Statements Sinus tachycardia Nonspecific T abnormalities, lateral leads Compared to ECG 08/28/2020 02:47:38 T-wave abnormality now present First degree AV block no longer present Prolonged QT interval no longer present Electronically Signed On 08-29-2020 17:42:52 EDT by Maldonado Campo
[2020-08-30] MEDS: MILRINONE-D5W 20 MG/100 ML 20 MG/100 ML BAG IV SCH ×3 (05:23→22:42)
[2020-08-30] MEDS: HEPARIN 5,000 UNIT/1 ML VIAL SUB-Q SCH ×3 (05:25→21:18)
[2020-08-30] MEDS: FUROSEMIDE 40 MG/4 ML INJ IV SCH ×2 (05:25→18:21)
[2020-08-30] MEDS: GABAPENTIN 100 MG CAP PO SCH ×3 (05:29→21:18)
[2020-08-30] MEDS: INSULIN LISPRO 100 UNIT/ML SUB-Q SCH ×4 (07:30→22:00)
[2020-08-30] MEDS: INSULIN NPH/REGULAR 70/30 INJ SUB-Q SCH ×2 (08:00→18:21)
--- NOTE | 2020-08-30 08:55 | Progress Note ---
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 - angiographically normal coronary arteries with ejection fraction 25 to 30%. Hypertension Diabetes Noncompliant with outpatient cardiac follow up and dietary restriction Recommendations: Advised compliance with dietary restrictions. Daily weight and I's and O's. Continue aggressive medical therapy for chronic systolic heart failure including a trial of intravenous milrinone. Subjective Date of service: 08/30/20 Interval history: IV milrinone continues. Lower extremity edema is slow to improve. Currently, he is stable sinus rhythm on telemetry. Objective Vital Signs Temp Pulse Pulse Resp BP Pulse Ox 08/30/20 08:02 98.3 F 71 18 118/73 93 08/30/20 03:50 97.6 F 80 20 110/82 93 08/30/20 00:00 73 08/29/20 23:03 97.6 F 73 16 117/77 96 08/29/20 19:20 97.3 F L 64 16 118/81 96 08/29/20 16:52 116 H 08/29/20 16:18 98.0 F 75 18 136/100 97 08/29/20 12:08 88 08/29/20 12:00 101 H 08/29/20 11:33 99.0 F 71 20 140/89 97 08/29/20 10:12 72 08/29/20 10:00 77 99 - Physical Examination General: No Apparent Distress HEENT: Positive: PERRL Neck: Positive: trachea midline Cardiac: Positive: Reg Rate and Rhythm Lungs: Positive: Decreased Breath Sounds Neuro: Positive: Grossly Intact Abdomen: Positive: Soft Extremities: Present: +2 Edema
[2020-08-30] MEDS: VALSARTAN 160MG TAB PO SCH (12:02)
[2020-08-30] MEDS: metOLazone 5 MG TAB PO SCH (12:02)
[2020-08-30] MEDS: ASPIRIN EC 325 MG TAB PO SCH (12:02)
[2020-08-30] MEDS: SPIRONOLACTONE 25 MG TAB PO SCH (12:02)
[2020-08-30] MEDS: NIFEdipine XL 60 MG TAB PO SCH (12:03)
[2020-08-30] MEDS: PANTOPRAZOLE 40 MG TAB PO SCH (12:06)
--- NOTE | 2020-08-30 16:53 | Progress Note ---
Assessment and Plan Assessment and plan: Assessment and Plan This is a 49-year-old male with a history of CHF presented to the hospital with worsening shortness of breath and bilateral lower extremity swelling and hypertensive urgency with blood pressure 198/136 on admission. -- Acute on chronic systolic heart failure, EF 25% Patient admitted and placed on telemetry. Continue patient on IV diuretics. Will monitor inputs and outputs and also monitor daily weight. Cardiology following -- Acute chest pain Patient placed on telemetry. Will check serial cardiac enzymes. Patient will be placed on daily aspirin, sublingual nitroglycerin and IV morphine as needed for chest pain. Follow cardiology for further recommendation. --PUI for COVID-19, Covid negative --Acute hypoxic respiratory failure, due to CHF exacerbation continue IV diuresis Nebulizer breathing treatment as needed -- Total bilirubin, elevated Etiology unclear. Will monitor chemistry. Continue to trend order labs and ultrasound if it continues to trend higher -- Hypertensive emergency Possibly secondary to noncompliance. Continue home medications Hydralazine as needed -- Diabetes mellitus Will monitor Accu-Cheks closely. Patient placed on sliding scale insulin. -- DVT prophylaxis Patient placed on subcutaneous heparin. -- Full code status Disposition: Continue milrinone drip, maximize cardiac medications. History Interval history: 08/29/20: Patient did not have much improvement in the last 24 hours with IV diuretics. Urine output is not optimal. Planned to start on milrinone drip by client technical support associate. Covid test pending , continue Covid protocol 08/30/2020: Patient started on milrinone drip, continues to have some shortness of breath but has improved. Hospitalist Physical - Physical exam Narrative exam: General appearance: Obese, no acute distress, well-nourished EENT: PERRL, EOM intact, hearing intact, clear oral mucosa, dentition normal Neck: Present: supple, normal ROM Respiratory: bilateral: CTA, negative: rales, rhonchi, wheezing Cardiovascular: Regular rate/rhythm, Normal S1 & S2. No gallop, rub Extremities: no ischemia, No edema, normal temperature, normal color, Full ROM Abdominal: soft, non-tender, non-distended, normal bowel sounds Integumentary: Present: clear, warm, dry Psychiatric: appropriate mood/affect, intact judgment & insight Neurologic: CNII-XII intact, moves all extremities - Constitutional Vitals: Temp Pulse Resp BP Pulse Ox 98.2 F 69 18 118/73 96 08/30/20 11:55 08/30/20 12:02 08/30/20 11:55 08/30/20 12:02 08/30/20 11:55 General appearance: Present: no acute distress HEART Score - HEART Score EKG: Normal Age: 45-65 Risk factors: > 3 risk factors or hx of atherosclerotic disease Troponin: Troponin T 0.021 ng/mL (0.00-0.029) 08/28/20 14:09 Troponin: < normal limit Results - Labs CBC & Chem 7: 08/28/20 05:04 08/28/20 05:04 Labs: Laboratory Last Values WBC 7.8 K/mm3 (4.5-11.0) 08/28/20 05:04 RBC 5.04 M/mm3 (3.65-5.03) H 08/28/20 05:04 Hgb 14.0 gm/dl (11.8-15.2) 08/28/20 05:04 Hct 43.8 % (35.5-45.6) 08/28/20 05:04 MCV 87 fl (84-94) 08/28/20 05:04 MCH 28 pg (28-32) 08/28/20 05:04 MCHC 32 % (32-34) 08/28/20 05:04 RDW 17.0 % (13.2-15.2) H 08/28/20 05:04 Plt Count 257 K/mm3 (140-440) 08/28/20 05:04 Lymph % (Auto) 20.1 % (13.4-35.0) 08/28/20 05:04 [place] % (Auto) 8.1 % (0.0-7.3) H 08/28/20 05:04 Eos % (Auto) 5.7 % (0.0-4.3) H 08/28/20 05:04 Baso % (Auto) 1.1 % (0.0-1.8) 08/28/20 05:04 Lymph # (Auto) 1.6 K/mm3 (1.2-5.4) 08/28/20 05:04 [place] # (Auto) 0.6 K/mm3 (0.0-0.8) 08/28/20 05:04 Eos # (Auto) 0.4 K/mm3 (0.0-0.4) 08/28/20 05:04 Baso # (Auto) 0.1 K/mm3 (0.0-0.1) 08/28/20 05:04 Seg Neutrophils % 65.0 % (40.0-70.0) 08/28/20 05:04 Seg Neutrophils # 5.1 K/mm3 (1.8-7.7) 08/28/20 05:04 D-Dimer 724.01 ng/mlDDU (0-234) H 08/28/20 03:08 Sodium 144 mmol/L (137-145) 08/28/20 05:04 Potassium 3.8 mmol/L (3.6-5.0) 08/28/20 05:04 Chloride 105.1 mmol/L (98-107) 08/28/20 05:04 Carbon Dioxide 21 mmol/L (22-30) L 08/28/20 05:04 Anion Gap 22 mmol/L 08/28/20 05:04 BUN 18 mg/dL (9-20) 08/28/20 05:04 Creatinine 1.5 mg/dL (0.8-1.3) H 08/28/20 05:04 Estimated GFR 60 ml/min 08/28/20 05:04 BUN/Creatinine Ratio 12 % 08/28/20 05:04 Glucose 99 mg/dL (75-100) 08/28/20 05:04 POC Glucose 107 mg/dL (70-105) H 08/30/20 11:52 Hemoglobin A1c 5.6 % (4-6) 08/28/20 05:04 Calcium 8.6 mg/dL (8.4-10.2) 08/28/20 05:04 Total Bilirubin 2.00 mg/dL (0.1-1.2) H 08/27/20 19:58 AST 31 units/L (5-40) 08/27/20 19:58 ALT 19 units/L (7-56) 08/27/20 19:58 Alkaline Phosphatase 98 units/L (35-129) 08/27/20 19:58 Troponin T 0.021 ng/mL (0.00-0.029) 08/28/20 14:09 NT-Pro-B Natriuret Pep 9753 pg/mL (0-900) H 08/28/20 01:59 Total Protein 7.1 g/dL (6.3-8.2) 08/27/20 19:58 Albumin 3.7 g/dL (3.9-5) L 08/27/20 19:58 Albumin/Globulin Ratio 1.1 % 08/27/20 19:58 Triglycerides < 9 mg/dL (2-149) 08/27/20 19:58 Cholesterol 119 mg/dL (50-199) 08/27/20 19:58 LDL Cholesterol Direct 4 mg/dL (50-130) L 08/27/20 19:58 HDL Cholesterol 81 mg/dL (40-59) H 08/27/20 19:58 Cholesterol/HDL Ratio 2.77 % 08/27/20 19:58 Urine Color Yellow (Yellow) 08/28/20 03:18 Urine Turbidity Clear (Clear) 08/28/20 03:18 Urine pH 6.0 (5.0-7.0) 08/28/20 03:18 Ur Specific [place] 1.006 (1.003-1.030) 08/28/20 03:18 Urine Protein 100 mg/dl mg/dL (Negative) 08/28/20 03:18 Urine Glucose (UA) Neg mg/dL (Negative) 08/28/20 03:18 Urine Ketones Neg mg/dL (Negative) 08/28/20 03:18 Urine Blood Neg (Negative) 08/28/20 03:18 Urine Nitrite Neg (Negative) 08/28/20 03:18 Urine Bilirubin Neg (Negative) 08/28/20 03:18 Urine Urobilinogen < 2.0 mg/dL (<2.0) 08/28/20 03:18 Ur Leukocyte Esterase Neg (Negative) 08/28/20 03:18 Urine WBC (Auto) < 1.0 /HPF (0.0-6.0) 08/28/20 03:18 Urine RBC (Auto) 1.0 /HPF (0.0-6.0) 08/28/20 03:18 Hyaline Casts 3 /LPF 08/28/20 03:18 Coronavirus (PCR) Negative (Negative) 08/28/20 10:09 [place]/IV: Voiding Method Urinal Active Medications - Current Medications Current Medications: Generic Name Dose Route Start Last Admin Trade Name Freq PRN Reason Stop Dose Admin Acetaminophen 650 mg 08/28/20 02:30 Acetaminophen 325 Mg Tab PO Q4H PRN Pain MILD(1-3)/Fever >100.5/SANTOS Aspirin 325 mg 08/29/20 10:00 08/30/20 12:02 Aspirin Ec 325 Mg Tab PO 325 mg QDAY ADAMS Administration Atorvastatin Calcium 40 mg 08/28/20 22:00 08/29/20 21:16 Atorvastatin 40 Mg Tab PO 40 mg QHS ADAMS Administration Dextrose 0 ml 08/28/20 02:30 Dextrose 50% In Water (25gm) 50 Ml Syringe IV Q30MIN PRN Hypoglycemia Protocol Furosemide 40 mg 08/28/20 06:00 08/30/20 05:25 Furosemide 40 Mg/4 Ml Inj IV 40 mg BID@0600,1800 ADAMS Administration Gabapentin 100 mg 08/28/20 14:00 08/30/20 15:08 Gabapentin 100 Mg Cap PO 100 mg Q8HR ADAMS Administration Heparin Sodium (Porcine) 5,000 unit 08/28/20 06:00 08/30/20 15:08 Heparin 5,000 Unit/1 Ml Vial SUB-Q 5,000 unit Q8HR ADAMS Administration Hydralazine HCl 10 mg 08/28/20 03:25 08/28/20 11:06 Hydralazine 20 Mg/1 Ml Inj IV 10 mg Q4H PRN Administration Blood Pressure Milrinone Lactate/Dextrose 20 mg in 100 mls @ 13.826 mls/hr 08/29/20 13:00 08/30/20 15:10 Milrinone-D5w 20 Mg/100 Ml IV 09/01/20 12:59 0.375 mcg/kg/min TITR ADAMS 13.826 mls/hr Administration 0.375 MCG/KG/MIN Insulin Human Isoph/Insulin Regular 15 unit 08/29/20 08:00 08/30/20 08:00 Insulin Nph/Regular 70/30 Inj SUB-Q Not Given BIDDIAB ADAMS Insulin Human Lispro 0 unit 08/28/20 07:30 08/30/20 11:56 Insulin Lispro 100 Unit/Ml SUB-Q Not Given ACHS [facility] Protocol Metolazone 5 mg 08/30/20 12:00 08/30/20 12:02 Metolazone 5 Mg Tab PO 5 mg QDAY ADAMS Administration Metoprolol Tartrate 50 mg 08/28/20 14:00 08/29/20 21:15 Metoprolol Tartrate 50 Mg Tab PO 50 mg Q8H ADAMS Administration Morphine Sulfate 2 mg 08/28/20 02:30 Morphine 4 Mg/1 Ml Inj IV Q5MIN PRN Chest Pain Nifedipine 60 mg 08/28/20 10:00 08/30/20 12:03 Nifedipine Xl 60 Mg Tab PO 60 mg DAILY ADAMS Administration Nitroglycerin 0.4 mg 08/28/20 02:30 Nitroglycerin 0.4 Mg Tab Subl SL Q5M PRN Chest Pain Ondansetron HCl 4 mg 08/28/20 02:30 Ondansetron 4 Mg/2 Ml Inj IV Q8H PRN Nausea And Vomiting Oxycodone/Acetaminophen 1 tab 08/28/20 09:00 Oxycodone /Acetaminophen 5-325mg Tab PO Q6HR PRN Pain, Moderate (4-6) Pantoprazole Sodium 40 mg 08/29/20 07:30 08/30/20 12:06 Pantoprazole 40 Mg Tab PO 40 mg QDAC ADAMS Administration Sodium Chloride 10 ml 08/28/20 10:00 08/30/20 12:03 Sodium Chloride 0.9% 10 Ml Flush Syringe IV 10 ml BID ADAMS Administration Sodium Chloride 10 ml 08/28/20 02:30 Sodium Chloride 0.9% 10 Ml Flush Syringe IV PRN PRN LINE FLUSH Spironolactone 25 mg 08/28/20 10:00 08/30/20 12:02 Spironolactone 25 Mg Tab PO 25 mg QDAY ADAMS Administration Valsartan 160 mg 08/28/20 15:00 08/30/20 12:02 Valsartan 160mg Tab PO 160 mg DAILY ADAMS Administration Nutrition/Malnutrition Assess - Dietary Evaluation Nutrition/Malnutrition Findings: Nutrition Notes Start: 08/28/20 10:15 Freq: Status: Active Protocol: Document 08/30/20 08:59 AT (Rec: 08/30/20 09:00 AT [id number]) Co-Sign 08/30/20 08:59 CW Nutrition Notes Initial or Follow up Brief Note Current Diagnosis Hypertension,Heart Failure, Hyperlipidemia Other Pertinent Diagnosis Bilat LE edema, SOB, GERD Current Diet Cardiac Diet Subjective/Other Information Follow up for stable intakes. Pt reports no N/V/D and is eating at least 80% of meals. Food preferences were recorded . Pt is not at nutritional risk at this time. Nutrition Intervention Anticipated Discharge Needs: Cardiac/Consistent CHO diet Revisit per MD consult or patient Sign Off request:
[2020-08-30] MEDS: METOPROLOL TARTRATE 50 MG TAB PO SCH ×2 (18:21→21:18)
[2020-08-30] MEDS: ACETAMINOPHEN 325 MG TAB PO PRN ×2 (18:25→22:42)
[2020-08-31] MEDS: MILRINONE-D5W 20 MG/100 ML 20 MG/100 ML BAG IV SCH ×3 (05:16→19:47)
[2020-08-31] MEDS: FUROSEMIDE 40 MG/4 ML INJ IV SCH ×2 (05:18→19:45)
[2020-08-31] MEDS: HEPARIN 5,000 UNIT/1 ML VIAL SUB-Q SCH ×3 (05:19→21:23)
[2020-08-31] MEDS: GABAPENTIN 100 MG CAP PO SCH ×3 (05:19→21:23)
[2020-08-31] MEDS: METOPROLOL TARTRATE 50 MG TAB PO SCH ×3 (05:19→21:23)
[2020-08-31 08:23] LABS: Albumin 3.4 g/dL (3.9-5); Calcium 8.9 mg/dL (8.4-10.2)
[2020-08-31] MEDS: INSULIN LISPRO 100 UNIT/ML SUB-Q SCH ×4 (08:35→21:24)
--- NOTE | 2020-08-31 09:12 | Progress Note ---
Assessment and Plan Assessment and plan: Assessment and Plan This is a 49-year-old male with a history of CHF presented to the hospital with worsening shortness of breath and bilateral lower extremity swelling and hypertensive urgency with blood pressure 198/136 on admission. -- Acute on chronic combined systolic and diastolic heart failure Patient admitted and placed on telemetry. Continue patient on IV diuretics. LVEF 20 to 25% with diastolic dysfunction Continue milrinone drip Cardiology following -- Acute chest pain Patient placed on telemetry. Patient will be placed on daily aspirin, sublingual nitroglycerin and IV morphine as needed for chest pain. --PUI for COVID-19, Covid negative --Acute hypoxic respiratory failure, due to CHF exacerbation continue IV diuresis Nebulizer breathing treatment as needed Oxygen supplementation as needed -- Total bilirubin, elevated Etiology unclear. Will monitor chemistry. Continue to trend order labs and ultrasound if it continues to trend higher -- Hypertensive emergency Possibly secondary to noncompliance. Continue home medications Hydralazine as needed -- Diabetes mellitus Will monitor Accu-Cheks closely. Patient placed on sliding scale insulin. --Chronic kidney disease stage IIIa Stable at this time Acute back pain, left scapula Possibly muscle spasm Patient is declining any pain medication at this time -- DVT prophylaxis Patient placed on subcutaneous heparin. -- Full code status Disposition: Continue milrinone drip, maximize cardiac medications. History Interval history: 08/29/20: Patient did not have much improvement in the last 24 hours with IV diuretics. Urine output is not optimal. Planned to start on milrinone drip by cancer registry coordinator. Covid test pending , continue Covid protocol 08/30/2020: Patient started on milrinone drip, continues to have some shortness of breath but has improved. 08/31/2020: Patient eating breakfast, cough is diminished, diuresing is helping. Explained to patient the severity of his heart failure. Hospitalist Physical - Physical exam Narrative exam: General appearance: Obese, no acute distress, well-nourished EENT: PERRL, EOM intact, hearing intact, clear oral mucosa, normal dentition Neck: Present: supple, normal ROM Respiratory: bilateral: CTA, negative: rales, rhonchi, wheezing Cardiovascular: Regular rate/rhythm, Normal S1 & S2. No gallop, rub Extremities: no ischemia, +1 pitting edema in lower extremities bilaterally, normal temperature, normal color, Full ROM MSK: left scapula pain with deep palpation Abdominal: soft, non-tender, non-distended, normal bowel sounds Integumentary: Present: clear, warm, dry Psychiatric: appropriate mood/affect, intact judgment & insight Neurologic: CNII-XII intact, moves all extremities - Constitutional Vitals: Temp Pulse Resp BP Pulse Ox 99.0 F 89 20 121/71 94 08/31/20 04:25 08/31/20 04:25 08/31/20 04:25 08/31/20 04:25 08/31/20 04:25 General appearance: Present: no acute distress HEART Score - HEART Score EKG: Normal Age: 45-65 Risk factors: > 3 risk factors or hx of atherosclerotic disease Troponin: Troponin T 0.021 ng/mL (0.00-0.029) 08/28/20 14:09 Troponin: < normal limit Results - Labs CBC & Chem 7: 08/28/20 05:04 08/31/20 07:35 Labs: Laboratory Last Values WBC 7.8 K/mm3 (4.5-11.0) 08/28/20 05:04 RBC 5.04 M/mm3 (3.65-5.03) H 08/28/20 05:04 Hgb 14.0 gm/dl (11.8-15.2) 08/28/20 05:04 Hct 43.8 % (35.5-45.6) 08/28/20 05:04 MCV 87 fl (84-94) 08/28/20 05:04 MCH 28 pg (28-32) 08/28/20 05:04 MCHC 32 % (32-34) 08/28/20 05:04 RDW 17.0 % (13.2-15.2) H 08/28/20 05:04 Plt Count 257 K/mm3 (140-440) 08/28/20 05:04 Lymph % (Auto) 20.1 % (13.4-35.0) 08/28/20 05:04 [place] % (Auto) 8.1 % (0.0-7.3) H 08/28/20 05:04 Eos % (Auto) 5.7 % (0.0-4.3) H 08/28/20 05:04 Baso % (Auto) 1.1 % (0.0-1.8) 08/28/20 05:04 Lymph # (Auto) 1.6 K/mm3 (1.2-5.4) 08/28/20 05:04 [place] # (Auto) 0.6 K/mm3 (0.0-0.8) 08/28/20 05:04 Eos # (Auto) 0.4 K/mm3 (0.0-0.4) 08/28/20 05:04 Baso # (Auto) 0.1 K/mm3 (0.0-0.1) 08/28/20 05:04 Seg Neutrophils % 65.0 % (40.0-70.0) 08/28/20 05:04 Seg Neutrophils # 5.1 K/mm3 (1.8-7.7) 08/28/20 05:04 D-Dimer 724.01 ng/mlDDU (0-234) H 08/28/20 03:08 Sodium 139 mmol/L (137-145) 08/31/20 07:35 Potassium 3.8 mmol/L (3.6-5.0) 08/31/20 07:35 Chloride 98.9 mmol/L (98-107) 08/31/20 07:35 Carbon Dioxide 28 mmol/L (22-30) D 08/31/20 07:35 Anion Gap 16 mmol/L 08/31/20 07:35 BUN 23 mg/dL (9-20) H 08/31/20 07:35 Creatinine 1.6 mg/dL (0.8-1.3) H 08/31/20 07:35 Estimated GFR 56 ml/min 08/31/20 07:35 BUN/Creatinine Ratio 14 % 08/31/20 07:35 Glucose 108 mg/dL (75-100) H 08/31/20 07:35 POC Glucose 114 mg/dL (70-105) H 08/30/20 21:59 Hemoglobin A1c 5.6 % (4-6) 08/28/20 05:04 Calcium 8.9 mg/dL (8.4-10.2) 08/31/20 07:35 Total Bilirubin 2.10 mg/dL (0.1-1.2) H 08/31/20 07:35 AST 26 units/L (5-40) 08/31/20 07:35 ALT 16 units/L (7-56) 08/31/20 07:35 Alkaline Phosphatase 126 units/L (35-129) 08/31/20 07:35 Troponin T 0.021 ng/mL (0.00-0.029) 08/28/20 14:09 NT-Pro-B Natriuret Pep 9753 pg/mL (0-900) H 08/28/20 01:59 Total Protein 7.8 g/dL (6.3-8.2) 08/31/20 07:35 Albumin 3.4 g/dL (3.9-5) L 08/31/20 07:35 Albumin/Globulin Ratio 0.8 % 08/31/20 07:35 Triglycerides < 9 mg/dL (2-149) 08/27/20 19:58 Cholesterol 119 mg/dL (50-199) 08/27/20 19:58 LDL Cholesterol Direct 4 mg/dL (50-130) L 08/27/20 19:58 HDL Cholesterol 81 mg/dL (40-59) H 08/27/20 19:58 Cholesterol/HDL Ratio 2.77 % 08/27/20 19:58 Urine Color Yellow (Yellow) 08/28/20 03:18 Urine Turbidity Clear (Clear) 08/28/20 03:18 Urine pH 6.0 (5.0-7.0) 08/28/20 03:18 Ur Specific [place] 1.006 (1.003-1.030) 08/28/20 03:18 Urine Protein 100 mg/dl mg/dL (Negative) 08/28/20 03:18 Urine Glucose (UA) Neg mg/dL (Negative) 08/28/20 03:18 Urine Ketones Neg mg/dL (Negative) 08/28/20 03:18 Urine Blood Neg (Negative) 08/28/20 03:18 Urine Nitrite Neg (Negative) 08/28/20 03:18 Urine Bilirubin Neg (Negative) 08/28/20 03:18 Urine Urobilinogen < 2.0 mg/dL (<2.0) 08/28/20 03:18 Ur Leukocyte Esterase Neg (Negative) 08/28/20 03:18 Urine WBC (Auto) < 1.0 /HPF (0.0-6.0) 08/28/20 03:18 Urine RBC (Auto) 1.0 /HPF (0.0-6.0) 08/28/20 03:18 Hyaline Casts 3 /LPF 08/28/20 03:18 Coronavirus (PCR) Negative (Negative) 08/28/20 10:09 [place]/IV: Voiding Method Urinal Active Medications - Current Medications Current Medications: Generic Name Dose Route Start Last Admin Trade Name Freq PRN Reason Stop Dose Admin Acetaminophen 650 mg 08/28/20 02:30 08/30/20 22:42 Acetaminophen 325 Mg Tab PO 650 mg Q4H PRN Administration Pain MILD(1-3)/Fever >100.5/SANTOS Aspirin 325 mg 08/29/20 10:00 08/30/20 12:02 Aspirin Ec 325 Mg Tab PO 325 mg QDAY ADAMS Administration Atorvastatin Calcium 40 mg 08/28/20 22:00 08/30/20 21:18 Atorvastatin 40 Mg Tab PO 40 mg QHS ADAMS Administration Dextrose 0 ml 08/28/20 02:30 Dextrose 50% In Water (25gm) 50 Ml Syringe IV Q30MIN PRN Hypoglycemia Protocol Furosemide 40 mg 08/28/20 06:00 08/31/20 05:18 Furosemide 40 Mg/4 Ml Inj IV 40 mg BID@0600,1800 ADAMS Administration Gabapentin 100 mg 08/28/20 14:00 08/31/20 05:19 Gabapentin 100 Mg Cap PO 100 mg Q8HR ADAMS Administration Heparin Sodium (Porcine) 5,000 unit 08/28/20 06:00 08/31/20 05:19 Heparin 5,000 Unit/1 Ml Vial SUB-Q 5,000 unit Q8HR ADAMS Administration Hydralazine HCl 10 mg 08/28/20 03:25 08/28/20 11:06 Hydralazine 20 Mg/1 Ml Inj IV 10 mg Q4H PRN Administration Blood Pressure Milrinone Lactate/Dextrose 20 mg in 100 mls @ 13.826 mls/hr 08/29/20 13:00 08/31/20 05:16 Milrinone-D5w 20 Mg/100 Ml IV 09/01/20 12:59 0.375 mcg/kg/min TITR ADAMS 13.826 mls/hr Administration 0.375 MCG/KG/MIN Insulin Human Isoph/Insulin Regular 15 unit 08/29/20 08:00 08/30/20 18:21 Insulin Nph/Regular 70/30 Inj SUB-Q 15 unit BIDDIAB ADAMS Administration Insulin Human Lispro 0 unit 08/28/20 07:30 08/31/20 08:35 Insulin Lispro 100 Unit/Ml SUB-Q Not Given ACHS [facility] Protocol Metolazone 5 mg 08/30/20 12:00 08/30/20 12:02 Metolazone 5 Mg Tab PO 5 mg QDAY ADAMS Administration Metoprolol Tartrate 50 mg 08/28/20 14:00 08/31/20 05:19 Metoprolol Tartrate 50 Mg Tab PO 50 mg Q8H ADAMS Administration Morphine Sulfate 2 mg 08/28/20 02:30 Morphine 4 Mg/1 Ml Inj IV Q5MIN PRN Chest Pain Nifedipine 60 mg 08/28/20 10:00 08/30/20 12:03 Nifedipine Xl 60 Mg Tab PO 60 mg DAILY ADAMS Administration Nitroglycerin 0.4 mg 08/28/20 02:30 Nitroglycerin 0.4 Mg Tab Subl SL Q5M PRN Chest Pain Ondansetron HCl 4 mg 08/28/20 02:30 Ondansetron 4 Mg/2 Ml Inj IV Q8H PRN Nausea And Vomiting Oxycodone/Acetaminophen 1 tab 08/28/20 09:00 Oxycodone /Acetaminophen 5-325mg Tab PO Q6HR PRN Pain, Moderate (4-6) Pantoprazole Sodium 40 mg 08/29/20 07:30 08/30/20 12:06 Pantoprazole 40 Mg Tab PO 40 mg QDAC ADAMS Administration Sodium Chloride 10 ml 08/28/20 10:00 08/30/20 21:19 Sodium Chloride 0.9% 10 Ml Flush Syringe IV 10 ml BID ADAMS Administration Sodium Chloride 10 ml 08/28/20 02:30 Sodium Chloride 0.9% 10 Ml Flush Syringe IV PRN PRN LINE FLUSH Spironolactone 25 mg 08/28/20 10:00 08/30/20 12:02 Spironolactone 25 Mg Tab PO 25 mg QDAY [facility] Administration Valsartan 160 mg 08/28/20 15:00 08/30/20 12:02 Valsartan 160mg Tab PO 160 mg DAILY ADAMS Administration Nutrition/Malnutrition Assess - Dietary Evaluation Nutrition/Malnutrition Findings: Nutrition Notes Start: 08/28/20 10:15 Freq: Status: Active Protocol: Document 08/30/20 08:59 AT (Rec: 08/30/20 09:00 AT [email or web address]) Co-Sign 08/30/20 08:59 CW Nutrition Notes Initial or Follow up Brief Note Current Diagnosis Hypertension,Heart Failure, Hyperlipidemia Other Pertinent Diagnosis Bilat LE edema, SOB, GERD Current Diet Cardiac Diet Subjective/Other Information Follow up for stable intakes. Pt reports no N/V/D and is eating at least 80% of meals. Food preferences were recorded . Pt is not at nutritional risk at this time. Nutrition Intervention Anticipated Discharge Needs: Cardiac/Consistent CHO diet Revisit per MD consult or patient Sign Off request:
[2020-08-31] MEDS: INSULIN NPH/REGULAR 70/30 INJ SUB-Q SCH ×2 (09:16→17:23)
[2020-08-31] MEDS: ASPIRIN EC 325 MG TAB PO SCH (09:17)
[2020-08-31] MEDS: ACETAMINOPHEN 325 MG TAB PO PRN ×4 (09:17→21:22)
[2020-08-31] MEDS: VALSARTAN 160MG TAB PO SCH (09:18)
[2020-08-31] MEDS: SPIRONOLACTONE 25 MG TAB PO SCH (09:18)
[2020-08-31] MEDS: metOLazone 5 MG TAB PO SCH (09:18)
[2020-08-31] MEDS: NIFEdipine XL 60 MG TAB PO SCH (09:18)
[2020-08-31] MEDS: PANTOPRAZOLE 40 MG TAB PO SCH (09:18)
--- NOTE | 2020-08-31 11:55 | Progress Note ---
Assessment and Plan - Patient Problems (1) Atrial tachycardia Current Visit: Yes Status: Acute Plan to address problem: Patient is back in a stable sinus rhythm on medical therapy, continue beta- blockers. (2) Acute on chronic systolic heart failure Current Visit: No Status: Acute Plan to address problem: Patient has persistent 2+ lower extremity edema, we will continue intravenous milrinone for management of systolic heart failure. Subjective Date of service: 08/31/20 Interval history: No new cardiac complaints, patient is on intravenous milrinone for acute on chronic systolic heart failure decompensation. Objective Vital Signs Temp Pulse Resp BP Pulse Ox 08/31/20 09:18 84 131/83 08/31/20 07:41 98.1 F 84 18 131/83 97 08/31/20 04:25 99.0 F 89 20 121/71 94 08/31/20 00:00 88 08/30/20 23:58 98.5 F 90 20 106/59 98 08/30/20 20:33 99.0 F 126 H 18 146/96 93 08/30/20 16:27 98.0 F 83 18 136/84 93 08/30/20 12:02 69 118/73 08/30/20 11:55 98.2 F 84 18 131/78 96 - Physical Examination General: No Apparent Distress HEENT: Positive: PERRL Neck: Positive: trachea midline Cardiac: Positive: Reg Rate and Rhythm Lungs: Positive: Decreased Breath Sounds Neuro: Positive: Grossly Intact Abdomen: Positive: Soft Extremities: Present: +2 Edema - Labs and Meds Cardiac Enzymes 08/31/20 Range/Units 07:35 AST 26 (5-40) units/L Comprehensive Metabolic Panel 08/31/20 Range/Units 07:35 Sodium 139 (137-145) mmol/L Potassium 3.8 (3.6-5.0) mmol/L Chloride 98.9 (98-107) mmol/L Carbon Dioxide 28 D (22-30) mmol/L BUN 23 H (9-20) mg/dL Creatinine 1.6 H (0.8-1.3) mg/dL Glucose 108 H (75-100) mg/dL Calcium 8.9 (8.4-10.2) mg/dL AST 26 (5-40) units/L ALT 16 (7-56) units/L Alkaline Phosphatase 126 (35-129) units/L Total Protein 7.8 (6.3-8.2) g/dL Albumin 3.4 L (3.9-5) g/dL
[2020-09-01] MEDS: MILRINONE-D5W 20 MG/100 ML 20 MG/100 ML BAG IV SCH ×2 (04:09→17:54)
[2020-09-01] MEDS: FUROSEMIDE 40 MG/4 ML INJ IV SCH ×2 (05:27→19:28)
[2020-09-01] MEDS: METOPROLOL TARTRATE 50 MG TAB PO SCH ×4 (05:28→21:12)
[2020-09-01] MEDS: GABAPENTIN 100 MG CAP PO SCH ×3 (05:29→21:12)
[2020-09-01] MEDS: HEPARIN 5,000 UNIT/1 ML VIAL SUB-Q SCH ×3 (05:32→21:12)
[2020-09-01 07:42] LABS: BUN/Creatinine Ratio 15; Blood Urea Nitrogen 21 mg/dL (9-20); Calcium 9.1 mg/dL (8.4-10.2); Hemolysis Index 3
[2020-09-01] MEDS: PANTOPRAZOLE 40 MG TAB PO SCH (07:54)
[2020-09-01] MEDS: INSULIN LISPRO 100 UNIT/ML SUB-Q SCH ×4 (09:31→22:00)
[2020-09-01] MEDS: INSULIN NPH/REGULAR 70/30 INJ SUB-Q SCH ×2 (09:37→22:00)
[2020-09-01] MEDS: NIFEdipine XL 60 MG TAB PO SCH (09:38)
[2020-09-01] MEDS: VALSARTAN 160MG TAB PO SCH (09:38)
[2020-09-01] MEDS: ASPIRIN EC 325 MG TAB PO SCH (09:38)
[2020-09-01] MEDS: SPIRONOLACTONE 25 MG TAB PO SCH (09:38)
[2020-09-01] MEDS: metOLazone 5 MG TAB PO SCH (09:38)
--- NOTE | 2020-09-01 10:38 | Progress Note ---
Assessment and Plan Assessment and plan: Assessment and Plan This is a 49-year-old male with a history of CHF presented to the hospital with worsening shortness of breath and bilateral lower extremity swelling and hypertensive urgency with blood pressure 198/136 on admission. -- Acute on chronic combined systolic and diastolic heart failure Patient admitted and placed on telemetry. Continue patient on IV diuretics. LVEF 20 to 25% with diastolic dysfunction Continue milrinone drip Cardiology following -- Acute chest pain Patient placed on telemetry. Patient will be placed on daily aspirin, sublingual nitroglycerin and IV morphine as needed for chest pain. --PUI for COVID-19, Covid negative --Acute hypoxic respiratory failure, due to CHF exacerbation continue IV diuresis Nebulizer breathing treatment as needed Oxygen supplementation as needed -- Total bilirubin, elevated Stable at baseline most likely -- Hypertensive emergency Possibly secondary to noncompliance. Continue home medications Hydralazine as needed -- Diabetes mellitus Will monitor Accu-Cheks closely. Patient placed on sliding scale insulin. --Chronic kidney disease stage IIIa Stable at this time Acute back pain, left scapula Possibly muscle spasm Patient is declining any pain medication at this time Resolved -- DVT prophylaxis Patient placed on subcutaneous heparin. -- Full code status Disposition: Continue milrinone drip, maximize cardiac medications. History Interval history: 08/29/20: Patient did not have much improvement in the last 24 hours with IV diuretics. Urine output is not optimal. Planned to start on milrinone drip by rawhide bone roller. Covid test pending , continue Covid protocol 08/30/2020: Patient started on milrinone drip, continues to have some shortness of breath but has improved. 08/31/2020: Patient eating breakfast, cough is diminished, diuresing is helping. Explained to patient the severity of his heart failure. 09/01/2020 patient seen, back pain has subsided. Continues to be on milrinone. Hospitalist Physical - Physical exam Narrative exam: General appearance: Obese, no acute distress, well-nourished EENT: PERRL, EOM intact, hearing intact, clear oral mucosa, normal dentition Neck: Present: supple, normal ROM Respiratory: bilateral: CTA, negative: rales, rhonchi, wheezing Cardiovascular: Regular rate/rhythm, Normal S1 & S2. No gallop, rub Extremities: no ischemia, +1 pitting edema in lower extremities bilaterally, normal temperature, normal color, Full ROM MSK: Left scapula without pain with palpation Abdominal: soft, non-tender, non-distended, normal bowel sounds Integumentary: Present: clear, warm, dry Psychiatric: appropriate mood/affect, intact judgment & insight Neurologic: CNII-XII intact, moves all extremities - Constitutional Vitals: Temp Pulse Resp BP Pulse Ox 100.1 F H 102 H 20 153/91 95 09/01/20 04:30 09/01/20 09:38 09/01/20 04:30 09/01/20 04:30 09/01/20 04:30 General appearance: Present: no acute distress HEART Score - HEART Score EKG: Normal Age: 45-65 Risk factors: > 3 risk factors or hx of atherosclerotic disease Troponin: Troponin T 0.021 ng/mL (0.00-0.029) 08/28/20 14:09 Troponin: < normal limit Results - Labs CBC & Chem 7: 08/28/20 05:04 09/01/20 04:40 Labs: Laboratory Last Values WBC 7.8 K/mm3 (4.5-11.0) 08/28/20 05:04 RBC 5.04 M/mm3 (3.65-5.03) H 08/28/20 05:04 Hgb 14.0 gm/dl (11.8-15.2) 08/28/20 05:04 Hct 43.8 % (35.5-45.6) 08/28/20 05:04 MCV 87 fl (84-94) 08/28/20 05:04 MCH 28 pg (28-32) 08/28/20 05:04 MCHC 32 % (32-34) 08/28/20 05:04 RDW 17.0 % (13.2-15.2) H 08/28/20 05:04 Plt Count 257 K/mm3 (140-440) 08/28/20 05:04 Lymph % (Auto) 20.1 % (13.4-35.0) 08/28/20 05:04 [place] % (Auto) 8.1 % (0.0-7.3) H 08/28/20 05:04 Eos % (Auto) 5.7 % (0.0-4.3) H 08/28/20 05:04 Baso % (Auto) 1.1 % (0.0-1.8) 08/28/20 05:04 Lymph # (Auto) 1.6 K/mm3 (1.2-5.4) 08/28/20 05:04 [place] # (Auto) 0.6 K/mm3 (0.0-0.8) 08/28/20 05:04 Eos # (Auto) 0.4 K/mm3 (0.0-0.4) 08/28/20 05:04 Baso # (Auto) 0.1 K/mm3 (0.0-0.1) 08/28/20 05:04 Seg Neutrophils % 65.0 % (40.0-70.0) 08/28/20 05:04 Seg Neutrophils # 5.1 K/mm3 (1.8-7.7) 08/28/20 05:04 D-Dimer 724.01 ng/mlDDU (0-234) H 08/28/20 03:08 Sodium 136 mmol/L (137-145) L 09/01/20 04:40 Potassium 3.4 mmol/L (3.6-5.0) L 09/01/20 04:40 Chloride 93.7 mmol/L (98-107) L 09/01/20 04:40 Carbon Dioxide 30 mmol/L (22-30) 09/01/20 04:40 Anion Gap 16 mmol/L 09/01/20 04:40 BUN 21 mg/dL (9-20) H 09/01/20 04:40 Creatinine 1.4 mg/dL (0.8-1.3) H 09/01/20 04:40 Estimated GFR > 60 ml/min 09/01/20 04:40 BUN/Creatinine Ratio 15 % 09/01/20 04:40 Glucose 166 mg/dL (75-100) H 09/01/20 04:40 POC Glucose 122 mg/dL (70-105) H 08/31/20 21:16 Hemoglobin A1c 5.6 % (4-6) 08/28/20 05:04 Calcium 9.1 mg/dL (8.4-10.2) 09/01/20 04:40 Total Bilirubin 2.10 mg/dL (0.1-1.2) H 08/31/20 07:35 AST 26 units/L (5-40) 08/31/20 07:35 ALT 16 units/L (7-56) 08/31/20 07:35 Alkaline Phosphatase 126 units/L (35-129) 08/31/20 07:35 Troponin T 0.021 ng/mL (0.00-0.029) 08/28/20 14:09 NT-Pro-B Natriuret Pep 9753 pg/mL (0-900) H 08/28/20 01:59 Total Protein 7.8 g/dL (6.3-8.2) 08/31/20 07:35 Albumin 3.4 g/dL (3.9-5) L 08/31/20 07:35 Albumin/Globulin Ratio 0.8 % 08/31/20 07:35 Triglycerides < 9 mg/dL (2-149) 08/27/20 19:58 Cholesterol 119 mg/dL (50-199) 08/27/20 19:58 LDL Cholesterol Direct 4 mg/dL (50-130) L 08/27/20 19:58 HDL Cholesterol 81 mg/dL (40-59) H 08/27/20 19:58 Cholesterol/HDL Ratio 2.77 % 08/27/20 19:58 Urine Color Yellow (Yellow) 08/28/20 03:18 Urine Turbidity Clear (Clear) 08/28/20 03:18 Urine pH 6.0 (5.0-7.0) 08/28/20 03:18 Ur Specific [place] 1.006 (1.003-1.030) 08/28/20 03:18 Urine Protein 100 mg/dl mg/dL (Negative) 08/28/20 03:18 Urine Glucose (UA) Neg mg/dL (Negative) 08/28/20 03:18 Urine Ketones Neg mg/dL (Negative) 08/28/20 03:18 Urine Blood Neg (Negative) 08/28/20 03:18 Urine Nitrite Neg (Negative) 08/28/20 03:18 Urine Bilirubin Neg (Negative) 08/28/20 03:18 Urine Urobilinogen < 2.0 mg/dL (<2.0) 08/28/20 03:18 Ur Leukocyte Esterase Neg (Negative) 08/28/20 03:18 Urine WBC (Auto) < 1.0 /HPF (0.0-6.0) 08/28/20 03:18 Urine RBC (Auto) 1.0 /HPF (0.0-6.0) 08/28/20 03:18 Hyaline Casts 3 /LPF 08/28/20 03:18 Coronavirus (PCR) Negative (Negative) 08/28/20 10:09 [place]/IV: Voiding Method Urinal Active Medications - Current Medications Current Medications: Generic Name Dose Route Start Last Admin Trade Name Freq PRN Reason Stop Dose Admin Acetaminophen 650 mg 08/28/20 02:30 08/31/20 21:22 Acetaminophen 325 Mg Tab PO 650 mg Q4H PRN Administration Pain MILD(1-3)/Fever >100.5/SANTOS Aspirin 325 mg 08/29/20 10:00 09/01/20 09:38 Aspirin Ec 325 Mg Tab PO 325 mg QDAY ADAMS Administration Atorvastatin Calcium 40 mg 08/28/20 22:00 08/31/20 21:23 Atorvastatin 40 Mg Tab PO 40 mg QHS ADAMS Administration Dextrose 0 ml 08/28/20 02:30 Dextrose 50% In Water (25gm) 50 Ml Syringe IV Q30MIN PRN Hypoglycemia Protocol Furosemide 40 mg 08/28/20 06:00 09/01/20 05:27 Furosemide 40 Mg/4 Ml Inj IV 40 mg BID@0600,1800 ADAMS Administration Gabapentin 100 mg 08/28/20 14:00 09/01/20 05:29 Gabapentin 100 Mg Cap PO 100 mg Q8HR ADAMS Administration Heparin Sodium (Porcine) 5,000 unit 08/28/20 06:00 09/01/20 05:32 Heparin 5,000 Unit/1 Ml Vial SUB-Q 5,000 unit Q8HR ADAMS Administration Hydralazine HCl 10 mg 08/28/20 03:25 08/28/20 11:06 Hydralazine 20 Mg/1 Ml Inj IV 10 mg Q4H PRN Administration Blood Pressure Milrinone Lactate/Dextrose 20 mg in 100 mls @ 13.826 mls/hr 08/29/20 13:00 09/01/20 04:09 Milrinone-D5w 20 Mg/100 Ml IV 09/01/20 12:59 0.375 mcg/kg/min TITR ADAMS 13.826 mls/hr Administration 0.375 MCG/KG/MIN Insulin Human Isoph/Insulin Regular 15 unit 08/29/20 08:00 09/01/20 09:37 Insulin Nph/Regular 70/30 Inj SUB-Q 15 unit BIDDIAB ADAMS Administration Insulin Human Lispro 0 unit 08/28/20 07:30 09/01/20 09:31 Insulin Lispro 100 Unit/Ml SUB-Q Not Given ACHS [facility] Protocol Metolazone 5 mg 08/30/20 12:00 09/01/20 09:38 Metolazone 5 Mg Tab PO 5 mg QDAY ADAMS Administration Metoprolol Tartrate 50 mg 08/28/20 14:00 09/01/20 05:28 Metoprolol Tartrate 50 Mg Tab PO 50 mg Q8H ADAMS Administration Morphine Sulfate 2 mg 08/28/20 02:30 Morphine 4 Mg/1 Ml Inj IV Q5MIN PRN Chest Pain Nifedipine 60 mg 08/28/20 10:00 09/01/20 09:38 Nifedipine Xl 60 Mg Tab PO 60 mg DAILY ADAMS Administration Nitroglycerin 0.4 mg 08/28/20 02:30 Nitroglycerin 0.4 Mg Tab Subl SL Q5M PRN Chest Pain Ondansetron HCl 4 mg 08/28/20 02:30 Ondansetron 4 Mg/2 Ml Inj IV Q8H PRN Nausea And Vomiting Oxycodone/Acetaminophen 1 tab 08/28/20 09:00 Oxycodone /Acetaminophen 5-325mg Tab PO Q6HR PRN Pain, Moderate (4-6) Pantoprazole Sodium 40 mg 08/29/20 07:30 09/01/20 07:54 Pantoprazole 40 Mg Tab PO 40 mg QDAC ADAMS Administration Potassium Chloride 20 meq 09/01/20 10:36 Potassium Chloride Er 20 Meq Tab PO 09/01/20 10:37 ONCE ONE Sodium Chloride 10 ml 08/28/20 10:00 09/01/20 09:39 Sodium Chloride 0.9% 10 Ml Flush Syringe IV 10 ml BID ADAMS Administration Sodium Chloride 10 ml 08/28/20 02:30 08/31/20 17:25 Sodium Chloride 0.9% 10 Ml Flush Syringe IV 10 ml PRN PRN Administration LINE FLUSH Spironolactone 25 mg 08/28/20 10:00 09/01/20 09:38 Spironolactone 25 Mg Tab PO 25 mg QDAY ADAMS Administration Valsartan 160 mg 08/28/20 15:00 09/01/20 09:38 Valsartan 160mg Tab PO 160 mg DAILY ADAMS Administration Nutrition/Malnutrition Assess - Dietary Evaluation Nutrition/Malnutrition Findings: Nutrition Notes Start: 08/28/20 10:15 Freq: Status: Active Protocol: Document 08/30/20 08:59 AT (Rec: 08/30/20 09:00 AT [id number]) Co-Sign 08/30/20 08:59 CW Nutrition Notes Initial or Follow up Brief Note Current Diagnosis Hypertension,Heart Failure, Hyperlipidemia Other Pertinent Diagnosis Bilat LE edema, SOB, GERD Current Diet Cardiac Diet Subjective/Other Information Follow up for stable intakes. Pt reports no N/V/D and is eating at least 80% of meals. Food preferences were recorded . Pt is not at nutritional risk at this time. Nutrition Intervention Anticipated Discharge Needs: Cardiac/Consistent CHO diet Revisit per MD consult or patient Sign Off request:
[2020-09-01] MEDS ORDERED: POTASSIUM CHLORIDE ER 20 MEQ TAB PO ONE (11:00)
--- NOTE | 2020-09-01 13:56 | Progress Note ---
Assessment and Plan - Patient Problems (1) Atrial tachycardia Current Visit: Yes Status: Acute Plan to address problem: Continue medical therapy as previously outlined with beta-blockers. (2) Acute on chronic systolic heart failure Current Visit: No Status: Acute Plan to address problem: We will continue intravenous milrinone for management of acute decompensation of chronic systolic heart failure. Subjective Date of service: 09/01/20 Interval history: Patient is comfortable, still has 1-2+ lower extremity edema, no chest pain and no shortness of breath. Objective Vital Signs Temp Pulse Resp BP Pulse Ox 09/01/20 09:38 102 H 09/01/20 06:00 102 H 09/01/20 04:30 100.1 F H 99 H 20 153/91 95 08/31/20 23:32 98.8 F 101 H 20 160/99 91 08/31/20 20:46 98.3 F 92 H 20 149/82 97 - Physical Examination General: No Apparent Distress HEENT: Positive: PERRL Neck: Positive: trachea midline Cardiac: Positive: Reg Rate and Rhythm Lungs: Positive: Decreased Breath Sounds Neuro: Positive: Grossly Intact Abdomen: Positive: Soft Extremities: Present: +1 Edema, +2 Edema - Labs and Meds Comprehensive Metabolic Panel 09/01/20 Range/Units 04:40 Sodium 136 L (137-145) mmol/L Potassium 3.4 L (3.6-5.0) mmol/L Chloride 93.7 L (98-107) mmol/L Carbon Dioxide 30 (22-30) mmol/L BUN 21 H (9-20) mg/dL Creatinine 1.4 H (0.8-1.3) mg/dL Glucose 166 H (75-100) mg/dL Calcium 9.1 (8.4-10.2) mg/dL
[2020-09-01] MEDS ORDERED: MILRINONE-D5W 20 MG/100 ML 20 MG/100 ML BAG IV SCH (14:00)
[2020-09-02] MEDS: MILRINONE-D5W 20 MG/100 ML 20 MG/100 ML BAG IV SCH ×3 (02:04→17:46)
--- NOTE | 2020-09-02 06:15 | XRay Report ---
CHEST 2 VIEWS INDICATION: Fever, R/O PNA. COMPARISON: 08/27/2020 FINDINGS: Support devices: None. Heart: Stable cardiomegaly. Lungs/Pleura: Mild increasing interstitial markings. No significant pleural effusion. IMPRESSION: Mild increasing interstitial markings. Vascular congestion/edema is favored over pneumon ia. Signer Name: Favian Aldana MD Signed: 09/02/2020 6:11 AM Workstation Name: [id number]
[2020-09-02] MEDS: METOPROLOL TARTRATE 50 MG TAB PO SCH ×3 (06:31→21:25)
[2020-09-02] MEDS: FUROSEMIDE 40 MG/4 ML INJ IV SCH ×2 (06:31→17:39)
[2020-09-02] MEDS: GABAPENTIN 100 MG CAP PO SCH ×3 (06:31→21:25)
[2020-09-02] MEDS: HEPARIN 5,000 UNIT/1 ML VIAL SUB-Q SCH ×3 (06:31→21:25)
[2020-09-02] MEDS: ACETAMINOPHEN 325 MG TAB PO PRN ×2 (06:55→21:25)
[2020-09-02] MEDS: INSULIN LISPRO 100 UNIT/ML SUB-Q SCH ×4 (08:15→21:00)
[2020-09-02] MEDS: PANTOPRAZOLE 40 MG TAB PO SCH (09:53)
[2020-09-02] MEDS: INSULIN NPH/REGULAR 70/30 INJ SUB-Q SCH ×2 (09:53→17:39)
[2020-09-02] MEDS: SPIRONOLACTONE 25 MG TAB PO SCH (09:53)
[2020-09-02] MEDS: VALSARTAN 160MG TAB PO SCH (09:53)
[2020-09-02] MEDS: ASPIRIN EC 325 MG TAB PO SCH (09:54)
[2020-09-02] MEDS: NIFEdipine XL 60 MG TAB PO SCH (09:54)
[2020-09-02] MEDS: metOLazone 5 MG TAB PO SCH (09:54)
--- NOTE | 2020-09-02 09:56 | XRay Report ---
CHEST 1 VIEW 0941 hours INDICATION: r/o PNA. COMPARISON: Earlier today at 0557 hours FINDINGS: Support devices: None. Heart: Stable cardiomegaly. Lungs/Pleura: There is poor inspiration. Decreased pulmonary markings are demonstrated since earlier today probably representing decreased vascular congestion. Partial atelectasis is suspected in the le ft lower lobe but no convincing infiltrate. No large pleural effusion or pneumothorax. Additional findings: None. IMPRESSION: Cardiomegaly. Pulmonary venous congestion has resolved. Partial atelectasis in the left lower lobe is suspected. No convincing pneumonia. Signer Name: Rey Knight Jr, MD Signed: 09/02/2020 9:52 AM Workstation Name: [id number]
[2020-09-02 10:08] LABS: Hematocrit 44.1 % (35.5-45.6); Hemoglobin 14.1 gm/dl (11.8-15.2); Mean Corpuscular HGB Conc 32 % (32-34); Mean Corpuscular Volume 85 fl (84-94); Platelet Count 273 K/mm3 (140-440); Red Cell Distribution Width 16.7 % (13.2-15.2)
--- NOTE | 2020-09-02 10:13 | Progress Note ---
Assessment and Plan - Patient Problems (1) Atrial tachycardia Current Visit: Yes Status: Acute Plan to address problem: Continue beta-rainer therapy for paroxysmal atrial tachycardia. (2) Acute on chronic systolic heart failure Current Visit: No Status: Acute Plan to address problem: Continue optimal heart failure management including ongoing intravenous milrinone infusion. Subjective Date of service: 09/02/20 Interval history: Patient is comfortable, no cardiac complaints, looks and feels comfortable. Objective Vital Signs Temp Pulse Resp Resp BP BP Pulse Ox 09/02/20 06:31 102 H 118/71 09/02/20 06:00 102 H 09/02/20 04:31 100.9 F H 109 H 20 118/71 95 09/02/20 02:00 20 09/01/20 23:46 99.4 F 24 149/94 09/01/20 22:00 115 H 09/01/20 21:12 102 H 148/80 09/01/20 21:07 99.2 F 109 H 24 128/71 96 09/01/20 16:00 100.1 F H 102 H 148/80 09/01/20 15:33 102 H 09/01/20 15:30 102 H 09/01/20 14:00 102 H 09/01/20 12:00 99.8 F H 102 H 12 176/92 96 09/01/20 11:43 174/101 - Physical Examination General: No Apparent Distress HEENT: Positive: PERRL Neck: Positive: trachea midline Cardiac: Positive: Reg Rate and Rhythm Lungs: Positive: Decreased Breath Sounds Neuro: Positive: Grossly Intact Abdomen: Positive: Soft Extremities: Present: +1 Edema, +2 Edema
[2020-09-02 10:20] LABS: Calcium 8.6 mg/dL (8.4-10.2)
[2020-09-02 11:43] LABS: Total Cells Counted 100
[2020-09-02 11:44] LABS: Platelet Estimate Consistent w Auto; RBC Morphology Normal
[2020-09-02] MEDS ORDERED: VANCOMYCIN 1,750 MG in SODIUM CHLORIDE 0.9% 500 ML 500 ML IV ONE (14:35)
--- NOTE | 2020-09-02 14:40 | Progress Note ---
Assessment and Plan Assessment and plan: Assessment and Plan This is a 49-year-old male with a history of CHF presented to the hospital with worsening shortness of breath and bilateral lower extremity swelling and hypertensive urgency with blood pressure 198/136 on admission. -- Acute on chronic combined systolic and diastolic heart failure Patient admitted and placed on telemetry. Continue patient on IV diuretics. LVEF 20 to 25% with diastolic dysfunction Continue milrinone drip Cardiology following Leukocytosis with fever, negative Covid x2 Patient meets sepsis criteria Blood cultures pending Urine and urine cultures pending Blood cultures pending Chest x-ray without any infiltrates Infectious disease consulted Patient placed on vancomycin and Zosyn, renally dosed -- Acute chest pain Patient placed on telemetry. Patient will be placed on daily aspirin, sublingual nitroglycerin and IV morphine as needed for chest pain. --PUI for COVID-19, Covid negative on 08/28 and 09/02 --Acute hypoxic respiratory failure, due to CHF exacerbation continue IV diuresis Nebulizer breathing treatment as needed Oxygen supplementation as needed -- Total bilirubin, elevated Stable at baseline most likely -- Hypertensive emergency Possibly secondary to noncompliance. Continue home medications Hydralazine as needed -- Diabetes mellitus Will monitor Accu-Cheks closely. Patient placed on sliding scale insulin. --Chronic kidney disease stage IIIa Stable at this time Acute back pain, left scapula Possibly muscle spasm Patient is declining any pain medication at this time Resolved -- DVT prophylaxis Patient placed on subcutaneous heparin. -- Full code status Disposition: Continue milrinone drip, maximize cardiac medications. Continue work-up for sepsis. History Interval history: 08/29/20: Patient did not have much improvement in the last 24 hours with IV diuretics. Urine output is not optimal. Planned to start on milrinone drip by [employer] specialist. Covid test pending , continue Covid protocol 08/30/2020: Patient started on milrinone drip, continues to have some shortness of breath but has improved. 08/31/2020: Patient eating breakfast, cough is diminished, diuresing is helping. Explained to patient the severity of his heart failure. 09/01/2020 patient seen, back pain has subsided. Continues to be on milrinone. 09/02/2020: Patient seen, looks very lethargic, patient with a fever overnight. Sepsis protocol and infectious disease consult initiated Hospitalist Physical - Physical exam Narrative exam: General appearance: Obese, no acute distress, well-nourished EENT: PERRL, EOM intact, hearing intact, clear oral mucosa, normal dentition Neck: Present: supple, normal ROM Respiratory: bilateral CTA, negative: rales, rhonchi, wheezing Cardiovascular: Regular rate/rhythm, Normal S1 & S2. No gallop, rub Extremities: no ischemia, +1 pitting edema in lower extremities bilaterally, normal temperature, normal color, Full ROM MSK: Left scapula without pain with palpation Abdominal: soft, non-tender, non-distended, normal bowel sounds Integumentary: Present: clear, warm, dry Psychiatric: appropriate mood/affect, intact judgment & insight Neurologic: CNII-XII intact, moves all extremities - Constitutional Vitals: Temp Pulse Resp BP Pulse Ox 100.1 F H 97 H 18 109/58 89 09/02/20 08:00 09/02/20 08:00 09/02/20 08:00 09/02/20 08:00 09/02/20 08:00 General appearance: Present: no acute distress HEART Score - HEART Score EKG: Normal Age: 45-65 Risk factors: > 3 risk factors or hx of atherosclerotic disease Troponin: Troponin T 0.021 ng/mL (0.00-0.029) 08/28/20 14:09 Troponin: < normal limit Results - Labs CBC & Chem 7: 09/02/20 09:19 09/02/20 09:19 Labs: Laboratory Last Values WBC 20.9 K/mm3 (4.5-11.0) H 09/02/20 09:19 RBC 5.20 M/mm3 (3.65-5.03) H 09/02/20 09:19 Hgb 14.1 gm/dl (11.8-15.2) 09/02/20 09:19 Hct 44.1 % (35.5-45.6) 09/02/20 09:19 MCV 85 fl (84-94) 09/02/20 09:19 MCH 27 pg (28-32) L 09/02/20 09:19 MCHC 32 % (32-34) 09/02/20 09:19 RDW 16.7 % (13.2-15.2) H 09/02/20 09:19 Plt Count 273 K/mm3 (140-440) 09/02/20 09:19 Lymph % (Auto) 20.1 % (13.4-35.0) 08/28/20 05:04 Walker % (Auto) 8.1 % (0.0-7.3) H 08/28/20 05:04 Eos % (Auto) 5.7 % (0.0-4.3) H 08/28/20 05:04 Baso % (Auto) 1.1 % (0.0-1.8) 08/28/20 05:04 Lymph # (Auto) 1.6 K/mm3 (1.2-5.4) 08/28/20 05:04 Walker # (Auto) 0.6 K/mm3 (0.0-0.8) 08/28/20 05:04 Eos # (Auto) 0.4 K/mm3 (0.0-0.4) 08/28/20 05:04 Baso # (Auto) 0.1 K/mm3 (0.0-0.1) 08/28/20 05:04 Add Manual Diff Complete 09/02/20 09:19 Total Counted 100 09/02/20 09:19 Seg Neutrophils % 65.0 % (40.0-70.0) 08/28/20 05:04 Seg Neuts % (Manual) 86.0 % (40.0-70.0) H 09/02/20 09:19 Lymphocytes % (Manual) 7.0 % (13.4-35.0) L 09/02/20 09:19 Monocytes % (Manual) 7.0 % (0.0-7.3) 09/02/20 09:19 Nucleated RBC % Not Reportable 09/02/20 09:19 Seg Neutrophils # 5.1 K/mm3 (1.8-7.7) 08/28/20 05:04 Seg Neutrophils # Man 18.0 K/mm3 (1.8-7.7) H 09/02/20 09:19 Band Neutrophils # 0.0 K/mm3 09/02/20 09:19 Lymphocytes # (Manual) 1.5 K/mm3 (1.2-5.4) 09/02/20 09:19 Abs React Lymphs (Man) 0.0 K/mm3 09/02/20 09:19 Monocytes # (Manual) 1.5 K/mm3 (0.0-0.8) H 09/02/20 09:19 Eosinophils # (Manual) 0.0 K/mm3 (0.0-0.4) 09/02/20 09:19 Basophils # (Manual) 0.0 K/mm3 (0.0-0.1) 09/02/20 09:19 Metamyelocytes # 0.0 K/mm3 09/02/20 09:19 Myelocytes # 0.0 K/mm3 09/02/20 09:19 Promyelocytes # 0.0 K/mm3 09/02/20 09:19 Blast Cells # 0.0 K/mm3 09/02/20 09:19 WBC Morphology Not Reportable 09/02/20 09:19 Hypersegmented Neuts Not Reportable 09/02/20 09:19 Hyposegmented Neuts Not Reportable 09/02/20 09:19 Hypogranular Neuts Not Reportable 09/02/20 09:19 Smudge Cells Not Reportable 09/02/20 09:19 Toxic Granulation Not Reportable 09/02/20 09:19 Toxic Vacuolation Not Reportable 09/02/20 09:19 Dohle Bodies Not Reportable 09/02/20 09:19 Pelger-Huet Anomaly Not Reportable 09/02/20 09:19 Lisette Rods Not Reportable 09/02/20 09:19 Platelet Estimate Consistent w auto 09/02/20 09:19 Clumped Platelets Not Reportable 09/02/20 09:19 Plt Clumps, EDTA Not Reportable 09/02/20 09:19 Large Platelets Not Reportable 09/02/20 09:19 Giant Platelets Not Reportable 09/02/20 09:19 Platelet Satelliting Not Reportable 09/02/20 09:19 Plt Morphology Comment Not Reportable 09/02/20 09:19 RBC Morphology Normal 09/02/20 09:19 Dimorphic RBCs Not Reportable 09/02/20 09:19 Polychromasia Not Reportable 09/02/20 09:19 Hypochromasia Not Reportable 09/02/20 09:19 Poikilocytosis Not Reportable 09/02/20 09:19 Anisocytosis Not Reportable 09/02/20 09:19 Microcytosis Not Reportable 09/02/20 09:19 Macrocytosis Not Reportable 09/02/20 09:19 Spherocytes Not Reportable 09/02/20 09:19 Pappenheimer Bodies Not Reportable 09/02/20 09:19 Sickle Cells Not Reportable 09/02/20 09:19 Target Cells Not Reportable 09/02/20 09:19 Tear Drop Cells Not Reportable 09/02/20 09:19 Ovalocytes Not Reportable 09/02/20 09:19 Helmet Cells Not Reportable 09/02/20 09:19 [place]guiano-[place] Bodies Not Reportable 09/02/20 09:19 [place] Rings Not Reportable 09/02/20 09:19 [place] Cells Not Reportable 09/02/20 09:19 Bite Cells Not Reportable 09/02/20 09:19 Crenated Cell Not Reportable 09/02/20 09:19 Elliptocytes Not Reportable 09/02/20 09:19 Acanthocytes (Spur) Not Reportable 09/02/20 09:19 Rouleaux Not Reportable 09/02/20 09:19 Hemoglobin C Crystals Not Reportable 09/02/20 09:19 Schistocytes Not Reportable 09/02/20 09:19 Malaria parasites Not Reportable 09/02/20 09:19 Gareth Bodies Not Reportable 09/02/20 09:19 Hem Pathologist Commnt No 09/02/20 09:19 D-Dimer 724.01 ng/mlDDU (0-234) H 08/28/20 03:08 Sodium 134 mmol/L (137-145) L 09/02/20 09:19 Potassium 3.7 mmol/L (3.6-5.0) 09/02/20 09:19 Chloride 91.1 mmol/L (98-107) L 09/02/20 09:19 Carbon Dioxide 30 mmol/L (22-30) 09/02/20 09:19 Anion Gap 17 mmol/L 09/02/20 09:19 BUN 23 mg/dL (9-20) H 09/02/20 09:19 Creatinine 1.7 mg/dL (0.8-1.3) H 09/02/20 09:19 Estimated GFR 52 ml/min 09/02/20 09:19 BUN/Creatinine Ratio 14 % 09/02/20 09:19 Glucose 120 mg/dL (75-100) H 09/02/20 09:19 POC Glucose 119 mg/dL (70-105) H 09/02/20 11:35 Hemoglobin A1c 5.6 % (4-6) 08/28/20 05:04 Calcium 8.6 mg/dL (8.4-10.2) 09/02/20 09:19 Total Bilirubin 2.10 mg/dL (0.1-1.2) H 08/31/20 07:35 AST 26 units/L (5-40) 08/31/20 07:35 ALT 16 units/L (7-56) 08/31/20 07:35 Alkaline Phosphatase 126 units/L (35-129) 08/31/20 07:35 Troponin T 0.021 ng/mL (0.00-0.029) 08/28/20 14:09 NT-Pro-B Natriuret Pep 9753 pg/mL (0-900) H 08/28/20 01:59 Total Protein 7.8 g/dL (6.3-8.2) 08/31/20 07:35 Albumin 3.4 g/dL (3.9-5) L 08/31/20 07:35 Albumin/Globulin Ratio 0.8 % 08/31/20 07:35 Triglycerides < 9 mg/dL (2-149) 08/27/20 19:58 Cholesterol 119 mg/dL (50-199) 08/27/20 19:58 LDL Cholesterol Direct 4 mg/dL (50-130) L 08/27/20 19:58 HDL Cholesterol 81 mg/dL (40-59) H 08/27/20 19:58 Cholesterol/HDL Ratio 2.77 % 08/27/20 19:58 Urine Color Yellow (Yellow) 08/28/20 03:18 Urine Turbidity Clear (Clear) 08/28/20 03:18 Urine pH 6.0 (5.0-7.0) 08/28/20 03:18 Ur Specific [place] 1.006 (1.003-1.030) 08/28/20 03:18 Urine Protein 100 mg/dl mg/dL (Negative) 08/28/20 03:18 Urine Glucose (UA) Neg mg/dL (Negative) 08/28/20 03:18 Urine Ketones Neg mg/dL (Negative) 08/28/20 03:18 Urine Blood Neg (Negative) 08/28/20 03:18 Urine Nitrite Neg (Negative) 08/28/20 03:18 Urine Bilirubin Neg (Negative) 08/28/20 03:18 Urine Urobilinogen < 2.0 mg/dL (<2.0) 08/28/20 03:18 Ur Leukocyte Esterase Neg (Negative) 08/28/20 03:18 Urine WBC (Auto) < 1.0 /HPF (0.0-6.0) 08/28/20 03:18 Urine RBC (Auto) 1.0 /HPF (0.0-6.0) 08/28/20 03:18 Hyaline Casts 3 /LPF 08/28/20 03:18 Coronavirus (PCR) Negative (Negative) 09/02/20 Unknown Microbiology: Microbiology 09/02/20 09:19 Peripheral/Venous Blood Culture - Preliminary Culture in Progress 09/02/20 05:35 Peripheral/Venous Blood Culture - Preliminary Culture in Progress [place]/IV: Voiding Method Urinal Active Medications - Current Medications Current Medications: Generic Name Dose Route Start Last Admin Trade Name Freq PRN Reason Stop Dose Admin Acetaminophen 650 mg 08/28/20 02:30 09/02/20 06:55 Acetaminophen 325 Mg Tab PO 650 mg Q4H PRN Administration Pain MILD(1-3)/Fever >100.5/SANTOS Aspirin 325 mg 08/29/20 10:00 09/02/20 09:54 Aspirin Ec 325 Mg Tab PO 325 mg QDAY ADAMS Administration Atorvastatin Calcium 40 mg 08/28/20 22:00 09/01/20 21:12 Atorvastatin 40 Mg Tab PO 40 mg QHS ADAMS Administration Dextrose 0 ml 08/28/20 02:30 Dextrose 50% In Water (25gm) 50 Ml Syringe IV Q30MIN PRN Hypoglycemia Protocol Furosemide 40 mg 08/28/20 06:00 09/02/20 06:31 Furosemide 40 Mg/4 Ml Inj IV 40 mg BID@0600,1800 ADAMS Administration Gabapentin 100 mg 08/28/20 14:00 09/02/20 06:31 Gabapentin 100 Mg Cap PO 100 mg Q8HR ADAMS Administration Heparin Sodium (Porcine) 5,000 unit 08/28/20 06:00 09/02/20 06:31 Heparin 5,000 Unit/1 Ml Vial SUB-Q 5,000 unit Q8HR [facility] Administration Hydralazine HCl 10 mg 08/28/20 03:25 08/28/20 11:06 Hydralazine 20 Mg/1 Ml Inj IV 10 mg Q4H PRN Administration Blood Pressure Milrinone Lactate/Dextrose 20 mg in 100 mls @ 13.995 mls/hr 09/01/20 14:00 09/02/20 09:55 Milrinone-D5w 20 Mg/100 Ml IV 09/03/20 13:59 0.375 mcg/kg/min TITR ADAMS 13.995 mls/hr Administration 0.375 MCG/KG/MIN Piperacillin Sod/Tazobactam Sod 3.375 gm in 50 mls @ 100 mls/hr 09/02/20 15:00 Zosyn/Ns 3.375gm/50ml IV Q8H [facility] Protocol Vancomycin HCl 1,750 mg/ 535 mls @ 333 mls/hr 09/02/20 14:35 Sodium Chloride IV 09/02/20 16:11 ONCE ONE Protocol Vancomycin HCl 1 gm in 250 mls @ 166.667 mls/hr 09/02/20 15:00 Vancomycin/Ns 1 Gm/250 Ml IV Q12H [facility] Protocol Insulin Human Isoph/Insulin Regular 15 unit 08/29/20 08:00 09/02/20 09:53 Insulin Nph/Regular 70/30 Inj SUB-Q 15 unit BIDDIAB [facility] Administration Insulin Human Lispro 0 unit 08/28/20 07:30 09/02/20 08:15 Insulin Lispro 100 Unit/Ml SUB-Q Not Given ACHS [facility] Protocol Metolazone 5 mg 08/30/20 12:00 09/02/20 09:54 Metolazone 5 Mg Tab PO 5 mg QDAY [facility] Administration Metoprolol Tartrate 50 mg 08/28/20 14:00 09/02/20 06:31 Metoprolol Tartrate 50 Mg Tab PO 50 mg Q8H [facility] Administration Morphine Sulfate 2 mg 08/28/20 02:30 Morphine 4 Mg/1 Ml Inj IV Q5MIN PRN Chest Pain Nifedipine 60 mg 08/28/20 10:00 09/02/20 09:54 Nifedipine Xl 60 Mg Tab PO 60 mg DAILY [facility] Administration Nitroglycerin 0.4 mg 08/28/20 02:30 Nitroglycerin 0.4 Mg Tab Subl SL Q5M PRN Chest Pain Ondansetron HCl 4 mg 08/28/20 02:30 Ondansetron 4 Mg/2 Ml Inj IV Q8H PRN Nausea And Vomiting Oxycodone/Acetaminophen 1 tab 08/28/20 09:00 Oxycodone /Acetaminophen 5-325mg Tab PO Q6HR PRN Pain, Moderate (4-6) Pantoprazole Sodium 40 mg 08/29/20 07:30 09/02/20 09:53 Pantoprazole 40 Mg Tab PO 40 mg QDAC AD[facility] Administration Sodium Chloride 10 ml 08/28/20 10:00 09/02/20 09:54 Sodium Chloride 0.9% 10 Ml Flush Syringe IV 10 ml BID [facility] Administration Sodium Chloride 10 ml 08/28/20 02:30 08/31/20 17:25 Sodium Chloride 0.9% 10 Ml Flush Syringe IV 10 ml PRN PRN Administration LINE FLUSH Spironolactone 25 mg 08/28/20 10:00 09/02/20 09:53 Spironolactone 25 Mg Tab PO 25 mg QDAY ADAMS Administration Valsartan 160 mg 08/28/20 15:00 09/02/20 09:53 Valsartan 160mg Tab PO 160 mg DAILY [facility] Administration Nutrition/Malnutrition Assess - Dietary Evaluation Nutrition/Malnutrition Findings: Nutrition Notes Start: 08/28/20 10:15 Freq: Status: Active Protocol: Document 08/30/20 08:59 AT (Rec: 08/30/20 09:00 AT [id number]) Co-Sign 08/30/20 08:59 CW Nutrition Notes Initial or Follow up Brief Note Current Diagnosis Hypertension,Heart Failure, Hyperlipidemia Other Pertinent Diagnosis Bilat LE edema, SOB, GERD Current Diet Cardiac Diet Subjective/Other Information Follow up for stable intakes. Pt reports no N/V/D and is eating at least 80% of meals. Food preferences were recorded . Pt is not at nutritional risk at this time. Nutrition Intervention Anticipated Discharge Needs: Cardiac/Consistent CHO diet Revisit per MD consult or patient Sign Off request:
[2020-09-02] MEDS ORDERED: VANCOMYCIN/NS 1 GM/250 ML 1 GM/250 ML BAG IV SCH (15:00)
[2020-09-02] MEDS ORDERED: PIPERACILLIN/TAZOBACTAM 3.375 3.375 GM/50 ML BAG IV SCH (15:00)
[2020-09-02] MEDS ORDERED: VANCOMYCIN 2,000 MG in SODIUM CHLORIDE 0.9% 500 ML 500 ML IV ONE (16:30)
[2020-09-02] MEDS: PIPERACIL/TAZOBACTA 4.5/NS 100 4.5 GM/100 ML VIAL IV SCH (17:38)
[2020-09-02 18:06] LABS: Bilirubin,Urine NEG (Negative); Blood,Urine NEG (Negative); Color,Urine Yellow (Yellow); Protein,Urine <15 mg/dL mg/dL (Negative)
--- NOTE | 2020-09-02 18:08 | Consultation ---
History of Present Illness - Reason for Consult Consult date: 09/02/20 Sepsis of unclear source Requesting physician: JOSSELIN DAN - History of Present Illness 49-year-old male with history of CHF EF 25 to 30%, diabetes mellitus, GERD admitted on 08/27/2020 secondary to few day history of worsening shortness of breath, bilateral lower extremity edema. Patient also reported orthopnea and paroxysmal nocturnal dyspnea. Patient reported he has a chronic cough. Also noted some nausea and vomiting x1. Patient is complaining of bilateral flank pain and generalized weakness. On arrival, temperature 97.4, HR 103, R 22, O2 95, BP 187/149. Initial WBC 7.8. Creatinine 1.5. Urinalysis negative. SARS-CoV-2 PCR negative. Chest x-ray initially with bilateral pulmonary edema. Repeat chest x-ray decreased pulmonary edema, left lower lobe atelectasis. During the last 48 hours patient had been a spiking fever at 100.2-100.9, also noted increasing leukocytosis to 20,900. Review of Systems: positive in bold print General: fever, chills, malaise Cutaneous: rash, pruritus Head: headaches or injury Eyes: changes in vision, eye pain, double vision Ears: ear pain, ear discharge, ringing or hearing loss Nose: nose bleeding, stuffiness Mouth & throat: bleeding gums, horseness, no dental problems, or swollen glands Neck: no pain, node enlargement/lumps, tyroid enlargement or tenderness Respiratory: SOB, cough, CULP, wheezing, sputum, hemoptysis, pleuritic chest pain Cardiovascular: chest pain, leg edema, CULP, orthopnea Musculoskeletal: edema, deformities, pain Gastrointestinal: nausea, vomiting, hematemesis, diarrhea, constipation, melena, bright red blood in stools, fecal incontinence, jaundice Genitourinary/Reproductive: frequent urination, dysuria, hematuria, incontinence Neurogical: seizures, headaches, weakness, paresthesias, loss of speech or vision; memory loss, vertigo, tremors, numbness Psychiatric: stable mood; excessive anxiety, sadness or moodiness Past History Past Medical History: diabetes, heart failure, hypertension, hyperlipidemia, other (Asthma in Childhood) Past Surgical History: No surgical history Social history: no significant social history Family history: no significant family history Medications and Allergies Allergies Allergy/AdvReac Type Severity Reaction Status Date / Time No Known Allergies Allergy Verified 08/28/20 01:25 Home Medications Medication Instructions Recorded Confirmed Last Taken Type Aspirin EC [Halfprin EC] 81 mg PO QDAY #100 tablet 05/31/20 08/28/20 Unknown Rx AtorvaSTATin [Lipitor] 40 mg PO QHS #30 tablet 05/31/20 08/28/20 Unknown Rx Furosemide [Lasix TAB] 40 mg PO BID #60 /09/1308/28/20 Unknown Rx Gabapentin 300 mg PO Q8HR #90 capsule 05/31/20 08/28/20 Unknown Rx Insulin NPH/Regular [NovoLIN 70/30] 20 unit SUB-Q BIDDIAB #1 vial 05/31/20 08/28/20 08/27/20 Rx NIFEdipine XL [Procardia Xl] 60 mg PO DAILY #30 tablet 05/31/20 08/28/20 Unknown Rx Pantoprazole [Protonix TAB] 40 mg PO QDAC #30 tablet 05/31/20 08/28/20 Unknown Rx Potassium Chloride [K-Dur] 20 meq PO BID #60 tab 05/31/20 08/28/20 Unknown Rx Spironolactone [Aldactone] 25 mg PO QDAY 30 Days #30 tablet 05/31/20 08/28/20 Unknown Rx carvediloL [Coreg] 6.25 mg PO BID@0800,1700 #60 tablet 05/31/20 08/28/20 08/27/20 Rx lisinopriL [Zestril TAB] 10 mg PO QDAY #30 tablet 05/31/20 08/28/20 Unknown Rx Active Meds: Active Medications Acetaminophen (Acetaminophen 325 Mg Tab) 650 mg PO Q4H PRN PRN Reason: Pain MILD(1-3)/Fever >100.5/SANTOS Last Admin: 09/02/20 06:55 Dose: 650 mg Documented by: Aspirin (Aspirin Ec 325 Mg Tab) 325 mg PO QDAY [facility] Last Admin: 09/02/20 09:54 Dose: 325 mg Documented by: Atorvastatin Calcium (Atorvastatin 40 Mg Tab) 40 mg PO QHS [facility] Last Admin: 09/01/20 21:12 Dose: 40 mg Documented by: Dextrose (Dextrose 50% In Water (25gm) 50 Ml Syringe) 0 ml IV Q30MIN PRN; Protocol PRN Reason: Hypoglycemia Furosemide (Furosemide 40 Mg/4 Ml Inj) 40 mg IV BID@0600,1800 [facility] Last Admin: 09/02/20 17:39 Dose: 40 mg Documented by: Gabapentin (Gabapentin 100 Mg Cap) 100 mg PO Q8HR [facility] Last Admin: 09/02/20 17:37 Dose: 100 mg Documented by: Heparin Sodium (Porcine) (Heparin 5,000 Unit/1 Ml Vial) 5,000 unit SUB-Q Q8HR [facility] Last Admin: 09/02/20 17:37 Dose: 5,000 unit Documented by: Hydralazine HCl (Hydralazine 20 Mg/1 Ml Inj) 10 mg IV Q4H PRN PRN Reason: Blood Pressure Last Admin: 08/28/20 11:06 Dose: 10 mg Documented by: Milrinone Lactate/Dextrose (Milrinone-D5w 20 Mg/100 Ml) 20 mg in 100 mls @ 13.995 mls/hr IV TITR [facility] Stop: 09/03/20 13:59 Last Admin: 09/02/20 17:46 Dose: 0.375 mcg/kg/min, 13.995 mls/hr Documented by: Piperacillin Sod/Tazobactam Sod (Zosyn/Ns 4.5gm/100ml) 4.5 gm in 100 mls @ 200 mls/hr IV Q8H [facility] Last Admin: 09/02/20 17:38 Dose: 200 mls/hr Documented by: Vancomycin HCl 2,000 mg/ (Sodium Chloride) 540 mls @ 250 mls/hr IV ONCE ONE Stop: 09/02/20 18:39 Last Admin: 09/02/20 17:38 Dose: 250 mls/hr Documented by: Vancomycin HCl 1,750 mg/ (Sodium Chloride) 535 mls @ 333.333 mls/hr IV Q24H [facility] Insulin Human Isoph/Insulin Regular (Insulin Nph/Regular 70/30 Inj) 15 unit SUB-Q BIDDIAB [facility] Last Admin: 09/02/20 17:39 Dose: Not Given Documented by: Insulin Human Lispro (Insulin Lispro 100 Unit/Ml) 0 unit SUB-Q ACHS [facility]; Protocol Last Admin: 09/02/20 17:38 Dose: Not Given Documented by: Metolazone (Metolazone 5 Mg Tab) 5 mg PO QDAY [facility] Last Admin: 09/02/20 09:54 Dose: 5 mg Documented by: Metoprolol Tartrate (Metoprolol Tartrate 50 Mg Tab) 50 mg PO Q8H [facility] Last Admin: 09/02/20 17:37 Dose: Not Given Documented by: Morphine Sulfate (Morphine 4 Mg/1 Ml Inj) 2 mg IV Q5MIN PRN PRN Reason: Chest Pain Nifedipine (Nifedipine Xl 60 Mg Tab) 60 mg PO DAILY [facility] Last Admin: 09/02/20 09:54 Dose: 60 mg Documented by: Nitroglycerin (Nitroglycerin 0.4 Mg Tab Subl) 0.4 mg SL Q5M PRN PRN Reason: Chest Pain Ondansetron HCl (Ondansetron 4 Mg/2 Ml Inj) 4 mg IV Q8H PRN PRN Reason: Nausea And Vomiting Oxycodone/Acetaminophen (Oxycodone /Acetaminophen 5-325mg Tab) 1 tab PO Q6HR PRN PRN Reason: Pain, Moderate (4-6) Pantoprazole Sodium (Pantoprazole 40 Mg Tab) 40 mg PO QDAC [facility] Last Admin: 09/02/20 09:53 Dose: 40 mg Documented by: Sodium Chloride (Sodium Chloride 0.9% 10 Ml Flush Syringe) 10 ml IV BID [facility] Last Admin: 09/02/20 09:54 Dose: 10 ml Documented by: Sodium Chloride (Sodium Chloride 0.9% 10 Ml Flush Syringe) 10 ml IV PRN PRN PRN Reason: LINE FLUSH Last Admin: 08/31/20 17:25 Dose: 10 ml Documented by: Spironolactone (Spironolactone 25 Mg Tab) 25 mg PO QDAY [facility] Last Admin: 09/02/20 09:53 Dose: 25 mg Documented by: Valsartan (Valsartan 160mg Tab) 160 mg PO DAILY [facility] Last Admin: 09/02/20 09:53 Dose: 160 mg Documented by: Physical Examination - Physical Exam Narrative exam: General appearance: Alert in NAD Eyes: anicteric sclerae, moist conjunctivae; no lid-lag; PERRLA HENT: Normocephalic, Atraumatic; normal external ears, nares open, oropharynx clear with moist mucous membranes and no oral thrush; normal hard and soft palate. Neck: supple, tracheal midline, no JVD Lungs: Diminished breath sound bilaterally CV: RRR no murmur Abdomen: Soft, non-tender; no masses or hepatosplenomegaly Extremities: Bilateral lower extremity edema Skin: No rash. Psych: no agitated Neuro: alert and oriented x 3. Moving all extermities - Constitutional Vitals: Vital Signs Temp Pulse Resp BP Pulse Ox 100.2 F H 118 H 18 109/68 90 09/02/20 16:32 09/02/20 16:32 09/02/20 16:32 09/02/20 16:32 09/02/20 16:32 Temperature -Last 24 Hours Temperature 100.2 F Temperature 99.5 F Temperature 100.1 F Temperature 100.9 F Temperature 99.4 F Temperature 99.2 F Results - Labs CBC & Chem 7: 09/02/20 09:19 09/02/20 09:19 Labs: Abnormal lab results 09/01/20 09/02/20 09/02/20 Range/Units 21:22 08:04 09:19 WBC 20.9 H (4.5-11.0) K/mm3 RBC 5.20 H (3.65-5.03) M/mm3 MCH 27 L (28-32) pg RDW 16.7 H (13.2-15.2) % Seg Neuts % (Manual) 86.0 H (40.0-70.0) % Lymphocytes % (Manual) 7.0 L (13.4-35.0) % Seg Neutrophils # Man 18.0 H (1.8-7.7) K/mm3 Monocytes # (Manual) 1.5 H (0.0-0.8) K/mm3 Sodium (137-145) mmol/L Chloride (98-107) mmol/L BUN (9-20) mg/dL Creatinine (0.8-1.3) mg/dL Glucose (75-100) mg/dL POC Glucose 109 H 123 H (70-105) mg/dL 09/02/20 09/02/20 Range/Units 09:19 11:35 WBC (4.5-11.0) K/mm3 RBC (3.65-5.03) M/mm3 MCH (28-32) pg RDW (13.2-15.2) % Seg Neuts % (Manual) (40.0-70.0) % Lymphocytes % (Manual) (13.4-35.0) % Seg Neutrophils # Man (1.8-7.7) K/mm3 Monocytes # (Manual) (0.0-0.8) K/mm3 Sodium 134 L (137-145) mmol/L Chloride 91.1 L (98-107) mmol/L BUN 23 H (9-20) mg/dL Creatinine 1.7 H (0.8-1.3) mg/dL Glucose 120 H (75-100) mg/dL POC Glucose 119 H (70-105) mg/dL Assessment and Plan Cultures: SARS-CoV-2 PCR x2 - Assessment: 49-year-old male with history of CHF EF 25 to 30%, diabetes mellitus, GERD admitted on 08/27/2020 secondary to few day history of worsening shortness of breath, bilateral lower extremity edema: #Acute sepsis: Not present on admission with fever, leukocytosis; unclear etiology likely hospital-acquired pneumonia. Urinalysis negative. SARS-CoV-2 PCR negative x2. #Hospital-acquired pneumonia versus atelectasis: Chest x-ray with new left lower lobe density. #Acute CHF exacerbation: Patient with a EF 25 to 30%. #DANILO: Renally adjust medications Recommendations: -Continue Zosyn IV renally adjusted -Stop vancomycin -Start Zyvox 600 g p.o. twice daily for now -Check MRSA PCR -Repeat chest x-ray PA and lateral tomorrow -Follow-up new blood cultures Will follow. Hanh Venegas MD Infectious Diseases Charge Rn [facility] ([facility]) M [phone] O [phone]
[2020-09-02] MEDS: LINEZOLID 600 MG TAB PO SCH (21:24)
[2020-09-03 06:08] LABS: Basophils # (Auto) 0.1 K/mm3 (0.0-0.1); Basophils % (Auto) 0.6 % (0.0-1.8); Eosinophils # (Auto) 0.1 K/mm3 (0.0-0.4); Eosinophils % (Auto) 0.3 % (0.0-4.3); Hematocrit 39.5 % (35.5-45.6); Hemoglobin 12.4 gm/dl (11.8-15.2); Lymphocytes # (Auto) 1.2 K/mm3 (1.2-5.4); Mean Corpuscular HGB Conc 32 % (32-34); Mean Corpuscular Volume 83 fl (84-94); Monocytes # (Auto) 2.7 K/mm3 (0.0-0.8); Monocytes % (Auto) 15.7 % (0.0-7.3); Platelet Count 266 K/mm3 (140-440); Red Blood Count 4.76 M/mm3 (3.65-5.03); Red Cell Distribution Width 16.4 % (13.2-15.2)
[2020-09-03 06:22] LABS: Calcium 8.3 mg/dL (8.4-10.2)
[2020-09-03] MEDS: METOPROLOL TARTRATE 50 MG TAB PO SCH ×3 (06:39→21:47)
[2020-09-03] MEDS: FUROSEMIDE 40 MG/4 ML INJ IV SCH (06:39)
[2020-09-03] MEDS: GABAPENTIN 100 MG CAP PO SCH ×3 (06:39→21:47)
[2020-09-03] MEDS: HEPARIN 5,000 UNIT/1 ML VIAL SUB-Q SCH ×3 (06:39→21:48)
[2020-09-03] MEDS: PIPERACIL/TAZOBACTA 4.5/NS 100 4.5 GM/100 ML VIAL IV SCH (06:42)
[2020-09-03] MEDS: MILRINONE-D5W 20 MG/100 ML 20 MG/100 ML BAG IV SCH (06:51)
[2020-09-03] MEDS: INSULIN LISPRO 100 UNIT/ML SUB-Q SCH ×3 (07:48→17:03)
--- NOTE | 2020-09-03 09:14 | Progress Note ---
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 Hypertension Diabetes Noncompliant with outpatient cardiac follow up and dietary restriction Acute renal failure Recommendations: Advised compliance with dietary restrictions. Daily weight and I's and O's. Continue aggressive medical therapy for chronic systolic heart failure including intravenous milrinone therapy. Subjective Date of service: 09/03/20 Interval history: Patient has no complaints. IV milrinone continues. Patient reports he is diuresing well. Creatinine has worsened to 3.2 from 1.5 on presentation. Objective Vital Signs Temp Pulse Resp BP Pulse Ox 09/03/20 06:39 129 H 120/49 09/03/20 03:13 99.1 F 129 H 20 120/49 92 09/03/20 02:00 126 H 09/02/20 23:14 99.9 F H 128 H 20 96/46 90 09/02/20 21:25 126 H 95/48 09/02/20 19:04 102.8 F H 126 H 17 95/48 93 09/02/20 16:32 100.2 F H 118 H 18 109/68 90 09/02/20 11:32 99.5 F 106 H 18 107/66 93 09/02/20 10:00 105 H - Physical Examination General: No Apparent Distress HEENT: Positive: PERRL Neck: Positive: trachea midline Cardiac: Positive: Tachycardia Lungs: Positive: Decreased Breath Sounds Neuro: Positive: Grossly Intact Extremities: Present: +1 Edema - Labs and Meds CBC 09/02/20 09/03/20 Range/Units 09:19 04:45 WBC 20.9 H 17.0 H (4.5-11.0) K/mm3 RBC 5.20 H 4.76 (3.65-5.03) M/mm3 Hgb 14.1 12.4 (11.8-15.2) gm/dl Hct 44.1 39.5 (35.5-45.6) % Plt Count 273 266 (140-440) K/mm3 Lymph # (Auto) 1.2 (1.2-5.4) K/mm3 [place] # (Auto) 2.7 H (0.0-0.8) K/mm3 Eos # (Auto) 0.1 (0.0-0.4) K/mm3 Baso # (Auto) 0.1 (0.0-0.1) K/mm3 Comprehensive Metabolic Panel 09/02/20 09/03/20 Range/Units 09:19 04:45 Sodium 134 L 132 L (137-145) mmol/L Potassium 3.7 3.6 (3.6-5.0) mmol/L Chloride 91.1 L 90.4 L (98-107) mmol/L Carbon Dioxide 30 29 (22-30) mmol/L BUN 23 H 37 H (9-20) mg/dL Creatinine 1.7 H 3.2 H D (0.8-1.3) mg/dL Glucose 120 H 110 H (75-100) mg/dL Calcium 8.6 8.3 L (8.4-10.2) mg/dL
[2020-09-03] MEDS: INSULIN NPH/REGULAR 70/30 INJ SUB-Q SCH ×2 (09:31→17:05)
[2020-09-03] MEDS: ASPIRIN EC 325 MG TAB PO SCH (09:56)
[2020-09-03] MEDS: NIFEdipine XL 60 MG TAB PO SCH (09:56)
[2020-09-03] MEDS: VALSARTAN 160MG TAB PO SCH (09:57)
[2020-09-03] MEDS: PANTOPRAZOLE 40 MG TAB PO SCH (09:57)
[2020-09-03] MEDS: metOLazone 5 MG TAB PO SCH (09:57)
[2020-09-03] MEDS: SPIRONOLACTONE 25 MG TAB PO SCH (09:57)
[2020-09-03] MEDS: LINEZOLID 600 MG TAB PO SCH (09:57)
--- NOTE | 2020-09-03 13:05 | Progress Note ---
Assessment and Plan Cultures: SARS-CoV-2 PCR x2 - Blood culture on 09/02/2020 gram-positive cocci in clusters 2 out of 4 bottles Assessment: 49-year-old male with history of CHF EF 25 to 30%, diabetes mellitus, GERD admitted on 08/27/2020 secondary to few day history of worsening shortness of breath, bilateral lower extremity edema: #Acute sepsis: Not present on admission with fever, leukocytosis; unclear etiology likely hospital-acquired pneumonia +/-bacteremia. Urinalysis negative. SARS-CoV-2 PCR negative x2. #Gram-positive cocci bacteremia: Real versus contaminant, unclear source ? Pneumonia vs IV line #Hospital-acquired pneumonia versus atelectasis: Chest x-ray with new left lower lobe density. #Acute CHF exacerbation: Patient with a EF 25 to 30%. #DANILO: Renally adjust medications Recommendations: -Continue Zosyn IV renally adjusted -Stop Zyvox -Start Pulse vancomycin -Check MRSA PCR pending -Follow-up new blood cultures with gram-positive cocci in clusters -Repeat blood cultures tomorrow Discussed with pharmacy Will follow. Hanh Venegas MD Infectious Diseases Freezer Operator [facility] ([facility]) M [phone] O [phone] Subjective Date of service: 09/03/20 Principal diagnosis: Sepsis Interval history: Remains debilitated, with generalized weakness, T-max 102.8. Objective - Exam Narrative Exam: General appearance: Alert in NAD Eyes: anicteric sclerae, moist conjunctivae; no lid-lag; PERRLA HENT: Normocephalic, Atraumatic; normal external ears, nares open, oropharynx clear Neck: supple, tracheal midline, no JVD Lungs: Diminished breath sound bilaterally CV: RRR no murmur Abdomen: Soft, non-tender; no masses or hepatosplenomegaly Extremities: Bilateral lower extremity edema Skin: No rash. Psych: no agitated Neuro: alert and oriented x 3. Moving all extermities - Constitutional Vitals: Vital Signs Temp Pulse Resp BP Pulse Ox 98.8 F 115 H 19 95/63 90 09/03/20 08:08 09/03/20 08:12 09/03/20 08:08 09/03/20 08:08 09/03/20 08:08 Temperature -Last 24 Hours Temperature 98.8 F Temperature 99.1 F Temperature 99.9 F Temperature 102.8 F Temperature 100.2 F - Labs CBC & Chem 7: 09/03/20 04:45 09/03/20 04:45 Labs: Abnormal lab results 09/02/20 09/02/20 09/03/20 Range/Units 09:20 20:14 04:45 WBC 17.0 H (4.5-11.0) K/mm3 MCV 83 L (84-94) fl MCH 26 L (28-32) pg RDW 16.4 H (13.2-15.2) % Lymph % (Auto) 7.0 L (13.4-35.0) % [place] % (Auto) 15.7 H (0.0-7.3) % [place] # (Auto) 2.7 H (0.0-0.8) K/mm3 Seg Neutrophils % 76.4 H (40.0-70.0) % Seg Neutrophils # 13.0 H (1.8-7.7) K/mm3 Sodium (137-145) mmol/L Chloride (98-107) mmol/L BUN (9-20) mg/dL Creatinine (0.8-1.3) mg/dL Glucose (75-100) mg/dL POC Glucose 116 H (70-105) mg/dL Calcium (8.4-10.2) mg/dL C-Reactive Protein 23.70 H (0.00-1.30) mg/dL 09/03/20 09/03/20 09/03/20 Range/Units 04:45 08:07 11:19 WBC (4.5-11.0) K/mm3 MCV (84-94) fl MCH (28-32) pg RDW (13.2-15.2) % Lymph % (Auto) (13.4-35.0) % [place] % (Auto) (0.0-7.3) % [place] # (Auto) (0.0-0.8) K/mm3 Seg Neutrophils % (40.0-70.0) % Seg Neutrophils # (1.8-7.7) K/mm3 Sodium 132 L (137-145) mmol/L Chloride 90.4 L (98-107) mmol/L BUN 37 H (9-20) mg/dL Creatinine 3.2 H D (0.8-1.3) mg/dL Glucose 110 H (75-100) mg/dL POC Glucose 119 H 138 H (70-105) mg/dL Calcium 8.3 L (8.4-10.2) mg/dL C-Reactive Protein (0.00-1.30) mg/dL
--- NOTE | 2020-09-03 13:46 | Progress Note ---
Assessment and Plan -- Acute on chronic combined systolic and diastolic heart failure Patient admitted and placed on telemetry. Continue patient on IV diuretics. LVEF 20 to 25% with diastolic dysfunction Continue milrinone drip Cardiology following Leukocytosis with fever, negative Covid x2 Patient meets sepsis criteria Blood cultures pending Urine and urine cultures pending Blood cultures pending Chest x-ray without any infiltrates Infectious disease consulted Patient placed on vancomycin and Zosyn, renally dosed -- Acute chest pain Patient placed on telemetry. Will check serial cardiac enzymes. Patient will be placed on daily aspirin, sublingual nitroglycerin and IV morphine as needed for chest pain. Follow cardiology for further recommendation. --PUI for COVID-19, Covid negative on 08/28 and 09/02 --Acute hypoxic respiratory failure, due to CHF exacerbation Also will evaluate for possible Covid, continue IV diuresis Nebulizer breathing treatment as needed -- Total bilirubin, elevated Etiology unclear. Will monitor chemistry. We will place consult to gastroenterology for recommendations if continue to trend up. Order for hepatitis panel -- Hypertensive emergency Possibly secondary to noncompliance. resumed routine home medications and monitor vital signs closely. Patient placed on IV hydralazine as needed for optimal blood pressure control. --Acute back pain, left scapula Possibly muscle spasm Patient is declining any pain medication at this time Resolved --Chronic kidney disease stage IIIa Stable at this time -- Diabetes mellitus Will monitor Accu-Cheks closely. Patient placed on sliding scale insulin. -- Gram-positive cocci bacteremia: Real versus contaminant, unclear source ? Pneumonia vs IV line --Hospital-acquired pneumonia versus atelectasis: Chest x-ray with new left lower lobe density. -- DVT prophylaxis Patient placed on subcutaneous heparin. -- Full code status Brief history: This is a 49-year-old male with a history of CHF presented to the hospital with worsening shortness of breath and bilateral lower extremity swelling and hypertensive urgency with blood pressure 198/136 on admission. Daily clinical course; 08/29/20: Patient did not have much improvement in the last 24 hours with IV diuretics. Urine output is not optimal. Planned to start on milrinone drip by animal services officer. Covid test pending , continue Covid protocol 08/30/2020: Patient started on milrinone drip, continues to have some shortness of breath but has improved. 08/31/2020: Patient eating breakfast, cough is diminished, diuresing is helping. Explained to patient the severity of his heart failure. 09/01/2020 patient seen, back pain has subsided. Continues to be on milrinone. 09/02/2020: Patient seen, looks very lethargic, patient with a fever overnight. Sepsis protocol and infectious disease consult initiated 09/03/20: Continue milrinone drip, continue empiric antibiotics for elevated white count and possible pneumonia. Continue to follow clinically Subjective Date of service: 09/03/20 Principal diagnosis: Sepsis Interval history: Patient seen and examined. Medical records and medication list reviewed. No acute event overnight noted by the RN. Patient denies any chest pain, but complains of shortness of breath on exertion. Patient is tolerating diet. Still has significant bilateral lower extremity swelling Discussed plan of care at bedside with patient. Objective - Exam Narrative Exam: Limited physical exam due to COVID-19 pandemic to minimize transmission of the disease and to preserve PPE. Vital reviewed and stable. GENERAL: well-developed morbidly obese -[place] male lying on bed appeared to be in no discomfort. HEENT: Normocephalic. Atraumatic. NECK: Supple. CHEST/LUNGS: breathing nonlabored. HEART/CARDIOVASCULAR: Heart rate stable on telemetry ABDOMEN: Visibly not distended SKIN: There is no rash NEURO: No focal motor deficit. Follows command. MUSCULOSKELETAL: No joint effusion EXTRIMITY: + LE edema with swelling, no cyanosis or clubbing. PSYCH: Cooperative. - Constitutional Vitals: Vital Signs - 12hr 09/03/20 09/03/20 09/03/20 02:00 03:13 06:39 Temperature 99.1 F Pulse Rate 126 H 129 H 129 H Respiratory 20 Rate Blood Pressure 120/49 120/49 O2 Sat by Pulse 92 Oximetry 09/03/20 09/03/20 08:08 08:12 Temperature 98.8 F Pulse Rate 101 H 115 H Respiratory 19 Rate Blood Pressure 95/63 O2 Sat by Pulse 90 Oximetry - Labs CBC & Chem 7: 09/05/20 05:33 09/05/20 05:33 Labs: Abnormal lab results 09/02/20 09/02/20 09/03/20 Range/Units 09:20 20:14 04:45 WBC 17.0 H (4.5-11.0) K/mm3 MCV 83 L (84-94) fl MCH 26 L (28-32) pg RDW 16.4 H (13.2-15.2) % Lymph % (Auto) 7.0 L (13.4-35.0) % [place] % (Auto) 15.7 H (0.0-7.3) % [place] # (Auto) 2.7 H (0.0-0.8) K/mm3 Seg Neutrophils % 76.4 H (40.0-70.0) % Seg Neutrophils # 13.0 H (1.8-7.7) K/mm3 Sodium (137-145) mmol/L Chloride (98-107) mmol/L BUN (9-20) mg/dL Creatinine (0.8-1.3) mg/dL Glucose (75-100) mg/dL POC Glucose 116 H (70-105) mg/dL Calcium (8.4-10.2) mg/dL C-Reactive Protein 23.70 H (0.00-1.30) mg/dL 09/03/20 09/03/20 09/03/20 Range/Units 04:45 08:07 11:19 WBC (4.5-11.0) K/mm3 MCV (84-94) fl MCH (28-32) pg RDW (13.2-15.2) % Lymph % (Auto) (13.4-35.0) % [place] % (Auto) (0.0-7.3) % [place] # (Auto) (0.0-0.8) K/mm3 Seg Neutrophils % (40.0-70.0) % Seg Neutrophils # (1.8-7.7) K/mm3 Sodium 132 L (137-145) mmol/L Chloride 90.4 L (98-107) mmol/L BUN 37 H (9-20) mg/dL Creatinine 3.2 H D (0.8-1.3) mg/dL Glucose 110 H (75-100) mg/dL POC Glucose 119 H 138 H (70-105) mg/dL Calcium 8.3 L (8.4-10.2) mg/dL C-Reactive Protein (0.00-1.30) mg/dL HEART Score - HEART Score EKG: Normal Age: 45-65 Risk factors: > 3 risk factors or hx of atherosclerotic disease Troponin: Troponin T 0.021 ng/mL (0.00-0.029) 08/28/20 14:09 Troponin: < normal limit
[2020-09-03] MEDS ORDERED: VANCOMYCIN 1,750 MG in SODIUM CHLORIDE 0.9% 500 ML 500 ML IV SCH (17:00)
[2020-09-04] MEDS: FUROSEMIDE 40 MG/4 ML INJ IV SCH ×3 (05:25→18:10)
[2020-09-04] MEDS: INSULIN LISPRO 100 UNIT/ML SUB-Q SCH ×5 (05:26→22:10)
[2020-09-04] MEDS: PIPERACIL/TAZOBACTA 4.5/NS 100 4.5 GM/100 ML VIAL IV SCH ×2 (05:26→06:18)
[2020-09-04 05:54] LABS: Calcium 8.8 mg/dL (8.4-10.2)
[2020-09-04] MEDS: GABAPENTIN 100 MG CAP PO SCH ×3 (06:17→21:19)
[2020-09-04] MEDS: HEPARIN 5,000 UNIT/1 ML VIAL SUB-Q SCH ×3 (06:17→21:19)
[2020-09-04] MEDS: METOPROLOL TARTRATE 50 MG TAB PO SCH ×3 (06:25→21:19)
[2020-09-04] MEDS ORDERED: VANCOMYCIN PHARMACY TO DOSE IV SCH (08:00)
[2020-09-04] MEDS: INSULIN NPH/REGULAR 70/30 INJ SUB-Q SCH ×2 (09:51→18:09)
[2020-09-04] MEDS: VALSARTAN 160MG TAB PO SCH (09:54)
[2020-09-04] MEDS: PANTOPRAZOLE 40 MG TAB PO SCH (09:54)
[2020-09-04] MEDS: SPIRONOLACTONE 25 MG TAB PO SCH (09:54)
[2020-09-04] MEDS: metOLazone 5 MG TAB PO SCH (09:54)
[2020-09-04] MEDS: NIFEdipine XL 60 MG TAB PO SCH (09:54)
[2020-09-04] MEDS: ASPIRIN EC 325 MG TAB PO SCH (09:54)
[2020-09-04] MEDS ORDERED: VANCOMYCIN/NS 1 GM/250 ML 1 GM/250 ML BAG IV ONE (10:00)
[2020-09-04 10:50] LABS: Hematocrit 41.1 % (35.5-45.6); Hemoglobin 13.1 gm/dl (11.8-15.2); Mean Corpuscular HGB Conc 32 % (32-34); Mean Corpuscular Volume 84 fl (84-94); Platelet Count 273 K/mm3 (140-440); Red Cell Distribution Width 16.7 % (13.2-15.2)
--- NOTE | 2020-09-04 10:54 | Progress Note ---
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 Hypertension Diabetes Noncompliant with outpatient cardiac follow up and dietary restriction Acute renal failure Recommendations: Low sodium dietary restriction. Daily weight and I's and O's. Continue aggressive medical therapy for chronic systolic heart failure including intravenous milrinone therapy. Subjective Date of service: 09/04/20 Principal diagnosis: Sepsis Interval history: Patient has no complaints. Lower extremity edema is resolving. Objective Vital Signs Temp Pulse Resp BP BP Pulse Ox 09/04/20 09:14 98.0 F 96 H 18 172/108 95 09/04/20 06:25 112 H 142/97 09/04/20 04:01 98.8 F 112 H 18 142/97 97 09/04/20 00:43 99.6 F 96 H 19 138/84 93 09/04/20 00:00 102 H 09/03/20 21:47 104 H 139/85 09/03/20 19:15 99.9 F H 104 H 17 139/85 96 09/03/20 16:00 104 H 09/03/20 15:38 97.8 F 104 H 18 132/80 92 09/03/20 13:23 98.9 F 115 H 18 108/76 - Physical Examination General: No Apparent Distress HEENT: Positive: PERRL Neck: Positive: trachea midline Cardiac: Positive: Tachycardia Lungs: Positive: Decreased Breath Sounds Neuro: Positive: Grossly Intact Extremities: Present: +1 Edema - Labs and Meds CBC 09/04/20 Range/Units 10:25 WBC 14.6 H (4.5-11.0) K/mm3 RBC 4.90 (3.65-5.03) M/mm3 Hgb 13.1 (11.8-15.2) gm/dl Hct 41.1 (35.5-45.6) % Plt Count 273 (140-440) K/mm3 Comprehensive Metabolic Panel 09/04/20 Range/Units 04:38 Sodium 134 L (137-145) mmol/L Potassium 4.1 (3.6-5.0) mmol/L Chloride 94.1 L (98-107) mmol/L Carbon Dioxide 28 (22-30) mmol/L BUN 36 H (9-20) mg/dL Creatinine 2.1 H (0.8-1.3) mg/dL Glucose 103 H (75-100) mg/dL Calcium 8.8 (8.4-10.2) mg/dL
[2020-09-04] MEDS: MILRINONE-D5W 20 MG/100 ML 20 MG/100 ML BAG IV SCH ×2 (13:14→21:17)
--- NOTE | 2020-09-04 14:05 | Progress Note ---
Assessment and Plan -- Acute on chronic combined systolic and diastolic heart failure Patient admitted and placed on telemetry. Continue patient on IV diuretics. LVEF 20 to 25% with diastolic dysfunction Continue milrinone drip Cardiology following Leukocytosis with fever, negative Covid x2 Patient meets sepsis criteria, blood culture growing gram-positive cocci Chest x-ray showed left lower lobe density Infectious disease consulted Patient placed on vancomycin and Zosyn, renally dosed -- Acute chest pain, resolved -likely from GERD, continue PPI Patient placed on telemetry. Will check serial cardiac enzymes. Patient also placed on daily aspirin, sublingual nitroglycerin and IV morphine as needed for chest pain. Follow cardiology for further recommendation. --PUI for COVID-19, Covid negative on 08/28 and 09/02 --Acute hypoxic respiratory failure, due to CHF exacerbation Also will evaluate for possible Covid, continue IV diuresis Nebulizer breathing treatment as needed -- Total bilirubin, elevated Etiology unclear. Will monitor chemistry. We will place consult to gastroenterology for recommendations if continue to trend up. Order for hepatitis panel -- Hypertensive emergency Possibly secondary to noncompliance. resumed routine home medications and monitor vital signs closely. Patient placed on IV hydralazine as needed for optimal blood pressure control. --Acute back pain, left scapula Possibly muscle spasm Patient is declining any pain medication at this time Resolved --DANILO on Chronic kidney disease stage IIIa -Not POA Cr slightly trended up and now trending down Could be from cardiorenal syndrome We will consult nephrology, continue to monitor BMP -- Diabetes mellitus Will monitor Accu-Cheks closely. Patient placed on sliding scale insulin. -- Gram-positive cocci bacteremia: Real versus contaminant, unclear source ? Pneumonia vs IV line Continue empiric antibiotics for now, ID following --Hospital-acquired pneumonia versus atelectasis: Chest x-ray with new left lower lobe density. Continue antibiotics -- DVT prophylaxis Patient placed on subcutaneous heparin. -- Full code status Brief history: This is a 49-year-old male with a history of CHF presented to the hospital with worsening shortness of breath and bilateral lower extremity swelling and hypertensive urgency with blood pressure 198/136 on admission. Daily clinical course; 08/29/20: Patient did not have much improvement in the last 24 hours with IV diuretics. Urine output is not optimal. Planned to start on milrinone drip by business administration program chair. Covid test pending , continue Covid protocol 08/30/2020: Patient started on milrinone drip, continues to have some shortness of breath but has improved. 08/31/2020: Patient eating breakfast, cough is diminished, diuresing is helping. Explained to patient the severity of his heart failure. 09/01/2020 patient seen, back pain has subsided. Continues to be on milrinone. 09/02/2020: Patient seen, looks very lethargic, patient with a fever overnight. Sepsis protocol and infectious disease consult initiated 09/03/20: Continue milrinone drip, continue empiric antibiotics for elevated white count and possible pneumonia. Continue to follow clinically 09/04: cont Low sodium dietary restriction. Daily weight and I's and O's. Continue aggressive medical therapy for chronic systolic heart failure including intravenous milrinone therapy per cardiology recommendation. Subjective Date of service: 09/04/20 Principal diagnosis: Sepsis Interval history: Patient seen and examined. Medical records and medication list reviewed. No acute event overnight noted by the RN. Patient denies any chest pain, but complains of shortness of breath on exertion. Patient is tolerating diet. Still has significant bilateral lower extremity swelling Discussed plan of care at bedside with patient. Objective - Exam Narrative Exam: Limited physical exam due to COVID-19 pandemic to minimize transmission of the disease and to preserve PPE. Vital reviewed and stable. GENERAL: well-developed morbidly obese -[place] male lying on bed appeared to be in no discomfort. HEENT: Normocephalic. Atraumatic. NECK: Supple. CHEST/LUNGS: breathing nonlabored. HEART/CARDIOVASCULAR: Heart rate stable on telemetry ABDOMEN: Visibly not distended SKIN: There is no rash NEURO: No focal motor deficit. Follows command. MUSCULOSKELETAL: No joint effusion EXTRIMITY: + LE edema with swelling, no cyanosis or clubbing. PSYCH: Cooperative. - Constitutional Vitals: Vital Signs - 12hr 09/04/20 09/04/20 09/04/20 04:01 06:25 08:00 Temperature 98.8 F Pulse Rate 112 H 112 H Respiratory 18 18 Rate Blood Pressure 142/97 142/97 O2 Sat by Pulse 97 Oximetry 09/04/20 09/04/20 09:14 13:35 Temperature 98.0 F Pulse Rate 96 H 94 H Respiratory 18 Rate Blood Pressure 172/108 128/81 O2 Sat by Pulse 95 Oximetry - Labs CBC & Chem 7: 09/05/20 05:33 09/05/20 05:33 Labs: Abnormal lab results 09/03/20 09/03/20 09/04/20 Range/Units 15:37 20:07 04:38 WBC (4.5-11.0) K/mm3 MCH (28-32) pg RDW (13.2-15.2) % Sodium 134 L (137-145) mmol/L Chloride 94.1 L (98-107) mmol/L BUN 36 H (9-20) mg/dL Creatinine 2.1 H (0.8-1.3) mg/dL Glucose 103 H (75-100) mg/dL POC Glucose 125 H 134 H (70-105) mg/dL 09/04/20 09/04/20 Range/Units 08:19 10:25 WBC 14.6 H (4.5-11.0) K/mm3 MCH 27 L (28-32) pg RDW 16.7 H (13.2-15.2) % Sodium (137-145) mmol/L Chloride (98-107) mmol/L BUN (9-20) mg/dL Creatinine (0.8-1.3) mg/dL Glucose (75-100) mg/dL POC Glucose 110 H (70-105) mg/dL HEART Score - HEART Score EKG: Normal Age: 45-65 Risk factors: > 3 risk factors or hx of atherosclerotic disease Troponin: Troponin T 0.021 ng/mL (0.00-0.029) 08/28/20 14:09 Troponin: < normal limit
--- NOTE | 2020-09-04 14:50 | Progress Note ---
Assessment and Plan Cultures: SARS-CoV-2 PCR x2 - Blood culture 09/02/2020 Staph aureus 2 out of 4 bottles Urine culture mixed bacteria Assessment: 49-year-old male with history of CHF EF 25 to 30%, diabetes mellitus, GERD admitted on 08/27/2020 secondary to few day history of worsening shortness of breath, bilateral lower extremity edema: #Acute sepsis: Not present on admission with fever, leukocytosis; unclear etiology likely hospital-acquired pneumonia +/-bacteremia. Urinalysis negative. SARS-CoV-2 PCR negative x2. #Staph aureus bacteremia: unclear source ? Pneumonia vs infected IV line #Hospital-acquired pneumonia versus atelectasis: Chest x-ray with new left lower lobe density. #Acute CHF exacerbation: Patient with a EF 25 to 30%. #DANILO: Renally adjust medications Recommendations: -Continue IV vancomycin -Stop Zosyn -Repeat blood cultures -Obtain transthoracic echo to rule out endocarditis -Anticipate to discharge on IV antibiotics for 4 to 6 weeks Will follow. Hanh Venegas MD Infectious Diseases Special Education Teacher [facility] ([facility]) M [phone] O [phone] Subjective Date of service: 09/04/20 Principal diagnosis: Sepsis Interval history: Patient feels better today. Generalized weakness has improved. Fever trending down. Objective - Exam Narrative Exam: General appearance: Alert in NAD Eyes: anicteric sclerae, moist conjunctivae; no lid-lag; PERRLA HENT: Normocephalic, Atraumatic; normal external ears, nares open, oropharynx clear Neck: supple, tracheal midline, no JVD Lungs: Diminished breath sound bilaterally CV: RRR no murmur Abdomen: Soft, non-tender; no masses or hepatosplenomegaly Extremities: Bilateral lower extremity edema Skin: No rash. Psych: no agitated Neuro: alert and oriented x 3. Moving all extermities - Constitutional Vitals: Vital Signs Temp Pulse Resp BP Pulse Ox 98.0 F 94 H 18 128/81 95 09/04/20 09:14 09/04/20 13:35 09/04/20 09:14 09/04/20 13:35 09/04/20 09:14 Temperature -Last 24 Hours Temperature 98.0 F Temperature 98.8 F Temperature 99.6 F Temperature 99.9 F Temperature 97.8 F - Labs CBC & Chem 7: 09/04/20 10:25 09/04/20 04:38 Labs: Abnormal lab results 09/03/20 09/03/20 09/04/20 Range/Units 15:37 20:07 04:38 WBC (4.5-11.0) K/mm3 MCH (28-32) pg RDW (13.2-15.2) % Sodium 134 L (137-145) mmol/L Chloride 94.1 L (98-107) mmol/L BUN 36 H (9-20) mg/dL Creatinine 2.1 H (0.8-1.3) mg/dL Glucose 103 H (75-100) mg/dL POC Glucose 125 H 134 H (70-105) mg/dL 09/04/20 09/04/20 Range/Units 08:19 10:25 WBC 14.6 H (4.5-11.0) K/mm3 MCH 27 L (28-32) pg RDW 16.7 H (13.2-15.2) % Sodium (137-145) mmol/L Chloride (98-107) mmol/L BUN (9-20) mg/dL Creatinine (0.8-1.3) mg/dL Glucose (75-100) mg/dL POC Glucose 110 H (70-105) mg/dL
--- NOTE | 2020-09-04 16:40 | Consultation ---
History of Present Illness - Reason for Consult Consult date: 09/04/20 acute renal failure, chronic renal failure - History of Present Illness The patient is a 49 YO AAM with known history of Morbid Obesity, Hypertension, DM type 2, GERD, Nonischemic CMP HFrEF (EF 25 to 30%) and mild CKD who presented to [facility] ED 08/27 complaining of difficulty breathing and lower extremity swelling which has been ongoing for about 1 week. Patient admits orthopnea and paroxysmal nocturnal dyspnea. Shortness of breath is worse on exertion and improves upon resting. He denies any nausea, vomiting, diarrhea, abdominal pain, headache, dizziness, hematuria or dysuria. Denies any sick contacts, recent travel or contact with anyone with COVID-19. He has been recently vaccinated against COVID-19. Upon arrival to the emergency room BP was 190s/130s and heart rate between 100-130s. Troponin was initially elevated at 0.032. Patient was admitted for acute on chronic CHF exacerbation, hypertensive emergency and chest pain. Creatinine today elevated to Creat 2.1 and BUN 36. Nephrology was consulted for further evaluation. Past History Past Medical History: diabetes, heart failure, hypertension, hyperlipidemia, other (Asthma in Childhood) Past Surgical History: No surgical history Social history: no significant social history Family history: no significant family history Medications and Allergies Allergies Allergy/AdvReac Type Severity Reaction Status Date / Time No Known Allergies Allergy Verified 08/28/20 01:25 Home Medications Medication Instructions Recorded Confirmed Last Taken Type Aspirin EC [Halfprin EC] 81 mg PO QDAY #100 tablet 05/31/20 08/28/20 Unknown Rx AtorvaSTATin [Lipitor] 40 mg PO QHS #30 tablet 05/31/20 08/28/20 Unknown Rx Furosemide [Lasix TAB] 40 mg PO BID #60 05/31/20 08/28/20 Unknown Rx Gabapentin 300 mg PO Q8HR #90 capsule 05/31/20 08/28/20 Unknown Rx Insulin NPH/Regular [NovoLIN 70/30] 20 unit SUB-Q BIDDIAB #1 vial 05/31/20 08/28/20 08/27/20 Rx NIFEdipine XL [Procardia Xl] 60 mg PO DAILY #30 tablet 05/31/20 08/28/20 Unknown Rx Pantoprazole [Protonix TAB] 40 mg PO QDAC #30 tablet 05/31/20 08/28/20 Unknown Rx Potassium Chloride [K-Dur] 20 meq PO BID #60 tab 05/31/20 08/28/20 Unknown Rx Spironolactone [Aldactone] 25 mg PO QDAY 30 Days #30 tablet 05/31/20 08/28/20 Unknown Rx carvediloL [Coreg] 6.25 mg PO BID@0800,1700 #60 tablet 05/31/20 08/28/20 08/27/20 Rx lisinopriL [Zestril TAB] 10 mg PO QDAY #30 tablet 05/31/20 08/28/20 Unknown Rx Active Meds: Active Medications Acetaminophen (Acetaminophen 325 Mg Tab) 650 mg PO Q4H PRN PRN Reason: Pain MILD(1-3)/Fever >100.5/SANTOS Last Admin: 09/02/20 21:25 Dose: 650 mg Documented by: Aspirin (Aspirin Ec 325 Mg Tab) 325 mg PO QDAY [facility] Last Admin: 09/04/20 09:54 Dose: 325 mg Documented by: Atorvastatin Calcium (Atorvastatin 40 Mg Tab) 40 mg PO QHS [facility] Last Admin: 09/03/20 21:47 Dose: 40 mg Documented by: Dextrose (Dextrose 50% In Water (25gm) 50 Ml Syringe) 0 ml IV Q30MIN PRN; Protocol PRN Reason: Hypoglycemia Furosemide (Furosemide 40 Mg/4 Ml Inj) 40 mg IV BID@0600,1800 [facility] Last Admin: 09/04/20 06:17 Dose: 40 mg Documented by: Gabapentin (Gabapentin 100 Mg Cap) 100 mg PO Q8HR [facility] Last Admin: 09/04/20 13:23 Dose: 100 mg Documented by: Heparin Sodium (Porcine) (Heparin 5,000 Unit/1 Ml Vial) 5,000 unit SUB-Q Q8HR [facility] Last Admin: 09/04/20 13:23 Dose: 5,000 unit Documented by: Hydralazine HCl (Hydralazine 20 Mg/1 Ml Inj) 10 mg IV Q4H PRN PRN Reason: Blood Pressure Last Admin: 08/28/20 11:06 Dose: 10 mg Documented by: Milrinone Lactate/Dextrose (Milrinone-D5w 20 Mg/100 Ml) 20 mg in 100 mls @ 14.22 mls/hr IV TITR [facility] Stop: 09/06/20 08:59 Last Admin: 09/04/20 13:14 Dose: 0.375 mcg/kg/min, 14.22 mls/hr Documented by: Insulin Human Isoph/Insulin Regular (Insulin Nph/Regular 70/30 Inj) 15 unit SUB-Q BIDDIAB [facility] Last Admin: 09/04/20 09:51 Dose: Not Given Documented by: Insulin Human Lispro (Insulin Lispro 100 Unit/Ml) 0 unit SUB-Q ACHS [facility]; Protocol Last Admin: 09/04/20 13:14 Dose: Not Given Documented by: Metolazone (Metolazone 5 Mg Tab) 5 mg PO QDAY [facility] Last Admin: 09/04/20 09:54 Dose: 5 mg Documented by: Metoprolol Tartrate (Metoprolol Tartrate 50 Mg Tab) 50 mg PO Q8H [facility] Last Admin: 09/04/20 13:35 Dose: 50 mg Documented by: Morphine Sulfate (Morphine 4 Mg/1 Ml Inj) 2 mg IV Q5MIN PRN PRN Reason: Chest Pain Nifedipine (Nifedipine Xl 60 Mg Tab) 60 mg PO DAILY [facility] Last Admin: 09/04/20 09:54 Dose: 60 mg Documented by: Nitroglycerin (Nitroglycerin 0.4 Mg Tab Subl) 0.4 mg SL Q5M PRN PRN Reason: Chest Pain Ondansetron HCl (Ondansetron 4 Mg/2 Ml Inj) 4 mg IV Q8H PRN PRN Reason: Nausea And Vomiting Oxycodone/Acetaminophen (Oxycodone /Acetaminophen 5-325mg Tab) 1 tab PO Q6HR PRN PRN Reason: Pain, Moderate (4-6) Pantoprazole Sodium (Pantoprazole 40 Mg Tab) 40 mg PO QDAC [facility] Last Admin: 09/04/20 09:54 Dose: 40 mg Documented by: Sodium Chloride (Sodium Chloride 0.9% 10 Ml Flush Syringe) 10 ml IV BID [facility] Last Admin: 09/04/20 09:54 Dose: 10 ml Documented by: Sodium Chloride (Sodium Chloride 0.9% 10 Ml Flush Syringe) 10 ml IV PRN PRN PRN Reason: LINE FLUSH Last Admin: 08/31/20 17:25 Dose: 10 ml Documented by: Spironolactone (Spironolactone 25 Mg Tab) 25 mg PO QDAY [facility] Last Admin: 09/04/20 09:54 Dose: 25 mg Documented by: Valsartan (Valsartan 160mg Tab) 160 mg PO DAILY [facility] Last Admin: 09/04/20 09:54 Dose: 160 mg Documented by: Review of Systems Constitutional: no weight loss, no weight gain, no fever, no chills, no anorexia, no weakness Ears, nose, mouth and throat: no epistaxis Cardiovascular: chest pain, orthopnea, edema, shortness of breath, dyspnea on exertion, paroxysmal nocturnal dyspnea, high blood pressure, leg edema, no palpi tations, no syncope, no lightheadedness Respiratory: shortness of breath, dyspnea on exertion, no cough, no hemoptysis, no home oxygen Gastrointestinal: no abdominal pain, no nausea, no vomiting, no diarrhea, no melena Genitourinary Male: no dysuria, no hematuria Exam - Vital Signs Vital signs: Vital Signs Temp Pulse Resp BP Pulse Ox 97.4 F L 103 H 22 187/149 95 08/27/20 19:37 08/27/20 19:37 08/27/20 19:37 08/27/20 19:37 08/27/20 19:37 Results - Lab Results 09/04/20 10:25 09/04/20 04:38 Most recent lab results Calcium 8.8 mg/dL (8.4-10.2) 09/04/20 04:38 Assessment and Plan 1. Acute kidney injury: Maria Isabel superimpsoed on CKD in the setting of decompensated CHF. ATN likely. UA bland. Urine studies and Renal US ordered. Monitor renal function. Creatinine level is slightly better today. Avoid nephrotoxic agents. Meds dosage based on GFR. 2. FEN: Volume overload, Lasix, monitor. Monitor volume status and lytes. 3. Acute on chronic combined systolic and diastolic heart failure: LVEF 20 to 25% with diastolic dysfunction Telemetry, diuretics, strict I/Os and daily weight. On Milrinone drip. Cardiology following. 4. Acute hypoxic respiratory failure: Covid test negative. 22/ CHF exacerbation. Supplemental O2. Nebulizer breathing treatment as needed. 5. Chest pain: Resolved. Followed by Cards. 6. Hypertensive emergency: Possibly secondary to noncompliance. BP better since admission, fluctuates. Monitor and adjust meds as needed. 7. Sepsis: Staph aureus bacteremia. On Vancomycin. 8. Elevated T.bili: Monitor. 9. DM type 2. Subjective: Patient was seen and examined at the bedside. Objective: General appearance: well-developed, appears stated age, obese, not in distress HEENT: ATNC Neck: trachea midline Respiratory: bibasal rales noted Heart: S1S2, regular, no murmur Abdomen: soft, normoactive bowel sounds, not tender Integumentary: no obvious rash Ext: 1+ LE edema Neurologic: alert, conversing, able to move extremities
[2020-09-05] MEDS: FUROSEMIDE 40 MG/4 ML INJ IV SCH ×2 (05:56→18:02)
[2020-09-05] MEDS: METOPROLOL TARTRATE 50 MG TAB PO SCH ×4 (05:56→22:30)
[2020-09-05] MEDS: GABAPENTIN 100 MG CAP PO SCH ×3 (05:57→22:11)
[2020-09-05] MEDS: MILRINONE-D5W 20 MG/100 ML 20 MG/100 ML BAG IV SCH ×2 (06:07→22:54)
[2020-09-05 06:33] LABS: Hematocrit 39.8 % (35.5-45.6); Hemoglobin 13.2 gm/dl (11.8-15.2); Mean Corpuscular HGB Conc 33 % (32-34); Mean Corpuscular Volume 84 fl (84-94); Platelet Count 299 K/mm3 (140-440); Red Blood Count 4.76 M/mm3 (3.65-5.03); Red Cell Distribution Width 16.5 % (13.2-15.2)
[2020-09-05 06:39] LABS: INR 1.09 (0.87-1.13)
[2020-09-05 06:40] LABS: Partial Thromboplastin Time 34.1 Sec. (24.2-36.6)
[2020-09-05 06:44] LABS: Calcium 8.8 mg/dL (8.4-10.2)
[2020-09-05] MEDS: INSULIN LISPRO 100 UNIT/ML SUB-Q SCH ×4 (07:51→22:00)
[2020-09-05] MEDS: INSULIN NPH/REGULAR 70/30 INJ SUB-Q SCH ×2 (07:52→17:00)
[2020-09-05] MEDS: PANTOPRAZOLE 40 MG TAB PO SCH (07:57)
[2020-09-05 08:02] LABS: Band Neutrophils # (Manual) 0.1 K/mm3; RBC Morphology Normal; Total Cells Counted 100
[2020-09-05 08:03] LABS: Platelet Estimate Consistent w Auto
--- NOTE | 2020-09-05 09:22 | Progress Note ---
Assessment and Plan 1. Acute kidney injury: Maria Isabel superimpsoed on CKD in the setting of decompensated CHF. ATN likely. UA bland. Urine studies and Renal US ordered. Monitor renal function. Creatinine level is improving. Avoid nephrotoxic agents. Meds dosage based on GFR. 2. FEN: Volume overload, Lasix, monitor. Monitor volume status and lytes. 3. Acute on chronic combined systolic and diastolic heart failure: LVEF 20 to 25% with diastolic dysfunction Telemetry, diuretics, strict I/Os and daily weight. On Milrinone drip. Cardiology following. 4. Acute hypoxic respiratory failure: Covid test negative. 22/ CHF exacerbation. Supplemental O2. Nebulizer breathing treatment as needed. 5. Chest pain: Resolved. Followed by Cards. 6. Hypertensive emergency: Possibly secondary to non-compliance. BP better since admission. Monitor and adjust meds as needed. 7. Sepsis: Staph aureus bacteremia. On Vancomycin. 8. Elevated T.bili: Monitor. 9. DM type 2. Subjective: Patient was seen and examined at the bedside. Doing ok. Objective: General appearance: well-developed, appears stated age, obese, not in distress HEENT: ATNC Neck: trachea midline Respiratory: diminished breath sounds Heart: S1S2, regular, no murmur Abdomen: soft, normoactive bowel sounds, not tender Integumentary: no obvious rash Ext: trace LE edema Neurologic: alert, conversing, able to move extremities Subjective Date of service: 09/05/20 Principal diagnosis: Sepsis Objective - Vital Signs Vital signs: Vital Signs - 12hr 09/04/20 09/05/20 09/05/20 23:11 00:00 03:31 Temperature 98.9 F 98.8 F Pulse Rate 95 H 85 101 H Respiratory 18 18 Rate Blood Pressure 123/77 137/78 O2 Sat by Pulse 92 92 Oximetry 09/05/20 05:56 Temperature Pulse Rate 85 Respiratory Rate Blood Pressure 123/77 O2 Sat by Pulse Oximetry - Lab 09/05/20 05:33 09/05/20 05:33 Most recent lab results Calcium 8.8 mg/dL (8.4-10.2) 09/05/20 05:33 Magnesium 2.00 mg/dL (1.7-2.3) 09/05/20 05:33 Medications & Allergies - Medications Allergies/Adverse Reactions: Allergies No Known Allergies Allergy (Verified 08/28/20 01:25) Home Medications: Home Medications Medication Instructions Recorded Confirmed Last Taken Type Aspirin EC [Halfprin EC] 81 mg PO QDAY #100 tablet 05/31/20 08/28/20 Unknown Rx AtorvaSTATin [Lipitor] 40 mg PO QHS #30 tablet 05/31/20 08/28/20 Unknown Rx Furosemide [Lasix TAB] 40 mg PO BID #60 05/31/20 08/28/20 Unknown Rx Gabapentin 300 mg PO Q8HR #90 capsule 05/31/20 08/28/20 Unknown Rx Insulin NPH/Regular [NovoLIN 70/30] 20 unit SUB-Q BIDDIAB #1 vial 05/31/20 08/28/20 08/27/20 Rx NIFEdipine XL [Procardia Xl] 60 mg PO DAILY #30 tablet 05/31/20 08/28/20 Unknown Rx Pantoprazole [Protonix TAB] 40 mg PO QDAC #30 tablet 05/31/20 08/28/20 Unknown Rx Potassium Chloride [K-Dur] 20 meq PO BID #60 tab 05/31/20 08/28/20 Unknown Rx Spironolactone [Aldactone] 25 mg PO QDAY 30 Days #30 tablet 05/31/20 08/28/20 Unknown Rx carvediloL [Coreg] 6.25 mg PO BID@0800,1700 #60 tablet 05/31/20 08/28/20 08/27/20 Rx lisinopriL [Zestril TAB] 10 mg PO QDAY #30 tablet 05/31/20 08/28/20 Unknown Rx Active Medications: Generic Name Dose Route Start Last Admin Trade Name Freq PRN Reason Stop Dose Admin Acetaminophen 650 mg 08/28/20 02:30 09/02/20 21:25 Acetaminophen 325 Mg Tab PO 650 mg Q4H PRN Administration Pain MILD(1-3)/Fever >100.5/SANTOS Aspirin 325 mg 08/29/20 10:00 09/04/20 09:54 Aspirin Ec 325 Mg Tab PO 325 mg QDAY [facility] Administration Atorvastatin Calcium 40 mg 08/28/20 22:00 09/04/20 21:19 Atorvastatin 40 Mg Tab PO 40 mg QHS [facility] Administration Dextrose 0 ml 08/28/20 02:30 Dextrose 50% In Water (25gm) 50 Ml Syringe IV Q30MIN PRN Hypoglycemia Protocol Furosemide 40 mg 08/28/20 06:00 09/05/20 05:56 Furosemide 40 Mg/4 Ml Inj IV 40 mg BID@0600,1800 [facility] Administration Gabapentin 100 mg 08/28/20 14:00 09/05/20 05:57 Gabapentin 100 Mg Cap PO 100 mg Q8HR [facility] Administration Hydralazine HCl 10 mg 08/28/20 03:25 08/28/20 11:06 Hydralazine 20 Mg/1 Ml Inj IV 10 mg Q4H PRN Administration Blood Pressure Milrinone Lactate/Dextrose 20 mg in 100 mls @ 14.22 mls/hr 09/04/20 09:00 09/05/20 06:07 Milrinone-D5w 20 Mg/100 Ml IV 09/06/20 08:59 0.375 mcg/kg/min TITR [facility] 14.22 mls/hr Administration 0.375 MCG/KG/MIN Insulin Human Isoph/Insulin Regular 15 unit 08/29/20 08:00 09/05/20 07:52 Insulin Nph/Regular 70/30 Inj SUB-Q Not Given BIDDIAB [facility] Insulin Human Lispro 0 unit 08/28/20 07:30 09/05/20 07:51 Insulin Lispro 100 Unit/Ml SUB-Q Not Given ACHS [facility] Protocol Metolazone 5 mg 08/30/20 12:00 09/04/20 09:54 Metolazone 5 Mg Tab PO 5 mg QDAY [facility] Administration Metoprolol Tartrate 50 mg 08/28/20 14:00 09/05/20 05:56 Metoprolol Tartrate 50 Mg Tab PO 50 mg Q8H [facility] Administration Morphine Sulfate 2 mg 08/28/20 02:30 Morphine 4 Mg/1 Ml Inj IV Q5MIN PRN Chest Pain Nifedipine 60 mg 08/28/20 10:00 09/04/20 09:54 Nifedipine Xl 60 Mg Tab PO 60 mg DAILY [facility] Administration Nitroglycerin 0.4 mg 08/28/20 02:30 Nitroglycerin 0.4 Mg Tab Subl SL Q5M PRN Chest Pain Ondansetron HCl 4 mg 08/28/20 02:30 Ondansetron 4 Mg/2 Ml Inj IV Q8H PRN Nausea And Vomiting Oxycodone/Acetaminophen 1 tab 08/28/20 09:00 Oxycodone /Acetaminophen 5-325mg Tab PO Q6HR PRN Pain, Moderate (4-6) Pantoprazole Sodium 40 mg 08/29/20 07:30 09/05/20 07:57 Pantoprazole 40 Mg Tab PO 40 mg QDAC [facility] Administration Sodium Chloride 10 ml 08/28/20 10:00 09/04/20 21:18 Sodium Chloride 0.9% 10 Ml Flush Syringe IV 10 ml BID [facility] Administration Sodium Chloride 10 ml 08/28/20 02:30 08/31/20 17:25 Sodium Chloride 0.9% 10 Ml Flush Syringe IV 10 ml PRN PRN Administration LINE FLUSH Spironolactone 25 mg 08/28/20 10:00 09/04/20 09:54 Spironolactone 25 Mg Tab PO 25 mg QDAY [facility] Administration Valsartan 160 mg 08/28/20 15:00 09/04/20 09:54 Valsartan 160mg Tab PO 160 mg DAILY [facility] Administration
--- NOTE | 2020-09-05 10:09 | Progress Note ---
Assessment and Plan Cultures: SARS-CoV-2 PCR x2 - Blood culture 09/02/2020 MSSA 2 out of 4 bottles Urine culture mixed bacteria Blood culture 09/04/2020 pending Assessment: 49-year-old male with history of CHF EF 25 to 30%, diabetes mellitus, GERD admitted on 08/27/2020 secondary to few day history of worsening shortness of breath, bilateral lower extremity edema: #Acute sepsis: Better; unclear etiology likely hospital-acquired pneumonia +/- bacteremia. Urinalysis negative. SARS-CoV-2 PCR negative x2. #MSSA bacteremia: unclear source ? Pneumonia vs infected IV line vs scratching lesions from dermatitis #Hospital-acquired pneumonia versus atelectasis: Chest x-ray with new left lower lobe density. #Acute CHF exacerbation: Patient with a EF 25 to 30%. #DANILO: Renally adjust medications #Diffuse pruritic rash: unspecific dermatitis ?unclear etiology. It has been chronic. Patient scratches frequently. Recommendations: -Stop vancomycin -Start cefazolin 2 g IV every 12 hour (renally adjusted) -F/uy Repeat blood cultures -Obtain transthoracic echo to rule out endocarditis -pending -Anticipate to discharge on cefazolin 2 g IV every 8 hour total 4 weeks till 10/02/2020, sent to community case manager -Place PICC once repeat blood cx neg x 48h -Needs dermatology referral for chronic dermatitis Will follow. Hanh Venegas MD Infectious Diseases Software Sales Executive [facility] ([facility]) M [phone] O [phone] Subjective Date of service: 09/05/20 Principal diagnosis: Sepsis Interval history: Patient feels better. No complaints. Fever resolved. Objective - Exam Narrative Exam: General appearance: Alert in NAD Eyes: anicteric sclerae, moist conjunctivae; no lid-lag; PERRLA HENT: Normocephalic, Atraumatic; normal external ears, nares open, oropharynx clear Neck: supple, tracheal midline, no JVD Lungs: Diminished breath sound bilaterally CV: RRR no murmur Abdomen: Soft, non-tender; no masses or hepatosplenomegaly Extremities: Bilateral lower extremity edema Skin: Diffuse mild nodular rash Psych: no agitated Neuro: alert and oriented x 3. Moving all extermities - Constitutional Vitals: Vital Signs Temp Pulse Resp BP Pulse Ox 98.8 F 85 18 123/77 92 05/13/21 03:31 09/05/20 05:56 09/05/20 03:31 09/05/20 05:56 09/05/20 03:31 Temperature -Last 24 Hours Temperature 98.8 F Temperature 98.9 F Temperature 98.7 F Temperature 98.0 F - Labs CBC & Chem 7: 09/05/20 05:33 09/05/20 05:33 Labs: Abnormal lab results 09/04/20 09/04/20 09/04/20 Range/Units 10:25 11:17 15:49 WBC 14.6 H (4.5-11.0) K/mm3 MCH 27 L (28-32) pg RDW 16.7 H (13.2-15.2) % Seg Neuts % (Manual) (40.0-70.0) % Lymphocytes % (Manual) (13.4-35.0) % Monocytes % (Manual) (0.0-7.3) % Eosinophils % (Manual) (0.0-4.3) % Seg Neutrophils # Man (1.8-7.7) K/mm3 Lymphocytes # (Manual) (1.2-5.4) K/mm3 Monocytes # (Manual) (0.0-0.8) K/mm3 Eosinophils # (Manual) (0.0-0.4) K/mm3 Sodium (137-145) mmol/L Chloride (98-107) mmol/L Carbon Dioxide (22-30) mmol/L BUN (9-20) mg/dL Creatinine (0.8-1.3) mg/dL POC Glucose 117 H 139 H (70-105) mg/dL 09/04/20 09/05/20 09/05/20 Range/Units 20:51 05:33 05:33 WBC 12.8 H (4.5-11.0) K/mm3 MCH (28-32) pg RDW 16.5 H (13.2-15.2) % Seg Neuts % (Manual) 73.0 H (40.0-70.0) % Lymphocytes % (Manual) 8.0 L (13.4-35.0) % Monocytes % (Manual) 10.0 H (0.0-7.3) % Eosinophils % (Manual) 7.0 H (0.0-4.3) % Seg Neutrophils # Man 9.3 H (1.8-7.7) K/mm3 Lymphocytes # (Manual) 1.0 L (1.2-5.4) K/mm3 Monocytes # (Manual) 1.3 H (0.0-0.8) K/mm3 Eosinophils # (Manual) 0.9 H (0.0-0.4) K/mm3 Sodium 136 L (137-145) mmol/L Chloride 93.4 L (98-107) mmol/L Carbon Dioxide 32 H (22-30) mmol/L BUN 39 H (9-20) mg/dL Creatinine 1.8 H (0.8-1.3) mg/dL POC Glucose 127 H (70-105) mg/dL
[2020-09-05] MEDS: SPIRONOLACTONE 25 MG TAB PO SCH (10:54)
[2020-09-05] MEDS: metOLazone 5 MG TAB PO SCH (10:55)
[2020-09-05] MEDS: VALSARTAN 160MG TAB PO SCH (10:55)
[2020-09-05] MEDS: NIFEdipine XL 60 MG TAB PO SCH (10:56)
[2020-09-05] MEDS: ASPIRIN EC 325 MG TAB PO SCH (10:56)
--- NOTE | 2020-09-05 11:02 | Progress Note ---
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 Hypertension Diabetes Noncompliant with outpatient cardiac follow up and dietary restriction Acute renal failure Staph aureus bacteremia: unclear source limited echo this admission reports no evidence of valvular vegetations. Recommendations: Low sodium dietary restriction. Daily weight and I's and O's. Continue aggressive medical therapy for chronic systolic heart failure. Will continue intravenous milrinone therapy until anticipated discharge. Subjective Date of service: 09/05/20 Principal diagnosis: Sepsis Interval history: Patient has no complaints. Lower extremity edema is resolving. IV milrinone continues. Objective Vital Signs Temp Pulse Resp BP Pulse Ox 09/05/20 10:55 95 H 135/89 09/05/20 10:54 95 H 135/89 09/05/20 05:56 85 123/77 09/05/20 03:31 98.8 F 101 H 18 137/78 92 09/05/20 00:00 85 09/04/20 23:11 98.9 F 95 H 18 123/77 92 09/04/20 21:19 100 H 114/68 09/04/20 19:32 98.7 F 100 H 18 114/68 91 09/04/20 16:00 96 H 09/04/20 15:44 98.0 F 95 H 18 111/67 90 09/04/20 15:43 96 H 111/67 90 09/04/20 13:37 128/81 09/04/20 13:35 94 H 128/81 - Physical Examination General: No Apparent Distress HEENT: Positive: PERRL Neck: Positive: trachea midline Cardiac: Positive: Reg Rate and Rhythm Lungs: Positive: Decreased Breath Sounds Neuro: Positive: Grossly Intact Extremities: Present: +1 Edema - Labs and Meds Coagulation 09/05/20 Range/Units 05:33 PT 13.9 (12.2-14.9) Sec. INR 1.09 (0.87-1.13) APTT 34.1 (24.2-36.6) Sec. CBC 09/05/20 Range/Units 05:33 WBC 12.8 H (4.5-11.0) K/mm3 RBC 4.76 (3.65-5.03) M/mm3 Hgb 13.2 (11.8-15.2) gm/dl Hct 39.8 (35.5-45.6) % Plt Count 299 (140-440) K/mm3 Comprehensive Metabolic Panel 09/05/20 Range/Units 05:33 Sodium 136 L (137-145) mmol/L Potassium 3.8 (3.6-5.0) mmol/L Chloride 93.4 L (98-107) mmol/L Carbon Dioxide 32 H (22-30) mmol/L BUN 39 H (9-20) mg/dL Creatinine 1.8 H (0.8-1.3) mg/dL Glucose 97 (75-100) mg/dL Calcium 8.8 (8.4-10.2) mg/dL
--- NOTE | 2020-09-05 14:32 | Ultrasound Report ---
ULTRASOUND RENAL INDICATION: Acute renal failure.. COMPARISON: No relevant prior imaging study available. FINDINGS: RIGHT KIDNEY: Size: 11.1 cm. Echogenicity: Normal. Cortical thickness: Normal. Stones: None. Hydronephrosis: None. Cyst or mass: None. LEFT KIDNEY: Size: 10.5 cm. Echogenicity: Normal. Cortical thickness: Normal. Stones: None. Hydronephrosis: None. Cyst or mass: None. Urinary Bladder: No significant abnormality. Free Fluid: None. Additional Findings: None. IMPRESSION 1. No acute sonographic abnormality of the kidneys. Signer Name: Nick Roberts MD Signed: 09/05/2020 2:28 PM Workstation Name: [id number]
--- NOTE | 2020-09-05 14:49 | Progress Note ---
Assessment and Plan -- Acute on chronic combined systolic and diastolic heart failure Patient admitted and placed on telemetry. Continue patient on IV diuretics. LVEF 20 to 25% with diastolic dysfunction Continue milrinone drip Cardiology following Sepsis with leukocytosis, fever, MSSA bacteremia and left lower lobe pneumonia -negative Covid x2 blood culture growing MSSA Chest x-ray showed left lower lobe density Infectious disease consulted Patient is s/p vancomycin and Zosyn, renally dosed -now ABX changed to cefazolin -- Acute chest pain, resolved -likely from GERD, continue PPI Patient placed on telemetry. Will check serial cardiac enzymes. Patient also placed on daily aspirin, sublingual nitroglycerin and IV morphine as needed for chest pain. Follow cardiology for further recommendation. --PUI for COVID-19, Covid negative on 08/28 and 09/02 --Acute hypoxic respiratory failure, due to CHF exacerbation Also will evaluate for possible Covid, continue IV diuresis Nebulizer breathing treatment as needed -- Total bilirubin, elevated Etiology unclear. Will monitor chemistry. We will place consult to gastroenterology for recommendations if continue to trend up. Order for hepatitis panel -- Hypertensive emergency Possibly secondary to noncompliance. resumed routine home medications and monitor vital signs closely. Patient placed on IV hydralazine as needed for optimal blood pressure control. --Acute back pain, left scapula Possibly muscle spasm Patient is declining any pain medication at this time Resolved --DANILO on Chronic kidney disease stage IIIa -Not POA Cr slightly trended up and now trending down Could be from cardiorenal syndrome We will consult nephrology, continue to monitor BMP -- Diabetes mellitus Will monitor Accu-Cheks closely. Patient placed on sliding scale insulin. --MSSA bacteremia: unclear source ? Pneumonia vs IV line Continue empiric antibiotics for now, ID following need cefazolin 2 g IV every 8 hour total 4 weeks till 10/02/2020, --Hospital-acquired pneumonia versus atelectasis: Chest x-ray with new left lower lobe density. Continue antibiotics -- DVT prophylaxis Patient placed on subcutaneous heparin. -- Full code status Brief history: This is a 49-year-old male with a history of CHF presented to the hospital with worsening shortness of breath and bilateral lower extremity swelling and hypertensive urgency with blood pressure 198/136 on admission. Daily clinical course; 08/29/20: Patient did not have much improvement in the last 24 hours with IV diuretics. Urine output is not optimal. Planned to start on milrinone drip by lever operator. Covid test pending , continue Covid protocol 08/30/2020: Patient started on milrinone drip, continues to have some shortness of breath but has improved. 08/31/2020: Patient eating breakfast, cough is diminished, diuresing is helping. Explained to patient the severity of his heart failure. 09/01/2020 patient seen, back pain has subsided. Continues to be on milrinone. 09/02/2020: Patient seen, looks very lethargic, patient with a fever overnight. Sepsis protocol and infectious disease consult initiated 09/03/20: Continue milrinone drip, continue empiric antibiotics for elevated wh ite count and possible pneumonia. Continue to follow clinically 09/04: cont Low sodium dietary restriction. Daily weight and I's and O's. Continue aggressive medical therapy for chronic systolic heart failure including intravenous milrinone therapy per cardiology recommendation. 09/05: Blood culture growing MSSA. Continue intravenous milrinone therapy until anticipated discharge. changed abx to cefazolin 2 g IV every 8 hour, need abx therapy total 4 weeks till 10/02/2020, Subjective Date of service: 09/05/20 Principal diagnosis: Sepsis Interval history: Patient seen and examined. Medical records and medication list reviewed. No acute event overnight noted by the RN. Patient denies any chest pain, but complains of shortness of breath on exertion. Patient is tolerating diet. Still has significant bilateral lower extremity swelling Discussed plan of care at bedside with patient. Objective - Exam Narrative Exam: Limited physical exam due to COVID-19 pandemic to minimize transmission of the disease and to preserve PPE. Vital reviewed and stable. GENERAL: well-developed morbidly obese -[place] male lying on bed appeared to be in no discomfort. HEENT: Normocephalic. Atraumatic. NECK: Supple. CHEST/LUNGS: breathing nonlabored. HEART/CARDIOVASCULAR: Heart rate stable on telemetry ABDOMEN: Visibly not distended SKIN: There is no rash NEURO: No focal motor deficit. Follows command. MUSCULOSKELETAL: No joint effusion EXTRIMITY: trace LE edema, no cyanosis or clubbing. PSYCH: Cooperative. - Constitutional Vitals: Vital Signs - 12hr 09/05/20 09/05/2009/05/21 03:31 05:56 10:54 Temperature 98.8 F Pulse Rate 101 H 85 95 H Respiratory 18 Rate Blood Pressure 137/78 123/77 135/89 O2 Sat by Pulse 92 Oximetry 09/05/20 09/05/20 09/05/20 10:55 11:15 11:17 Temperature Pulse Rate 95 H 105 H Respiratory Rate Blood Pressure 135/89 108/72 108/72 O2 Sat by Pulse 95 Oximetry - Labs CBC & Chem 7: 09/05/20 05:33 09/05/20 05:33 Labs: Abnormal lab results 09/04/20 09/04/20 09/04/20 Range/Units 11:17 15:49 20:51 WBC (4.5-11.0) K/mm3 RDW (13.2-15.2) % Seg Neuts % (Manual) (40.0-70.0) % Lymphocytes % (Manual) (13.4-35.0) % Monocytes % (Manual) (0.0-7.3) % Eosinophils % (Manual) (0.0-4.3) % Seg Neutrophils # Man (1.8-7.7) K/mm3 Lymphocytes # (Manual) (1.2-5.4) K/mm3 Monocytes # (Manual) (0.0-0.8) K/mm3 Eosinophils # (Manual) (0.0-0.4) K/mm3 Sodium (137-145) mmol/L Chloride (98-107) mmol/L Carbon Dioxide (22-30) mmol/L BUN (9-20) mg/dL Creatinine (0.8-1.3) mg/dL POC Glucose 117 H 139 H 127 H (70-105) mg/dL 09/05/20 09/05/20 09/05/20 Range/Units 05:33 05:33 08:22 WBC 12.8 H (4.5-11.0) K/mm3 RDW 16.5 H (13.2-15.2) % Seg Neuts % (Manual) 73.0 H (40.0-70.0) % Lymphocytes % (Manual) 8.0 L (13.4-35.0) % Monocytes % (Manual) 10.0 H (0.0-7.3) % Eosinophils % (Manual) 7.0 H (0.0-4.3) % Seg Neutrophils # Man 9.3 H (1.8-7.7) K/mm3 Lymphocytes # (Manual) 1.0 L (1.2-5.4) K/mm3 Monocytes # (Manual) 1.3 H (0.0-0.8) K/mm3 Eosinophils # (Manual) 0.9 H (0.0-0.4) K/mm3 Sodium 136 L (137-145) mmol/L Chloride 93.4 L (98-107) mmol/L Carbon Dioxide 32 H (22-30) mmol/L BUN 39 H (9-20) mg/dL Creatinine 1.8 H (0.8-1.3) mg/dL POC Glucose 106 H (70-105) mg/dL 09/05/20 Range/Units 11:16 WBC (4.5-11.0) K/mm3 RDW (13.2-15.2) % Seg Neuts % (Manual) (40.0-70.0) % Lymphocytes % (Manual) (13.4-35.0) % Monocytes % (Manual) (0.0-7.3) % Eosinophils % (Manual) (0.0-4.3) % Seg Neutrophils # Man (1.8-7.7) K/mm3 Lymphocytes # (Manual) (1.2-5.4) K/mm3 Monocytes # (Manual) (0.0-0.8) K/mm3 Eosinophils # (Manual) (0.0-0.4) K/mm3 Sodium (137-145) mmol/L Chloride (98-107) mmol/L Carbon Dioxide (22-30) mmol/L BUN (9-20) mg/dL Creatinine (0.8-1.3) mg/dL POC Glucose 151 H (70-105) mg/dL HEART Score - HEART Score EKG: Normal Age: 45-65 Risk factors: > 3 risk factors or hx of atherosclerotic disease Troponin: Troponin T 0.021 ng/mL (0.00-0.029) 08/28/20 14:09 Troponin: < normal limit
[2020-09-06] MEDS: FUROSEMIDE 40 MG/4 ML INJ IV SCH ×2 (05:48→18:54)
[2020-09-06] MEDS: INSULIN NPH/REGULAR 70/30 INJ SUB-Q SCH ×2 (07:57→18:50)
[2020-09-06] MEDS: INSULIN LISPRO 100 UNIT/ML SUB-Q SCH ×4 (07:57→21:14)
--- NOTE | 2020-09-06 08:59 | Progress Note ---
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 No valvular vegetations evident. 04/2020 LVEF 20-25% with moderateTR and moderate pulmonary hypertension, RVSP 44 mmHg 08/2019: [facility] - angiographically normal coronary arteries with ejection fraction 25 to 30%. Hypertension Diabetes Noncompliant with outpatient cardiac follow up and dietary restriction Acute renal failure Staph aureus bacteremia: unclear source limited echo this admission reports no evidence of valvular vegetations. Recommendations: Low sodium dietary restriction. Daily weight and I's and O's. Continue aggressive medical therapy for chronic systolic heart failure. Will continue intravenous milrinone therapy until anticipated discharge. Subjective Date of service: 09/06/20 Principal diagnosis: Sepsis Interval history: Patient is resting in bed comfortably. No cardiac complaints. Objective Vital Signs Temp Pulse Resp Resp BP Pulse Ox 09/06/20 07:55 94 09/06/20 04:15 98.2 F 103 H 18 146/98 99 09/06/20 00:00 20 09/05/20 23:10 100.0 F H 116 H 16 142/69 91 09/05/20 22:30 111 H 124/71 09/05/20 22:00 109 H 09/05/20 20:00 94 09/05/20 19:53 99.7 F H 111 H 18 124/71 91 09/05/20 16:57 98.7 F 102 H 18 113/71 96 09/05/20 14:56 112/57 09/05/20 13:00 99 H 09/05/20 11:17 108/72 09/05/20 11:15 105 H 108/72 95 09/05/20 10:55 95 H 135/89 09/05/20 10:54 95 H 135/89 - Physical Examination General: No Apparent Distress HEENT: Positive: PERRL Neck: Positive: trachea midline Cardiac: Positive: Reg Rate and Rhythm Lungs: Positive: Decreased Breath Sounds Neuro: Positive: Grossly Intact Extremities: Absent: edema - Labs and Meds Comprehensive Metabolic Panel 09/06/20 Range/Units 05:00 Sodium 135 L (137-145) mmol/L Potassium 3.9 (3.6-5.0) mmol/L Chloride 94.2 L (98-107) mmol/L Carbon Dioxide 28 (22-30) mmol/L BUN 37 H (9-20) mg/dL Creatinine 1.8 H (0.8-1.3) mg/dL Glucose 101 H (75-100) mg/dL Calcium 9.0 (8.4-10.2) mg/dL
[2020-09-06] MEDS: ASPIRIN EC 325 MG TAB PO SCH (09:28)
[2020-09-06] MEDS: VALSARTAN 160MG TAB PO SCH (09:28)
[2020-09-06] MEDS: metOLazone 5 MG TAB PO SCH (09:29)
[2020-09-06] MEDS: GABAPENTIN 100 MG CAP PO SCH ×3 (09:29→21:13)
[2020-09-06] MEDS: NIFEdipine XL 60 MG TAB PO SCH (09:29)
[2020-09-06] MEDS: METOPROLOL TARTRATE 50 MG TAB PO SCH ×2 (09:29→21:13)
[2020-09-06] MEDS: PANTOPRAZOLE 40 MG TAB PO SCH (09:29)
[2020-09-06] MEDS: SPIRONOLACTONE 25 MG TAB PO SCH (09:29)
--- NOTE | 2020-09-06 12:14 | Progress Note ---
Assessment and Plan -- Acute on chronic combined systolic and diastolic heart failure Patient admitted and placed on telemetry. Continue patient on IV diuretics. LVEF 20 to 25% with diastolic dysfunction Continue milrinone drip Cardiology following Sepsis with leukocytosis, fever, MSSA bacteremia and left lower lobe pneumonia -negative Covid x2 blood culture growing MSSA Chest x-ray showed left lower lobe density Infectious disease consulted Patient is s/p vancomycin and Zosyn, renally dosed -now ABX changed to cefazolin -- Acute chest pain, resolved -likely from GERD, continue PPI Patient placed on telemetry. Will check serial cardiac enzymes. Patient also placed on daily aspirin, sublingual nitroglycerin and IV morphine as needed for chest pain. Follow cardiology for further recommendation. --PUI for COVID-19, Covid negative on 08/28 and 09/02 --Acute hypoxic respiratory failure, due to CHF exacerbation Also will evaluate for possible Covid, continue IV diuresis Nebulizer breathing treatment as needed -- Total bilirubin, elevated Etiology unclear. Will monitor chemistry. We will place consult to gastroenterology for recommendations if continue to trend up. Order for hepatitis panel -- Hypertensive emergency Possibly secondary to noncompliance. resumed routine home medications and monitor vital signs closely. Patient placed on IV hydralazine as needed for optimal blood pressure control. --Acute back pain, left scapula Possibly muscle spasm Patient is declining any pain medication at this time Resolved --DANILO on Chronic kidney disease stage IIIa -Not POA Cr slightly trended up and now trending down Could be from cardiorenal syndrome We will consult nephrology, continue to monitor BMP -- Diabetes mellitus Will monitor Accu-Cheks closely. Patient placed on sliding scale insulin. --MSSA bacteremia: unclear source ? Pneumonia vs IV line Continue empiric antibiotics for now, ID following need cefazolin 2 g IV every 8 hour total 4 weeks till 10/02/2020, --Hospital-acquired pneumonia versus atelectasis: Chest x-ray with new left lower lobe density. Continue antibiotics -- DVT prophylaxis Patient placed on subcutaneous heparin. -- Full code status Brief history: This is a 49-year-old male with a history of CHF presented to the hospital with worsening shortness of breath and bilateral lower extremity swelling and hypertensive urgency with blood pressure 198/136 on admission. Daily clinical course; 08/29/20: Patient did not have much improvement in the last 24 hours with IV diuretics. Urine output is not optimal. Planned to start on milrinone drip by cardiac technician. Covid test pending , continue Covid protocol 08/30/2020: Patient started on milrinone drip, continues to have some shortness of breath but has improved. 08/31/2020: Patient eating breakfast, cough is diminished, diuresing is helping. Explained to patient the severity of his heart failure. 09/01/2020 patient seen, back pain has subsided. Continues to be on milrinone. 09/02/2020: Patient seen, looks very lethargic, patient with a fever overnight. Sepsis protocol and infectious disease consult initiated 09/03/20: Continue milrinone drip, continue empiric antibiotics for elevated wh ite count and possible pneumonia. Continue to follow clinically 09/04: cont Low sodium dietary restriction. Daily weight and I's and O's. Continue aggressive medical therapy for chronic systolic heart failure including intravenous milrinone therapy per cardiology recommendation. 09/05: Blood culture growing MSSA. Continue intravenous milrinone therapy until anticipated discharge. changed abx to cefazolin 2 g IV every 8 hour, need abx therapy total 4 weeks till 10/02/2020, 09/06: wait for repeat blood cx to be neg at 48h for picc line placement. cont empiric abx. follow clinically. Subjective Date of service: 09/06/20 Principal diagnosis: Sepsis Interval history: Patient seen and examined. Medical records and medication list reviewed. No acute event overnight noted by the RN. Patient denies any chest pain, but complains of shortness of breath on exertion. Patient is tolerating diet. improved bilateral lower extremity swelling Discussed plan of care at bedside with patient. Objective - Exam Narrative Exam: GENERAL: well-developed morbidly obese -[place] male lying on bed appeared to be in no discomfort. HEENT: Normocephalic. Atraumatic. NECK: Supple. CHEST/LUNGS: breathing nonlabored. HEART/CARDIOVASCULAR: Heart rate stable on telemetry ABDOMEN: Visibly not distended SKIN: There is no rash NEURO: No focal motor deficit. Follows command. MUSCULOSKELETAL: No joint effusion EXTRIMITY: +ve LE edema, no cyanosis or clubbing. PSYCH: Cooperative. - Constitutional Vitals: Vital Signs - 12hr 09/06/20 09/06/20 04:15 07:55 Temperature 98.2 F Pulse Rate 103 H Respiratory 18 Rate Blood Pressure 146/98 O2 Sat by Pulse 99 94 Oximetry - Labs CBC & Chem 7: 09/07/20 04:35 09/08/20 05:20 Labs: Abnormal lab results 09/05/20 09/05/20 09/06/20 Range/Units 16:56 21:07 05:00 Sodium 135 L (137-145) mmol/L Chloride 94.2 L (98-107) mmol/L BUN 37 H (9-20) mg/dL Creatinine 1.8 H (0.8-1.3) mg/dL Glucose 101 H (75-100) mg/dL POC Glucose 120 H 135 H (70-105) mg/dL HEART Score - HEART Score EKG: Normal Age: 45-65 Risk factors: > 3 risk factors or hx of atherosclerotic disease Troponin: Troponin T 0.021 ng/mL (0.00-0.029) 08/28/20 14:09 Troponin: < normal limit
--- NOTE | 2020-09-06 13:18 | Progress Note ---
Assessment and Plan 1. Acute kidney injury: Maria Isabel superimpsoed on CKD in the setting of decompensated CHF. ATN likely. UA bland. Renal US negative for hydro. Urine studies ordered. Monitor renal function. Creatinine level is better. Avoid nephrotoxic agents. Meds dosage based on GFR. 2. FEN: Volume overload, Lasix, monitor. Monitor volume status and lytes. 3. Acute on chronic combined systolic and diastolic heart failure: LVEF 20 to 25% with diastolic dysfunction Telemetry, diuretics, strict I/Os and daily weight. On Milrinone drip. Cardiology following. 4. Acute hypoxic respiratory failure: Covid test negative. 22/ CHF exacerbation. Supplemental O2. Nebulizer treatment as needed. 5. Chest pain: Resolved. Followed by Cards. 6. Hypertensive emergency: Possibly secondary to non-compliance. BP better since admission. Monitor and adjust meds as needed. 7. Sepsis: MSSA bacteremia. On Cefazolin. 8. Elevated T.bili: Monitor. 9. DM type 2. Subjective: Patient was seen and examined at the bedside. Doing ok. Objective: General appearance: well-developed, appears stated age, obese, not in distress HEENT: ATNC Neck: trachea midline Respiratory: diminished breath sounds Heart: S1S2, regular, no murmur Abdomen: soft, normoactive bowel sounds, not tender Integumentary: no obvious rash Ext: no edema Neurologic: alert, conversing, able to move extremities Subjective Date of service: 09/06/20 Principal diagnosis: Sepsis Objective - Vital Signs Vital signs: Vital Signs - 12hr 09/06/20 09/06/20 04:15 07:55 Temperature 98.2 F Pulse Rate 103 H Respiratory 18 Rate Blood Pressure 146/98 O2 Sat by Pulse 99 94 Oximetry - Lab 09/05/20 05:33 09/06/20 05:00 Most recent lab results Calcium 9.0 mg/dL (8.4-10.2) 09/06/20 05:00 Magnesium 2.00 mg/dL (1.7-2.3) 09/05/20 05:33 Medications & Allergies - Medications Allergies/Adverse Reactions: Allergies No Known Allergies Allergy (Verified 08/28/20 01:25) Home Medications: Home Medications Medication Instructions Recorded Confirmed Last Taken Type Aspirin EC [Halfprin EC] 81 mg PO QDAY #100 tablet 05/31/20 08/28/20 Unknown Rx AtorvaSTATin [Lipitor] 40 mg PO QHS #30 tablet 05/31/20 08/28/20 Unknown Rx Furosemide [Lasix TAB] 40 mg PO BID #60 05/31/20 08/28/20 Unknown Rx Gabapentin 300 mg PO Q8HR #90 capsule 05/31/20 08/28/20 Unknown Rx Insulin NPH/Regular [NovoLIN 70/30] 20 unit SUB-Q BIDDIAB #1 vial 05/31/20 08/28/20 08/27/20 Rx NIFEdipine XL [Procardia Xl] 60 mg PO DAILY #30 tablet 05/31/20 08/28/20 Unknown Rx Pantoprazole [Protonix TAB] 40 mg PO QDAC #30 tablet 05/31/20 08/28/20 Unknown Rx Potassium Chloride [K-Dur] 20 meq PO BID #60 tab 05/31/20 08/28/20 Unknown Rx Spironolactone [Aldactone] 25 mg PO QDAY 30 Days #30 tablet 05/31/20 08/28/20 Unknown Rx carvediloL [Coreg] 6.25 mg PO BID@0800,1700 #60 tablet 05/31/20 08/28/20 08/27/20 Rx lisinopriL [Zestril TAB] 10 mg PO QDAY #30 tablet 05/31/20 08/28/20 Unknown Rx Active Medications: Generic Name Dose Route Start Last Admin Trade Name Freq PRN Reason Stop Dose Admin Acetaminophen 650 mg 08/28/20 02:30 09/02/20 21:25 Acetaminophen 325 Mg Tab PO 650 mg Q4H PRN Administration Pain MILD(1-3)/Fever >100.5/SANTOS Aspirin 325 mg 08/29/20 10:00 09/06/20 09:28 Aspirin Ec 325 Mg Tab PO 325 mg QDAY [facility] Administration Atorvastatin Calcium 40 mg 08/28/20 22:00 09/05/20 22:11 Atorvastatin 40 Mg Tab PO 40 mg QHS [facility] Administration Dextrose 0 ml 08/28/20 02:30 Dextrose 50% In Water (25gm) 50 Ml Syringe IV Q30MIN PRN Hypoglycemia Protocol Furosemide 40 mg 08/28/20 06:00 09/06/20 05:48 Furosemide 40 Mg/4 Ml Inj IV 40 mg BID@0600,1800 [facility] Administration Gabapentin 100 mg 08/28/20 14:00 09/06/20 13:16 Gabapentin 100 Mg Cap PO 100 mg Q8HR [facility] Administration Hydralazine HCl 10 mg 08/28/20 03:25 08/28/20 11:06 Hydralazine 20 Mg/1 Ml Inj IV 10 mg Q4H PRN Administration Blood Pressure Milrinone Lactate/Dextrose 20 mg in 100 mls @ 14.22 mls/hr 09/04/20 09:00 09/05/20 22:54 Milrinone-D5w 20 Mg/100 Ml IV 0.375 mcg/kg/min TITR ADAMS 14.22 mls/hr Administration 0.375 MCG/KG/MIN Cefazolin Sodium 2 gm/ Sodium 100 mls @ 200 mls/hr 09/05/20 12:00 09/06/20 13:16 Chloride IV 10/02/20 20:29 200 mls/hr Q8H [facility] Administration Protocol Insulin Human Isoph/Insulin Regular 15 unit 08/29/20 08:00 09/06/20 07:57 Insulin Nph/Regular 70/30 Inj SUB-Q Not Given BIDDIAB [facility] Insulin Human Lispro 0 unit 08/28/20 07:30 09/06/20 13:13 Insulin Lispro 100 Unit/Ml SUB-Q Not Given ACHS [facility] Protocol Metolazone 5 mg 08/30/20 12:00 09/06/20 09:29 Metolazone 5 Mg Tab PO 5 mg QDAY [facility] Administration Metoprolol Tartrate 50 mg 09/05/20 16:00 09/06/20 09:29 Metoprolol Tartrate 50 Mg Tab PO 50 mg Q12HR [facility] Administration Morphine Sulfate 2 mg 08/28/20 02:30 Morphine 4 Mg/1 Ml Inj IV Q5MIN PRN Chest Pain Nifedipine 60 mg 08/28/20 10:00 09/06/20 09:29 Nifedipine Xl 60 Mg Tab PO 60 mg DAILY [facility] Administration Nitroglycerin 0.4 mg 08/28/20 02:30 Nitroglycerin 0.4 Mg Tab Subl SL Q5M PRN Chest Pain Ondansetron HCl 4 mg 08/28/20 02:30 Ondansetron 4 Mg/2 Ml Inj IV Q8H PRN Nausea And Vomiting Oxycodone/Acetaminophen 1 tab 08/28/20 09:00 Oxycodone /Acetaminophen 5-325mg Tab PO Q6HR PRN Pain, Moderate (4-6) Pantoprazole Sodium 40 mg 08/29/20 07:30 09/06/20 09:29 Pantoprazole 40 Mg Tab PO 40 mg QDAC [facility] Administration Sodium Chloride 10 ml 08/28/20 10:00 09/06/20 09:29 Sodium Chloride 0.9% 10 Ml Flush Syringe IV 10 ml BID [facility] Administration Sodium Chloride 10 ml 08/28/20 02:30 08/31/20 17:25 Sodium Chloride 0.9% 10 Ml Flush Syringe IV 10 ml PRN PRN Administration LINE FLUSH Spironolactone 25 mg 08/28/20 10:00 09/06/20 09:29 Spironolactone 25 Mg Tab PO 25 mg QDAY [facility] Administration Valsartan 160 mg 08/28/20 15:00 09/06/20 09:28 Valsartan 160mg Tab PO 160 mg DAILY [facility] Administration
--- NOTE | 2020-09-06 14:32 | Progress Note ---
Assessment and Plan Cultures: SARS-CoV-2 PCR x2 - Blood culture 09/02/2020 MSSA 2 out of 4 bottles Urine culture mixed bacteria Blood culture 09/04/2020 no growth today Assessment: 49-year-old male with history of CHF EF 25 to 30%, diabetes mellitus, GERD admitted on 08/27/2020 secondary to few day history of worsening shortness of breath, bilateral lower extremity edema: #Acute sepsis: Noted isolated fever overnight. Etiology likely hospital- acquired pneumonia +/-bacteremia. Urinalysis negative. SARS-CoV-2 PCR negative x2. #MSSA bacteremia: unclear source ? Pneumonia vs infected IV line vs scratching lesions from dermatitis. Transthoracic echo no endocarditis. #Hospital-acquired pneumonia versus atelectasis: Chest x-ray with new left lower lobe density. #Acute CHF exacerbation: Patient with a EF 25 to 30%. #DANILO: Renally adjust medications #Diffuse pruritic rash: unspecific dermatitis ?unclear etiology. It has been chronic. Patient scratches frequently. #Right ankle tenderness ? 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 Hanh Venegas MD Infectious Diseases Storeperson [facility] ([facility]) M [phone] O [phone] Subjective Date of service: 09/06/20 Principal diagnosis: Sepsis Interval history: Patient feels okay except for new right ankle pain, acute Objective - Exam Narrative Exam: General appearance: Alert in NAD Eyes: anicteric sclerae, moist conjunctivae; no lid-lag; PERRLA HENT: Normocephalic, Atraumatic; normal external ears, nares open, oropharynx clear Neck: supple, tracheal midline, no JVD Lungs: Diminished breath sound bilaterally CV: RRR no murmur Abdomen: Soft, non-tender; no masses or hepatosplenomegaly Extremities: Bilateral lower extremity edema, right ankle tenderness Skin: Diffuse mild nodular rash Psych: no agitated Neuro: alert and oriented x 3. Moving all extermities - Constitutional Vitals: Vital Signs Temp Pulse Resp BP Pulse Ox 98.2 F 103 H 18 146/98 94 09/06/20 04:15 09/06/20 04:15 09/06/20 04:15 09/06/20 04:15 09/06/20 07:55 Temperature -Last 24 Hours Temperature 98.2 F Temperature 100.0 F Temperature 99.7 F Temperature 98.7 F - Labs CBC & Chem 7: 09/05/20 05:33 09/06/20 05:00 Labs: Abnormal lab results 09/05/20 09/05/20 09/06/20 Range/Units 16:56 21:07 05:00 Sodium 135 L (137-145) mmol/L Chloride 94.2 L (98-107) mmol/L BUN 37 H (9-20) mg/dL Creatinine 1.8 H (0.8-1.3) mg/dL Glucose 101 H (75-100) mg/dL POC Glucose 120 H 135 H (70-105) mg/dL
--- NOTE | 2020-09-06 15:22 | XRay Report ---
RIGHT ANKLE 2 VIEW(S) INDICATION / CLINICAL INFORMATION: Right ankle edema and pain evaluate for effusion COMPARISON: None available. FINDINGS: BONES / JOINT(S): No acute fracture or subluxation. No significant arthritis. The ankle mortise is in tact. SOFT TISSUES: Generalized soft tissue swelling and edema around the ankle with a small joint effusion . ADDITIONAL FINDINGS: None. Signer Name: Francisco Anderson MD Signed: 09/06/2020 3:18 PM Workstation Name: [id number]
[2020-09-06] MEDS: ACETAMINOPHEN 325 MG TAB PO PRN (21:14)
[2020-09-07 06:08] LABS: Hematocrit 43.7 % (35.5-45.6); Hemoglobin 13.9 gm/dl (11.8-15.2); Mean Corpuscular HGB Conc 32 % (32-34); Mean Corpuscular Volume 84 fl (84-94); Platelet Count 417 K/mm3 (140-440); Red Blood Count 5.23 M/mm3 (3.65-5.03); Red Cell Distribution Width 16.7 % (13.2-15.2)
[2020-09-07] MEDS: GABAPENTIN 100 MG CAP PO SCH ×3 (06:08→21:17)
[2020-09-07] MEDS: FUROSEMIDE 40 MG/4 ML INJ IV SCH ×2 (06:08→17:39)
[2020-09-07 06:20] LABS: Calcium 9.1 mg/dL (8.4-10.2)
[2020-09-07 07:22] LABS: Total Cells Counted 100
[2020-09-07 07:23] LABS: Large Platelets Few; Platelet Estimate Consistent w Auto; RBC Morphology Normal
[2020-09-07] MEDS: INSULIN LISPRO 100 UNIT/ML SUB-Q SCH ×4 (08:27→23:21)
[2020-09-07] MEDS: INSULIN NPH/REGULAR 70/30 INJ SUB-Q SCH ×2 (08:28→17:36)
[2020-09-07] MEDS: PANTOPRAZOLE 40 MG TAB PO SCH (08:29)
[2020-09-07] MEDS: NIFEdipine XL 60 MG TAB PO SCH (09:59)
[2020-09-07] MEDS: VALSARTAN 160MG TAB PO SCH (10:00)
[2020-09-07] MEDS: ASPIRIN EC 325 MG TAB PO SCH (10:00)
[2020-09-07] MEDS: SPIRONOLACTONE 25 MG TAB PO SCH (10:01)
[2020-09-07] MEDS: METOPROLOL TARTRATE 50 MG TAB PO SCH ×2 (10:01→21:17)
[2020-09-07] MEDS: metOLazone 5 MG TAB PO SCH (10:04)
--- NOTE | 2020-09-07 10:17 | Progress Note ---
Assessment and Plan - Patient Problems (1) Gout attack Current Visit: Yes Status: Acute (2) Acute systolic (congestive) heart failure Current Visit: Yes Status: Acute (3) Hypertensive urgency Current Visit: No Status: Acute Subjective Date of service: 09/07/20 Principal diagnosis: Sepsis Interval history: BREWATHING OK,,,,C/O GOUT - R.FOOT Objective Vital Signs Temp Pulse Resp BP Pulse Ox 09/07/20 10:01 105 H 148/97 09/07/20 10:00 105 H 148/97 09/07/20 04:19 98.5 F 98 H 18 122/76 97 09/06/20 23:49 101.0 F H 96 H 19 147/89 99 09/06/20 21:13 110 H 121/73 09/06/20 19:53 100.7 F H 111 H 18 121/73 94 - Physical Examination General: No Apparent Distress HEENT: Positive: PERRL Neck: Positive: trachea midline Cardiac: Positive: Reg Rate and Rhythm Lungs: Positive: clear to auscultation Neuro: Positive: Grossly Intact Abdomen: Positive: Soft Extremities: Absent: edema - Labs and Meds CBC 09/07/20 Range/Units 04:35 WBC 21.1 H (4.5-11.0) K/mm3 RBC 5.23 H (3.65-5.03) M/mm3 Hgb 13.9 (11.8-15.2) gm/dl Hct 43.7 (35.5-45.6) % Plt Count 417 (140-440) K/mm3 Comprehensive Metabolic Panel 09/07/20 Range/Units 04:35 Sodium 137 (137-145) mmol/L Potassium 4.2 (3.6-5.0) mmol/L Chloride 96.9 L (98-107) mmol/L Carbon Dioxide 25 (22-30) mmol/L BUN 33 H (9-20) mg/dL Creatinine 1.6 H (0.8-1.3) mg/dL Glucose 119 H (75-100) mg/dL Calcium 9.1 (8.4-10.2) mg/dL
--- NOTE | 2020-09-07 14:18 | Progress Note ---
Assessment and Plan -- Acute on chronic combined systolic and diastolic heart failure Patient admitted and placed on telemetry. Continue patient on IV diuretics. LVEF 20 to 25% with diastolic dysfunction Continue milrinone drip Cardiology following Sepsis with leukocytosis, fever, MSSA bacteremia and left lower lobe pneumonia -negative Covid x2 blood culture growing MSSA Chest x-ray showed left lower lobe density Infectious disease consulted Patient is s/p vancomycin and Zosyn, renally dosed -now ABX changed to cefazolin -- Acute chest pain, resolved -likely from GERD, continue PPI Patient placed on telemetry. Will check serial cardiac enzymes. Patient also placed on daily aspirin, sublingual nitroglycerin and IV morphine as needed for chest pain. Follow cardiology for further recommendation. --PUI for COVID-19, Covid negative on 08/28 and 09/02 --Acute hypoxic respiratory failure, due to CHF exacerbation Also will evaluate for possible Covid, continue IV diuresis Nebulizer breathing treatment as needed -- Total bilirubin, elevated Etiology unclear. Will monitor chemistry. We will place consult to gastroenterology for recommendations if continue to trend up. Order for hepatitis panel -- Hypertensive emergency Possibly secondary to noncompliance. resumed routine home medications and monitor vital signs closely. Patient placed on IV hydralazine as needed for optimal blood pressure control. --Acute back pain, left scapula Possibly muscle spasm Patient is declining any pain medication at this time Resolved --DANILO on Chronic kidney disease stage IIIa -Not POA Cr slightly trended up and now trending down Could be from cardiorenal syndrome We will consult nephrology, continue to monitor BMP -- Diabetes mellitus Will monitor Accu-Cheks closely. Patient placed on sliding scale insulin. --MSSA bacteremia: unclear source ? Pneumonia vs IV line Continue empiric antibiotics for now, ID following need cefazolin 2 g IV every 8 hour total 4 weeks till 10/02/2020, --Hospital-acquired pneumonia versus atelectasis: Chest x-ray with new left lower lobe density. Continue antibiotics -- DVT prophylaxis Patient placed on subcutaneous heparin. -- Full code status Brief history: This is a 49-year-old male with a history of CHF presented to the hospital with worsening shortness of breath and bilateral lower extremity swelling and hypertensive urgency with blood pressure 198/136 on admission. Daily clinical course; 08/29/20: Patient did not have much improvement in the last 24 hours with IV diuretics. Urine output is not optimal. Planned to start on milrinone drip by cooking instructor. Covid test pending , continue Covid protocol 08/30/2020: Patient started on milrinone drip, continues to have some shortness of breath but has improved. 08/31/2020: Patient eating breakfast, cough is diminished, diuresing is helping. Explained to patient the severity of his heart failure. 09/01/2020 patient seen, back pain has subsided. Continues to be on milrinone. 09/02/2020: Patient seen, looks very lethargic, patient with a fever overnight. Sepsis protocol and infectious disease consult initiated 09/03/20: Continue milrinone drip, continue empiric antibiotics for elevated wh ite count and possible pneumonia. Continue to follow clinically 09/04: cont Low sodium dietary restriction. Daily weight and I's and O's. Continue aggressive medical therapy for chronic systolic heart failure including intravenous milrinone therapy per cardiology recommendation. 09/05: Blood culture growing MSSA. Continue intravenous milrinone therapy until anticipated discharge. changed abx to cefazolin 2 g IV every 8 hour, need abx therapy total 4 weeks till 10/02/2020, 09/06: wait for repeat blood cx to be neg at 48h for picc line placement. cont empiric abx. follow clinically. 09/07: ordered for picc line as blood cx neg at 48h. wait for home iv abx set up. change lasix to po Subjective Date of service: 09/07/20 Principal diagnosis: Sepsis Interval history: Patient seen and examined. Medical records and medication list reviewed. No acute event overnight noted by the RN. Patient denies any chest pain, but complains of shortness of breath on exertion. Patient is tolerating diet. improved bilateral lower extremity swelling Discussed plan of care at bedside with patient. Objective - Exam Narrative Exam: GENERAL: well-developed morbidly obese -[place] male lying on bed appeared to be in no discomfort. HEENT: Normocephalic. Atraumatic. NECK: Supple. CHEST/LUNGS: breathing nonlabored. HEART/CARDIOVASCULAR: Heart rate stable on telemetry ABDOMEN: Visibly not distended SKIN: There is no rash NEURO: No focal motor deficit. Follows command. MUSCULOSKELETAL: No joint effusion EXTRIMITY: +ve LE edema, no cyanosis or clubbing. PSYCH: Cooperative. - Constitutional Vitals: Vital Signs - 12hr 09/07/20 09/07/20 09/07/20 04:19 10:00 10:01 Temperature 98.5 F Pulse Rate 98 H 105 H 105 H Respiratory 18 Rate Blood Pressure 122/76 148/97 148/97 O2 Sat by Pulse 97 Oximetry 09/07/20 10:22 Temperature Pulse Rate Respiratory 18 Rate Blood Pressure O2 Sat by Pulse Oximetry - Labs CBC & Chem 7: 09/07/20 04:35 09/08/20 05:20 Labs: Abnormal lab results 09/06/20 09/06/20 09/06/20 Range/Units 10:58 15:44 21:08 WBC (4.5-11.0) K/mm3 RBC (3.65-5.03) M/mm3 MCH (28-32) pg RDW (13.2-15.2) % Seg Neuts % (Manual) (40.0-70.0) % Lymphocytes % (Manual) (13.4-35.0) % Monocytes % (Manual) (0.0-7.3) % Eosinophils % (Manual) (0.0-4.3) % Seg Neutrophils # Man (1.8-7.7) K/mm3 Lymphocytes # (Manual) (1.2-5.4) K/mm3 Monocytes # (Manual) (0.0-0.8) K/mm3 Eosinophils # (Manual) (0.0-0.4) K/mm3 Chloride (98-107) mmol/L BUN (9-20) mg/dL Creatinine (0.8-1.3) mg/dL Glucose (75-100) mg/dL POC Glucose 162 H 117 H 110 H (70-105) mg/dL 09/07/20 09/07/20 Range/Units 04:35 04:35 WBC 21.1 H (4.5-11.0) K/mm3 RBC 5.23 H (3.65-5.03) M/mm3 MCH 27 L (28-32) pg RDW 16.7 H (13.2-15.2) % Seg Neuts % (Manual) 81.0 H (40.0-70.0) % Lymphocytes % (Manual) 5.0 L (13.4-35.0) % Monocytes % (Manual) 9.0 H (0.0-7.3) % Eosinophils % (Manual) 5.0 H (0.0-4.3) % Seg Neutrophils # Man 17.1 H (1.8-7.7) K/mm3 Lymphocytes # (Manual) 1.1 L (1.2-5.4) K/mm3 Monocytes # (Manual) 1.9 H (0.0-0.8) K/mm3 Eosinophils # (Manual) 1.1 H (0.0-0.4) K/mm3 Chloride 96.9 L (98-107) mmol/L BUN 33 H (9-20) mg/dL Creatinine 1.6 H (0.8-1.3) mg/dL Glucose 119 H (75-100) mg/dL POC Glucose (70-105) mg/dL HEART Score - HEART Score EKG: Normal Age: 45-65 Risk factors: > 3 risk factors or hx of atherosclerotic disease Troponin: Troponin T 0.021 ng/mL (0.00-0.029) 08/28/20 14:09 Troponin: < normal limit
--- NOTE | 2020-09-07 14:56 | Progress Note ---
Assessment and Plan 1. Acute kidney injury: Maria Isabel superimpsoed on CKD in the setting of decompensated CHF. ATN likely. UA bland. Renal US negative for hydro. Urine studies ordered. Monitor renal function. Creatinine level is better. Avoid nephrotoxic agents. Meds dosage based on GFR. 2. FEN: Volume overload, Lasix, monitor. Monitor volume status and lytes. 3. Acute on chronic combined systolic and diastolic heart failure: LVEF 20 to 25% with diastolic dysfunction Telemetry, diuretics, strict I/Os and daily weight. S/p Milrinone drip. Cardiology following. 4. Acute hypoxic respiratory failure: Covid test negative. 22/ CHF exacerbation. Supplemental O2. Nebulizer treatment as needed. 5. Chest pain: Resolved. Followed by Cards. 6. Hypertensive emergency: Possibly secondary to non-compliance. BP better since admission. Monitor and adjust meds as needed. 7. Sepsis: MSSA bacteremia. On Cefazolin. 8. Elevated T.bili: Monitor. 9. DM type 2. Subjective: Patient was seen and examined at the bedside. Doing ok. Objective: General appearance: well-developed, appears stated age, obese, not in distress HEENT: ATNC Neck: trachea midline Respiratory: diminished breath sounds Heart: S1S2, regular, no murmur Abdomen: soft, normoactive bowel sounds, not tender Integumentary: no obvious rash Ext: no edema Neurologic: alert, conversing, able to move extremities Subjective Date of service: 09/07/20 Principal diagnosis: Sepsis Objective - Vital Signs Vital signs: Vital Signs - 12hr 09/07/20 09/07/20 09/07/20 04:19 10:00 10:01 Temperature 98.5 F Pulse Rate 98 H 105 H 105 H Respiratory 18 Rate Blood Pressure 122/76 148/97 148/97 O2 Sat by Pulse 97 Oximetry 09/07/20 10:22 Temperature Pulse Rate Respiratory 18 Rate Blood Pressure O2 Sat by Pulse Oximetry - Lab 09/07/20 04:35 09/07/20 04:35 Most recent lab results Calcium 9.1 mg/dL (8.4-10.2) 09/07/20 04:35 Magnesium 2.00 mg/dL (1.7-2.3) 09/05/20 05:33 Medications & Allergies - Medications Allergies/Adverse Reactions: Allergies No Known Allergies Allergy (Verified 08/28/20 01:25) Home Medications: Home Medications Medication Instructions Recorded Confirmed Last Taken Type Aspirin EC [Halfprin EC] 81 mg PO QDAY #100 tablet 05/31/20 08/28/20 Unknown Rx AtorvaSTATin [Lipitor] 40 mg PO QHS #30 tablet 05/31/20 08/28/20 Unknown Rx Furosemide [Lasix TAB] 40 mg PO BID #60 05/31/20 08/28/20 Unknown Rx Gabapentin 300 mg PO Q8HR #90 capsule 05/31/20 08/28/20 Unknown Rx Insulin NPH/Regular [NovoLIN 70/30] 20 unit SUB-Q BIDDIAB #1 vial 05/31/20 08/28/20 08/27/20 Rx NIFEdipine XL [Procardia Xl] 60 mg PO DAILY #30 tablet 05/31/20 08/28/20 Unknown Rx Pantoprazole [Protonix TAB] 40 mg PO QDAC #30 tablet 05/31/20 08/28/20 Unknown Rx Potassium Chloride [K-Dur] 20 meq PO BID #60 tab 05/31/20 08/28/20 Unknown Rx Spironolactone [Aldactone] 25 mg PO QDAY 30 Days #30 tablet 05/31/20 08/28/20 Unknown Rx carvediloL [Coreg] 6.25 mg PO BID@0800,1700 #60 tablet 05/31/20 08/28/20 08/27/20 Rx lisinopriL [Zestril TAB] 10 mg PO QDAY #30 tablet 05/31/20 08/28/20 Unknown Rx Active Medications: Generic Name Dose Route Start Last Admin Trade Name Jelaniq PRN Reason Stop Dose Admin Acetaminophen 650 mg 08/28/20 02:30 09/06/20 21:14 Acetaminophen 325 Mg Tab PO 650 mg Q4H PRN Administration Pain MILD(1-3)/Fever >100.5/SANTOS Aspirin 325 mg 08/29/20 10:00 09/07/20 10:00 Aspirin Ec 325 Mg Tab PO 325 mg QDAY ADAMS Administration Atorvastatin Calcium 40 mg 08/28/20 22:00 09/06/20 21:13 Atorvastatin 40 Mg Tab PO 40 mg QHS [facility] Administration Dextrose 0 ml 08/28/20 02:30 Dextrose 50% In Water (25gm) 50 Ml Syringe IV Q30MIN PRN Hypoglycemia Protocol Furosemide 40 mg 08/28/20 06:00 09/07/20 06:08 Furosemide 40 Mg/4 Ml Inj IV 40 mg BID@0600,1800 [facility] Administration Gabapentin 100 mg 08/28/20 14:00 09/07/20 14:22 Gabapentin 100 Mg Cap PO 100 mg Q8HR [facility] Administration Hydralazine HCl 10 mg 08/28/20 03:25 08/28/20 11:06 Hydralazine 20 Mg/1 Ml Inj IV 10 mg Q4H PRN Administration Blood Pressure Milrinone Lactate/Dextrose 20 mg in 100 mls @ 14.22 mls/hr 09/04/20 09:00 09/05/20 22:54 Milrinone-D5w 20 Mg/100 Ml IV 0.375 mcg/kg/min TITR ADAMS 14.22 mls/hr Administration 0.375 MCG/KG/MIN Cefazolin Sodium 2 gm/ Sodium 100 mls @ 200 mls/hr 09/05/20 12:00 09/07/20 12:07 Chloride IV 10/02/20 20:29 200 mls/hr Q8H [facility] Administration Protocol Insulin Human Isoph/Insulin Regular 15 unit 08/29/20 08:00 09/07/20 08:28 Insulin Nph/Regular 70/30 Inj SUB-Q 15 unit BIDDIAB [facility] Administration Insulin Human Lispro 0 unit 08/28/20 07:30 09/07/20 13:04 Insulin Lispro 100 Unit/Ml SUB-Q Not Given ACHS [facility] Protocol Metolazone 5 mg 08/30/20 12:00 09/07/20 10:04 Metolazone 5 Mg Tab PO Not Given QDAY [facility] Metoprolol Tartrate 50 mg 09/05/20 16:00 09/07/20 10:01 Metoprolol Tartrate 50 Mg Tab PO 50 mg Q12HR [facility] Administration Morphine Sulfate 2 mg 08/28/20 02:30 Morphine 4 Mg/1 Ml Inj IV Q5MIN PRN Chest Pain Nifedipine 60 mg 08/28/20 10:00 09/07/20 09:59 Nifedipine Xl 60 Mg Tab PO 60 mg DAILY [facility] Administration Nitroglycerin 0.4 mg 08/28/20 02:30 Nitroglycerin 0.4 Mg Tab Subl SL Q5M PRN Chest Pain Ondansetron HCl 4 mg 08/28/20 02:30 Ondansetron 4 Mg/2 Ml Inj IV Q8H PRN Nausea And Vomiting Oxycodone/Acetaminophen 1 tab 08/28/20 09:00 Oxycodone /Acetaminophen 5-325mg Tab PO Q6HR PRN Pain, Moderate (4-6) Pantoprazole Sodium 40 mg 08/29/20 07:30 09/07/20 08:29 Pantoprazole 40 Mg Tab PO 40 mg QDAC [facility] Administration Sodium Chloride 10 ml 08/28/20 10:00 09/07/20 09:59 Sodium Chloride 0.9% 10 Ml Flush Syringe IV 10 ml BID [facility] Administration Sodium Chloride 10 ml 08/28/20 02:30 09/07/20 04:52 Sodium Chloride 0.9% 10 Ml Flush Syringe IV 10 ml PRN PRN Administration LINE FLUSH Spironolactone 25 mg 08/28/20 10:00 09/07/20 10:01 Spironolactone 25 Mg Tab PO 25 mg QDAY [facility] Administration Valsartan 160 mg 08/28/20 15:00 09/07/20 10:00 Valsartan 160mg Tab PO 160 mg DAILY [facility] Administration
[2020-09-08] MEDS: FUROSEMIDE 40 MG/4 ML INJ IV SCH ×2 (05:15→17:22)
[2020-09-08] MEDS: GABAPENTIN 100 MG CAP PO SCH ×3 (05:15→22:11)
[2020-09-08 06:54] LABS: Calcium 9.3 mg/dL (8.4-10.2)
[2020-09-08] MEDS: INSULIN LISPRO 100 UNIT/ML SUB-Q SCH ×4 (08:35→22:12)
[2020-09-08] MEDS: INSULIN NPH/REGULAR 70/30 INJ SUB-Q SCH ×2 (08:36→16:56)
[2020-09-08] MEDS: PANTOPRAZOLE 40 MG TAB PO SCH (08:38)
--- NOTE | 2020-09-08 08:49 | Progress Note ---
Assessment and Plan 1. Acute kidney injury: Maria Isabel superimpsoed on CKD in the setting of decompensated CHF. ATN likely. UA bland. Renal US negative for hydro. Urine studies ordered. Monitor renal function. Creatinine level is better. Avoid nephrotoxic agents. Meds dosage based on GFR. 2. FEN: Volume overload, Lasix, monitor. Monitor volume status and lytes. 3. Acute on chronic combined systolic and diastolic heart failure: LVEF 20 to 25% with diastolic dysfunction Telemetry, diuretics, strict I/Os and daily weight. S/p Milrinone drip. Cardiology following. 4. Acute hypoxic respiratory failure: Covid test negative. 22/ CHF exacerbation. Supplemental O2. Nebulizer treatment as needed. 5. Chest pain: Resolved. Followed by Cards. 6. Hypertensive emergency: Possibly secondary to non-compliance. BP better since admission. Monitor and adjust meds as needed. 7. Sepsis: MSSA bacteremia. On Cefazolin. 8. Elevated T.bili: Monitor. 9. DM type 2. Subjective: Patient was seen and examined at the bedside. Doing ok. Objective: General appearance: well-developed, appears stated age, obese, not in distress HEENT: ATNC Neck: trachea midline Respiratory: diminished breath sounds Heart: S1S2, regular, no murmur Abdomen: soft, normoactive bowel sounds, not tender Integumentary: no obvious rash Ext: no edema Neurologic: alert, conversing, able to move extremities Subjective Date of service: 09/08/20 Principal diagnosis: Sepsis Objective - Vital Signs Vital signs: Vital Signs - 12hr 09/07/20 09/07/20 09/08/20 21:17 23:28 03:45 Temperature 100.0 F H 97.6 F Pulse Rate 106 H 89 94 H Respiratory 18 19 Rate Blood Pressure 113/83 107/64 128/83 O2 Sat by Pulse 96 97 Oximetry - Lab 09/07/20 04:35 09/09/20 06:47 Most recent lab results Calcium 9.3 mg/dL (8.4-10.2) 09/08/20 05:20 Magnesium 2.00 mg/dL (1.7-2.3) 09/05/20 05:33 Medications & Allergies - Medications Allergies/Adverse Reactions: Allergies No Known Allergies Allergy (Verified 08/28/20 01:25) Home Medications: Home Medications Medication Instructions Recorded Confirmed Last Taken Type Aspirin EC [Halfprin EC] 81 mg PO QDAY #100 tablet 05/31/20 08/28/20 Unknown Rx AtorvaSTATin [Lipitor] 40 mg PO QHS #30 tablet 05/31/20 08/28/20 Unknown Rx Furosemide [Lasix TAB] 40 mg PO BID #60 05/31/20 08/28/20 Unknown Rx Gabapentin 300 mg PO Q8HR #90 capsule 05/31/20 08/28/20 Unknown Rx Insulin NPH/Regular [NovoLIN 70/30] 20 unit SUB-Q BIDDIAB #1 vial 05/31/2009/1308/27/20 Rx NIFEdipine XL [Procardia Xl] 60 mg PO DAILY #30 tablet 05/31/20 08/28/20 Unknown Rx Pantoprazole [Protonix TAB] 40 mg PO QDAC #30 tablet 05/31/20 08/28/20 Unknown Rx Potassium Chloride [K-Dur] 20 meq PO BID #60 tab 05/31/20 08/28/20 Unknown Rx Spironolactone [Aldactone] 25 mg PO QDAY 30 Days #30 tablet 05/31/20 08/28/20 Unknown Rx carvediloL [Coreg] 6.25 mg PO BID@0800,1700 #60 tablet 05/31/20 08/28/20 08/27/20 Rx lisinopriL [Zestril TAB] 10 mg PO QDAY #30 tablet 05/31/20 08/28/20 Unknown Rx Active Medications: Generic Name Dose Route Start Last Admin Trade Name Freq PRN Reason Stop Dose Admin Acetaminophen 650 mg 08/28/20 02:30 09/06/20 21:14 Acetaminophen 325 Mg Tab PO 650 mg Q4H PRN Administration Pain MILD(1-3)/Fever >100.5/SANTOS Aspirin 325 mg 08/29/20 10:00 09/07/20 10:00 Aspirin Ec 325 Mg Tab PO 325 mg QDAY ADAMS Administration Atorvastatin Calcium 40 mg 08/28/20 22:00 09/07/20 21:17 Atorvastatin 40 Mg Tab PO 40 mg QHS ADAMS Administration Dextrose 0 ml 08/28/20 02:30 Dextrose 50% In Water (25gm) 50 Ml Syringe IV Q30MIN PRN Hypoglycemia Protocol Furosemide 40 mg 08/28/20 06:00 09/08/20 05:15 Furosemide 40 Mg/4 Ml Inj IV 40 mg BID@0600,1800 [facility] Administration Gabapentin 100 mg 08/28/20 14:00 09/08/20 05:15 Gabapentin 100 Mg Cap PO 100 mg Q8HR [facility] Administration Hydralazine HCl 10 mg 08/28/20 03:25 08/28/20 11:06 Hydralazine 20 Mg/1 Ml Inj IV 10 mg Q4H PRN Administration Blood Pressure Milrinone Lactate/Dextrose 20 mg in 100 mls @ 14.22 mls/hr 09/04/20 09:00 09/05/20 22:54 Milrinone-D5w 20 Mg/100 Ml IV 0.375 mcg/kg/min TITR ADAMS 14.22 mls/hr Administration 0.375 MCG/KG/MIN Cefazolin Sodium 2 gm/ Sodium 100 mls @ 200 mls/hr 09/05/20 12:00 09/08/20 05:15 Chloride IV 10/02/20 20:29 200 mls/hr Q8H [facility] Administration Protocol Insulin Human Isoph/Insulin Regular 15 unit 08/29/20 08:00 09/08/20 08:36 Insulin Nph/Regular 70/30 Inj SUB-Q 15 unit BIDDIAB [facility] Administration Insulin Human Lispro 0 unit 08/28/20 07:30 09/08/20 08:35 Insulin Lispro 100 Unit/Ml SUB-Q Not Given ACHS [facility] Protocol Metolazone 5 mg 08/30/20 12:00 09/07/20 10:04 Metolazone 5 Mg Tab PO Not Given QDAY [facility] Metoprolol Tartrate 50 mg 09/05/20 16:00 09/07/20 21:17 Metoprolol Tartrate 50 Mg Tab PO 50 mg Q12HR [facility] Administration Morphine Sulfate 2 mg 08/28/20 02:30 Morphine 4 Mg/1 Ml Inj IV Q5MIN PRN Chest Pain Nifedipine 60 mg 08/28/20 10:00 09/07/20 09:59 Nifedipine Xl 60 Mg Tab PO 60 mg DAILY [facility] Administration Nitroglycerin 0.4 mg 08/28/20 02:30 Nitroglycerin 0.4 Mg Tab Subl SL Q5M PRN Chest Pain Ondansetron HCl 4 mg 08/28/20 02:30 Ondansetron 4 Mg/2 Ml Inj IV Q8H PRN Nausea And Vomiting Oxycodone/Acetaminophen 1 tab 05/05/21 09:00 Oxycodone /Acetaminophen 5-325mg Tab PO Q6HR PRN Pain, Moderate (4-6) Pantoprazole Sodium 40 mg 08/29/20 07:30 09/08/20 08:38 Pantoprazole 40 Mg Tab PO 40 mg QDAC [facility] Administration Sodium Chloride 10 ml 08/28/20 10:00 09/07/20 21:08 Sodium Chloride 0.9% 10 Ml Flush Syringe IV 10 ml BID [facility] Administration Sodium Chloride 10 ml 08/28/20 02:30 09/08/20 05:15 Sodium Chloride 0.9% 10 Ml Flush Syringe IV 10 ml PRN PRN Administration LINE FLUSH Spironolactone 25 mg 08/28/20 10:00 09/07/20 10:01 Spironolactone 25 Mg Tab PO 25 mg QDAY ADAMS Administration Valsartan 160 mg 08/28/20 15:00 09/07/20 10:00 Valsartan 160mg Tab PO 160 mg DAILY [facility] Administration
[2020-09-08] MEDS: VALSARTAN 160MG TAB PO SCH (09:27)
[2020-09-08] MEDS: SPIRONOLACTONE 25 MG TAB PO SCH (09:28)
[2020-09-08] MEDS: ASPIRIN EC 325 MG TAB PO SCH (09:28)
[2020-09-08] MEDS: NIFEdipine XL 60 MG TAB PO SCH (09:29)
[2020-09-08] MEDS: METOPROLOL TARTRATE 50 MG TAB PO SCH ×2 (09:29→22:13)
--- NOTE | 2020-09-08 12:14 | Progress Note ---
Assessment and Plan - Patient Problems (1) Gout attack Current Visit: Yes Status: Acute (2) Acute systolic (congestive) heart failure Current Visit: Yes Status: Acute (3) Hypertensive urgency Current Visit: No Status: Acute Subjective Date of service: 09/08/20 Principal diagnosis: Sepsis Interval history: BREWATHING OK,,,,C/O GOUT - R.FOOT Objective Vital Signs Temp Pulse Resp BP Pulse Ox 09/08/20 10:32 20 09/08/20 09:29 101 H 107/68 09/08/20 09:28 101 H 107/68 09/08/20 09:27 101 H 107/68 09/08/20 03:45 97.6 F 94 H 19 128/83 97 09/07/20 23:28 100.0 F H 89 18 107/64 96 09/07/20 21:17 106 H 113/83 09/07/20 20:01 98.9 F 108 H 19 113/83 97 - Physical Examination General: No Apparent Distress HEENT: Positive: PERRL Neck: Positive: trachea midline Cardiac: Positive: Reg Rate and Rhythm Lungs: Positive: clear to auscultation Neuro: Positive: Grossly Intact Abdomen: Positive: Soft Extremities: Absent: edema - Labs and Meds Comprehensive Metabolic Panel 09/08/20 Range/Units 05:20 Sodium 137 (137-145) mmol/L Potassium 4.1 (3.6-5.0) mmol/L Chloride 95.2 L (98-107) mmol/L Carbon Dioxide 29 (22-30) mmol/L BUN 36 H (9-20) mg/dL Creatinine 1.7 H (0.8-1.3) mg/dL Glucose 97 (75-100) mg/dL Calcium 9.3 (8.4-10.2) mg/dL
--- NOTE | 2020-09-08 12:36 | Progress Note ---
Assessment and Plan -- Acute on chronic combined systolic and diastolic heart failure Patient admitted and placed on telemetry. Continue patient on IV diuretics. LVEF 20 to 25% with diastolic dysfunction Continue milrinone drip Cardiology following Sepsis with leukocytosis, fever, MSSA bacteremia and left lower lobe pneumonia -negative Covid x2 blood culture growing MSSA Chest x-ray showed left lower lobe density Infectious disease consulted Patient is s/p vancomycin and Zosyn, renally dosed -now ABX changed to cefazolin -- Acute chest pain, resolved -likely from GERD, continue PPI Patient placed on telemetry. Will check serial cardiac enzymes. Patient also placed on daily aspirin, sublingual nitroglycerin and IV morphine as needed for chest pain. Follow cardiology for further recommendation. --PUI for COVID-19, Covid negative on 08/28 and 09/02 --Acute hypoxic respiratory failure, due to CHF exacerbation Also will evaluate for possible Covid, continue IV diuresis Nebulizer breathing treatment as needed -- Total bilirubin, elevated Etiology unclear. Will monitor chemistry. We will place consult to gastroenterology for recommendations if continue to trend up. Order for hepatitis panel -- Hypertensive emergency Possibly secondary to noncompliance. resumed routine home medications and monitor vital signs closely. Patient placed on IV hydralazine as needed for optimal blood pressure control. --Acute back pain, left scapula Possibly muscle spasm Patient is declining any pain medication at this time Resolved --DANILO on Chronic kidney disease stage IIIa -Not POA Cr slightly trended up and now trending down Could be from cardiorenal syndrome We will consult nephrology, continue to monitor BMP -- Diabetes mellitus Will monitor Accu-Cheks closely. Patient placed on sliding scale insulin. --MSSA bacteremia: unclear source ? Pneumonia vs IV line Continue empiric antibiotics for now, ID following need cefazolin 2 g IV every 8 hour total 4 weeks till 10/02/2020, --Hospital-acquired pneumonia versus atelectasis: Chest x-ray with new left lower lobe density. Continue antibiotics --Right ankle pain, resolved X-ray suggested small joint effusion, continue to follow clinically -- DVT prophylaxis Patient placed on subcutaneous heparin. -- Full code status Brief history: This is a 49-year-old male with a history of CHF presented to the hospital with worsening shortness of breath and bilateral lower extremity swelling and hypertensive urgency with blood pressure 198/136 on admission. Daily clinical course; 08/29/20: Patient did not have much improvement in the last 24 hours with IV diuretics. Urine output is not optimal. Planned to start on milrinone drip by branch officer. Covid test pending , continue Covid protocol 08/30/2020: Patient started on milrinone drip, continues to have some shortness of breath but has improved. 08/31/2020: Patient eating breakfast, cough is diminished, diuresing is helping. Explained to patient the severity of his heart failure. 09/01/2020 patient seen, back pain has subsided. Continues to be on milrinone. 09/02/2020: Patient seen, looks very lethargic, patient with a fever overnight. Sepsis protocol and infectious disease consult initiated 09/03/20: Continue milrinone drip, continue empiric antibiotics for elevated whit e count and possible pneumonia. Continue to follow clinically 09/04: cont Low sodium dietary restriction. Daily weight and I's and O's. Continue aggressive medical therapy for chronic systolic heart failure including intravenous milrinone therapy per cardiology recommendation. 09/05: Blood culture growing MSSA. Continue intravenous milrinone therapy until anticipated discharge. changed abx to cefazolin 2 g IV every 8 hour, need abx therapy total 4 weeks till 10/02/2020, 09/06: wait for repeat blood cx to be neg at 48h for picc line placement. cont empiric abx. follow clinically. 09/07: ordered for picc line as blood cx neg at 48h. wait for home iv abx set up. change lasix to po 09/08: Patient feeling much better today, pending PICC line placement. Need IV antibiotic on discharge. sql manager assisting for IV antibiotics set up. Cardiology recommended to continue milrinone drip till discharge. Subjective Date of service: 09/08/20 Principal diagnosis: Sepsis Interval history: Patient seen and examined. Medical records and medication list reviewed. No acute event overnight noted by the RN. Patient denies any chest pain, but complains of shortness of breath on exertion. Patient is tolerating diet. improved bilateral lower extremity swelling, improved right ankle pain Discussed plan of care at bedside with patient. Objective - Exam Narrative Exam: GENERAL: well-developed morbidly obese -[place] male lying on bed appeared to be in no discomfort. HEENT: Normocephalic. Atraumatic. NECK: Supple. CHEST/LUNGS: breathing nonlabored. HEART/CARDIOVASCULAR: Heart rate stable on telemetry ABDOMEN: Visibly not distended SKIN: There is no rash NEURO: No focal motor deficit. Follows command. MUSCULOSKELETAL: No joint effusion EXTRIMITY: no LE edema, no cyanosis or clubbing. PSYCH: Cooperative. - Constitutional Vitals: Vital Signs - 12hr 09/08/20 09/08/20 09/08/20 03:45 09:27 09:28 Temperature 97.6 F Pulse Rate 94 H 101 H 101 H Respiratory 19 Rate Blood Pressure 128/83 107/68 107/68 O2 Sat by Pulse 97 Oximetry 09/08/20 09/08/20 09:29 10:32 Temperature Pulse Rate 101 H Respiratory 20 Rate Blood Pressure 107/68 O2 Sat by Pulse Oximetry - Labs CBC & Chem 7: 09/07/20 04:35 09/09/20 06:47 Labs: Abnormal lab results 09/07/20 09/07/20 09/07/20 Range/Units 11:41 16:16 22:07 Chloride (98-107) mmol/L BUN (9-20) mg/dL Creatinine (0.8-1.3) mg/dL POC Glucose 126 H 121 H 127 H (70-105) mg/dL 09/08/20 09/08/20 Range/Units 05:20 08:11 Chloride 95.2 L (98-107) mmol/L BUN 36 H (9-20) mg/dL Creatinine 1.7 H (0.8-1.3) mg/dL POC Glucose 113 H (70-105) mg/dL HEART Score - HEART Score EKG: Normal Age: 45-65 Risk factors: > 3 risk factors or hx of atherosclerotic disease Troponin: Troponin T 0.021 ng/mL (0.00-0.029) 08/28/20 14:09 Troponin: < normal limit
--- NOTE | 2020-09-08 14:31 | Progress Note ---
Assessment and Plan Cultures: SARS-CoV-2 PCR x2 - Blood culture 09/02/2020 MSSA 2 out of 4 bottles Urine culture mixed bacteria Blood culture 09/04/2020 no growth today Assessment: 49-year-old male with history of CHF EF 25 to 30%, diabetes mellitus, GERD admitted on 08/27/2020 secondary to few day history of worsening shortness of breath, bilateral lower extremity edema: #Acute sepsis: Noted isolated high fever and increasing leukocytosis. Etiology likely hospital-acquired pneumonia +/- MSSA bacteremia. Urinalysis negative. SARS-CoV-2 PCR negative x2. Unclear why he is spiking fever. #MSSA bacteremia: unclear source ? Pneumonia vs infected IV line vs scratching lesions from dermatitis. Transthoracic echo no endocarditis. #Hospital-acquired pneumonia versus atelectasis: Chest x-ray with new left lower lobe density. #Acute CHF exacerbation: Patient with a EF 25 to 30%. #DANILO: Renally adjust medications #Diffuse pruritic rash: unspecific dermatitis ?unclear etiology. It has been chronic. Patient scratches frequently. #Right ankle tenderness ? Gouty attack, right ankle pain is better. X-ray showed mild effusion. Recommendations: -Monitor fever, if continues to spike repeat blood cultures -Continue cefazolin 2 g IV every 8h -Anticipate to discharge on cefazolin 2 g IV every 8 hour total 4 weeks till 10/02/2020, sent to case briefer -Place PICC once repeat blood cx neg x 48h -Needs dermatology referral for chronic dermatitis Will follow. Hanh Venegas MD Infectious Diseases [employer] [facility] ([facility]) M [phone] O [phone] Subjective Date of service: 09/08/20 Principal diagnosis: Sepsis Interval history: Patient feels better. However noted fever. Reports ankle pain is better. Objective - Exam Narrative Exam: General appearance: Alert in NAD Eyes: anicteric sclerae, moist conjunctivae; no lid-lag; PERRLA HENT: Normocephalic, Atraumatic; normal external ears, nares open, oropharynx clear Neck: supple, tracheal midline, no JVD Lungs: Diminished breath sound bilaterally CV: RRR no murmur Abdomen: Soft, non-tender; no masses or hepatosplenomegaly Extremities: Bilateral lower extremity edema, right ankle no tenderness Skin: Diffuse mild nodular rash Psych: no agitated Neuro: alert and oriented x 3. Moving all extermities - Constitutional Vitals: Vital Signs Temp Pulse Resp BP Pulse Ox 97.6 F 101 H 20 107/68 97 09/08/20 03:45 09/08/20 09:29 09/08/20 10:32 09/08/20 09:29 09/08/20 03:45 Temperature -Last 24 Hours Temperature 97.6 F Temperature 100.0 F Temperature 98.9 F - Labs CBC & Chem 7: 09/07/20 04:35 09/08/20 05:20 Labs: Abnormal lab results 09/07/20 09/07/20 09/07/20 Range/Units 11:41 16:16 22:07 Chloride (98-107) mmol/L BUN (9-20) mg/dL Creatinine (0.8-1.3) mg/dL POC Glucose 126 H 121 H 127 H (70-105) mg/dL Uric Acid (3.5-7.6) mg/dL 09/08/20 09/08/20 09/08/20 Range/Units 05:20 08:11 11:22 Chloride 95.2 L (98-107) mmol/L BUN 36 H (9-20) mg/dL Creatinine 1.7 H (0.8-1.3) mg/dL POC Glucose 113 H 110 H (70-105) mg/dL Uric Acid (3.5-7.6) mg/dL 09/08/20 Range/Units 12:43 Chloride (98-107) mmol/L BUN (9-20) mg/dL Creatinine (0.8-1.3) mg/dL POC Glucose (70-105) mg/dL Uric Acid 10.8 H (3.5-7.6) mg/dL
[2020-09-09] MEDS: MILRINONE-D5W 20 MG/100 ML 20 MG/100 ML BAG IV SCH (05:46)
[2020-09-09] MEDS: GABAPENTIN 100 MG CAP PO SCH (06:13)
[2020-09-09] MEDS: FUROSEMIDE 40 MG/4 ML INJ IV SCH (06:13)
[2020-09-09 07:45] LABS: Calcium 9.4 mg/dL (8.4-10.2)
[2020-09-09 09:11] VITALS: BP 84/60
--- NOTE | 2020-09-09 10:03 | Progress Note ---
Assessment and Plan 1. Acute kidney injury: Maria Isabel superimpsoed on CKD in the setting of decompensated CHF. ATN likely. UA bland. Renal US negative for hydro. Urine studies ordered. Monitor renal function. Creatinine level is better. Avoid nephrotoxic agents. Meds dosage based on GFR. 2. FEN: Volume overload, Lasix, monitor. Monitor volume status and lytes. 3. Acute on chronic combined systolic and diastolic heart failure: LVEF 20 to 25% with diastolic dysfunction Telemetry, diuretics, strict I/Os and daily weight. S/p Milrinone drip. Cardiology following. 4. Acute hypoxic respiratory failure: Covid test negative. 22/ CHF exacerbation. Supplemental O2. Nebulizer treatment as needed. 5. Chest pain: Resolved. Followed by Cards. 6. Hypertensive emergency: Possibly secondary to non-compliance. BP better since admission. Monitor and adjust meds as needed. 7. Sepsis: MSSA bacteremia. On Cefazolin. 8. Elevated T.bili: Monitor. 9. DM type 2. Patient is leaving AMA. F/u in 1-2 weeks. Subjective: Patient was seen and examined at the bedside. Objective: General appearance: well-developed, appears stated age, obese, not in distress HEENT: ATNC Neck: trachea midline Respiratory: diminished breath sounds Heart: S1S2, regular, no murmur Abdomen: soft, normoactive bowel sounds, not tender Integumentary: no obvious rash Ext: no edema Neurologic: alert, conversing, able to move extremities Subjective Date of service: 09/09/20 Principal diagnosis: Sepsis Objective - Vital Signs Vital signs: Vital Signs - 12hr 09/08/20 09/08/20 09/09/20 22:13 23:13 03:24 Temperature 98.3 F 97.6 F Pulse Rate 105 H 100 H 94 H Respiratory 14 16 Rate Blood Pressure 109/65 137/89 116/70 O2 Sat by Pulse 95 96 Oximetry 09/09/20 08:22 Temperature 98.7 F Pulse Rate 127 H Respiratory 18 Rate Blood Pressure 84/60 O2 Sat by Pulse 96 Oximetry - Lab 09/07/20 04:35 09/09/20 06:47 Most recent lab results Calcium 9.4 mg/dL (8.4-10.2) 09/09/20 06:47 Magnesium 2.00 mg/dL (1.7-2.3) 09/05/20 05:33 Medications & Allergies - Medications Allergies/Adverse Reactions: Allergies No Known Allergies Allergy (Verified 08/28/20 01:25) Home Medications: Home Medications Medication Instructions Recorded Confirmed Last Taken Type Aspirin EC [Halfprin EC] 81 mg PO QDAY #100 tablet 05/31/20 08/28/20 Unknown Rx AtorvaSTATin [Lipitor] 40 mg PO QHS #30 tablet 05/31/20 08/28/20 Unknown Rx Furosemide [Lasix TAB] 40 mg PO BID #60 05/31/20 08/28/20 Unknown Rx Gabapentin 300 mg PO Q8HR #90 capsule 05/31/20 08/28/20 Unknown Rx Insulin NPH/Regular [NovoLIN 70/30] 20 unit SUB-Q BIDDIAB #1 vial 05/31/20 08/28/20 08/27/20 Rx NIFEdipine XL [Procardia Xl] 60 mg PO DAILY #30 tablet 05/31/20 08/28/20 Unknown Rx Pantoprazole [Protonix TAB] 40 mg PO QDAC #30 tablet 05/31/20 08/28/20 Unknown Rx Potassium Chloride [K-Dur] 20 meq PO BID #60 tab 05/31/20 08/28/20 Unknown Rx Spironolactone [Aldactone] 25 mg PO QDAY 30 Days #30 tablet 05/31/20 08/28/20 Unknown Rx carvediloL [Coreg] 6.25 mg PO BID@0800,1700 #60 tablet 05/31/20 08/28/20 08/27/20 Rx lisinopriL [Zestril TAB] 10 mg PO QDAY #30 tablet 05/31/20 08/28/20 Unknown Rx Active Medications: Generic Name Dose Route Start Last Admin Trade Name Freq PRN Reason Stop Dose Admin Acetaminophen 650 mg 08/28/20 02:30 09/06/20 21:14 Acetaminophen 325 Mg Tab PO 650 mg Q4H PRN Administration Pain MILD(1-3)/Fever >100.5/SANTOS Aspirin 325 mg 08/29/20 10:00 09/08/20 09:28 Aspirin Ec 325 Mg Tab PO 325 mg QDAY ADAMS Administration Atorvastatin Calcium 40 mg 08/28/20 22:00 09/08/20 22:11 Atorvastatin 40 Mg Tab PO 40 mg QHS ADAMS Administration Dextrose 0 ml 08/28/20 02:30 Dextrose 50% In Water (25gm) 50 Ml Syringe IV Q30MIN PRN Hypoglycemia Protocol Furosemide 40 mg 08/28/20 06:00 09/09/20 06:13 Furosemide 40 Mg/4 Ml Inj IV 40 mg BID@0600,1800 [facility] Administration Gabapentin 100 mg 08/28/20 14:00 09/09/20 06:13 Gabapentin 100 Mg Cap PO 100 mg Q8HR ADAMS Administration Hydralazine HCl 10 mg 08/28/20 03:25 08/28/20 11:06 Hydralazine 20 Mg/1 Ml Inj IV 10 mg Q4H PRN Administration Blood Pressure Milrinone Lactate/Dextrose 20 mg in 100 mls @ 14.22 mls/hr 09/04/20 09:00 09/09/20 05:46 Milrinone-D5w 20 Mg/100 Ml IV 0.375 mcg/kg/min TITR ADAMS 14.22 mls/hr Administration 0.375 MCG/KG/MIN Cefazolin Sodium 2 gm/ Sodium 100 mls @ 200 mls/hr 09/05/20 12:00 09/09/20 04:13 Chloride IV 10/02/20 20:29 200 mls/hr Q8H ADAMS Administration Protocol Insulin Human Isoph/Insulin Regular 15 unit 08/29/20 08:00 09/08/20 16:56 Insulin Nph/Regular 70/30 Inj SUB-Q 15 unit BIDDIAB ADAMS Administration Insulin Human Lispro 0 unit 08/28/20 07:30 09/08/20 22:12 Insulin Lispro 100 Unit/Ml SUB-Q Not Given ACHS [facility] Protocol Metoprolol Tartrate 50 mg 09/05/20 16:00 09/08/20 22:13 Metoprolol Tartrate 50 Mg Tab PO 50 mg Q12HR [facility]AMS Administration Morphine Sulfate 2 mg 08/28/20 02:30 Morphine 4 Mg/1 Ml Inj IV Q5MIN PRN Chest Pain Nifedipine 60 mg 08/28/20 10:00 09/08/20 09:29 Nifedipine Xl 60 Mg Tab PO 60 mg DAILY ADAMS Administration Nitroglycerin 0.4 mg 08/28/20 02:30 Nitroglycerin 0.4 Mg Tab Subl SL Q5M PRN Chest Pain Ondansetron HCl 4 mg 08/28/20 02:30 Ondansetron 4 Mg/2 Ml Inj IV Q8H PRN Nausea And Vomiting Oxycodone/Acetaminophen 1 tab 08/28/20 09:00 Oxycodone /Acetaminophen 5-325mg Tab PO Q6HR PRN Pain, Moderate (4-6) Pantoprazole Sodium 40 mg 08/29/20 07:30 09/08/20 08:38 Pantoprazole 40 Mg Tab PO 40 mg QDAC ADAMS Administration Sodium Chloride 10 ml 08/28/20 10:00 09/08/20 22:14 Sodium Chloride 0.9% 10 Ml Flush Syringe IV 10 ml BID ADAMS Administration Sodium Chloride 10 ml 08/28/20 02:30 09/08/20 05:15 Sodium Chloride 0.9% 10 Ml Flush Syringe IV 10 ml PRN PRN Administration LINE FLUSH Spironolactone 25 mg 08/28/20 10:00 09/08/20 09:28 Spironolactone 25 Mg Tab PO 25 mg QDAY ADAMS Administration Valsartan 160 mg 08/28/20 15:00 09/08/20 09:27 Valsartan 160mg Tab PO 160 mg DAILY [facility]AMS Administration
--- NOTE | 2020-09-09 11:21 | Discharge Summary ---
Providers - Providers Date of Admission: 08/29/20 13:00 Date of discharge: 09/09/20 Attending physician: IGNACIA MAE 08/28/20 Consult to Cardiac Rehabilitation [CONS] Routine Reason For Exam: Phase I 08/28/20 02:31 Consult to Cardiology [CONS] Routine Consulting Provider: CLYDE JOHNSON Reason For Exam: CHF Exac, Chest Pain Consult to Dietitian/Nutrition [CONS] Routine Physician Instructions: Reason For Exam: Reason for Consult: Diet education 09/02/20 14:37 Consult to Physician [CONS] Routine Comment: Consulting Provider: GARRET RIVERA Physician Instructions: Reason For Exam: sepsis 09/04/20 14:55 Consult to Physician [CONS] Routine Comment: Consulting Provider: SHANNAN WHALEN Physician Instructions: Reason For Exam: danilo 09/05/20 10:11 Consult to Case Management [CONS] Stat Services Needed at Discharge: Other Notified:: special collections librarian Additional Physician Instructions: [facility] ([facility]) [address] [place] [address] OUTPATIENT PARENTERAL ANTIBIOTIC THERAPY (OPAT) ORDERS Diagnoses: MSSA bacteremia Administer: cefazolin 2 g IV every 8 hour total 4 weeks till 10/02/2020. Remove PICC line after last dose unless otherwise instructed. Line: Maintain IV access with weekly dressing changes and locks per protocol. Labs: Every Wednesday CBC, AST, ALT, Creatinine. Please fax results to [phone] and call [phone] for critical lab results. Hanh Sandoval MD Infectious Diseases Nuclear Medicine Medical Director [facility] ([facility]) O: [phone] F: [phone] 09/07/20 09:36 PICC Line Insertion [Consult to PICC Line RN] [CONS] Routine Reason For Exam: need prolong iv abx Type Line:: PICC Primary care physician: PIE BOTTOMER Hospitalization Condition: Fair Pertinent studies: Chest x-ray, ankle x-ray, renal ultrasound, 2D echocardiogram Hospital course: 49-year-old -Vincentian male with known history of hypertension, diabetes mellitus, GERD, systolic heart failure with EF of 25 to 30% presented to the emergency room complaining of difficulty breathing and lower extremity swelling which has been ongoing for about 1 week. Old medical record showed:: 04/2020 LVEF 20-25% with moderateTR and moderate pulmonary hypertension, RVSP 44 mmHg 08/2019: C - angiographically normal coronary arteries with ejection fraction 25 to 30%. EF 25-30% by echo 06/2019. Upon arrival in the emergency room blood pressure was elevated With systolic in the 190s and diastolic in the 130s. He was also found to be tachycardic with heart rate ranging in the low 100-1 30s. EKG was unremarkable. Troponin was initially elevated at 0.032 and trended down to 0.026. There is a slight elevation of creatinine to 1.5 and a total bilirubin of 2.0. Patient was admitted for acute on chronic CHF exacerbation, hypertensive emergency and chest pain. Later on patient also noted to have blood culture growing MSSA. Daily clinical course; 08/29/20: Patient did not have much improvement in the last 24 hours with IV diuretics. Urine output is not optimal. Planned to start on milrinone drip by police stenographer. Covid test pending , continue Covid protocol. Medical management for chest pain by her police stenographer. 08/30/2020: Patient started on milrinone drip, continues to have some shortness of breath but has improved. 08/31/2020: Patient eating breakfast, cough is diminished, diuresing is helping. Explained to patient the severity of his heart failure. 09/01/2020 patient seen, back pain has subsided. Continues to be on milrinone. 09/02/2020: Patient seen, looks very lethargic, patient with a fever overnight. Sepsis protocol and infectious disease consult initiated 09/03/20: Continue milrinone drip, continue empiric antibiotics for elevated white count and possible pneumonia. Continue to follow clinically 09/04: cont Low sodium dietary restriction. Daily weight and I's and O's. Co ntinue aggressive medical therapy for chronic systolic heart failure including intravenous milrinone therapy per cardiology recommendation. 09/05: Blood culture growing MSSA. Continue intravenous milrinone therapy until anticipated discharge. changed abx to cefazolin 2 g IV every 8 hour, need abx therapy total 4 weeks till 10/02/2020, 09/06: wait for repeat blood cx to be neg at 48h for picc line placement. cont empiric abx. follow clinically. 09/07: ordered for picc line as blood cx neg at 48h. wait for home iv abx set up. change lasix to po 09/08: Patient feeling much better today, pending PICC line placement. Need IV antibiotic on discharge. manager integration assisting for IV antibiotics set up. Cardiology recommended to continue milrinone drip till discharge. 09/09: Patient refused PICC line, decided to leave AMA. He stated that he feels better and he does not believe that he needs any further treatment or IV antibiotic therapy. Disposition: DC-07 LEFT AGAINST MED ADVICE Final Discharge Diagnosis (Prints w/discharge instructions): -- Acute on chronic combined systolic and diastolic heart failure. --Sepsis with leukocytosis, fever, MSSA bacteremia and left lower lobe pneumonia. -- Acute chest pain, resolved -likely from GERD, continue PPI. --PUI for COVID-19, Covid negative on 08/28 and 09/02. --Acute hypoxic respiratory failure, due to CHF exacerbation, resolved. -- Total bilirubin, elevated. -- Hypertensive emergency. --Acute back pain, left scapula. --DANILO on Chronic kidney disease stage IIIa. -- Diabetes mellitus. --MSSA bacteremia: unclear source ? Pneumonia vs IV line. --Hospital-acquired pneumonia versus atelectasis: Chest x-ray with new left lower lobe density. --Right ankle pain, resolved. --Morbid obesity Core Measure Documentation - Palliative Care Palliative Care/ Comfort Measures: Not Applicable - Core Measures Any of the following diagnoses?: heart failure - Heart Failure Discharge Requirements SHANDA/ARB for LVSD if EF <40%: Not Applicable Reason for no SHANDA/ARB: Patient refusal Beta rainer at discharge: No Reason for no beta rainer on DC: Patient refusal Exam - Physical Exam Narrative exam: Vitals noted and and BP noted to be hypotensive with tachycardia. - Constitutional Vitals: Temp Pulse Resp BP Pulse Ox 98.7 F 127 H 18 84/60 96 09/09/20 08:22 09/09/20 08:22 09/09/20 08:22 09/09/20 08:22 09/09/20 08:22 Plan Additional Instructions: Patient left AMA Follow up with: PRIMARY CAREMD [Primary Care Provider] - 3-5 Days
== END 2020-09-09 09:10 | disposition left against medical advice (07) | DRG 291 ==
LOC: ED 19:32 → 4A 08-28 02:07 → OBSVTOIN 08-29 13:00
PROVIDERS: ADMIT Internal Medicine Geriatric Medicine; ATTEND Internal Medicine
PROC: 02HV33Z Insertion of Infusion Device into Superior Vena Cava, Percutaneous Approach (ICD-10-PCS; principal; 2020-09-07)
DX: I13.0 Hypertensive heart and chronic kidney disease with heart failure and stage 1 through stage 4 chronic kidney disease, or unspecified chronic kidney disease (principal); J96.01 Acute respiratory failure with hypoxia; I50.23 Acute on chronic systolic (congestive) heart failure; A41.9 Sepsis, unspecified organism; J18.9 Pneumonia, unspecified organism; Z20.822 Contact with and (suspected) exposure to COVID-19; N17.9 Acute kidney failure, unspecified; I16.1 Hypertensive emergency; K21.9 Gastro-esophageal reflux disease without esophagitis; E11.22 Type 2 diabetes mellitus with diabetic chronic kidney disease; I42.8 Other cardiomyopathies; J45.909 Unspecified asthma, uncomplicated; E78.5 Hyperlipidemia, unspecified; N18.31 Chronic kidney disease, stage 3a; D72.829 Elevated white blood cell count, unspecified; Z95.818 Presence of other cardiac implants and grafts; Z79.899 Other long term (current) drug therapy; Z79.891 Long term (current) use of opiate analgesic; Z79.01 Long term (current) use of anticoagulants; Z79.82 Long term (current) use of aspirin; Z79.4 Long term (current) use of insulin; Z91.19 Patient's noncompliance with other medical treatment and regimen
CPT/HCPCS: 36415; 71045; 71046; 76770; 80048; 80053; 80061; 80202; 81001; 82962; 83036; 83735; 83880; 84145; 84484; 84550; 85007; 85025; 85027; 85379; 85610; 85730; 86140; 87040; 87076; 87086; 87186; 93005; 93308; 93321; 93325; 96374; 96375; 96376; G0378; A9270-GY; J0360; J0690; J1644; J1815; J1940; J2260; J2543; J3370; J7040; U0003

== ENCOUNTER 2021-01-23 15:13 | Emergency (ER) | payer MEDICAID ==
[2021-01-23] MEDS ORDERED: CALCIUM CHLORIDE 1,000 MG/10 ML SYRINGE IV ONE (15:56)
[2021-01-23] MEDS ORDERED: AMIODARONE 150 MG/3 ML INJ IV ONE (15:56)
[2021-01-23] MEDS ORDERED: SODIUM BICARB 8.4% 50 MEQ/50 ML SYRINGE IV ONE (15:56)
[2021-01-23] MEDS ORDERED: EPINEPHrine 1 MG/10 ML SYRINGE ONE (15:56)
--- NOTE | 2021-01-23 16:51 | Emergency Department Report ---
ED CPR HPI - General Chief Complaint: Cardiac Arrest/CPR Stated Complaint: CA Time Seen by Provider: 01/23/21 16:26 Source: EMS (Verbal report received from emergency medical services. EMS documentation not available at time of chart dictation ), RN notes reviewed, old records reviewed Mode of arrival: Stretcher Limitations: Altered Mental Status, Physical Limitation - History of Present Illness Initial Comments: The patient was evaluated in the emergency department for symptoms described in the history of present illness. He/she was evaluated in the context of the global COVID-19 pandemic, which necessitated consideration that the patient might be at risk for infection with the virus that causes COVID-19. Institutional protocols and algorithms that pertain to the evaluation of patients at risk for COVID-19 are in a state of rapid change based on information released by regulatory bodies including the CDC and federal and state organizations. These policies and algorithms were followed during the patient's care in the emergency department. Please note that these policies, procedures and recommendations changed on a rapid basis. The patient is a 50-year-old gentleman. He is brought to the hospital by emergency medical services as an [id number] nontraumatic cardiac arrest. EMS intubated the patient in the field with an 8 0 oh endotracheal tube, and placed a left lower extremity IO. Upon arrival to this emergency room, the patient has a GCS of 3T, with no obvious pulse. EMS reports that the patient arrested, they believe family started CPR in the field, upon their arrival, patient had a shockable rhythm, they report the patient was shocked, and at some point in time, changed to pulseless electrical activity. They report the patient had a brief episode of return of spontaneous circulation in the field, which terminated upon arrival in the ambulance bay. Upon arrival here, the patient has pupils that are dilated, and do not react to light. He has a GCS of 3T. Patient had a prolonged and aggressive medical resuscitation. Patient arrived to ED at 1509. CPR reassumed from EMS, Code being ran by Dr. Flores. 1510-Pulse check: PEA and Epi Given 1512 - PEA and Bicarb given 1515- Magnesium 2 Gram given 1515- Epi Given 1516- Pulse check: PEA 1517- VFib- Shock given at 300J per md 1518- PEA on monitor 1519- Epi and Calcium Chloride given 1520- Bicarb given, PEA on the monitor. 1522-ROSC at this time with an Accelerated Junctional Rhythm. 1525-Patient began to josette down and then went into V-tach. 1526- Vtach 1526- Shocked at 300J per md. 1528-Amio 300mg given at this time. 1528- Epi Given 1529- PEA on monitor at this time. 1530- 360J Shock delivered at this time per MD. 1531- Bicarb given. 1532- PEA and Epi given. 1533- 360J Shock delivered per MD. 1536- PEA and Epi Given. 1539- Calcium given and PEA on monitor. 1541- Time of called In spite if a vigorous and aggressive medical resuscitation, we are not able to obtain return of spontaneous circulation. Serial bedside ultrasound does not demonstrate coordinated ventricular activity or contractility. Pupils remain nonreactive to light, and dilated. His family is subsequently informed of his MD Complaint: stopped breathing -: minute(s) Initial Findings in the Field: no pulse, VTACH/VFIB, PEA ROSC in the Field: No Associated Injuries: No Treatments Prior to Arrival: intubation, chest compressions, defribrillated shocks #, epinephrine mgs #, atropine mgs # - Related Data Previous Rx's Medication Instructions Recorded Last Taken Type Aspirin EC [Halfprin EC] 81 mg PO QDAY #100 tablet 05/31/20 Unknown Rx AtorvaSTATin [Lipitor] 40 mg PO QHS #30 tablet 05/31/20 Unknown Rx Furosemide [Lasix TAB] 40 mg PO BID #60 05/31/20 Unknown Rx Gabapentin 300 mg PO Q8HR #90 capsule 05/31/20 Unknown Rx Insulin NPH/Regular [NovoLIN 70/30] 20 unit SUB-Q BIDDIAB #1 vial 05/31/20 08/27/20 Rx NIFEdipine XL [Procardia Xl] 60 mg PO DAILY #30 tablet 05/31/20 Unknown Rx Pantoprazole [Protonix TAB] 40 mg PO QDAC #30 tablet 05/31/20 Unknown Rx Potassium Chloride [K-Dur] 20 meq PO BID #60 tab 05/31/20 Unknown Rx Spironolactone [Aldactone] 25 mg PO QDAY 30 Days #30 tablet 05/31/20 Unknown Rx carvediloL [Coreg] 6.25 mg PO BID@0800,1700 #60 tablet 05/31/20 08/27/20 Rx lisinopriL [Zestril TAB] 10 mg PO QDAY #30 tablet 05/31/20 Unknown Rx Allergies Allergy/AdvReac Type Severity Reaction Status Date / Time No Known Allergies Allergy Verified 08/28/20 01:25 ED Review of Systems ROS: Stated complaint: CA Other details as noted in HPI Comment: Unobtainable due to pts medical conditions ED Past Medical Hx - Past Medical History Hx Hypertension: Yes Hx CVA: No Hx Heart Attack/AMI: No Hx Congestive Heart Failure: Yes Hx Diabetes: Yes Hx Deep Vein Thrombosis: No Hx Pulmonary Embolism: No Hx GERD: No Hx Liver Disease: No Hx Renal Disease: Yes (CKD) Hx Sickle Cell Disease: No Hx Arthritis: No Hx Headaches / Migraines: No Hx Seizures: No Hx Kidney Stones: (decreased kidney function) Hx Psychiatric Treatment: No Hx Asthma: Yes Hx COPD: No Hx Tuberculosis: No Hx Dementia: No Hx HIV: No - Surgical History Hx Coronary Stent: No Hx Open Heart Surgery: No Hx Pacemaker: No Hx Internal Defibrillator: No Hx Cholecystectomy: No Hx Appendectomy: No Hx Breast Surgery: No - Social History Smoking Status: Never Smoker - Medications Home Medications: Home Medications Medication Instructions Recorded Confirmed Last Taken Type Aspirin EC [Halfprin EC] 81 mg PO QDAY #100 tablet 05/31/20 08/28/20 Unknown Rx AtorvaSTATin [Lipitor] 40 mg PO QHS #30 tablet 05/31/20 08/28/20 Unknown Rx Furosemide [Lasix TAB] 40 mg PO BID #60 05/31/20 08/28/20 Unknown Rx Gabapentin 300 mg PO Q8HR #90 capsule 05/31/20 08/28/20 Unknown Rx Insulin NPH/Regular [NovoLIN 70/30] 20 unit SUB-Q BIDDIAB #1 vial 05/31/20 08/28/20 08/27/20 Rx NIFEdipine XL [Procardia Xl] 60 mg PO DAILY #30 tablet 05/31/20 08/28/20 Unknown Rx Pantoprazole [Protonix TAB] 40 mg PO QDAC #30 tablet 05/31/20 08/28/20 Unknown Rx Potassium Chloride [K-Dur] 20 meq PO BID #60 tab 05/31/20 08/28/20 Unknown Rx Spironolactone [Aldactone] 25 mg PO QDAY 30 Days #30 tablet 05/31/20 08/28/20 Unknown Rx carvediloL [Coreg] 6.25 mg PO BID@0800,1700 #60 tablet 05/31/20 08/28/20 08/27/20 Rx lisinopriL [Zestril TAB] 10 mg PO QDAY #30 tablet 05/31/20 08/28/20 Unknown Rx ED Physical Exam - General Limitations: Altered Mental Status, Physical Limitation General appearance: obtunded, obese, other (GCS of 3T) - Head Head exam: Present: atraumatic, normocephalic - Eye Eye exam: Absent: normal appearance (Pupils fixed and do not react to light) - ENT ENT exam: Present: normal exam, mucous membranes moist, normal external ear exam, other (Endotracheal tube noted in the oropharynx) - Neck Neck exam: Present: normal inspection - Respiratory Respiratory exam: Present: other (No breath sounds without [id number] ventilation) - Cardiovascular Cardiovascular Exam: Present: other (The patient is pulseless) - GI/Abdominal GI/Abdominal exam: Present: soft - Rectal Rectal exam: Present: normal inspection - exam: Present: normal inspection External exam: Present: normal external exam - Extremities Exam Extremities exam: Present: normal inspection, other (I/O noted in left lower extremity) - Back Exam Back exam: Present: normal inspection - Neurological Exam Neurological exam: Present: altered, other (GCS of 3T) - Psychiatric Psychiatric exam: Present: other (Nonverbal) - Skin Skin exam: Present: warm, dry, intact, normal color. Absent: rash - Central Line Placement Right Femoral Consent Obtained: emergent situation Time Out Performed: No Patient Placed on Monitor/Pulse Ox: Yes MD Prep: mask, gown, gloves Central Line Prep: Povidone-Iodine 1% Ultrasound Used for Placement: Yes Central Line Lumen Inserted: triple Reason for Insertion: Emergency Venous Access Bloods Obtained for Lab: No Additional Comments: Due to the need of requiring intravenous access for prolonged resuscitation, with poorly functioning I/O, patient is emergently and administratively consented for central line placement. Patient receiving active CPR, right-sided femoral vein is identified using real- time ultrasound guidance, and cannulated. Guidewire is advanced, and tract is subsequently dilated. However, during CPR, the guidewire became dislodged, and the attempt is thus aborted. Critical Care Time: Yes Critical care time in (mins) excluding proc time.: 35 Critical care attestation.: If time is entered above; I have spent that time in minutes in the direct care of this critically ill patient, excluding procedure time. ED Disposition Clinical Impression: Cardiac arrest Disposition: 20 Is pt being admited?: No Does the pt Need Aspirin: No Condition: Undetermined
--- NOTE | 2021-01-27 14:38 | Electrocardiograph Report ---
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
--- NOTE | 2021-01-27 14:39 | Electrocardiograph Report ---
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
== END 2021-01-23 16:30 ==
LOC: ED 15:13
DX: I46.9 Cardiac arrest, cause unspecified (principal); I13.0 Hypertensive heart and chronic kidney disease with heart failure and stage 1 through stage 4 chronic kidney disease, or unspecified chronic kidney disease; E11.22 Type 2 diabetes mellitus with diabetic chronic kidney disease; N18.9 Chronic kidney disease, unspecified; J45.909 Unspecified asthma, uncomplicated
CPT/HCPCS: 36556; 92950; 93005; 99291; J0171; J0282